=== PATIENT | male | born 1970 | race Two or more races ===

== ENCOUNTER 2020-05-08 08:43 | Emergency (ER) | payer OTHER, SELFPAY ==
[2020-05-08 08:54] VITALS: BP 129/78; PULSE 93; RESP 20; TEMP 38.3; O2SAT 91; BMI 23.6
[2020-05-08 08:58] VITALS: O2SAT 96
--- NOTE | 2020-05-08 09:32 | ED.GENADULT ---
HPI - General Adult General Chief complaint: General Medical Stated complaint: covid symptoms Time Seen by Provider: 05/08/20 09:32 History of Present Illness HPI narrative: patient complains of cough shortness of breath fever body aches fatigue for 3 days, he has a history of asthma, COPD and atelectasis and has had multiple admissions for prior pneumonia, he also complains of decreased sense of taste and no appetite for 2 days, symptoms are moderate Related Data Allergies Allergy/AdvReac Type Severity Reaction Status Date / Time clindamycin [Clindamycin] Allergy Severe SEVERE Verified 05/08/20 10:37 ITCHING Review of Systems Review of Systems: positive for cough shortness of breath fever body aches fatigue and loss of sense of taste Negatives are no headache no dizziness, no sore throat no nausea vomiting diarrhea no skin rash no calf pain or swelling, no leg swelling, no confusion, no urinary complaints no burning or frequency of urine PMFSH Past Medical History PMFSH Narrative: asthma/copd, multiple episode pneumonia in past, bronchiectasis, former smoker Medical History (Updated 05/08/20 @ 13:19 by DURGA Sanchez) Asthma Bronchiectasis Heartburn Social History Social History Smoked in Last 30 Days: No Use of substances other than those prescribed or required for medical reasons: No Advance Directives: No Advance Directives Information Provided: No Physical Exam Vital Signs: Vital Signs: Last Vital Signs Temp 99.5 F 05/08/20 11:25 Pulse 85 05/08/20 11:25 Resp 15 05/08/20 11:25 BP 110/65 05/08/20 11:25 Pulse Ox 97 05/08/20 11:25 Body Mass Index 23.6 patient with nasal cannula satting at 96% comfortable speaking full sentences no acute distress A&O x3 The eyes are clear not read no discharge The pharynx is clear with mucous membranes moist The neck is supple The chest is clear, no wheeze with full symmetric breath sounds Heart no murmur auscultated The abdomen is soft and nontender The extremities no edema, no calf swelling or tenderness Skin no rash Neuro no focal deficit Course Course Course Narrative: patient was positive for COVID With supplemental oxygen he is comfortable and O2 sats remain above 95% chest x-ray did not show any infiltrate or consolidation There was evidence of bronchiectasis, and stable calcifications in the right mid lung Labs came back initially with an elevated potassium of 5.7 which was repeated and 4.5 Case discussed with hospitalist and patient admitted for hypoxia and COVID Medical Decision Making Lab Data Lab results reviewed: Yes I reviewed the patient's lab results. Result diagrams: 05/08/20 09:26 05/08/20 11:29 Labs: Lab Results 05/08/20 05/08/20 05/08/20 Range/Units 09:26 09:26 09:26 WBC 8.0 (4.8-10.8) X10*3/uL RBC 5.00 (4.60-5.80) X10*6/uL Hgb 14.2 (14.0-18.0) g/dl Hct 42.2 (42-52) % MCV 84.4 (80-98) fL MCH 28.4 (27.0-33.0) pg MCHC 33.6 (31.0-36.0) g/dl RDW 12.9 (11.0-16.0) % Plt Count 276 (160-400) X10*3/uL MPV 9.4 (9.4-12.4) fL Immature Gran % (Auto) 0.1 (0.0-0.4) % Neut % (Auto) 62.9 (45-73) % Lymph % (Auto) 30.1 (20-40) % [place] % (Auto) 6.8 (2-11) % Eos % (Auto) 0.0 (0-4) % Baso % (Auto) 0.1 (0-2) % Lymph # (Auto) 2.4 (1.2-4.9) X10*3/uL [place] # (Auto) 0.6 (0.1-1.2) X10*3/uL Eos # (Auto) 0.0 (0.0-0.4) X10*3/uL Baso # (Auto) 0.0 (0.0-0.2) X10*3/uL Abs Immat Gran (auto) 0.01 (0.00-0.03) X10*3/uL Absolute Neuts (auto) 5.0 (2.0-8.3) X10*3/uL Absolute Nucleated RBC 0.000 (0.0-0.012) X10*3/uL Nucleated RBC % (auto) 0.0 (0.0-0.2) /100WBC PT 14.2 H (10.8-13.0) SEC INR 1.2 H (0.9-1.1) APTT 37.2 (24.1-38.0) SEC D-Dimer 255 NG/ML Sodium Cancelled Potassium Cancelled Chloride Cancelled Carbon Dioxide Cancelled Anion Gap Cancelled BUN Cancelled Creatinine Cancelled Estim Creat Clear Calc Cancelled Estimated GFR Cancelled Random Glucose Cancelled Lactic Acid (0.5-2.0) mmol/L Calcium Cancelled Phosphorus (2.7-4.5) mg/dL Ferritin (20-250) ng/mL Total Bilirubin Cancelled Direct Bilirubin Cancelled AST Cancelled ALT Cancelled Alkaline Phosphatase Cancelled Lactate Dehydrogenase (118-273) U/L Total Creatine Kinase (38-174) U/L C-Reactive Protein (< or = 0.50) mg/dL Total Protein Cancelled Albumin Cancelled Procalcitonin ng/mL Coronavirus (PCR) (Negative) Influenza Type A (PCR) (Negative) Influenza Type B (PCR) (Negative) RSV RNA Qual (PCR) (Negative) 05/08/20 05/08/20 05/08/20 Range/Units 09:26 10:17 10:17 WBC (4.8-10.8) X10*3/uL RBC (4.60-5.80) X10*6/uL Hgb (14.0-18.0) g/dl Hct (42-52) % MCV (80-98) fL MCH (27.0-33.0) pg MCHC (31.0-36.0) g/dl RDW (11.0-16.0) % Plt Count (160-400) X10*3/uL MPV (9.4-12.4) fL Immature Gran % (Auto) (0.0-0.4) % Neut % (Auto) (45-73) % Lymph % (Auto) (20-40) % [place] % (Auto) (2-11) % Eos % (Auto) (0-4) % Baso % (Auto) (0-2) % Lymph # (Auto) (1.2-4.9) X10*3/uL [place] # (Auto) (0.1-1.2) X10*3/uL Eos # (Auto) (0.0-0.4) X10*3/uL Baso # (Auto) (0.0-0.2) X10*3/uL Abs Immat Gran (auto) (0.00-0.03) X10*3/uL Absolute Neuts (auto) (2.0-8.3) X10*3/uL Absolute Nucleated RBC (0.0-0.012) X10*3/uL Nucleated RBC % (auto) (0.0-0.2) /100WBC PT (10.8-13.0) SEC INR (0.9-1.1) APTT (24.1-38.0) SEC D-Dimer NG/ML Sodium 130 L Potassium 5.7 H Chloride 96 Carbon Dioxide 23 Anion Gap 17 BUN 24 H Creatinine 1.52 H Estim Creat Clear Calc 57.4 Estimated GFR 49 Random Glucose 97 Lactic Acid 0.6 (0.5-2.0) mmol/L Calcium 8.8 Phosphorus 2.9 (2.7-4.5) mg/dL Ferritin 862 H (20-250) ng/mL Total Bilirubin 0.3 Direct Bilirubin < 0.2 AST 30 ALT 28 Alkaline Phosphatase 77 Lactate Dehydrogenase 149 (118-273) U/L Total Creatine Kinase 102 (38-174) U/L C-Reactive Protein 7.12 H (< or = 0.50) mg/dL Total Protein 7.7 Albumin 4.3 Procalcitonin 0.22 ng/mL Coronavirus (PCR) (Negative) Influenza Type A (PCR) (Negative) Influenza Type B (PCR) (Negative) RSV RNA Qual (PCR) (Negative) 05/08/20 05/08/20 Range/Units 11:18 11:29 WBC (4.8-10.8) X10*3/uL RBC (4.60-5.80) X10*6/uL Hgb (14.0-18.0) g/dl Hct (42-52) % MCV (80-98) fL MCH (27.0-33.0) pg MCHC (31.0-36.0) g/dl RDW (11.0-16.0) % Plt Count (160-400) X10*3/uL MPV (9.4-12.4) fL Immature Gran % (Auto) (0.0-0.4) % Neut % (Auto) (45-73) % Lymph % (Auto) (20-40) % [place] % (Auto) (2-11) % Eos % (Auto) (0-4) % Baso % (Auto) (0-2) % Lymph # (Auto) (1.2-4.9) X10*3/uL [place] # (Auto) (0.1-1.2) X10*3/uL Eos # (Auto) (0.0-0.4) X10*3/uL Baso # (Auto) (0.0-0.2) X10*3/uL Abs Immat Gran (auto) (0.00-0.03) X10*3/uL Absolute Neuts (auto) (2.0-8.3) X10*3/uL Absolute Nucleated RBC (0.0-0.012) X10*3/uL Nucleated RBC % (auto) (0.0-0.2) /100WBC PT (10.8-13.0) SEC INR (0.9-1.1) APTT (24.1-38.0) SEC D-Dimer NG/ML Sodium Potassium 4.5 D Chloride Carbon Dioxide Anion Gap BUN Creatinine Estim Creat Clear Calc Estimated GFR Random Glucose Lactic Acid (0.5-2.0) mmol/L Calcium Phosphorus (2.7-4.5) mg/dL Ferritin (20-250) ng/mL Total Bilirubin Direct Bilirubin AST ALT Alkaline Phosphatase Lactate Dehydrogenase (118-273) U/L Total Creatine Kinase (38-174) U/L C-Reactive Protein (< or = 0.50) mg/dL Total Protein Albumin Procalcitonin ng/mL Coronavirus (PCR) POSITIVE A (Negative) Influenza Type A (PCR) NEGATIVE (Negative) Influenza Type B (PCR) NEGATIVE (Negative) RSV RNA Qual (PCR) NEGATIVE (Negative) ECG Data Interpretation: EKG is normal sinus rhythm rate of 89 VT interval is normal QRS duration normal QTC normal, no acute ST changes Discharge Plan Discharge Clinical Impression: COVID-19, Hypoxia Patient Disposition: Admitted As Inpatient
[2020-05-08 09:35] LABS: Basophils Percent Auto 0.1 % (0-2); Hematocrit 42.2 % (42-52); Hemoglobin 14.2 g/dl (14.0-18.0); Imm Gran Abs Auto 0.01 X10*3/uL (0.00-0.03); Imm Gran Pct Auto 0.1 % (0.0-0.4); Lymphocytes Absolute Auto 2.4 X10*3/uL (1.2-4.9); Lymphocytes Percent Auto 30.1 % (20-40); Mean Corpuscular HGB Conc 33.6 g/dl (31.0-36.0); Mean Corpuscular Hemoglobin 28.4 pg (27.0-33.0); Mean Corpuscular Volume 84.4 fL (80-98); Mean Platelet Volume 9.4 fL (9.4-12.4); Monocytes Absolute Auto 0.6 X10*3/uL (0.1-1.2); Monocytes Percent Auto 6.8 % (2-11); Neutrophils Percent Auto 62.9 % (45-73); Platelet Count 276 X10*3/uL (160-400); Red Cell Distribution Width 12.9 % (11.0-16.0)
[2020-05-08 09:37] LABS: MANUAL DIFF FLAG NO
[2020-05-08 09:41] LABS: INTERNATIONAL NORM RATIO 1.2 (0.9-1.1); Prothrombin Time 14.2 SEC (10.8-13.0)
--- NOTE | 2020-05-08 09:41 | XR_ITS ---
EXAMINATION: XR CHEST CLINICAL INFORMATION: Cough. COMPARISON: Several priors. Most recent of 05/26/19. CT scan of 06/08/18. TECHNIQUE: Frontal view of the chest was obtained. FINDINGS: There is stable appearance of mild diffuse interstitial prominence. Prior CT scan showed bronchiectasis. Small calcifications in the right mid lung are consistent with calcified granulomas. No focal consolidation or other acute abnormality. The pleural spaces are clear. The heart and mediastinal structures are normal. Mild prominence of the right hilum is unchanged and likely vascular. XR/XR chest 1V IMPRESSION: Stable mild interstitial prominence consistent with bronchiectasis. Stable small calcifications right mid lung. No focal consolidation or other acute abnormality.
--- NOTE | 2020-05-08 09:42 | ECG_ITS ---
Test Reason : SOB Blood Pressure : / mmHG Vent. Rate : 089 BPM Atrial Rate : 089 BPM P-R Int : 176 ms QRS Dur : 094 ms QT Int : 350 ms P-R-T Axes : 053 025 043 degrees QTc Int : 425 ms Normal sinus rhythm Moderate voltage criteria for LVH, may be normal variant Borderline ECG When compared with ECG of 02-JUN-2018 21:42, No significant change was found Referred By: Isiah Cat Electronically Signed By:ELSA JONES MD
[2020-05-08 09:43] LABS: Partial Thromboplastin Time 37.2 SEC (24.1-38.0)
[2020-05-08 09:53] LABS: Lactic Acid 0.6 mmol/L (0.5-2.0)
[2020-05-08 10:17] LABS: D Dimer 255 NG/ML
[2020-05-08 10:31] VITALS: BP 120/74; PULSE 89; RESP 23; TEMP 38.1; O2SAT 95
[2020-05-08] MEDS: Acetaminophen 325 MG TABLET 650 MG PO (10:37)
[2020-05-08 10:58] LABS: Alanine Aminotransferase 28 U/L (0-40); Albumin Level 4.3 g/dL (3.5-5.0); Alkaline Phosphatase 77 U/L (39-117); Anion Gap 17 (12-20); Aspartate Amino Transferase 30 U/L (5-37); Bilirubin Direct < 0.2 mg/dL (0.0-0.5); Bilirubin Total 0.3 mg/dL (0.0-1.0); Blood Urea Nitrogen 24 mg/dL (9-16); C Reactive Protein 7.12 mg/dL (< or = 0.50); Calcium 8.8 mg/dL (8.4-10.2); Carbon Dioxide 23 mmol/L (22-29); Chloride 96 mmol/L (96-108); Creatinine Clr Calc Pharmacy 57.4; Estimated Glomerular Filt Rate 49; Glucose Random 97 mg/dL (60-115); Lactate Dehydrogenase 149 U/L (118-273); Phosphorus 2.9 mg/dL (2.7-4.5); Potassium 5.7 mmol/l (3.3-5.1); Sodium 130 mmol/L (135-145); Total Protein 7.7 g/dL (6.5-8.0)
[2020-05-08 11:14] LABS: Procalcitonin 0.22 ng/mL
[2020-05-08 11:19] LABS: Ferritin 862 ng/mL (20-250)
[2020-05-08 11:25] VITALS: BP 110/65; PULSE 85; RESP 15; TEMP 37.5; O2SAT 97
[2020-05-08 12:04] LABS: Potassium 4.5 mmol/l (3.3-5.1)
[2020-05-08 12:11] LABS: Influenza A PCR NEGATIVE (Negative); Influenza B PCR NEGATIVE (Negative); Resp Syncy Virus RNA Qual PCR NEGATIVE (Negative)
[2020-05-08 12:23] LABS: SARS COV2 PCR INHOUSE POSITIVE (Negative)
[2020-05-08] MEDS: dexAMETHasone sod phosphate 4 MG/ML VIAL 6 MG IV (13:41)
[2020-05-08 13:43] VITALS: BP 125/86; PULSE 87; RESP 18; TEMP 37.2; O2SAT 92
--- NOTE | 2020-05-08 13:54 | P.EN_ITS ---
Event Note Date of Service: 05/08/20 Event Note: Called by the ED to evaluate the patient for admission to [facility] for COVID 19. Patient seen and examined in the emergency room. Known to me personally from prior admission relating to his chronic lung disease. Patient reports fevers at home over the last several days. Reports no respiratory symptoms. No worsening of his chronic / intermittent cough. Reports no shortness of breath. Tells me because of his chronic lung disease and fevers he came here to make sure that he did not have pneumonia. He reports no known sick contacts, but does endorse that his brother goes in and out of the home and he is unsure what kind of precautions his brother takes. ED evaluation shows a CXR which is stable from his last admission. His COVID swab is positive and his inflammatory biomakers are elevated. On exam vitals - RR 16-18, saturation initially documented as 91 and started on O2 by NC. Oxygen discontinued while examining interviewing patient and remained from 92-95 on RA. Lungs are clear without any wheezing, no respiratory distress Discussed with the patient about hospital admission vs self-monitoring at home. Patient tells me that he has a pulse ox at home and will keep a close eye on his O2. Educated on watching his O2 and to return to the hospital if it drops and remains below 90 or also if he has worsening shortness of breath. He expresses understanding and elects to self monitor at home and return should he worsen. Above discussed with ED providers.
== END 2020-05-08 13:45 | disposition home or self-care (01) ==
PROVIDERS: Physician Assistant Medical; Emergency Provider Internal Medicine; PCP Family Medicine
DX: U07.1 COVID-19 (principal); R50.9 Fever, unspecified; R09.02 Hypoxemia; J44.9 Chronic obstructive pulmonary disease, unspecified; Z87.891 Personal history of nicotine dependence; Z79.899 Other long term (current) drug therapy
CPT/HCPCS: 0241U; 36415; 71045; 80048; 80076; 82550; 82728; 83605; 83615; 84100; 84132; 84145; 85025; 85379; 85610; 85730; 86140; 87040; 93005; 96374; 99284; J1100

== ENCOUNTER 2021-04-26 21:52 | Emergency (ER) | payer OTHER, SELFPAY ==
[2021-04-26 21:57] VITALS: BP 106/74; PULSE 116; RESP 18; TEMP 37.6; O2SAT 96; BMI 22.3
[2021-04-26 22:17] LABS: Strep A Nucleic Acid Negative (Negative)
[2021-04-26 22:46] LABS: Influenza A PCR NEGATIVE (Negative); Influenza B PCR NEGATIVE (Negative); Resp Syncy Virus RNA Qual PCR NEGATIVE (Negative); SARS COV2 PCR INHOUSE NEGATIVE (Negative)
== END 2021-04-26 22:47 | disposition left against medical advice (07) ==
PROVIDERS: Emergency Provider Emergency Medicine; PCP Family Medicine
DX: R05.9 Cough, unspecified (principal); J02.9 Acute pharyngitis, unspecified; Z20.822 Contact with and (suspected) exposure to COVID-19
CPT/HCPCS: 0241U; 36415; 87651; 99282; 99283

== ENCOUNTER 2021-05-04 16:51 | Emergency (ER) | payer OTHER, SELFPAY ==
--- NOTE | ~2021-05-04 | XR_ITS ---
EXAMINATION: XR CHEST CLINICAL INFORMATION: Cough COMPARISON: Chest x-ray on 05/08/2020 TECHNIQUE: Frontal view of the chest was obtained. FINDINGS: The cardiomediastinal silhouette is stable. There is increased hazy opacity in the right perihilar region. No additional areas consolidation. No pleural effusions. XR/XR chest 1V IMPRESSION: Increased hazy opacity in the right perihilar region may be infectious and/or inflammatory in etiology.
[2021-05-04 17:10] VITALS: BP 110/82; PULSE 100; RESP 18; TEMP 36.9; O2SAT 99; BMI 23.6
[2021-05-04 17:48] LABS: COVID-19 Test Negative (Negative)
--- NOTE | 2021-05-04 18:18 | ED_ITS ---
HPI - General Adult General Chief complaint: General Medical <DURGA Coon - Last Filed: 05/05/21 01:03> Stated complaint: back pain <DURGA Coon - Last Filed: 05/05/21 01:03> Time Seen by Provider: 05/04/21 17:20 <DURGA Coon - Last Filed: 05/05/21 01:03> Source: patient <DURGA Coon - Last Filed: 05/05/21 01:03> Mode of arrival: ambulatory <DURGA Coon - Last Filed: 05/05/21 01:03> History of Present Illness HPI narrative: 50-year-old male with a past medical history of asthma, bronchiectasis, GERD, presenting to the ED complaining of nonproductive cough and wheezing x1 week, now with bilateral low back pain x a couple days. Admits has been moving heavy furniture prior to back pain. Denies known injury/trauma or fall. Denies SOB, CP, fever/chills, numbness, tingling, weakness, radiation of pain, urinary incontinence/retention <DURGA Coon - Last Filed: 05/05/21 01:03> Onset (ago): week(s) <DURGA Coon - Last Filed: 05/05/21 01:03> Radiation: non-radiation <DURGA Coon - Last Filed: 05/05/21 01:03> Pain Consistency: constant <DURGA Coon - Last Filed: 05/05/21 01:03> Associated symptoms: denies other symptoms <DURGA Coon - Last Filed: 05/05/21 01:03> Related Data Home medications: Previous Rx's Medication Instructions Recorded albuterol sulfate 90 mcg/actuation 2 puff INHALATION Q4-6H PRN #8.5 g 05/08/20 aerosol inhaler dexamethasone 4 mg tablet 8 mg PO DAILY 9 Days #18 tab 05/08/20 (Decadron) doxycycline hyclate 100 mg capsule 100 mg PO BID 7 Days #14 cap 05/08/20 acetaminophen 500 mg tablet 500 mg PO Q6H PRN #20 tab 05/04/21 (Tylenol Extra Strength) amoxicillin 500 mg capsule 1,000 mg PO TID 7 Days #42 cap 05/04/21 azithromycin 250 mg tablet See Rx Instructions .ROUTE 05/04/21 .COMPLEX #6 tab cyclobenzaprine 5 mg tablet 5 mg PO Q8H PRN 5 Days #14 tab 05/04/21 fluticasone propionate 50 2 spray INTRANASAL DAILY #16 g 05/04/21 mcg/actuation nasal spray,suspension (Flonase Allergy Relief) lidocaine 5 % topical patch 1 patch TOPICAL DAILY PRN #30 ea 05/04/21 (Lidoderm) MDD remove after 12 hours naproxen 500 mg tablet 500 mg PO BID PRN 10 Days #20 tab 05/04/21 <DURGA Coon Last Filed: 05/05/21 01:03> Allergies/adverse reactions: Allergies Allergy/AdvReac Type Severity Reaction Status Date / Time clindamycin [Clindamycin] Allergy Severe SEVERE Verified 05/08/20 10:37 ITCHING <DURGA Coon Last Filed: 05/05/21 01:03> Review of Systems Review of Systems: Constitutional: No Fever, No Chills, No Fatigue, No Malaise ENT/Mouth: No Ear Pain, No Nasal Congestion, No sore throat, No Rhinorrhea, No Swallowing Difficulty Eyes: No Eye Pain, No Swelling, No Redness, No Discharge Cardiovascular: No Chest Pain, No SOB, No Edema, No Palpitations Respiratory: + Cough, No Sputum, + Wheezing, No Smoke Exposure, No Dyspnea Gastrointestinal: No Nausea, No Vomiting, No Diarrhea, No Constipation, No Abdominal pain Genitourinary: No Dysuria, No Urinary Frequency, No Hematuria, No urinary incontinence/retention Musculoskeletal: + joint pain, No Myalgias, No Joint Swelling Skin: No Skin Lesions, No rash Neuro: No Weakness, No Numbness, No Paresthesias, No Headache <DURGA Coon Last Filed: 05/05/21 01:03> Yes all other systems are reviewed and are negative <DURGA Coon Last Filed: 05/05/21 01:03> Neurologic: Denies Sensory deficit (Neuro) <DURGA Coon Last Filed: 05/05/21 01:03> [facility] Past Medical History Attestation statement: The following information was validated with the patient. <DURGA Coon Last Filed: 05/05/21 01:03> Medical History: Medical History Asthma Bronchiectasis Heartburn <DURGA Coon - Last Filed: 05/05/21 01:03> Social History Social History: Social History Patient Tobacco Use Status: Former Tobacco user Use of substances other than those prescribed or required for medical reasons: No Advance Directives: No Advance Directives Information Provided: Yes <DURGA Coon - Last Filed: 05/05/21 01:03> Physical Exam Vital Signs: Vital Signs: Last Vital Signs Temp 98.4 F 05/04/21 17:10 Pulse 99 05/04/21 20:49 Resp 18 05/04/21 20:26 BP 135/81 05/04/21 20:26 Pulse Ox 96 05/04/21 20:26 BMI result Body Mass Index 23.6 <DURGA Coon - Last Filed: 05/05/21 01:03> Vital Signs: Last Vital Signs Temp 98.4 F 05/04/21 17:10 Pulse 99 05/04/21 20:49 Resp 18 05/04/21 20:26 BP 135/81 05/04/21 20:26 Pulse Ox 96 05/04/21 20:26 BMI result Body Mass Index 23.6 <DURGA Sanchez - Last Filed: 05/20/21 14:16> Const: General: cooperative and healthy appearing <DURGA Coon - Last Filed: 05/05/21 01:03> Orientation/consciousness: patient oriented x3 <DURGA Coon - Last Filed: 05/05/21 01:03> Limitations: no limitations <DURGA Coon - Last Filed: 05/05/21 01:03> HENMT: Head: Yes normal to inspection and Yes atraumatic <DURGA Coon - Last Filed: 05/05/21 01:03> Ears: hearing grossly normal bilaterally <DURGA Coon - Last Filed: 05/05/21 01:03> General nose exam: Normal external nose present <DURGA Coon - Last Filed: 05/05/21 01:03> Face and sinus: Yes normal facial exam <Heidi Carpenter [place] - Last Filed: 05/05/21 01:03> Eyes: General: appearance normal, both eyes and all related structures <Heidi Carpenter [place] - Last Filed: 05/05/21 01:03> EOM: EOMs intact bilaterally <Heidineeta Carpenter [place] - Last Filed: 05/05/21 01:03> Neck: Neck: Yes normal visual inspection and Yes no meningeal signs <Heidi Carpenter MN - Last Filed: 05/05/21 01:03> Resp: Effort & Inspection: normal respiratory effort <Hedii Carpenter MN - Last Filed: 05/05/21 01:03> Auscultation: wheezes (Slight bibasilar end expiratory wheeze) <Heidi Carpenter MN - Last Filed: 05/05/21 01:03> Cardio: Rate: regular rate <Heidi Carpenter MN - Last Filed: 05/05/21 01:03> Heart sounds: S1 normal heart sound present and S2 normal heart sound present <Heidi Carpenter MN - Last Filed: 05/05/21 01:03> GI: Inspection: Yes normal to inspection <Heidi Carpenter [place] - Last Filed: 05/05/21 01:03> Palpation (GI): Soft to palpation, nontender, no guarding and not rigid <Heidi Carpenter MN - Last Filed: 05/05/21 01:03> : General: Yes no CVA tenderness <Heidi Carpenter [place] - Last Filed: 05/05/21 01:03> Back/Spine/Pelvis: Other: No midline thoracic/lumbar spinous tenderness/step- off or deformity. Bilateral lumbar MSK tenderness to palpation <Heidi Carpenter MN - Last Filed: 05/05/21 01:03> Back: no CVA tenderness <Heidi Carpenter PA - Last Filed: 05/05/21 01:03> Skin: Rashes: no rashes <Heidi Carpenter PA - Last Filed: 05/05/21 01:03> Wounds: no wounds <Heidi Carpenter MN - Last Filed: 05/05/21 01:03> Neuro: Other: No saddle anesthesia. Strength intact throughout. Ambulating with steady gait <DURGA Coon - Last Filed: 05/05/21 01:03> General: patient oriented x3, gait normal, tone normal, moves all extremities, no meningeal signs and no focal motor deficits <DURGA Coon - Last Filed: 05/05/21 01:03> Gait exam (Neuro): Normal gait present <DURGA Coon Last Filed: 05/05/21 01:03> Sensory Exam: No Sensory deficit (Neuro) <DURGA Coon - Last Filed: 05/05/21 01:03> Extrem: General: Yes normal to inspection <DURGA Coon - Last Filed: 05/05/21 01:03> Course Course Course Narrative: XR chest 1V IMPRESSION: Increased hazy opacity in the right perihilar region may be infectious and/or inflammatory in etiology. > labs added including lactic/blood cultures for low concern for severe sepsis at this time -2027--leukocytosis of 14.6. H&H around patient's baseline. Labs otherwise unremarkable. Lactic acid negative > patient does not meet severe sepsis criteria -COVID-19 negative > results discussed with patient including worrisome signs and symptoms and strict return precautions and need to follow-up with PCP. Given 1st dose of antibiotics in the ED <DURGA Coon Last Filed: 05/05/21 01:03> Medical Decision Making [facility] Narrative Medical decision making narrative: 50-year-old male with a past medical history of asthma, bronchiectasis, GERD, presenting to the ED complaining of nonproductive cough and wheezing x1 week, now with bilateral low back pain x a couple days. On exam vital signs stable, NAD/nontoxic, lungs with slight end expiratory bibasilar wheeze, MSK back pain elicited. No midline spinous tenderness or red flag symptoms. Concern for asthma exacerbation vs viral syndrome/COVID-19 vs pneumonia or bronchitis. Back pain likely musculoskeletal from moving furniture. Low concern for cauda equina, cord compression, or fracture Plan: CXR, COVID-19 testing <DURGA Coon Last Filed: 05/05/21 01:03> Medical Records Medical records reviewed: Yes I reviewed the patient's medical records. <DURGA Coon - Last Filed: 05/05/21 01:03> Lab Data Lab results reviewed: Yes I reviewed the patient's lab results. <DURGA Coon - Last Filed: 05/05/21 01:03> Result diagrams: : 05/04/21 19:42 05/04/21 19:42 <DURGA Coon - Last Filed: 05/05/21 01:03> Labs: Lab Results 05/04/21 05/04/21 05/04/21 Range/Units 17:14 19:41 19:42 WBC 14.6 H (4.8-10.8) X10*3/uL RBC 4.29 L (4.60-5.80) X10*6/uL Hgb 12.2 L (14.0-18.0) g/dl Hct 37.4 L (42.0-52.0) % MCV 87.2 (80.0-98.0) fL MCH 28.4 (27.0-33.0) pg MCHC 32.6 (31.0-36.0) g/dl RDW 14.6 (11.0-16.0) % Plt Count 405 H (160-400) X10*3/uL MPV 8.7 L (9.4-12.4) fL Immature Gran % (Auto) 0.5 H (0.0-0.4) % Neut % (Auto) 66.9 (45-73) % Lymph % (Auto) 24.9 (20-40) % [place] % (Auto) 5.8 (2-11) % Eos % (Auto) 1.5 (0-4) % Baso % (Auto) 0.4 (0-2) % Lymph # (Auto) 3.6 (1.2-4.9) X10*3/uL [place] # (Auto) 0.8 (0.1-1.2) X10*3/uL Eos # (Auto) 0.2 (0.0-0.4) X10*3/uL Baso # (Auto) 0.1 (0.0-0.2) X10*3/uL Abs Immat Gran (auto) 0.07 H (0.00-0.03) X10*3/uL Absolute Neuts (auto) 9.8 H (2.0-8.3) x10*3/uL Absolute Nucleated RBC 0.000 (0.0-0.012) X10*3/uL Nucleated RBC % (auto) 0.0 (0.0-0.2) /100WBC Sodium (135-145) mmol/L Potassium (3.3-5.1) mmol/L Chloride (96-108) mmol/L Carbon Dioxide (22-29) mmol/L Anion Gap (12-20) BUN (9-16) mg/dL Creatinine (0.5-1.4) mg/dL Estim Creat Clear Calc Estimated GFR Random Glucose (60-115) mg/dL Lactic Acid 0.8 (0.5-2.0) mmol/L Calcium (8.4-10.2) mg/dL Magnesium (1.6-2.6) mg/dL Total Bilirubin (0.0-1.0) mg/dL Direct Bilirubin (0.0-0.5) mg/dL AST (5-37) U/L ALT (0-40) U/L Alkaline Phosphatase (39-117) U/L Total Protein (6.5-8.0) g/dL Albumin (3.5-5.0) g/dL COVID-19 (STEPH) Negative (Negative) COVID-19 Clin Com See Note 05/04/21 Range/Units 19:42 WBC (4.8-10.8) X10*3/uL RBC (4.60-5.80) X10*6/uL Hgb (14.0-18.0) g/dl Hct (42.0-52.0) % MCV (80.0-98.0) fL MCH (27.0-33.0) pg MCHC (31.0-36.0) g/dl RDW (11.0-16.0) % Plt Count (160-400) X10*3/uL MPV (9.4-12.4) fL Immature Gran % (Auto) (0.0-0.4) % Neut % (Auto) (45-73) % Lymph % (Auto) (20-40) % [place] % (Auto) (2-11) % Eos % (Auto) (0-4) % Baso % (Auto) (0-2) % Lymph # (Auto) (1.2-4.9) X10*3/uL [place] # (Auto) (0.1-1.2) X10*3/uL Eos # (Auto) (0.0-0.4) X10*3/uL Baso # (Auto) (0.0-0.2) X10*3/uL Abs Immat Gran (auto) (0.00-0.03) X10*3/uL Absolute Neuts (auto) (2.0-8.3) x10*3/uL Absolute Nucleated RBC (0.0-0.012) X10*3/uL Nucleated RBC % (auto) (0.0-0.2) /100WBC Sodium 138 (135-145) mmol/L Potassium 4.3 (3.3-5.1) mmol/L Chloride 105 (96-108) mmol/L Carbon Dioxide 24 (22-29) mmol/L Anion Gap 13 (12-20) BUN 21 H (9-16) mg/dL Creatinine 1.12 (0.5-1.4) mg/dL Estim Creat Clear Calc 77.1 Estimated GFR > 60 Random Glucose 89 (60-115) mg/dL Lactic Acid (0.5-2.0) mmol/L Calcium 9.0 (8.4-10.2) mg/dL Magnesium 2.0 (1.6-2.6) mg/dL Total Bilirubin 0.3 (0.0-1.0) mg/dL Direct Bilirubin < 0.2 (0.0-0.5) mg/dL AST 17 D (5-37) U/L ALT 21 (0-40) U/L Alkaline Phosphatase 94 D (39-117) U/L Total Protein 7.5 (6.5-8.0) g/dL Albumin 4.1 (3.5-5.0) g/dL COVID-19 (STEPH) (Negative) COVID-19 Clin Com <DURGA Coon - Last Filed: 05/05/21 01:03> Lab Results 05/04/21 05/04/21 05/04/21 Range/Units 17:14 19:41 19:42 WBC 14.6 H (4.8-10.8) X10*3/uL RBC 4.29 L (4.60-5.80) X10*6/uL Hgb 12.2 L (14.0-18.0) g/dl Hct 37.4 L (42.0-52.0) % MCV 87.2 (80.0-98.0) fL MCH 28.4 (27.0-33.0) pg MCHC 32.6 (31.0-36.0) g/dl RDW 14.6 (11.0-16.0) % Plt Count 405 H (160-400) X10*3/uL MPV 8.7 L (9.4-12.4) fL Immature Gran % (Auto) 0.5 H (0.0-0.4) % Neut % (Auto) 66.9 (45-73) % Lymph % (Auto) 24.9 (20-40) % [place] % (Auto) 5.8 (2-11) % Eos % (Auto) 1.5 (0-4) % Baso % (Auto) 0.4 (0-2) % Lymph # (Auto) 3.6 (1.2-4.9) X10*3/uL [place] # (Auto) 0.8 (0.1-1.2) X10*3/uL Eos # (Auto) 0.2 (0.0-0.4) X10*3/uL Baso # (Auto) 0.1 (0.0-0.2) X10*3/uL Abs Immat Gran (auto) 0.07 H (0.00-0.03) X10*3/uL Absolute Neuts (auto) 9.8 H (2.0-8.3) x10*3/uL Absolute Nucleated RBC 0.000 (0.0-0.012) X10*3/uL Nucleated RBC % (auto) 0.0 (0.0-0.2) /100WBC Sodium (135-145) mmol/L Potassium (3.3-5.1) mmol/L Chloride (96-108) mmol/L Carbon Dioxide (22-29) mmol/L Anion Gap (12-20) BUN (9-16) mg/dL Creatinine (0.5-1.4) mg/dL Estim Creat Clear Calc Estimated GFR Random Glucose (60-115) mg/dL Lactic Acid 0.8 (0.5-2.0) mmol/L Calcium (8.4-10.2) mg/dL Magnesium (1.6-2.6) mg/dL Total Bilirubin (0.0-1.0) mg/dL Direct Bilirubin (0.0-0.5) mg/dL AST (5-37) U/L ALT (0-40) U/L Alkaline Phosphatase (39-117) U/L Total Protein (6.5-8.0) g/dL Albumin (3.5-5.0) g/dL COVID-19 (STEPH) Negative (Negative) COVID-19 Clin Com See Note 05/04/21 Range/Units 19:42 WBC (4.8-10.8) X10*3/uL RBC (4.60-5.80) X10*6/uL Hgb (14.0-18.0) g/dl Hct (42.0-52.0) % MCV (80.0-98.0) fL MCH (27.0-33.0) pg MCHC (31.0-36.0) g/dl RDW (11.0-16.0) % Plt Count (160-400) X10*3/uL MPV (9.4-12.4) fL Immature Gran % (Auto) (0.0-0.4) % Neut % (Auto) (45-73) % Lymph % (Auto) (20-40) % [place] % (Auto) (2-11) % Eos % (Auto) (0-4) % Baso % (Auto) (0-2) % Lymph # (Auto) (1.2-4.9) X10*3/uL [place] # (Auto) (0.1-1.2) X10*3/uL Eos # (Auto) (0.0-0.4) X10*3/uL Baso # (Auto) (0.0-0.2) X10*3/uL Abs Immat Gran (auto) (0.00-0.03) X10*3/uL Absolute Neuts (auto) (2.0-8.3) x10*3/uL Absolute Nucleated RBC (0.0-0.012) X10*3/uL Nucleated RBC % (auto) (0.0-0.2) /100WBC Sodium 138 (135-145) mmol/L Potassium 4.3 (3.3-5.1) mmol/L Chloride 105 (96-108) mmol/L Carbon Dioxide 24 (22-29) mmol/L Anion Gap 13 (12-20) BUN 21 H (9-16) mg/dL Creatinine 1.12 (0.5-1.4) mg/dL Estim Creat Clear Calc 77.1 Estimated GFR > 60 Random Glucose 89 (60-115) mg/dL Lactic Acid (0.5-2.0) mmol/L Calcium 9.0 (8.4-10.2) mg/dL Magnesium 2.0 (1.6-2.6) mg/dL Total Bilirubin 0.3 (0.0-1.0) mg/dL Direct Bilirubin < 0.2 (0.0-0.5) mg/dL AST 17 D (5-37) U/L ALT 21 (0-40) U/L Alkaline Phosphatase 94 D (39-117) U/L Total Protein 7.5 (6.5-8.0) g/dL Albumin 4.1 (3.5-5.0) g/dL COVID-19 (STEPH) (Negative) COVID-19 Clin Com <DURGA Sanchez - Last Filed: 05/20/21 14:16> Discharge Plan Discharge Clinical Impression: Pneumonia, Back pain <DURGA Coon - Last Filed: 05/05/21 01:03> Patient Disposition: Home, Self-Care <DURGA Coon - Last Filed: 05/05/21 01:03> Instructions: Acute Low Back Pain (ED), Pneumonia (ED) <DURGA Coon - Last Filed: 05/05/21 01:03> Additional Instructions: You have pneumonia. Amoxicillin and azithromycin are antibiotics please take as prescribed If you develop constant worsening shortness of breath, chest pain, fever unresolved with medications please return to the emergency department Your back pain is likely musculoskeletal Flexeril is a muscle relaxer, take at night as it makes you drowsy, do not drive, drink alcohol, or operate machinery while taking it Naproxen as an anti-inflammatory / pain medication, take with food Lidoderm patches are numbing patches, apply to painful area In addition take Tylenol at home If symptoms persist or worsen, pain becomes unbearable, you developed urinary retention or incontinence, or weakness return to the ED Please follow-up with your doctor <DURGA Coon - Last Filed: 05/05/21 01:03> Prescriptions: New amoxicillin 500 mg capsule 1,000 mg PO TID 7 Days Qty: 42 RF: 0 azithromycin 250 mg tablet See Rx Instructions .ROUTE .COMPLEX Qty: 6 RF: 0 acetaminophen [Tylenol Extra Strength] 500 mg tablet 500 mg PO Q6H PRN (Reason: pain or fever) Qty: 20 RF: 0 fluticasone propionate [Flonase Allergy Relief] 50 mcg/actuation spray,suspension 2 spray intranasal DAILY Qty: 16 RF: 0 naproxen 500 mg tablet 500 mg PO BID PRN (Reason: pain) 10 Days Qty: 20 RF: 0 cyclobenzaprine 5 mg tablet 5 mg PO Q8H PRN (Reason: pain (scale score 7-10)) 5 Days Qty: 14 RF: 0 lidocaine [Lidoderm] 5 % adhesive patch,medicated 1 patch topical DAILY MDD remove after 12 hours PRN (Reason: pain) Qty: 30 RF: 0 No Action dexamethasone [Decadron] 4 mg tablet 8 mg PO DAILY 9 Days Qty: 18 RF: 0 doxycycline hyclate 100 mg capsule 100 mg PO BID 7 Days Qty: 14 RF: 0 albuterol sulfate 90 mcg/actuation HFA aerosol inhaler 2 puff inhalation Q4-6H PRN (Reason: shortness of breath or wheezing) Qty: 8.5 RF: 0 <DURGA Coon - Last Filed: 05/05/21 01:03> Referrals: Physician,Unknown J [Primary Care Provider] - 2 days <DURGA Coon - Last Filed: 05/05/21 01:03> Stand Alone Forms: Work/School Release <DURGA Coon - Last Filed: 05/05/21 01:03> Interventions: ED Discharge Assessment Last Done: 05/04/21 21:06 <DURGA Coon - Last Filed: 05/05/21 01:03> Discharge Date/Time: 05/04/21 21:06 <DURGA Coon - Last Filed: 05/05/21 01:03>
[2021-05-04 18:46] VITALS: BP 130/78; PULSE 96; RESP 18; O2SAT 95
[2021-05-04 19:48] LABS: MANUAL DIFF FLAG NO
[2021-05-04 19:49] LABS: Basophils Absolute Auto 0.1 X10*3/uL (0.0-0.2); Basophils Percent Auto 0.4 % (0-2); Eosinophils Absolute Auto 0.2 X10*3/uL (0.0-0.4); Eosinophils Percent Auto 1.5 % (0-4); Hematocrit 37.4 % (42.0-52.0); Hemoglobin 12.2 g/dl (14.0-18.0); Imm Gran Abs Auto 0.07 X10*3/uL (0.00-0.03); Imm Gran Pct Auto 0.5 % (0.0-0.4); Lymphocytes Absolute Auto 3.6 X10*3/uL (1.2-4.9); Lymphocytes Percent Auto 24.9 % (20-40); Mean Corpuscular HGB Conc 32.6 g/dl (31.0-36.0); Mean Corpuscular Hemoglobin 28.4 pg (27.0-33.0); Mean Corpuscular Volume 87.2 fL (80.0-98.0); Mean Platelet Volume 8.7 fL (9.4-12.4); Monocytes Absolute Auto 0.8 X10*3/uL (0.1-1.2); Monocytes Percent Auto 5.8 % (2-11); Neutrophils Absolute Auto 9.8 x10*3/uL (2.0-8.3); Neutrophils Percent Auto 66.9 % (45-73); Platelet Count 405 X10*3/uL (160-400); Red Blood Count 4.29 X10*6/uL (4.60-5.80); Red Cell Distribution Width 14.6 % (11.0-16.0); White Blood Count 14.6 X10*3/uL (4.8-10.8)
[2021-05-04 19:57] LABS: Lactic Acid 0.8 mmol/L (0.5-2.0)
[2021-05-04 20:04] LABS: Alanine Aminotransferase 21 U/L (0-40); Albumin Level 4.1 g/dL (3.5-5.0); Alkaline Phosphatase 94 U/L (39-117); Anion Gap 13 (12-20); Aspartate Amino Transferase 17 U/L (5-37); Bilirubin Direct < 0.2 mg/dL (0.0-0.5); Bilirubin Total 0.3 mg/dL (0.0-1.0); Blood Urea Nitrogen 21 mg/dL (9-16); Carbon Dioxide 24 mmol/L (22-29); Chloride 105 mmol/L (96-108); Creatinine Clr Calc Pharmacy 77.1; Estimated Glomerular Filt Rate > 60; Glucose Random 89 mg/dL (60-115); Potassium 4.3 mmol/L (3.3-5.1); Sodium 138 mmol/L (135-145); Total Protein 7.5 g/dL (6.5-8.0)
[2021-05-04] MEDS: Benzonatate 100 MG CAPSULE 200 MG PO (20:23)
[2021-05-04] MEDS: Cyclobenzaprine HCl 5 MG TABLET PO (20:23)
[2021-05-04] MEDS: Lidocaine 4 % Patch ADH..PATCH 1 PATCH TRANSDERMA (20:24)
[2021-05-04 20:26] VITALS: BP 135/81; PULSE 97; RESP 18; O2SAT 96
[2021-05-04] MEDS: Albuterol/Iprat 2.5/0.5MG 3 ML AMPUL.NEB INHALE (20:46)
[2021-05-04 20:49] VITALS: PULSE 99; O2SAT 96
[2021-05-04] MEDS: Azithromycin 500 MG TABLET PO (21:03)
[2021-05-04] MEDS: Amoxicillin 500 MG CAPSULE 1000 MG PO (21:03)
== END 2021-05-04 21:06 | disposition home or self-care (01) ==
PROVIDERS: Physician Assistant; Emergency Provider Emergency Medicine
DX: J18.9 Pneumonia, unspecified organism (principal); M54.50 Low back pain, unspecified; Z20.822 Contact with and (suspected) exposure to COVID-19
CPT/HCPCS: 36415; 71045; 80048; 80076; 83605; 83735; 85025; 87040; 87635; 94640; 99284

== ENCOUNTER 2021-06-16 17:31 | Emergency (ER) | payer OTHER, SELFPAY ==
--- NOTE | ~2021-06-16 | XR_ITS ---
EXAMINATION: XR CHEST CLINICAL INFORMATION: Shortness of breath, chest tightness COMPARISON: Chest x-ray on 05/04/2021 TECHNIQUE: Frontal view of the chest was obtained. FINDINGS: The cardiomediastinal silhouette is stable. There is increased opacity at the right perihilar region with mild diffuse bronchial wall thickening. No pleural effusions or pneumothoraces. XR/XR chest 1V IMPRESSION: Right perihilar opacity and mild bronchial wall thickening may be infectious and/or inflammatory in etiology.
[2021-06-16 17:38] VITALS: BP 139/96; PULSE 105; RESP 18; TEMP 37.2; O2SAT 96; BMI 23.6
[2021-06-16 18:18] LABS: COVID-19 Test Negative (Negative); IDNOW Serial# 9DD0AD1C
[2021-06-16 18:33] VITALS: BP 138/80; PULSE 98; RESP 20; O2SAT 98
--- NOTE | 2021-06-16 18:54 | ED.ASTHMA ---
HPI - Asthma General Chief Complaint: Asthma Stated Complaint: body aches, chest wall pain Time Seen by Provider: 06/16/21 18:36 Source: patient Mode of arrival: ambulatory Limitations: no limitations History of Present Illness HPI Narrative: 50-year-old male with a history of asthma here with reports of chest tightness with cough for 1 week. Patient also having chills but denies any fever. Occasionally have so C8 wheezing but no shortness of breath. No leg swelling or pain. No recent travel or sick contact. Patient has received Moderna vaccine x2 and has previously had COVID-19 infection. Related Data Previous Rx's Medication Instructions Recorded albuterol sulfate 90 mcg/actuation 2 puff INHALATION Q4-6H PRN #8.5 g 05/08/20 aerosol inhaler dexamethasone 4 mg tablet 8 mg PO DAILY 9 Days #18 tab 05/08/20 (Decadron) doxycycline hyclate 100 mg capsule 100 mg PO BID 7 Days #14 cap 05/08/20 acetaminophen 500 mg tablet 500 mg PO Q6H PRN #20 tab 05/04/21 (Tylenol Extra Strength) amoxicillin 500 mg capsule 1,000 mg PO TID 7 Days #42 cap 05/04/21 azithromycin 250 mg tablet See Rx Instructions .ROUTE 05/04/21 .COMPLEX #6 tab cyclobenzaprine 5 mg tablet 5 mg PO Q8H PRN 5 Days #14 tab 05/04/21 fluticasone propionate 50 2 spray INTRANASAL DAILY #16 g 05/04/21 mcg/actuation nasal spray,suspension (Flonase Allergy Relief) lidocaine 5 % topical patch 1 patch TOPICAL DAILY PRN #30 ea 05/04/21 (Lidoderm) MDD remove after 12 hours naproxen 500 mg tablet 500 mg PO BID PRN 10 Days #20 tab 05/04/21 albuterol sulfate 90 mcg/actuation 2 puff INHALATION QID PRN #8.5 g 06/16/21 aerosol inhaler codeine 10 mg-guaifenesin 100 mg/5 5 ml PO Q6H PRN #60 ml 06/16/21 mL oral liquid doxycycline monohydrate 100 mg 100 mg PO BID #14 tab 06/16/21 tablet prednisone 20 mg tablet 40 mg PO DAILY #8 tab 06/16/21 Allergies Allergy/AdvReac Type Severity Reaction Status Date / Time clindamycin [Clindamycin] Allergy Severe SEVERE Verified 12/06/20 10:37 ITCHING Review of Systems Review of Systems: Yes all other systems are reviewed and are negative Constitutional: Constitutional: Reports no additional constitutional complaints, Denies body ache(s), Reports chills, Denies fever(s), Denies headache(s) and Denies weakness Eyes: Eyes: Reports no additional eye complaints and Denies change in vision ENT: Reports system reviewed and no additional complaints, except as documented, Denies dizziness, Denies headache(s), Denies nasal congestion, Denies nasal discharge and Denies neck pain Cardiovascular: Cardiovascular: Reports no additional cardiovascular complaints, Reports chest pain, Denies leg edema and Denies dyspnea Respiratory: Respiratory: Reports no additional respiratory complaints, Reports cough, Denies dyspnea and Reports wheezing Gastrointestinal: Gastrointestinal: Reports no additional gastrointestinal complaints, Denies abdominal pain, Denies diarrhea, Denies nausea and Denies vomiting Genitourinary: Genitourinary: Denies urinary incontinence Musculoskeletal: Musculoskeletal: Reports no additional musculoskeletal complaints, Denies back pain, Denies arthralgias, Denies joint swelling, Denies neck pain, Denies numbness and Denies tingling Integumentary/Breasts: Skin/Breast: Reports system reviewed and no additional complaints, except as docu and Denies rash Neurologic: Reports system reviewed and no additional complaints, except as documented, Denies Abnormal speech present, Denies dizziness, Denies headache(s), Denies numbness, Denies tingling and Denies weakness Allergic/Immunologic: Allergic/Immunologic: Reports wheezing PMFSH Past Medical History Attestation statement: The following information was validated with the patient. Source: old records reviewed and nursing notes reviewed Medical History Asthma Bronchiectasis Heartburn Social History Social History Patient Tobacco Use Status: Former Tobacco user Advance Directives: No Advance Directives Information Provided: No Physical Exam Vital Signs: Vital Signs: Last Vital Signs Temp 98.9 F 06/16/21 17:38 Pulse 98 06/16/21 18:33 Resp 20 06/16/21 18:33 BP 138/80 06/16/21 18:33 Pulse Ox 98 06/16/21 18:33 BMI result Body Mass Index 23.6 Const: General: cooperative, healthy appearing, comfortable and no acute distress Orientation/consciousness: patient oriented x3 Limitations: no limitations HENMT: Head: Yes normal to inspection Ears: hearing grossly normal bilaterally General nose exam: Normal external nose present Face and sinus: Yes normal facial exam Mouth: Normal oral and palatal mucosa present Throat: Yes posterior oropharynx normal Eyes: General: appearance normal, both eyes and all related structures Pupils: Equal, round and reactive pupils present Neck: Neck: Yes normal visual inspection Chest: Chest palpation & inspection: normal inspection of the chest Resp: Other: Diminished breath sounds throughout Effort & Inspection: normal respiratory effort Cardio: Rate: regular rate Rhythm: regular rhythm Peripheral pulses: Peripheral pulses 2+ throughout GI: Inspection: Yes normal to inspection Palpation (GI): Soft to palpation and nontender Auscultation: normal bowel sounds Back/Spine/Pelvis: Thoracic/Lumbar Spine: thoracic and lumbar spine normal to inspection Skin: General skin exam: no rashes or lesions noted Neuro: General: patient oriented x3, no focal motor deficits and normal sensation to monofilament Cranial nerves: Yes Equal, round and reactive pupils present Cognition (Neuro): normal cognition Speech: No Abnormal speech present Gait exam (Neuro): Normal gait present Motor exam (neuro): 5/5 motor strength present throughout Extrem: General: Yes normal to inspection, Yes no pedal edema and Yes no calf tenderness Course Course Course Narrative: 50-year-old male with a history of asthma here with reports of chest tightness with associated nonproductive cough and wheezing for 1 week. COVID screen is negative. Chest x-ray shows a right lobe pneumonia. The patient has no hypoxia or tachypnea. He has diminished breath sounds throughout. Will give DuoNeb. Will discharge patient home on prednisone course, antibiotic, albuterol inhaler and cough medication. Reviewed worrisome signs and symptoms of when to return to the emergency department. Comfortable discharge home. [facility] - Asthma Medical Records Attestation: I reviewed the patient's medical records. Lab Data Attestation: I reviewed the patient's lab results. Labs: Lab Results 06/16/21 Range/Units 17:43 COVID-19 (STEPH) Negative (Negative) COVID-19 Clin Com See Note Imaging Data Chest x-ray: Attestation: I personally reviewed and interpreted this imaging study as follows: Radiologist's impression: [id number] [place] [address] XRay Report Signed Patient: Feliciano David MR#: [id number] : 1970 Acct:[id number] Age/Sex: 50 / M ADM Date: 06/16/21 Loc: .ED Attending Dr: Ordering Physician: Generic ED Physician Date of Service: 06/16/21 Procedure(s): XR chest 1V Accession Number(s): [id number] cc: Generic ED Physician~ EXAMINATION: XR CHEST CLINICAL INFORMATION: Shortness of breath, chest tightness COMPARISON: Chest x-ray on 05/04/2021 TECHNIQUE: Frontal view of the chest was obtained. FINDINGS: The cardiomediastinal silhouette is stable. There is increased opacity at the right perihilar region with mild diffuse bronchial wall thickening. No pleural effusions or pneumothoraces. XR/XR chest 1V IMPRESSION: Right perihilar opacity and mild bronchial wall thickening may be infectious and/or inflammatory in etiology. ? Discharge Plan Discharge Clinical Impression: Asthma with acute exacerbation, Pneumonia Patient Disposition: Home, Self-Care Instructions: Asthma (ED), Pneumonia (ED) Additional Instructions: Start antibiotics/prednisone tomorrow Increase fluids, rest Prescriptions: New doxycycline monohydrate 100 mg tablet 100 mg PO BID Qty: 14 RF: 0 prednisone 20 mg tablet 40 mg PO DAILY Qty: 8 RF: 0 albuterol sulfate 90 mcg/actuation HFA aerosol inhaler 2 puff inhalation QID PRN (Reason: shortness of breath or wheezing) Qty: 8.5 RF: 0 codeine-guaifenesin 10-100 mg/5 mL liquid 5 ml PO Q6H PRN (Reason: cough) Qty: 60 RF: 0 No Action dexamethasone [Decadron] 4 mg tablet 8 mg PO DAILY 9 Days Qty: 18 RF: 0 doxycycline hyclate 100 mg capsule 100 mg PO BID 7 Days Qty: 14 RF: 0 albuterol sulfate 90 mcg/actuation HFA aerosol inhaler 2 puff inhalation Q4-6H PRN (Reason: shortness of breath or wheezing) Qty: 8.5 RF: 0 amoxicillin 500 mg capsule 1,000 mg PO TID 7 Days Qty: 42 RF: 0 azithromycin 250 mg tablet See Rx Instructions .ROUTE .COMPLEX Qty: 6 RF: 0 acetaminophen [Tylenol Extra Strength] 500 mg tablet 500 mg PO Q6H PRN (Reason: pain or fever) Qty: 20 RF: 0 fluticasone propionate [Flonase Allergy Relief] 50 mcg/actuation spray,suspension 2 spray intranasal DAILY Qty: 16 RF: 0 naproxen 500 mg tablet 500 mg PO BID PRN (Reason: pain) 10 Days Qty: 20 RF: 0 cyclobenzaprine 5 mg tablet 5 mg PO Q8H PRN (Reason: pain (scale score 7-10)) 5 Days Qty: 14 RF: 0 lidocaine [Lidoderm] 5 % adhesive patch,medicated 1 patch topical DAILY MDD remove after 12 hours PRN (Reason: pain) Qty: 30 RF: 0 Referrals: Genevieve Lama DO [Primary Care Provider] - 2 days Interventions: ED Discharge Assessment Last Done: 06/16/21 19:39 Discharge Date/Time: 06/16/21 19:41
[2021-06-16] MEDS: Albuterol/Iprat 2.5/0.5MG 3 ML AMPUL.NEB INHALE (18:55)
[2021-06-16] MEDS: predniSONE 20 MG TABLET 60 MG PO (19:05)
== END 2021-06-16 19:41 | disposition home or self-care (01) ==
PROVIDERS: Emergency Provider Internal Medicine; PCP Family Medicine
DX: J18.9 Pneumonia, unspecified organism (principal); J45.901 Unspecified asthma with (acute) exacerbation; M79.10 Myalgia, unspecified site; R07.89 Other chest pain; Z20.822 Contact with and (suspected) exposure to COVID-19; Z79.899 Other long term (current) drug therapy
CPT/HCPCS: 71045; 87635; 99283; 99284

== ENCOUNTER 2021-06-20 20:40 | Inpatient (IN) | payer OTHER, SELFPAY ==
--- NOTE | ~2021-06-20 | XR_ITS ---
EXAMINATION: XR CHEST CLINICAL INFORMATION: Cough and shortness of breath. COMPARISON: Chest x-ray 06/16/2021 TECHNIQUE: 2 views of the chest were obtained. FINDINGS: Cardiac silhouette is normal in size. Similar prominent right perihilar masslike opacity. The lungs are otherwise well aerated. No pleural effusion or pneumothorax. Degenerative changes of the spine. XR/XR chest 2V IMPRESSION: Persistent right perihilar masslike opacity. Chest CT is recommended for further characterization of this finding.
--- NOTE | ~2021-06-20 | CT_ITS ---
EXAMINATION: CT ANGIOGRAM OF THE CHEST WITH AND WITHOUT CONTRAST (CT PULMONARY ANGIOGRAM FOR PE) CLINICAL INFORMATION: Shortness of breath COMPARISON: Radiograph 06/20/2021. CT 06/08/2018 TECHNIQUE: Prior to contrast administration, noncontrast localization images were obtained. Subsequently, multidetector volumetric imaging was performed from the thoracic inlet to below the diaphragms following the administration of 65 mL Omnipaque 350 intravenous contrast. No contrast reaction reported Sagittal, coronal, and MIP oblique sagittal reformatted images were obtained on the CT workstation, uploaded to PACS, and reviewed. This CT examination was performed using dose optimization techniques as appropriate, variously including the following: *Automated exposure control *Adjustment of mA and/or kV according to patient size (this includes techniques or standardized protocols for targeted exams where dose is matched to indication/reason for exam; i.e. extremities or head) *Use of iterative reconstruction technique Total exam dose-length product 292 mGy-cm FINDINGS: QUALITY OF STUDY/CONTRAST BOLUS: Satisfactory. PULMONARY ARTERIES: No central or segmental pulmonary emboli. THORACIC AORTA: No aneurysm or dissection. LUNG: The central airways are patent. Bronchiectasis throughout the right lung, particularly in the upper lobe with bronchial wall thickening. There is a central right lower lobe consolidation abutting the mediastinal pleura. Soft tissue density extends to the hilar region, surrounding the bronchi. Patchy consolidative opacity seen posteriorly in the right lower lobe. Subtle groundglass opacity in the left lower lobe noted. No pneumothorax. No pleural effusion. MEDIASTINUM: Normal heart size. No pericardial effusion. Soft tissue density in the right hilar region. No separate mediastinal adenopathy. No evidence of septal bowing or right heart strain. CHEST WALL/AXILLA: No axillary or internal mammary lymphadenopathy. OSSEOUS STRUCTURES: No acute or suspicious osseous abnormality. Mild degenerative changes of the spine. UPPER ABDOMEN: Unremarkable. No reflux of contrast into the hepatic veins to suggest elevated right heart pressures. CT/CT angio chest PE protocol IMPRESSION: 1. No pulmonary embolism. 2. Chronic changes in the lungs with bronchiectasis and bronchial wall thickening. 3. Central right lower lobe masslike consolidation along the mediastinal pleural margin. While this could represent pneumonia, there appears to be soft tissue density surrounding the bronchi. This may be reactive lymphoid tissue, although neoplastic process is not excluded. 4. Additional groundglass left lower lobe opacities and subtle nodular opacities in the posterior right lower lobe are likely infectious in nature. VTE: negative
[2021-06-20 20:44] VITALS: BP 126/82; PULSE 112; RESP 22; TEMP 37.7; O2SAT 97; BMI 22.1
[2021-06-20 21:14] LABS: COVID-19 Test Negative (Negative); IDNOW Serial# 55D5AD1C
[2021-06-20 23:17] VITALS: PULSE 120; RESP 40; O2SAT 94
--- NOTE | 2021-06-20 23:18 | PC.NURSE ---
pt sat 94% with rr 40, chest is feeling tighter. charge made aware.
[2021-06-21] VITALS (9 sets, daily range): BP systolic 104–110; BP diastolic 65–74; PULSE 85–112; RESP 15–25; TEMP 36.6; O2SAT 94–99
--- NOTE | 2021-06-21 02:10 | ECG_ITS ---
Test Reason : SOB Blood Pressure : / mmHG Vent. Rate : 107 BPM Atrial Rate : 107 BPM P-R Int : 156 ms QRS Dur : 088 ms QT Int : 320 ms P-R-T Axes : 043 020 042 degrees QTc Int : 427 ms Sinus tachycardia Possible Left atrial enlargement Left ventricular hypertrophy ( Sokolow-Yanez , Romhilt-Grullon ) Abnormal ECG When compared with ECG of 08-MAY-2020 09:52, No significant change was found Referred By: Shanell Sherman Electronically Signed By:Dennys Kirkpatrick
--- NOTE | 2021-06-21 02:10 | ED.URI ---
HPI - URI/Sore Throat General Chief Complaint: Upper Respiratory Symptoms Stated Complaint: Pneumonia Time Seen by Provider: 06/20/21 21:31 History of Present Illness HPI Narrative: Patient is a 50-year-old male presented with coughing upper respiratory symptoms this been ongoing for weeks. Had his coronavirus vaccine x2 doses. No booster. Positive coughing positive shortness of breath. Positive generalized malaise. Cough nonproductive in nature. Related Data Previous Rx's Medication Instructions Recorded albuterol sulfate 90 mcg/actuation 2 puff INHALATION Q4-6H PRN #8.5 g 05/08/20 aerosol inhaler dexamethasone 4 mg tablet 8 mg PO DAILY 9 Days #18 tab 05/08/20 (Decadron) doxycycline hyclate 100 mg capsule 100 mg PO BID 7 Days #14 cap 05/08/20 acetaminophen 500 mg tablet 500 mg PO Q6H PRN #20 tab 05/04/21 (Tylenol Extra Strength) amoxicillin 500 mg capsule 1,000 mg PO TID 7 Days #42 cap 05/04/21 azithromycin 250 mg tablet See Rx Instructions .ROUTE 05/04/21 .COMPLEX #6 tab cyclobenzaprine 5 mg tablet 5 mg PO Q8H PRN 5 Days #14 tab 05/04/21 fluticasone propionate 50 2 spray INTRANASAL DAILY #16 g 05/04/21 mcg/actuation nasal spray,suspension (Flonase Allergy Relief) lidocaine 5 % topical patch 1 patch TOPICAL DAILY PRN #30 ea 05/04/21 (Lidoderm) MDD remove after 12 hours naproxen 500 mg tablet 500 mg PO BID PRN 10 Days #20 tab 05/04/21 albuterol sulfate 90 mcg/actuation 2 puff INHALATION QID PRN #8.5 g 06/16/21 aerosol inhaler codeine 10 mg-guaifenesin 100 mg/5 5 ml PO Q6H PRN #60 ml 06/16/21 mL oral liquid doxycycline monohydrate 100 mg 100 mg PO BID #14 tab 06/16/21 tablet prednisone 20 mg tablet 40 mg PO DAILY #8 tab 06/16/21 Allergies Allergy/AdvReac Type Severity Reaction Status Date / Time clindamycin [Clindamycin] Allergy Severe SEVERE Verified 05/08/20 10:37 ITCHING Review of Systems Review of Systems: No fever no chills positive coughing positive shortness of breath positive generalized malaise positive increased respiratory rate Yes all other systems are reviewed and are negative [facility] Past Medical History Attestation statement: The following information was validated with the patient. Medical History Asthma Bronchiectasis Heartburn Social History Social History Patient Tobacco Use Status: Former Tobacco user Advance Directives: No Physical Exam Vital Signs: Vital Signs: Last Vital Signs Temp 99.9 F 06/20/21 20:44 Pulse 106 H 06/21/21 02:32 Resp 16 06/21/21 02:32 BP 108/66 06/21/21 02:11 Pulse Ox 95 06/21/21 02:11 BMI result Body Mass Index 22.1 Appearance: Alert. Oriented X3. No acute distress. Eyes: Pupils equal, round and reactive to light. ENT: Pharynx normal. Neck: Normal inspection. Neck supple. No lymph nodes noted. No crepitus CVS: Normal heart rate and rhythm. Pulses normal. Normal S1 and S2 Respiratory: No respiratory distress. Positive expiratory wheezing noted. Positive increased respiratory rate Abdomen: Soft and nontender. No rigidity. No distention. good BS x4 Skin: Skin warm and dry. Normal skin color. Normal skin turgor. Extremities: No lower extremity edema. Neurovascular intact to all extremities. No Lacerations. No Rash Neuro: Oriented X 3. No motor deficit. No sensory deficit. Moving all extermities. No slurred speech MDM - URI/Sore Throat MDM Narrative Medical decision making narrative: Patient CT scan of the lungs were negative for any evidence of pulmonary emboli. There is chronic changes consistent with bronchiectasis. There is a right central right lower lobe mass consolidation question pneumonia. Patient has been on antibiotics. Continued to be coughing upper respiratory symptoms failed outpatient treatment. Will start patient on Rocephin azithromycin. Will admit patient for further evaluation. Patient's COVID test was negative. Currently in stable condition awaiting admissions. White count was elevated 23 Differential Diagnosis Differential diagnosis: Likely upper respiratory infection Medical Records Attestation: I reviewed the patient's medical records. Lab Data Attestation: I reviewed the patient's lab results. Result diagrams: 06/21/21 02:20 06/21/21 02:20 Labs: Lab Results 06/20/21 06/21/21 06/21/21 Range/Units 20:52 02:20 02:20 WBC 23.9 H (4.8-10.8) X10*3/uL RBC 4.19 L (4.60-5.80) X10*6/uL Hgb 12.1 L (14.0-18.0) g/dl Hct 36.2 L (42.0-52.0) % MCV 86.4 (80.0-98.0) fL MCH 28.9 (27.0-33.0) pg MCHC 33.4 (31.0-36.0) g/dl RDW 14.1 (11.0-16.0) % Plt Count 470 H (160-400) X10*3/uL MPV 8.9 L (9.4-12.4) fL Immature Gran % (Auto) 0.5 H (0.0-0.4) % Neut % (Auto) 78.3 H (45-73) % Lymph % (Auto) 13.7 L (20-40) % Bates % (Auto) 7.0 (2-11) % Eos % (Auto) 0.2 (0-4) % Baso % (Auto) 0.3 (0-2) % Lymph # (Auto) 3.3 (1.2-4.9) X10*3/uL Bates # (Auto) 1.7 H (0.1-1.2) X10*3/uL Eos # (Auto) 0.0 (0.0-0.4) X10*3/uL Baso # (Auto) 0.1 (0.0-0.2) X10*3/uL Abs Immat Gran (auto) 0.12 H (0.00-0.03) X10*3/uL Absolute Neuts (auto) 18.7 H (2.0-8.3) x10*3/uL Absolute Nucleated RBC 0.000 (0.0-0.012) X10*3/uL Nucleated RBC % (auto) 0.0 (0.0-0.2) /100WBC Smear Tech's Comments VERIFIED D-Dimer High Sensitivty NG/ML Sodium 138 (135-145) mmol/L Potassium 4.2 (3.3-5.1) mmol/L Chloride 103 (96-108) mmol/L Carbon Dioxide 24 (22-29) mmol/L Anion Gap 15 (12-20) BUN 22 H (9-16) mg/dL Creatinine 1.12 (0.5-1.4) mg/dL Estim Creat Clear Calc 74.2 Estimated GFR > 60 Random Glucose 119 H (60-115) mg/dL Calcium 9.2 (8.4-10.2) mg/dL Total Bilirubin 0.6 (0.0-1.0) mg/dL Direct Bilirubin 0.3 (0.0-0.5) mg/dL AST 33 D (5-37) U/L ALT 80 H (0-40) U/L Alkaline Phosphatase 104 (39-117) U/L Troponin I High Sens (<3.5-35.0) ng/L B-Natriuretic Peptide (<100) pg/mL Total Protein 7.4 (6.5-8.0) g/dL Albumin 3.8 (3.5-5.0) g/dL COVID-19 (STEPH) Negative (Negative) COVID-19 Clin Com See Note 06/21/21 06/21/21 Range/Units 02:20 03:19 WBC (4.8-10.8) X10*3/uL RBC (4.60-5.80) X10*6/uL Hgb (14.0-18.0) g/dl Hct (42.0-52.0) % MCV (80.0-98.0) fL MCH (27.0-33.0) pg MCHC (31.0-36.0) g/dl RDW (11.0-16.0) % Plt Count (160-400) X10*3/uL MPV (9.4-12.4) fL Immature Gran % (Auto) (0.0-0.4) % Neut % (Auto) (45-73) % Lymph % (Auto) (20-40) % Bates % (Auto) (2-11) % Eos % (Auto) (0-4) % Baso % (Auto) (0-2) % Lymph # (Auto) (1.2-4.9) X10*3/uL Bates # (Auto) (0.1-1.2) X10*3/uL Eos # (Auto) (0.0-0.4) X10*3/uL Baso # (Auto) (0.0-0.2) X10*3/uL Abs Immat Gran (auto) (0.00-0.03) X10*3/uL Absolute Neuts (auto) (2.0-8.3) x10*3/uL Absolute Nucleated RBC (0.0-0.012) X10*3/uL Nucleated RBC % (auto) (0.0-0.2) /100WBC Smear Tech's Comments D-Dimer High Sensitivty 325 NG/ML Sodium (135-145) mmol/L Potassium (3.3-5.1) mmol/L Chloride (96-108) mmol/L Carbon Dioxide (22-29) mmol/L Anion Gap (12-20) BUN (9-16) mg/dL Creatinine (0.5-1.4) mg/dL Estim Creat Clear Calc Estimated GFR Random Glucose (60-115) mg/dL Calcium (8.4-10.2) mg/dL Total Bilirubin (0.0-1.0) mg/dL Direct Bilirubin (0.0-0.5) mg/dL AST (5-37) U/L ALT (0-40) U/L Alkaline Phosphatase (39-117) U/L Troponin I High Sens < 3.5 (<3.5-35.0) ng/L B-Natriuretic Peptide < 10 (<100) pg/mL Total Protein (6.5-8.0) g/dL Albumin (3.5-5.0) g/dL COVID-19 (STEPH) (Negative) COVID-19 Clin Com Discharge Plan Discharge Clinical Impression: Upper respiratory infection, Pneumonia Patient Disposition: Admitted As Inpatient Prescriptions: No Action dexamethasone [Decadron] 4 mg tablet 8 mg PO DAILY 9 Days Qty: 18 RF: 0 doxycycline hyclate 100 mg capsule 100 mg PO BID 7 Days Qty: 14 RF: 0 albuterol sulfate 90 mcg/actuation HFA aerosol inhaler 2 puff inhalation Q4-6H PRN (Reason: shortness of breath or wheezing) Qty: 8.5 RF: 0 amoxicillin 500 mg capsule 1,000 mg PO TID 7 Days Qty: 42 RF: 0 azithromycin 250 mg tablet See Rx Instructions .ROUTE .COMPLEX Qty: 6 RF: 0 acetaminophen [Tylenol Extra Strength] 500 mg tablet 500 mg PO Q6H PRN (Reason: pain or fever) Qty: 20 RF: 0 fluticasone propionate [Flonase Allergy Relief] 50 mcg/actuation spray,suspension 2 spray intranasal DAILY Qty: 16 RF: 0 naproxen 500 mg tablet 500 mg PO BID PRN (Reason: pain) 10 Days Qty: 20 RF: 0 cyclobenzaprine 5 mg tablet 5 mg PO Q8H PRN (Reason: pain (scale score 7-10)) 5 Days Qty: 14 RF: 0 lidocaine [Lidoderm] 5 % adhesive patch,medicated 1 patch topical DAILY MDD remove after 12 hours PRN (Reason: pain) Qty: 30 RF: 0 doxycycline monohydrate 100 mg tablet 100 mg PO BID Qty: 14 RF: 0 prednisone 20 mg tablet 40 mg PO DAILY Qty: 8 RF: 0 albuterol sulfate 90 mcg/actuation HFA aerosol inhaler 2 puff inhalation QID PRN (Reason: shortness of breath or wheezing) Qty: 8.5 RF: 0 codeine-guaifenesin 10-100 mg/5 mL liquid 5 ml PO Q6H PRN (Reason: cough) Qty: 60 RF: 0
[2021-06-21 02:27] LABS: Basophils Absolute Auto 0.1 X10*3/uL (0.0-0.2); Basophils Percent Auto 0.3 % (0-2); Eosinophils Percent Auto 0.2 % (0-4); Hematocrit 36.2 % (42.0-52.0); Hemoglobin 12.1 g/dl (14.0-18.0); Imm Gran Abs Auto 0.12 X10*3/uL (0.00-0.03); Imm Gran Pct Auto 0.5 % (0.0-0.4); Lymphocytes Absolute Auto 3.3 X10*3/uL (1.2-4.9); Lymphocytes Percent Auto 13.7 % (20-40); MANUAL DIFF FLAG SCAN; Mean Corpuscular HGB Conc 33.4 g/dl (31.0-36.0); Mean Corpuscular Hemoglobin 28.9 pg (27.0-33.0); Mean Corpuscular Volume 86.4 fL (80.0-98.0); Mean Platelet Volume 8.9 fL (9.4-12.4); Monocytes Absolute Auto 1.7 X10*3/uL (0.1-1.2); Neutrophils Absolute Auto 18.7 x10*3/uL (2.0-8.3); Neutrophils Percent Auto 78.3 % (45-73); Platelet Count 470 X10*3/uL (160-400); Red Blood Count 4.19 X10*6/uL (4.60-5.80); Red Cell Distribution Width 14.1 % (11.0-16.0); SCAN SMEAR FLAG 1; White Blood Count 23.9 X10*3/uL (4.8-10.8)
[2021-06-21] MEDS: Albuterol/Iprat 2.5/0.5MG 3 ML AMPUL.NEB INHALE ×5 (02:31→19:58)
[2021-06-21 02:45] LABS: Alanine Aminotransferase 80 U/L (0-40); Albumin Level 3.8 g/dL (3.5-5.0); Alkaline Phosphatase 104 U/L (39-117); Anion Gap 15 (12-20); Aspartate Amino Transferase 33 U/L (5-37); Bilirubin Direct 0.3 mg/dL (0.0-0.5); Bilirubin Total 0.6 mg/dL (0.0-1.0); Blood Urea Nitrogen 22 mg/dL (9-16); Calcium 9.2 mg/dL (8.4-10.2); Carbon Dioxide 24 mmol/L (22-29); Chloride 103 mmol/L (96-108); Creatinine Clr Calc Pharmacy 74.2; Estimated Glomerular Filt Rate > 60; Glucose Random 119 mg/dL (60-115); Potassium 4.2 mmol/L (3.3-5.1); SLIDE REVIEW VERIFIED; Sodium 138 mmol/L (135-145); Total Protein 7.4 g/dL (6.5-8.0)
[2021-06-21 02:49] LABS: B Type Natriuretic Peptide < 10 pg/mL (<100); Troponin-I High Sensitivity < 3.5 ng/L (<3.5-35.0)
[2021-06-21] MEDS: methylPREDNISolone Sod Succ 125 MG/2 ML VIAL IVPUSH (03:06)
[2021-06-21] MEDS: 0.9 % Sodium Chloride 1,000 ML 999 ML IV ×2 (03:06→05:56)
--- NOTE | 2021-06-21 03:07 | PC.NURSE ---
PT returned from CT scan. Ambulated with steady gait to the bathroom.
[2021-06-21] MEDS: iohexoL 350 MG/ML 100 ML INFUS..BTL 65 ML IV (03:34)
[2021-06-21 03:44] LABS: D Dimer High Sensitivity 325 NG/ML
--- NOTE | 2021-06-21 04:35 | PC.NURSE ---
This RN attempted to complete med rec for PT. PT stated that he is only taking antibiotics and prednisone which he was prescribed after being discharged from this facility on Saturday. PT takes no other home meds.
--- NOTE | 2021-06-21 04:37 | PM.IMHP ---
History of Present Illness Date of Service: 06/21/21 Chief Complaint: shortness of breath 50-year-old male with a past medical history of asthma, bronchiectasis, GERD presented to the hospital today with a chief complaint of shortness of breath / cough. Patient reported that over the past couple weeks he has been having shortness of breath, cough. Which has been gradually worsening. Denies any sputum production. Denies any fevers. Reports he was positive for COVID in 2019; has been tested few times in this 2 weeks above the COVID which came back negative. Reports he has been COVID-19 vaccinated in the past. Denies any chest pain or palpitations. Patient mentions that he has outpatient antibiotics including doxycycline and steroids with no significant improvement in symptoms. Complains of generalized weakness. Denies any nausea vomiting or diarrhea. Denies any urinary symptoms. Review of all other systems is negative except mentioned above ER course: Per ER team patient on presentation noted to be in mild distress, tachypneic, tachycardic; COVID-19 negative; CT chest showed no evidence of pulmonary embolism but noted right lower lobe consolidation versus mass. Given antibiotics. Admitted to the hospital for further management. Patient was saturating 94% on room air. Placed on supplemental oxygen p.r.n.. [facility] Medical History Asthma Bronchiectasis Heartburn Pertinent family history: reviewed Social History Patient Tobacco Use Status: Former Tobacco user Advance Directives: No Meds Allergies Allergy/AdvReac Type Severity Reaction Status Date / Time clindamycin [Clindamycin] Allergy Severe SEVERE Verified 05/08/20 10:37 ITCHING Active Medications: Current Medications Ceftriaxone Sodium 1 gm/ (Sodium Chloride) 50 mls @ 100 mls/hr IV Q12H ARIELLE Sodium Chloride (Ns) 1,000 mls @ 999 mls/hr IV .Q1H1M ARIELLE Stop: 06/21/21 05:45 Physical Exam Vital Signs and Narrative: Vital Signs: Last Vital Signs Temp 99.9 F 06/20/21 20:44 Pulse 107 H 06/21/21 04:34 Resp 16 06/21/21 04:34 BP 104/65 06/21/21 04:34 Pulse Ox 95 06/21/21 04:34 BMI result Body Mass Index 22.1 Gen: Appears be in no acute distress HEENT: NCAT, Moist mucosa. Pulmonary: coarse breath sounds CVS: Normal S1-S2 Abdomen: BS+, Soft, Nontender Extremities: Warm well perfused Neuro: Alert and awake. Results Labs CBC and Chem 7: 06/21/21 02:20 06/21/21 02:20 Labs: Laboratory Results - last 24 hr 06/20/21 06/21/21 06/21/21 20:52 02:20 02:20 MCV 86.4 MCH 28.9 MCHC 33.4 RDW 14.1 Plt Count 470 H MPV 8.9 L Immature Gran % (Auto) 0.5 H Neut % (Auto) 78.3 H Lymph % (Auto) 13.7 L [place] % (Auto) 7.0 Eos % (Auto) 0.2 Baso % (Auto) 0.3 Lymph # (Auto) 3.3 [place] # (Auto) 1.7 H Eos # (Auto) 0.0 Baso # (Auto) 0.1 Abs Immat Gran (auto) 0.12 H Absolute Neuts (auto) 18.7 H Absolute Nucleated RBC 0.000 Nucleated RBC % (auto) 0.0 Smear Tech's Comments VERIFIED D-Dimer High Sensitivty Anion Gap 15 Estim Creat Clear Calc 74.2 Estimated GFR > 60 Random Glucose 119 H Calcium 9.2 Total Bilirubin 0.6 Direct Bilirubin 0.3 AST 33 D ALT 80 H Alkaline Phosphatase 104 Troponin I High Sens B-Natriuretic Peptide Total Protein 7.4 Albumin 3.8 COVID-19 (STEPH) Negative COVID-19 Clin Com See Note 06/21/21 06/21/21 02:20 03:19 MCV MCH MCHC RDW Plt Count MPV Immature Gran % (Auto) Neut % (Auto) Lymph % (Auto) [place] % (Auto) Eos % (Auto) Baso % (Auto) Lymph # (Auto) [place] # (Auto) Eos # (Auto) Baso # (Auto) Abs Immat Gran (auto) Absolute Neuts (auto) Absolute Nucleated RBC Nucleated RBC % (auto) Smear Tech's Comments D-Dimer High Sensitivty 325 Anion Gap Estim Creat Clear Calc Estimated GFR Random Glucose Calcium Total Bilirubin Direct Bilirubin AST ALT Alkaline Phosphatase Troponin I High Sens < 3.5 B-Natriuretic Peptide < 10 Total Protein Albumin COVID-19 (STEPH) COVID-19 Clin Com Imaging Radiologist's Impressions: Impressions Chest X-Ray 06/20/21 22:00 IMPRESSION: Persistent right perihilar masslike opacity. Chest CT is recommended for further characterization of this finding. Chest CTA 06/21/21 03:20 IMPRESSION: 1. No pulmonary embolism. 2. Chronic changes in the lungs with bronchiectasis and bronchial wall thickening. 3. Central right lower lobe masslike consolidation along the mediastinal pleural margin. While this could represent pneumonia, there appears to be soft tissue density surrounding the bronchi. This may be reactive lymphoid tissue, although neoplastic process is not excluded. 4. Additional groundglass left lower lobe opacities and subtle nodular opacities in the posterior right lower lobe are likely infectious in nature. VTE: negative Assessment and Plan (1) Pneumonia: Status: Acute 50-year-old male with a past medical history of asthma, bronchiectasis, GERD presented to the hospital today with a chief complaint of shortness of breath / cough. Patient reported that over the past couple weeks he has been having shortness of breath, cough . Noted to have pneumonia versus mass on the CT chest. Admitted to the hospital for further management. Shortness of breath: Patient was mildly tachycardic and tachypneic on presentation. Saturating 94%. Likely in the setting of asthma exacerbation versus pneumonia versus question mass As noted on the CT chest. No evidence of pulmonary embolism. Will give the patient on Solu-Medrol 40 t.i.d. Given patient failed outpatient antibiotics- will start the patient on broad-spectrum antibiotics vanc and Zosyn. Id consult for further recommendations. Patient tested negative for COVID-19. DuoNebs p.r.n. ?Lung mass on the CT chest. Will consult Oncology for further recommendations. DVT prophylaxis: Lovenox Code status: Full code Quality Stroke Does the patient have a stroke diagnosis?: No VTE Prior VTE?: No VTE Risk Level:: Medical - moderate - high VTE Device Contraindication: Treatment Not Indicated VTE Drug Contraindication: N/A - Med Ordered
[2021-06-21] MEDS: Azithromycin 500 MG TABLET PO (04:42)
[2021-06-21] MEDS: cefTRIAXone sodium 1 GM in 0.9 % Sodium Chloride 50 ML IV (04:44)
[2021-06-21 05:21] LABS: Lactic Acid 0.6 mmol/L (0.5-2.0)
[2021-06-21 05:27] LABS: Anion Gap 13 (12-20); Blood Urea Nitrogen 20 mg/dL (9-16); Calcium 8.5 mg/dL (8.4-10.2); Carbon Dioxide 23 mmol/L (22-29); Chloride 105 mmol/L (96-108); Creatinine Clr Calc Pharmacy 85.7; Estimated Glomerular Filt Rate > 60; Glucose Random 129 mg/dL (60-115); Potassium 3.9 mmol/L (3.3-5.1); Sodium 137 mmol/L (135-145)
[2021-06-21] MEDS: Piperacillin Sodium/Tazobactam 3.375 GM in 0.9 % Sodium Chloride 50 ML IV ×3 (05:54→18:37)
[2021-06-21] MEDS: Enoxaparin Sodium 40 MG/0.4 ML SYRINGE SUBCUT (05:55)
--- NOTE | 2021-06-21 06:50 | PC.NURSE ---
Vincent ([facility]) [phone]
--- NOTE | 2021-06-21 06:52 | PHA.PROG ---
Admission Date/Time: June 21, 2021 04:34 Indication: Pneumonia Weight in k.039 kg Adjusted body weight in K.6 kg [place] body weight in K.7 kg Obesity Dosing Indication % IBW: N/A Serum Creatinine - Last 168 Hours 06/21/21 06/21/21 02:20 04:52 Creatinine 1.12 0.97 Estimated CrCl and GFR - Last 168 Hours 06/21/21 06/21/21 02:20 04:52 Estim Creat Clear Calc 74.2 85.7 Estimated GFR > 60 > 60 Vancomycin Loading Dose: 1500 mg (22 mg/kg) Current Vancomycin Dosing Regimen: 750 mg Q12H Date and Time for next Vancomycin Level to be drawn: 06/21 @ 1700 Pharmacist Comments on Vancomycin Plan: Loading dose to be given 06/21 @ 0730. Start maintenance dose 750 mg Q12H 06/21 @ 1700. Expected AUC 433 with a trough of 13.7 Trough to be drawn prior to 4th dose Pharmacy will monitor renal function daily Jillian House PharmD Vancomycin dosing will take advantage of [employer] as a clinical decision support tool that uses Bayesian modeling to calculate individual patient's pharmacokinetic parameters and forecast the patient's drug concentration time course with the target goal AUC 24 range of 400 - 600 mg/L/hr.
[2021-06-21 07:05] LABS: Basophils Percent Auto 0.1 % (0-2); Hematocrit 32.6 % (42.0-52.0); Hemoglobin 10.5 g/dl (14.0-18.0); Imm Gran Abs Auto 0.14 X10*3/uL (0.00-0.03); Imm Gran Pct Auto 0.6 % (0.0-0.4); Lymphocytes Absolute Auto 1.4 X10*3/uL (1.2-4.9); Lymphocytes Percent Auto 6.1 % (20-40); MANUAL DIFF FLAG SCAN; Mean Corpuscular HGB Conc 32.2 g/dl (31.0-36.0); Mean Corpuscular Hemoglobin 28.3 pg (27.0-33.0); Mean Corpuscular Volume 87.9 fL (80.0-98.0); Monocytes Absolute Auto 0.4 X10*3/uL (0.1-1.2); Monocytes Percent Auto 1.9 % (2-11); Neutrophils Absolute Auto 20.8 x10*3/uL (2.0-8.3); Neutrophils Percent Auto 91.3 % (45-73); Platelet Count 423 X10*3/uL (160-400); Red Blood Count 3.71 X10*6/uL (4.60-5.80); Red Cell Distribution Width 14.2 % (11.0-16.0); SCAN SMEAR FLAG 1; White Blood Count 22.8 X10*3/uL (4.8-10.8)
[2021-06-21] MEDS: Acetaminophen 325 MG TABLET 650 MG PO (07:24)
[2021-06-21] MEDS: vancomycin HCL 1,500 MG in 0.9 % Sodium Chloride 500 ML 333.33 MG IV (07:24)
[2021-06-21] MEDS: Morphine Sulfate 2 MG/ML CARTRIDGE 1 MG IVPUSH ×2 (07:24→13:10)
[2021-06-21] MEDS: Benzonatate 100 MG CAPSULE PO (07:24)
[2021-06-21 07:40] LABS: Magnesium 1.5 mg/dL (1.6-2.6)
--- NOTE | 2021-06-21 08:09 | PHA.MEDREC ---
Pharmacy Consult ? Medication Reconciliation Pharmacy has completed the medication reconciliation. There are no remarkable issues for provider's attention. Jillian House, MeaghanD
--- NOTE | 2021-06-21 08:38 | MHC.CM.PN ---
PT REPORTS HE LIVES WITH FAMILY AND IS FULLY INDEPENDENT WITH CARE PT DENIES USING DME OR HOME/COMMUNITY SERVICES PT CONFIRMS HIS PCP IS PREM GARCIA AND HE HAS A HCP ON FILE. OF NOTE, PTS PRIMARY CONTACT AND HCP ARE ONE IN THE SAME, THE NAME IS JUST MISSPELLED IN THE SYSTEM. THE CORRECT NAME IS OLIVIER JOVEL ([phone]). TASK SENT TO [facility] [place] REG TO HAVE IT CORRECTED. CURRENT DC PLAN IS HOME WITH NO SERVICES PT WILL SELF ARRANGE TRANSPORTATION
[2021-06-21 09:17] LABS: Procalcitonin 0.29 ng/mL
[2021-06-21] MEDS: Omeprazole 20 MG CAPSULE.DR PO (10:12)
[2021-06-21] MEDS: Magnesium Sulfate/H2O 2 GM/50 ML PIGGYBACK IV (10:12)
[2021-06-21] MEDS: methylPREDNISolone Sod Succ 40 MG/ML VIAL IVPUSH ×2 (10:12→18:37)
--- NOTE | 2021-06-21 10:21 | PC.NURSE ---
pt reports feeling a bit better, continuing to require prn pain medication. pt work of breathing appears even/unlabored. continues to have some dry cough. not in any apparent distress. pain in control at this time.
[2021-06-21 12:57] LABS: MRSA Nasal PCR POSITIVE (Negative); SA Nasal PCR POSITIVE (Negative)
[2021-06-21 13:42] LABS: Adenovirus PCR Not Detected (Not Detect.); Bordetella parapertussis PCR Not Detected (Not Detect.); Bordetella pertussis PCR Not Detected (Not Detect.); Chlamydia pneumoniae PCR Not Detected (Not Detect.); Coronavirus 229E PCR Not Detected (Not Detect.); Coronavirus HKU1 PCR Not Detected (Not Detect.); Coronavirus NL63 PCR Not Detected (Not Detect.); Coronavirus OC43 PCR Not Detected (Not Detect.); Human metapneumovirus PCR Not Detected (Not Detect.); Influenza A PCR Not Detected (Not Detect.); Influenza B PCR Not Detected (Not Detect.); Mycoplasma pneumoniae PCR Not Detected (Not Detect.); Parainfluenza 1 PCR Not Detected (Not Detect.); Parainfluenza 2 PCR Not Detected (Not Detect.); Parainfluenza 3 PCR Not Detected (Not Detect.); Rhino/Enterovirus PCR Detected (Not Detect.); SARS-CoV-2 PCR Not Detected (Not Detect.)
[2021-06-21 13:43] LABS: Parainfluenza 4 PCR Not Detected (Not Detect.); RSV PCR Not Detected (Not Detect.)
--- NOTE | 2021-06-21 15:29 | HO.PM.IMPN ---
Subjective Subjective Date of Service: 06/21/21 Interval History: Coughing. No sputum production. No fever. Review of Systems Review of Systems: Yes all other systems are reviewed and are negative Physical Exam Vital Signs: Vital Signs: Last Vital Signs Temp 99.9 F 06/20/21 20:44 Pulse 85 06/21/21 11:07 Resp 15 06/21/21 11:07 BP 104/65 06/21/21 05:11 Pulse Ox 99 06/21/21 05:11 BMI result Body Mass Index 22.1 Gen: in no acute distress HEENT: sclera anicteric, moist mucus membranes Neck: supple Lungs: R-sided rhonchi Heart: regular rate and rhythm, no murmurs Abd: soft, non-tender, non-distended Ext: no edema Skin: warm/well-perfused Neuro: alert and oriented x3, no focal findings Psych: appropriate affect Objective Data Active Medications Acetaminophen (Acetaminophen 325 Mg Tablet) 650 mg PO Q6H PRN PRN Reason: Pain, Mild (Pain Scale 1-3) Last Admin: 06/21/21 07:24 Dose: 650 mg Documented by: CINDI Albuterol/Ipratropium (Albuterol/Iprat 2.5/0.5mg 3 Ml Ampul.Neb) 3 ml INHALE RQ4H PRN PRN Reason: Shortness of Breath/Wheezing Albuterol/Ipratropium (Albuterol/Iprat 2.5/0.5mg 3 Ml Ampul.Neb) 3 ml INHALE RQ4H WHILE AWAKE [facility] Last Admin: 06/21/21 15:26 Dose: 3 ml Documented by: BRESNE Benzonatate (Benzonatate 100 Mg Capsule) 100 mg PO TID PRN PRN Reason: Cough Last Admin: 06/21/21 07:24 Dose: 100 mg Documented by: CINDI Enoxaparin Sodium (Enoxaparin Sodium 40 Mg/0.4 Ml Syringe) 40 mg SUBCUT Q24H [facility] Last Admin: 06/21/21 05:55 Dose: 40 mg Documented by: CAROL Piperacillin Sod/Tazobactam (Sod 3.375 gm/ Sodium Chloride) 50 mls @ 100 mls/hr IV Q6H [facility] Last Infusion: 06/21/21 14:36 Dose: 0 mls/hr Documented by: CINDI Vancomycin HCl 750 mg/ Sodium (Chloride) 265 mls @ 265 mls/hr IV Q12H [facility] Melatonin (Melatonin 3 Mg Tablet) 6 mg PO BEDTIME PRN PRN Reason: Insomnia Methylprednisolone Sodium Succinate (Methylprednisolone Sod Succ 40 Mg/Ml Vial) 40 mg IVPUSH Q8H [facility] Last Admin: 06/21/21 10:12 Dose: 40 mg Documented by: CINDI Morphine Sulfate (Morphine Sulfate 2 Mg/Ml Cartridge) 1 mg IVPUSH Q4H PRN; Protocol PRN Reason: Pain, SOB Last Admin: 06/21/21 13:10 Dose: 1 mg Documented by: CINDI Omeprazole (Omeprazole 20 Mg Capsule.) 20 mg PO DAILY [facility] Last Admin: 06/21/21 10:12 Dose: 20 mg Documented by: CINDI Pharmacy Consult (Consult Rx Vancomycin Dosing) 1 each MISCELLANE DAILY PRN PRN Reason: Consult order Senna (Sennosides 8.6 Mg Tablet) 17.2 mg PO BEDTIME PRN PRN Reason: Constipation Sodium Chloride (0.9 % Sodium Chloride Flush 3 Ml Syringe) 3 ml IVFLUSH QSHIFT [facility] Last Admin: 06/21/21 10:46 Dose: Not Given Documented by: CINDI Non-Admin Reason: Med Not Available Labs CBC & Chem 7: 06/21/21 06:38 06/21/21 04:52 Labs: Laboratory Results - last 24 hr 06/20/21 06/21/21 06/21/21 20:52 02:20 02:20 MCV 86.4 MCH 28.9 MCHC 33.4 RDW 14.1 Plt Count 470 H MPV 8.9 L Immature Gran % (Auto) 0.5 H Neut % (Auto) 78.3 H Lymph % (Auto) 13.7 L [place] % (Auto) 7.0 Eos % (Auto) 0.2 Baso % (Auto) 0.3 Lymph # (Auto) 3.3 [place] # (Auto) 1.7 H Eos # (Auto) 0.0 Baso # (Auto) 0.1 Abs Immat Gran (auto) 0.12 H Absolute Neuts (auto) 18.7 H Absolute Nucleated RBC 0.000 Nucleated RBC % (auto) 0.0 Smear Tech's Comments VERIFIED D-Dimer High Sensitivty Anion Gap 15 Estim Creat Clear Calc 74.2 Estimated GFR > 60 Random Glucose 119 H Lactic Acid Calcium 9.2 Magnesium Total Bilirubin 0.6 Direct Bilirubin 0.3 AST 33 D ALT 80 H Alkaline Phosphatase 104 Troponin I High Sens B-Natriuretic Peptide Total Protein 7.4 Albumin 3.8 Procalcitonin Nasal Screen MRSA (PCR) Nasal S. aureus Screen Nasal MRSA/S.aureus Interp Respiratory Panel [place] Adenovirus (Rapid PCR) B.pert (TEM-PCR) B.parapertussis DNA PCR C. pneumoniae DNA (PCR) Coronavirus OC43 (PCR) Coronavirus HKU1 (PCR) Coronavirus 229E (PCR) COVID-19 (STEPH) Negative COVID-19 Clin Com See Note Coronavirus NL63 (PCR) Human Metapneumovir PCR Influenza A (RT-PCR) Influenza B (RT-PCR) M. pneumoniae (PCR) Parainfluenza 1 (PCR) Parainfluenza 2 (PCR) Parainfluenza 3 (PCR) Parainfluenza 4 (PCR) RSV (PCR) Entero/Rhino (PCR) SARS-CoV-2 RNA (RT-PCR) 06/21/21 06/21/21 06/21/21 02:20 03:19 04:52 MCV MCH MCHC RDW Plt Count MPV Immature Gran % (Auto) Neut % (Auto) Lymph % (Auto) [place] % (Auto) Eos % (Auto) Baso % (Auto) Lymph # (Auto) [place] # (Auto) Eos # (Auto) Baso # (Auto) Abs Immat Gran (auto) Absolute Neuts (auto) Absolute Nucleated RBC Nucleated RBC % (auto) Smear Tech's Comments D-Dimer High Sensitivty 325 Anion Gap Estim Creat Clear Calc Estimated GFR Random Glucose Lactic Acid 0.6 Calcium Magnesium Total Bilirubin Direct Bilirubin AST ALT Alkaline Phosphatase Troponin I High Sens < 3.5 B-Natriuretic Peptide < 10 Total Protein Albumin Procalcitonin Nasal Screen MRSA (PCR) Nasal S. aureus Screen Nasal MRSA/S.aureus Interp Respiratory Panel [place] Adenovirus (Rapid PCR) B.pert (TEM-PCR) B.parapertussis DNA PCR C. pneumoniae DNA (PCR) Coronavirus OC43 (PCR) Coronavirus HKU1 (PCR) Coronavirus 229E (PCR) COVID-19 (STEPH) COVID-19 Clin Com Coronavirus NL63 (PCR) Human Metapneumovir PCR Influenza A (RT-PCR) Influenza B (RT-PCR) M. pneumoniae (PCR) Parainfluenza 1 (PCR) Parainfluenza 2 (PCR) Parainfluenza 3 (PCR) Parainfluenza 4 (PCR) RSV (PCR) Entero/Rhino (PCR) SARS-CoV-2 RNA (RT-PCR) 06/21/21 06/21/21 06/21/21 04:52 04:52 06:38 MCV 87.9 MCH 28.3 MCHC 32.2 RDW 14.2 Plt Count 423 H MPV 9.0 L Immature Gran % (Auto) 0.6 H Neut % (Auto) 91.3 H Lymph % (Auto) 6.1 L [place] % (Auto) 1.9 L Eos % (Auto) 0.0 Baso % (Auto) 0.1 Lymph # (Auto) 1.4 [place] # (Auto) 0.4 Eos # (Auto) 0.0 Baso # (Auto) 0.0 Abs Immat Gran (auto) 0.14 H Absolute Neuts (auto) 20.8 H Absolute Nucleated RBC 0.000 Nucleated RBC % (auto) 0.0 Smear Tech's Comments D-Dimer High Sensitivty Anion Gap 13 Estim Creat Clear Calc 85.7 Estimated GFR > 60 Random Glucose 129 H Lactic Acid Calcium 8.5 D Magnesium Total Bilirubin Direct Bilirubin AST ALT Alkaline Phosphatase Troponin I High Sens B-Natriuretic Peptide Total Protein Albumin Procalcitonin 0.29 Nasal Screen MRSA (PCR) Nasal S. aureus Screen Nasal MRSA/S.aureus Interp Respiratory Panel [place] Adenovirus (Rapid PCR) B.pert (TEM-PCR) B.parapertussis DNA PCR C. pneumoniae DNA (PCR) Coronavirus OC43 (PCR) Coronavirus HKU1 (PCR) Coronavirus 229E (PCR) COVID-19 (STEPH) COVID-19 Clin Com Coronavirus NL63 (PCR) Human Metapneumovir PCR Influenza A (RT-PCR) Influenza B (RT-PCR) M. pneumoniae (PCR) Parainfluenza 1 (PCR) Parainfluenza 2 (PCR) Parainfluenza 3 (PCR) Parainfluenza 4 (PCR) RSV (PCR) Entero/Rhino (PCR) SARS-CoV-2 RNA (RT-PCR) 06/21/21 06/21/21 06/21/21 06:38 11:29 11:30 MCV MCH MCHC RDW Plt Count MPV Immature Gran % (Auto) Neut % (Auto) Lymph % (Auto) [place] % (Auto) Eos % (Auto) Baso % (Auto) Lymph # (Auto) [place] # (Auto) Eos # (Auto) Baso # (Auto) Abs Immat Gran (auto) Absolute Neuts (auto) Absolute Nucleated RBC Nucleated RBC % (auto) Smear Tech's Comments D-Dimer High Sensitivty Anion Gap Estim Creat Clear Calc Estimated GFR Random Glucose Lactic Acid Calcium Magnesium 1.5 L Total Bilirubin Direct Bilirubin AST ALT Alkaline Phosphatase Troponin I High Sens B-Natriuretic Peptide Total Protein Albumin Procalcitonin Nasal Screen MRSA (PCR) POSITIVE A Nasal S. aureus Screen POSITIVE A Nasal MRSA/S.aureus Interp SEE NOTE Respiratory Panel [place] See Note Adenovirus (Rapid PCR) Not Detected B.pert (TEM-PCR) Not Detected B.parapertussis DNA PCR Not Detected C. pneumoniae DNA (PCR) Not Detected Coronavirus OC43 (PCR) Not Detected Coronavirus HKU1 (PCR) Not Detected Coronavirus 229E (PCR) Not Detected COVID-19 (STEPH) COVID-19 Clin Com Coronavirus NL63 (PCR) Not Detected Human Metapneumovir PCR Not Detected Influenza A (RT-PCR) Not Detected Influenza B (RT-PCR) Not Detected M. pneumoniae (PCR) Not Detected Parainfluenza 1 (PCR) Not Detected Parainfluenza 2 (PCR) Not Detected Parainfluenza 3 (PCR) Not Detected Parainfluenza 4 (PCR) Not Detected RSV (PCR) Not Detected Entero/Rhino (PCR) Detected A SARS-CoV-2 RNA (RT-PCR) Not Detected Assessment and Plan (1) Pneumonia: Status: Acute Assessment and Plan: hospital d#1 50yo M with asthma + bronchiectasis presenting with worsening cough and dyspnea despite outpatient steroids and doxycycline admitted for pneumonia, RLL mass vs. consolida # asthma exacerbation - steroids, nebs # ground-glass PNA - enterovirus/rhinovirus positive, Covid-19 negative - started on vanc + pip/paco; ID consult pending; check HIV Ab/Ag # RLL lung mass vs consolidation - per Pulm, repeat CT chest in 8 wk and f/u in clinic # hypoMg - repleted; recheck level in am # GERD - PPI # VTE ppx - LMWH Quality Stroke Does the patient have a stroke diagnosis?: No VTE Prior VTE?: No VTE Risk Level:: Medical - moderate - high VTE Device Contraindication: Treatment Not Indicated VTE Drug Contraindication: N/A - Med Ordered
--- NOTE | 2021-06-21 16:20 | P.CONPL_ITS ---
History of Present Illness History of Present Illness Consult date: 06/21/21 Requesting physician: Kimberley Glasgow Chief complaint: PNA Narrative: 50-year-old gentleman, nonsmoker, with no history of inhalation industrial dusts or vapors, no prior history of lung concerns, with COVID-19 A back in 2019 now hospitalized on 06/21/2021 for dyspnea and cough. His CT kathryn ogram chest demonstrated no pulmonary emboli, but masslike consolidation at around the right mediastinal border. Patient denies any sputum production. He tested positive for enterovirus/rhinovirus. Patient denies family history of lung disease. Review of Systems Constitutional: Constitutional: Denies daytime sleepiness, Denies excessive sweating, Denies fatigue, Denies fever(s), Denies lethargy, Denies malaise, Denies night sweats, Denies snoring and Denies weight loss Eyes: Eyes: Denies blurry vision and Denies itchy eyes ENT: Denies nasal congestion, Denies post nasal drip, Denies sinus pain, Denies sinus pressure and Denies other ( Thrush) Cardiovascular: Cardiovascular: Denies chest pain, Denies pedal edema, Reports dyspnea, Denies orthopnea and Denies paroxysmal nocturnal dyspnea Respiratory: Respiratory: Reports cough, Denies hemoptysis, Denies excessive phlegm production, Reports dyspnea, Denies snoring and Denies wheezing Gastrointestinal: Gastrointestinal: Denies abdominal pain and Denies heartburn Musculoskeletal: Musculoskeletal: Denies myalgias, Denies arthralgias and Denies joint swelling Integumentary/Breasts: Skin/Breast: Denies rash Neurologic: Denies memory loss and Denies seizure-like activity Psychiatric: Psychiatric: Denies abnormal sleep pattern, Denies anxiety and Denies memory loss Endocrine: Endocrine: Denies excessive sweating, Denies fatigue and Denies heat intolerance Hematologic/Lymphatic: Hematologic/Lymphatic: Denies easy bruising Allergic/Immunologic: Allergic/Immunologic: Denies itchy eyes, Denies seasonal rhinorrhea and Denies wheezing PMFSH Past Medical History Medical History (Updated 06/21/21 @ 16:23 by Wellington Rutherford MD) Asthma Bronchiectasis Heartburn Social History Social History Alcohol intake: current Alcohol intake frequency: holidays/special occasions only Patient Tobacco Use Status: Former Tobacco user Use of substances other than those prescribed or required for medical reasons: No Advance Directives: Yes Advance Directives on File: Yes Advance Directives Date on File: 06/21/21 service: No Current occupational status: employed Meds Allergies Allergy/AdvReac Type Severity Reaction Status Date / Time clindamycin [Clindamycin] Allergy Severe SEVERE Verified 05/08/20 10:37 ITCHING Active Medications: Current Medications Acetaminophen (Acetaminophen 325 Mg Tablet) 650 mg PO Q6H PRN PRN Reason: Pain, Mild (Pain Scale 1-3) Last Admin: 06/21/21 07:24 Dose: 650 mg Documented by: Albuterol/Ipratropium (Albuterol/Iprat 2.5/0.5mg 3 Ml Ampul.Neb) 3 ml INHALE RQ4H PRN PRN Reason: Shortness of Breath/Wheezing Albuterol/Ipratropium (Albuterol/Iprat 2.5/0.5mg 3 Ml Ampul.Neb) 3 ml INHALE RQ4H WHILE AWAKE [facility] Last Admin: 06/21/21 15:26 Dose: 3 ml Documented by: Benzonatate (Benzonatate 100 Mg Capsule) 100 mg PO TID PRN PRN Reason: Cough Last Admin: 06/21/21 07:24 Dose: 100 mg Documented by: Enoxaparin Sodium (Enoxaparin Sodium 40 Mg/0.4 Ml Syringe) 40 mg SUBCUT Q24H [facility] Last Admin: 06/21/21 05:55 Dose: 40 mg Documented by: Piperacillin Sod/Tazobactam (Sod 3.375 gm/ Sodium Chloride) 50 mls @ 100 mls/hr IV Q6H [facility] Last Infusion: 06/21/21 14:36 Dose: Infused Documented by: Vancomycin HCl 750 mg/ Sodium (Chloride) 265 mls @ 265 mls/hr IV Q12H [facility] Melatonin (Melatonin 3 Mg Tablet) 6 mg PO BEDTIME PRN PRN Reason: Insomnia Methylprednisolone Sodium Succinate (Methylprednisolone Sod Succ 40 Mg/Ml Vial) 40 mg IVPUSH Q8H [facility] Last Admin: 06/21/21 10:12 Dose: 40 mg Documented by: Morphine Sulfate (Morphine Sulfate 2 Mg/Ml Cartridge) 1 mg IVPUSH Q4H PRN; Protocol PRN Reason: Pain, SOB Last Admin: 06/21/21 13:10 Dose: 1 mg Documented by: Omeprazole (Omeprazole 20 Mg Capsule.) 20 mg PO DAILY [facility] Last Admin: 06/21/21 10:12 Dose: 20 mg Documented by: Pharmacy Consult (Consult Rx Vancomycin Dosing) 1 each MISCELLANE DAILY PRN PRN Reason: Consult order Senna (Sennosides 8.6 Mg Tablet) 17.2 mg PO BEDTIME PRN PRN Reason: Constipation Sodium Chloride (0.9 % Sodium Chloride Flush 3 Ml Syringe) 3 ml IVFLUSH QSHIFT [facility] Last Admin: 06/21/21 10:46 Dose: Not Given Documented by: Home Medications Medication Instructions Recorded Confirmed Last Taken Type omeprazole 20 mg tablet,delayed 20 mg PO DAILY 06/21/21 06/21/21 06/20/21 History release Physical Exam Vital Signs: Vital Signs: Last Vital Signs Temp 97.8 F 06/21/21 16:18 Pulse 105 H 06/21/21 16:18 Resp 16 06/21/21 16:18 BP 110/74 06/21/21 16:18 Pulse Ox 94 06/21/21 16:18 BMI result Body Mass Index 22.1 Const: General: no acute distress, alert and awake Eyes: Sclerae: sclerae normal EOM: EOMs intact bilaterally Neck: Neck: Yes no lymphadenopathy, Yes trachea midline and Yes supple Resp: Effort & Inspection: normal respiratory effort and no respiratory distress Auscultation: clear to auscultation bilaterally Cardio: Rate: regular rate Rhythm: regular rhythm Heart sounds: no gallops, no murmurs and no rubs GI: Palpation (GI): Soft to palpation and Other GI palpation findings present ( Nontender) Auscultation: normal bowel sounds Extrem: General: Yes no pedal edema, No clubbing and No cyanosis Results Laboratory Findings CBC and BMP: 06/21/21 06:38 06/21/21 04:52 Abnormal lab findings: Abnormal Labs 06/21/21 06/21/21 06/21/21 02:20 02:20 04:52 WBC 23.9 H RBC 4.19 L Hgb 12.1 L Hct 36.2 L Plt Count 470 H MPV 8.9 L Immature Gran % (Auto) 0.5 H Neut % (Auto) 78.3 H Lymph % (Auto) 13.7 L [place] % (Auto) [place] # (Auto) 1.7 H Abs Immat Gran (auto) 0.12 H Absolute Neuts (auto) 18.7 H BUN 22 H 20 H Random Glucose 119 H 129 H Magnesium ALT 80 H Nasal Screen MRSA (PCR) Nasal S. aureus Screen Entero/Rhino (PCR) 06/21/21 06/21/21 06/21/21 06:38 06:38 11:29 WBC 22.8 H RBC 3.71 L Hgb 10.5 L Hct 32.6 L Plt Count 423 H MPV 9.0 L Immature Gran % (Auto) 0.6 H Neut % (Auto) 91.3 H Lymph % (Auto) 6.1 L [place] % (Auto) 1.9 L [place] # (Auto) Abs Immat Gran (auto) 0.14 H Absolute Neuts (auto) 20.8 H BUN Random Glucose Magnesium 1.5 L ALT Nasal Screen MRSA (PCR) Nasal S. aureus Screen Entero/Rhino (PCR) Detected A 06/21/21 11:30 WBC RBC Hgb Hct Plt Count MPV Immature Gran % (Auto) Neut % (Auto) Lymph % (Auto) [place] % (Auto) [place] # (Auto) Abs Immat Gran (auto) Absolute Neuts (auto) BUN Random Glucose Magnesium ALT Nasal Screen MRSA (PCR) POSITIVE A Nasal S. aureus Screen POSITIVE A Entero/Rhino (PCR) Assessment and Plan (1) Abnormal CT scan, chest: Status: Acute (2) Bronchiectasis: Status: Acute Impression: 50-year-old gentleman with underlying bronchiectasis hos pitalized with dyspnea positive for coronavirus with CT chest demonstrated masslike consolidation with air bronchograms along the right mediastinum. Likely related to underlying viral pneumonia was possible bacterial superinfection. Malignancy is unlikely. Recommendation: Agree with coverage for community-acquired pneumonia and brief course of systemic glucocorticoids. Would recommend outpatient follow-up CT chest in 8-12 weeks with outpatient pulmonary follow-up. Procedures Date of Service Date of Service: 06/21/21
[2021-06-21] MEDS: vancomycin HCL 750 MG in 0.9 % Sodium Chloride 250 ML 265 MG IV (19:50)
[2021-06-22] VITALS (10 sets, daily range): BP systolic 131–158; BP diastolic 69–101; PULSE 84–111; RESP 16–18; TEMP 36.5–36.9; O2SAT 94–98; BMI 26.6
[2021-06-22] MEDS: Piperacillin Sodium/Tazobactam 3.375 GM in 0.9 % Sodium Chloride 50 ML IV ×4 (00:44→18:20)
[2021-06-22] MEDS: 0.9 % Sodium Chloride Flush 3 ML SYRINGE IVFLUSH ×3 (00:44→15:28)
[2021-06-22] MEDS: methylPREDNISolone Sod Succ 40 MG/ML VIAL IVPUSH ×3 (03:39→18:59)
[2021-06-22 05:32] LABS: Hemoglobin 10.7 g/dl (14.0-18.0); Mean Corpuscular HGB Conc 32.4 g/dl (31.0-36.0); Mean Corpuscular Hemoglobin 27.9 pg (27.0-33.0); Mean Corpuscular Volume 86.2 fL (80.0-98.0); Mean Platelet Volume 9.1 fL (9.4-12.4); Platelet Count 453 X10*3/uL (160-400); Red Blood Count 3.83 X10*6/uL (4.60-5.80); Red Cell Distribution Width 14.1 % (11.0-16.0); White Blood Count 28.5 X10*3/uL (4.8-10.8)
[2021-06-22 06:11] LABS: Alanine Aminotransferase 58 U/L (0-40); Albumin Level 3.2 g/dL (3.5-5.0); Alkaline Phosphatase 92 U/L (39-117); Anion Gap 11 (12-20); Aspartate Amino Transferase 17 U/L (5-37); Bilirubin Total 0.3 mg/dL (0.0-1.0); Blood Urea Nitrogen 18 mg/dL (9-16); Calcium 8.9 mg/dL (8.4-10.2); Carbon Dioxide 23 mmol/L (22-29); Chloride 109 mmol/L (96-108); Creatinine Clr Calc Pharmacy 106.6; Estimated Glomerular Filt Rate > 60; Glucose Random 149 mg/dL (60-115); Magnesium 2.3 mg/dL (1.6-2.6); Potassium 4.6 mmol/L (3.3-5.1); Sodium 138 mmol/L (135-145); Total Protein 6.5 g/dL (6.5-8.0)
[2021-06-22] MEDS: Enoxaparin Sodium 40 MG/0.4 ML SYRINGE SUBCUT (06:17)
[2021-06-22 06:18] LABS: HIV AB/AG Nonreactive (Nonreactive); HIV Num 1 0.06 S/CO (0.00-0.99)
[2021-06-22] MEDS: vancomycin HCL 750 MG in 0.9 % Sodium Chloride 250 ML 265 MG IV (07:22)
[2021-06-22] MEDS: Albuterol/Iprat 2.5/0.5MG 3 ML AMPUL.NEB INHALE ×4 (07:39→20:55)
[2021-06-22] MEDS: Acetaminophen 325 MG TABLET 650 MG PO (08:26)
[2021-06-22] MEDS: Omeprazole 20 MG CAPSULE.DR PO (08:26)
[2021-06-22] MEDS: Benzonatate 100 MG CAPSULE PO (08:31)
--- NOTE | 2021-06-22 13:10 | HO.PM.IMPN ---
Subjective Subjective Date of Service: 06/22/21 Interval History: Complaining of cough mostly dry associated with sore throat chest congestion, denies fever chills no nausea no vomiting failed outpatient antibiotic treatment. Review of Systems Review of Systems: Yes all other systems are reviewed and are negative Physical Exam Vital Signs: Vital Signs: Last Vital Signs Temp 98.0 F 06/22/21 11:27 Pulse 106 H 06/22/21 11:27 Resp 17 06/22/21 11:27 BP 138/87 06/22/21 11:27 Pulse Ox 96 06/22/21 11:27 BMI result Body Mass Index 26.6 Gen: Awake alert, no acute distress HEENT: sclera anicteric, moist mucus membranes Neck: supple Lungs: Few scattered rhonchi, no respiratory distress, no crackles Heart: regular rate and rhythm, no murmurs Abd: soft, non-tender, non-distended Ext: no edema Skin: warm/well-perfused Neuro: alert and oriented x3, no focal findings Psych: appropriate affect ? Objective Data Active Medications Acetaminophen (Acetaminophen 325 Mg Tablet) 650 mg PO Q6H PRN PRN Reason: Pain, Mild (Pain Scale 1-3) Last Admin: 06/22/21 08:26 Dose: 650 mg Documented by: VANDANA Albuterol/Ipratropium (Albuterol/Iprat 2.5/0.5mg 3 Ml Ampul.Neb) 3 ml INHALE RQ4H PRN PRN Reason: Shortness of Breath/Wheezing Albuterol/Ipratropium (Albuterol/Iprat 2.5/0.5mg 3 Ml Ampul.Neb) 3 ml INHALE RQ4H WHILE AWAKE [facility] Last Admin: 06/22/21 11:07 Dose: 3 ml Documented by: TUTU Benzonatate (Benzonatate 100 Mg Capsule) 100 mg PO TID PRN PRN Reason: Cough Last Admin: 06/22/21 08:31 Dose: 100 mg Documented by: VANDANA Enoxaparin Sodium (Enoxaparin Sodium 40 Mg/0.4 Ml Syringe) 40 mg SUBCUT Q24H [facility] Last Admin: 06/22/21 06:17 Dose: 40 mg Documented by: ROSAURA Piperacillin Sod/Tazobactam (Sod 3.375 gm/ Sodium Chloride) 50 mls @ 100 mls/hr IV Q6H [facility] Last Infusion: 06/22/21 11:58 Dose: 0 mls/hr Documented by: VANDANA Vancomycin HCl 750 mg/ Sodium (Chloride) 265 mls @ 265 mls/hr IV Q12H [facility] Last Infusion: 06/22/21 08:25 Dose: 0 mls/hr Documented by: VANDANA Melatonin (Melatonin 3 Mg Tablet) 6 mg PO BEDTIME PRN PRN Reason: Insomnia Methylprednisolone Sodium Succinate (Methylprednisolone Sod Succ 40 Mg/Ml Vial) 40 mg IVPUSH Q8H [facility] Last Admin: 06/22/21 11:26 Dose: 40 mg Documented by: VANDANA Morphine Sulfate (Morphine Sulfate 2 Mg/Ml Cartridge) 1 mg IVPUSH Q4H PRN; Protocol PRN Reason: Pain, SOB Last Admin: 06/21/21 13:10 Dose: 1 mg Documented by: CINDI Omeprazole (Omeprazole 20 Mg Capsule.) 20 mg PO DAILY [facility] Last Admin: 06/22/21 08:26 Dose: 20 mg Documented by: VANDANA Pharmacy Consult (Consult Rx Vancomycin Dosing) 1 each MISCELLANE DAILY PRN PRN Reason: Consult order Senna (Sennosides 8.6 Mg Tablet) 17.2 mg PO BEDTIME PRN PRN Reason: Constipation Sodium Chloride (0.9 % Sodium Chloride Flush 3 Ml Syringe) 3 ml IVFLUSH QSHIFT [facility] Last Admin: 06/22/21 08:27 Dose: 3 ml Documented by: VANDANA Labs CBC & Chem 7: 06/22/21 05:20 06/22/21 05:20 Labs: Laboratory Results - last 24 hr 06/21/21 06/21/21 06/22/21 11:29 11:30 05:20 MCV MCH MCHC RDW Plt Count MPV Absolute Nucleated RBC Nucleated RBC % (auto) Anion Gap 11 L Estim Creat Clear Calc 106.6 Estimated GFR > 60 Random Glucose 149 H Calcium 8.9 Magnesium 2.3 Total Bilirubin 0.3 AST 17 D ALT 58 H Alkaline Phosphatase 92 Total Protein 6.5 Albumin 3.2 L Nasal Screen MRSA (PCR) POSITIVE A Nasal S. aureus Screen POSITIVE A Nasal MRSA/S.aureus Interp SEE NOTE Respiratory Panel [place] See Note Adenovirus (Rapid PCR) Not Detected B.pert (TEM-PCR) Not Detected B.parapertussis DNA PCR Not Detected C. pneumoniae DNA (PCR) Not Detected Coronavirus OC43 (PCR) Not Detected Coronavirus HKU1 (PCR) Not Detected Coronavirus 229E (PCR) Not Detected Coronavirus NL63 (PCR) Not Detected HIV 1&2 Ab/P24 Ag 4thGn Human Metapneumovir PCR Not Detected Influenza A (RT-PCR) Not Detected Influenza B (RT-PCR) Not Detected M. pneumoniae (PCR) Not Detected Parainfluenza 1 (PCR) Not Detected Parainfluenza 2 (PCR) Not Detected Parainfluenza 3 (PCR) Not Detected Parainfluenza 4 (PCR) Not Detected RSV (PCR) Not Detected Entero/Rhino (PCR) Detected A SARS-CoV-2 RNA (RT-PCR) Not Detected 06/22/21 06/22/21 05:20 05:20 MCV 86.2 MCH 27.9 MCHC 32.4 RDW 14.1 Plt Count 453 H MPV 9.1 L Absolute Nucleated RBC 0.000 Nucleated RBC % (auto) 0.0 Anion Gap Estim Creat Clear Calc Estimated GFR Random Glucose Calcium Magnesium Total Bilirubin AST ALT Alkaline Phosphatase Total Protein Albumin Nasal Screen MRSA (PCR) Nasal S. aureus Screen Nasal MRSA/S.aureus Interp Respiratory Panel [place] Adenovirus (Rapid PCR) B.pert (TEM-PCR) B.parapertussis DNA PCR C. pneumoniae DNA (PCR) Coronavirus OC43 (PCR) Coronavirus HKU1 (PCR) Coronavirus 229E (PCR) Coronavirus NL63 (PCR) HIV 1&2 Ab/P24 Ag 4thGn Nonreactive Human Metapneumovir PCR Influenza A (RT-PCR) Influenza B (RT-PCR) M. pneumoniae (PCR) Parainfluenza 1 (PCR) Parainfluenza 2 (PCR) Parainfluenza 3 (PCR) Parainfluenza 4 (PCR) RSV (PCR) Entero/Rhino (PCR) SARS-CoV-2 RNA (RT-PCR) Microbiology Microbiology Results: Microbiology 06/21/21 05:10 Blood Culture - Preliminary Blood - Venous No growth after 24 hours. 06/21/21 04:52 Blood Culture - Preliminary Blood - Venous No growth after 24 hours. Assessment and Plan (1) Bronchiectasis: Status: Acute Assessment and Plan: 50yo M with asthma + bronchiectasis presenting with worsening cough and dyspnea despite outpatient steroids and doxycycline admitted for pneumonia, RLL mass vs. consolidation # asthma exacerbation - Continue IV steroids, nebs scheduled and as needed Will add scheduled cough medication and continue as needed cough suppressant # ground-glass PNA - enterovirus/rhinovirus positive, Covid-19 negative - started on vanc + pip/paco;day 2 await ID input, HIV nonreactive # RLL lung mass vs consolidation - per Pulm, repeat CT chest in 8 wk and f/u in clinic # hypoMg - repleted; repeat level normalized # GERD - PPI # VTE ppx - LMWH Quality Stroke Does the patient have a stroke diagnosis?: No VTE Prior VTE?: No VTE Risk Level:: Medical - moderate - high VTE Device Contraindication: Treatment Not Indicated VTE Drug Contraindication: N/A - Med Ordered
[2021-06-22] MEDS: guaiFENesin DM 200/20/10 ML 10 ML SYRUP PO ×2 (14:42→18:49)
[2021-06-22 17:46] LABS: Vancomycin Trough 3.1 mcg/mL (10.0-20.0)
[2021-06-22] MEDS: vancomycin HCL 1,250 MG in 0.9 % Sodium Chloride 250 ML 166.67 MG IV (18:58)
[2021-06-23] VITALS: BP 121/74; PULSE 108; RESP 18; TEMP 36.6; O2SAT 96
[2021-06-23] MEDS: Piperacillin Sodium/Tazobactam 3.375 GM in 0.9 % Sodium Chloride 50 ML IV ×2 (00:53→06:00)
[2021-06-23] MEDS: 0.9 % Sodium Chloride Flush 3 ML SYRINGE IVFLUSH ×2 (00:54→08:43)
[2021-06-23] MEDS: guaiFENesin DM 200/20/10 ML 10 ML SYRUP PO ×3 (02:12→13:33)
[2021-06-23] MEDS: methylPREDNISolone Sod Succ 40 MG/ML VIAL IVPUSH (02:12)
[2021-06-23 03:25] VITALS: BP 156/88; PULSE 99; RESP 18; TEMP 36.6; O2SAT 94
[2021-06-23 05:54] LABS: Basophils Percent Auto 0.1 % (0-2); Hematocrit 33.7 % (42.0-52.0); Hemoglobin 11.2 g/dl (14.0-18.0); Imm Gran Pct Auto 1.2 % (0.0-0.4); Lymphocytes Absolute Auto 1.3 X10*3/uL (1.2-4.9); Lymphocytes Percent Auto 5.3 % (20-40); MANUAL DIFF FLAG SCAN; Mean Corpuscular HGB Conc 33.2 g/dl (31.0-36.0); Mean Corpuscular Hemoglobin 28.8 pg (27.0-33.0); Mean Corpuscular Volume 86.6 fL (80.0-98.0); Mean Platelet Volume 9.3 fL (9.4-12.4); Monocytes Absolute Auto 0.7 X10*3/uL (0.1-1.2); Monocytes Percent Auto 2.8 % (2-11); Neutrophils Absolute Auto 21.8 x10*3/uL (2.0-8.3); Neutrophils Percent Auto 90.6 % (45-73); Platelet Count 496 X10*3/uL (160-400); Red Blood Count 3.89 X10*6/uL (4.60-5.80); Red Cell Distribution Width 14.5 % (11.0-16.0); SCAN SMEAR FLAG 1; White Blood Count 24.1 X10*3/uL (4.8-10.8)
[2021-06-23] MEDS: Enoxaparin Sodium 40 MG/0.4 ML SYRINGE SUBCUT (06:00)
[2021-06-23 06:17] LABS: Anion Gap 11 (12-20); Blood Urea Nitrogen 18 mg/dL (9-16); Calcium 9.5 mg/dL (8.4-10.2); Carbon Dioxide 26 mmol/L (22-29); Chloride 108 mmol/L (96-108); Creatinine Clr Calc Pharmacy 93.9; Estimated Glomerular Filt Rate > 60; Glucose Random 196 mg/dL (60-115); Potassium 5.2 mmol/L (3.3-5.1); Sodium 140 mmol/L (135-145)
[2021-06-23] MEDS: vancomycin HCL 1,250 MG in 0.9 % Sodium Chloride 250 ML 166.67 MG IV (06:47)
[2021-06-23] MEDS: Albuterol/Iprat 2.5/0.5MG 3 ML AMPUL.NEB INHALE ×2 (07:48→11:49)
[2021-06-23 07:49] VITALS: PULSE 94; RESP 18; O2SAT 95
[2021-06-23 08:00] VITALS: BP 159/95; PULSE 94; RESP 18; TEMP 36.9; O2SAT 97
[2021-06-23 08:28] LABS: SLIDE REVIEW VERIFIED
[2021-06-23] MEDS: Omeprazole 20 MG CAPSULE.DR PO (08:43)
[2021-06-23 11:50] VITALS: PULSE 89; RESP 16; O2SAT 97
[2021-06-23 12:00] VITALS: BP 144/86; PULSE 107; RESP 18; TEMP 37.2; O2SAT 95
--- NOTE | 2021-06-23 12:03 | PM.DS ---
DS: Providers Provider Date of Service: 06/23/21 Date of admission: 06/21/21 04:34 Primary care physician: Genevieve Lama DO Consults: 06/21/21 04:34 Consult to Infectious Diseases Routine Consulting Provider: Jodie Reyes Reason for consultation: PNA 06/21/21 08:39 Consult to Pulmonology Routine Consulting Provider: [facility] Reason for consultation: lung mass vs consolidation DS: Diagnosis Discharge Diagnosis (1) Bronchiectasis: Status: Acute DS: Summary Hospital Course Hospital Course: Chief Complaint:? shortness of breath ?50-year-old male with a past medical history of asthma, bronchiectasis, GERD presented to the hospital today with a chief complaint of shortness of breath / cough.? Patient reported that over the past couple weeks he has been having shortness of breath, cough.? Which has been gradually worsening.? Denies any sputum production.? Denies any fevers.? Reports he was positive for COVID in 2019; has been tested few times in this 2 weeks above the COVID which came back negative.? Reports he has been COVID-19 vaccinated in the past.? Denies any chest pain or palpitations.? Patient mentions that he has outpatient antibiotics including doxycycline and steroids with no significant improvement in symptoms.? Complains of generalized weakness.? Denies any nausea vomiting or diarrhea.? Denies any urinary symptoms.? Review of all other systems is negative except mentioned above ER course: Per ER team patient on presentation noted to be in mild distress, tachypneic, tachycardic; COVID-19 negative; CT chest showed no evidence of pulmonary embolism but noted right lower lobe consolidation versus mass.? Given antibiotics.? Admitted to the hospital for further management.? Patient was saturating 94% on room air.? Placed on supplemental oxygen p.r.n.. Hospital course 50yo M with asthma + bronchiectasis presenting with worsening cough and dyspnea despite outpatient steroids and doxycycline, patient admitted to medical floor with a diagnosis of pneumonia right lower lobe mass versus consolidation, patient treated with broad-spectrum antibiotic IV Zosyn and vancomycin respiratory viral panel came back negative for COVID-19 and positive for entero and rhinovirus patient responded well to above treatment with less shortness of breath, continue to have dry cough with minimal exertion, noted to have normal oxygenation, due to abnormal CT chest patient evaluated by section crews activities clerk and they recommend repeat CT chest in 8-12 weeks and close outpatient follow-up with pulmonology and primary care , since patient is not hypoxic with no fevers and hemodynamically stable he is being discharged home on 5 more days of Levaquin and prednisone and recommended to rest drink plenty of fluids and take cough medications. asthma exacerbation resolved HIV nonreactive, low procalcitonin Hypomagnesemia repleted Time Spent with Patient Time attestation: Total time spent providing and/or coordinating discharge services: Discharge coordination time: Greater than 30 minutes Quality: Stroke Does the patient have a stroke diagnosis?: No Physical Exam Vital Signs: Vital Signs: Last Vital Signs Temp 98.4 F 06/23/21 08:00 Pulse 89 06/23/21 11:50 Resp 16 06/23/21 11:50 BP 159/95 H 06/23/21 08:00 Pulse Ox 97 06/23/21 08:00 BMI result Body Mass Index 26.6 Gen:? Awake alert, no acute distress HEENT: sclera anicteric, moist mucus membranes Neck: supple Lungs: Clear, diminished, respiratory distress, no wheeze, no crackles Heart: regular rate and rhythm, no murmurs Abd: soft, non-tender, non-distended Ext: no edema Skin: warm/well-perfused Neuro: alert and oriented x3, no focal findings Psych: appropriate affect DS: Data Data Completed and Pending Labs on day of discharge: Laboratory Results - last 24 hr 06/22/21 06/23/21 06/23/21 17:18 05:29 05:29 WBC 24.1 H RBC 3.89 L Hgb 11.2 L Hct 33.7 L MCV 86.6 MCH 28.8 MCHC 33.2 RDW 14.5 Plt Count 496 H MPV 9.3 L Immature Gran % (Auto) 1.2 H Neut % (Auto) 90.6 H Lymph % (Auto) 5.3 L [place] % (Auto) 2.8 Eos % (Auto) 0.0 Baso % (Auto) 0.1 Lymph # (Auto) 1.3 [place] # (Auto) 0.7 Eos # (Auto) 0.0 Baso # (Auto) 0.0 Abs Immat Gran (auto) 0.30 H Absolute Neuts (auto) 21.8 H Absolute Nucleated RBC 0.000 Nucleated RBC % (auto) 0.0 Smear Tech's Comments VERIFIED Sodium 140 Potassium 5.2 H Chloride 108 Carbon Dioxide 26 Anion Gap 11 L BUN 18 H Creatinine 0.92 Estim Creat Clear Calc 93.9 Estimated GFR > 60 Random Glucose 196 H Calcium 9.5 D Vancomycin Trough 3.1 L Preliminary micro results at discharge 06/21/21 05:10 Blood Culture - Preliminary Blood - Venous No growth after 48 hours. 06/21/21 04:52 Blood Culture - Preliminary Blood - Venous No growth after 48 hours. Discharge Plan Discharge Patient Disposition: Home, Self-Care Discharge Diagnosis: Acute asthma exacerbation/bronchiectasis Pneumonia Right lung mass Hypo magnesemia Referrals: Genevieve Lama DO [Primary Care Provider] - 1 Week Discharge Medications: New levofloxacin 750 mg tablet 750 mg PO DAILY 5 Days Qty: 5 RF: 0 benzonatate 100 mg capsule 100 mg PO TID Qty: 20 RF: 0 prednisone 20 mg tablet 20 mg PO DAILY Qty: 7 RF: 0 Continued albuterol sulfate 90 mcg/actuation HFA aerosol inhaler 2 puff inhalation Q4-6H PRN (Reason: shortness of breath or wheezing) Qty: 8.5 RF: 0 omeprazole 20 mg Tablet,Delayed Release (Dr/Ec) 20 mg PO DAILY RF: 0 codeine-guaifenesin 10-100 mg/5 mL liquid 5 ml PO Q6H PRN (Reason: cough) Qty: 60 RF: 0 Discontinued doxycycline monohydrate 100 mg tablet 100 mg PO BID Qty: 14 RF: 0 prednisone 20 mg tablet 40 mg PO DAILY Qty: 8 RF: 0 Discharge Orders: Discharge Order (Routine); Ordered 06/23/21 Ordered By: Jyothi Rodríguez Diet: advance to usual diet Activity on Discharge: As tolerated Stand Alone Forms: Patient Portal Discharge page Care Plan Goals: Diagnosed to have rhinovirus, pneumonia with underlying history of bronchiectasis, take antibiotic for 5 more days and prednisone, continue cough medication rest drink plenty of fluids and have close outpatient follow-up with primary care physician and pulmonology Health Concerns: Bronchiectasis/asthma/GERD take all home medications as before Plan of Treatment: Outpatient follow-up with primary care physician and [employer] activities clerk Dr. Rutherford in next 1-2 weeks, need repeat CT chest for follow-up on right lung mass in 8-12 weeks Assessment: Per discharge summary
--- NOTE | 2021-06-23 13:11 | P.CNID_ITS ---
History of Present Illness Data of Consult Service Date: 06/22/21 Requesting physician: Jyothi Rodríguez Primary Care Provider: DO TONIO Walker Reason for consult: shortness of breath He presents with cough and shortness of breath for two days He has positive enterovirus He has some yellow productive cough Review of Systems Verdana 4l Review of Systems: Yes all other systems are reviewed and Verdana 4d are negative PMFSH Past Medical History Medical History Asthma Bronchiectasis Heartburn Family History Family history: reviewed and not pertinent Social History Social History Household Members: Friend(s) Do you presently have visiting nurse or other home services: No Alcohol intake: current Alcohol intake frequency: holidays/special occasions only Patient Tobacco Use Status: Former Tobacco user e-Cigarette/Vaping Use: Never Used Second Hand Smoke Exposure: No Advance Directives Date on File: 06/21/21 service: No Current occupational status: employed Meds Allergies Allergy/AdvReac Type Severity Reaction Status Date / Time clindamycin [Clindamycin] Allergy Severe SEVERE Verified 05/08/20 10:37 ITCHING Active Medications: Current Medications Acetaminophen (Acetaminophen 325 Mg Tablet) 650 mg PO Q6H PRN PRN Reason: Pain, Mild (Pain Scale 1-3) Last Admin: 06/22/21 08:26 Dose: 650 mg Documented by: Albuterol/Ipratropium (Albuterol/Iprat 2.5/0.5mg 3 Ml Ampul.Neb) 3 ml INHALE RQ4H PRN PRN Reason: Shortness of Breath/Wheezing Albuterol/Ipratropium (Albuterol/Iprat 2.5/0.5mg 3 Ml Ampul.Neb) 3 ml INHALE RQ4H WHILE AWAKE [facility] Last Admin: 06/23/21 11:49 Dose: 3 ml Documented by: Benzonatate (Benzonatate 100 Mg Capsule) 100 mg PO TID PRN PRN Reason: Cough Last Admin: 06/22/21 08:31 Dose: 100 mg Documented by: Enoxaparin Sodium (Enoxaparin Sodium 40 Mg/0.4 Ml Syringe) 40 mg SUBCUT Q24H ARIELLE Last Admin: 06/23/21 06:00 Dose: 40 mg Documented by: Guaifenesin/Dextromethorphan (Guaifenesin Dm 200/20/10 Ml 10 Ml Syrup) 10 ml PO Q6H [facility] Last Admin: 06/23/21 08:43 Dose: 10 ml Documented by: Piperacillin Sod/Tazobactam (Sod 3.375 gm/ Sodium Chloride) 50 mls @ 100 mls/hr IV Q6H [facility] Last Admin: 06/23/21 12:38 Dose: Not Given Documented by: Vancomycin HCl 1,250 mg/ (Sodium Chloride) 250 mls @ 166.667 mls/hr IV Q12H [facility] Last Infusion: 06/23/21 08:20 Dose: Infused Documented by: Melatonin (Melatonin 3 Mg Tablet) 6 mg PO BEDTIME PRN PRN Reason: Insomnia Methylprednisolone Sodium Succinate (Methylprednisolone Sod Succ 40 Mg/Ml Vial) 40 mg IVPUSH Q8H [facility] Last Admin: 06/23/21 12:38 Dose: Not Given Documented by: Morphine Sulfate (Morphine Sulfate 2 Mg/Ml Cartridge) 1 mg IVPUSH Q4H PRN; Protocol PRN Reason: Pain, SOB Last Admin: 06/21/21 13:10 Dose: 1 mg Documented by: Omeprazole (Omeprazole 20 Mg Peg.) 20 mg PO DAILY [facility] Last Admin: 06/23/21 08:43 Dose: 20 mg Documented by: Pharmacy Consult (Consult Rx Vancomycin Dosing) 1 each MISCELLANE DAILY PRN PRN Reason: Consult order Senna (Sennosides 8.6 Mg Tablet) 17.2 mg PO BEDTIME PRN PRN Reason: Constipation Sodium Chloride (0.9 % Sodium Chloride Flush 3 Ml Syringe) 3 ml IVFLUSH QSHIFT [facility] Last Admin: 06/23/21 08:43 Dose: 3 ml Documented by: Home Medications Medication Instructions Recorded Confirmed Last Taken Type omeprazole 20 mg 20 mg PO DAILY 06/21/21 06/21/21 06/20/21 History tablet,delayed release Physical Exam Verdana 4l Vital Signs: Verdana 4d Verdana 4d Vital Signs: Verdana 4d Verdana 4Bd Last Vital Signs Verdana 4d Community Affairs Director New 4d Community Affairs Director New 4d Temp 99.0 F 06/23/21 12:00 Community Affairs Director New 4d Pulse 107 H 06/23/21 12:00 Community Affairs Director New 4d Resp 18 06/23/21 12:00 BP 144/86 H 06/23/21 12:00 Pulse Ox 95 06/23/21 12:00 BMI result Body Mass Index 26.6 Const: General: cooperative HENMT: Head: Yes normal to inspection Mouth: Normal oral and palatal mucosa present Eyes: General: appearance normal, both eyes and all related structures Pupils: Equal, round and reactive pupils present Resp: Effort & Inspection: normal respiratory effort Cardio: Rate: regular rate Rhythm: regular rhythm GI: Palpation (GI): Soft to palpation and nontender Skin: General skin exam: no rashes or lesions noted Neuro: Cranial nerves: Yes Equal, round and reactive pupils present Results Labs CBC & Chem 7: 06/23/21 05:29 06/23/21 05:29 Labs: Short CBC 06/23/21 Range/Units 05:29 WBC 24.1 H (4.8-10.8) X10*3/uL Hgb 11.2 L (14.0-18.0) g/dl Hct 33.7 L (42.0-52.0) % Plt Count 496 H (160-400) X10*3/uL BMP 06/23/21 05:29 Sodium 140 Potassium 5.2 H Chloride 108 Carbon Dioxide 26 BUN 18 H Creatinine 0.92 Calcium 9.5 D Microbiology Microbiology Results: Microbiology 06/21/21 05:10 Blood - Venous Blood Culture - Preliminary No growth after 48 hours. 06/21/21 04:52 Blood - Venous Blood Culture - Preliminary No growth after 48 hours. Assessment and Plan (1) Bronchiectasis: He has cough. He has probable viral syndrome,enterovirus He may have bacterial bronchitis/early bronchopneumonia Would agree with po Levaquin for 7 d (2) COVID-19: Status: Acute
--- NOTE | 2021-06-26 12:12 | MHC.CM.PN ---
POST DISCHARGE NOTE: CM RECEIVED MESSAGE FROM PT THAT HE IS IN NEED OF RETURN TO WORK LETTER, CM DISCUSSED W/HOSPITALIST AND PT AT [phone] AND LETTER GENERATED AND WILL BE LEFT AT HELP DESK IN [employer] FOR PT TO [employer]AMP[employer] ATTENDANT.
== END 2021-06-23 16:19 | disposition home or self-care (01) | DRG 190 ==
LOC: HO.ED 06-21 04:36 → HO.EDOVER 06-21 04:40 → HO.S3 06-21 19:26 → HO.EDOVER 06-21 19:45 → HO.S3 06-21 21:56
PROVIDERS: Family Medicine; Admitting Provider Hospitalist; Emergency Provider Emergency Medicine Emergency Medical Services; PCP Family Medicine; Visit Provider Hospitalist
DX: J47.0 Bronchiectasis with acute lower respiratory infection (principal); J12.89 Other viral pneumonia; J45.901 Unspecified asthma with (acute) exacerbation; K21.9 Gastro-esophageal reflux disease without esophagitis; B97.19 Other enterovirus as the cause of diseases classified elsewhere; E83.42 Hypomagnesemia; R91.8 Other nonspecific abnormal finding of lung field; Z20.822 Contact with and (suspected) exposure to COVID-19; Z87.891 Personal history of nicotine dependence; Z79.899 Other long term (current) drug therapy
CPT/HCPCS: 36415; 71046; 71275; 80048; 80053; 80076; 80202; 83605; 83735; 83880; 84145; 84484; 85025; 85027; 85379; 87040; 87389; 87633; 87635; 87640; 87641; 93005; 94640; 99218; 99285; J0696; J1650; J2270; J2543; J2920; J2930; J3370; J3475; Q9967

== ENCOUNTER 2021-08-08 14:48 | Outpatient (REF) | payer OTHER, SELFPAY ==
--- NOTE | ~2021-08-08 | XR_ITS ---
EXAMINATION: XR CHEST CLINICAL INFORMATION: COPD, masslike consolidation lower right perihilar region. COMPARISON: Chest radiographs 06/20/2021, 06/16/2021, 12/23/2018, CT chest 06/21/2021, 06/08/2018. TECHNIQUE: 2 views of the chest were obtained. FINDINGS: Convex opacity right lower perihilar region is similar to recent studies. There is bronchiectasis again seen, better appreciated on CT. Coarsening stromal markings right suprahilar and perihilar region are stable from recent exams. There is no interval volume loss or lobar segmental airspace consolidation or effusion. The costophrenic sulci are clear. The heart is normal in size. No acute bony abnormality. XR/XR chest 2V IMPRESSION: Convex opacity lower right perihilar region with bronchiectasis and coarsening stromal markings, similar to recent imaging. No interval lobar or segmental airspace consolidation, volume loss, or effusion.
== END 2021-08-08 14:49 | disposition home or self-care (01) ==
LOC: HO.XRAY 14:48
PROVIDERS: PCP Family Medicine; Visit Provider Family Medicine
DX: J44.9 Chronic obstructive pulmonary disease, unspecified (principal)
CPT/HCPCS: 71046

== ENCOUNTER 2021-09-07 15:29 | Outpatient (REF) | payer OTHER, SELFPAY ==
[2021-09-07 16:14] LABS: Blood Urea Nitrogen 15 mg/dL (9-16); Estimated Glomerular Filt Rate > 60
== END 2021-09-07 15:30 | disposition home or self-care (01) ==
LOC: HO.LAB 15:29
PROVIDERS: PCP Family Medicine; Visit Provider Family Medicine
DX: I10 Essential (primary) hypertension (principal)
CPT/HCPCS: 36415; 82565; 84520

== ENCOUNTER 2021-09-08 08:34 | Outpatient (REF) | payer OTHER, SELFPAY ==
--- NOTE | ~2021-09-08 | CT_ITS ---
EXAMINATION: CT CHEST WITH CONTRAST CLINICAL INFORMATION: Abnormal lung finding. COMPARISON: CT angiogram chest 06/21/2021. TECHNIQUE: Multidetector volumetric CT imaging of the chest was obtained after the administration of 50 mL of Omnipaque 350 intravenous contrast without immediate adverse reactions. Axial MIP volume rendering provided. Sagittal and coronal reformatted images were obtained. This CT examination was performed using dose optimization techniques as appropriate, variously including the following: *Automated exposure control *Adjustment of mA and/or kV according to patient size (this includes techniques or standardized protocols for targeted exams where dose is matched to indication/reason for exam; i.e. extremities or head) *Use of iterative reconstruction technique DLP: 143 mGy-cm FINDINGS: DIRECTOR OF SOFTWARE DEVELOPMENT: Well-inflated lungs with increased bilateral parahilar markings. LUNGS: There are emphysematous changes of both lungs with extensive right lung bronchiectasis with bronchial wall thickening and minimal debris within the dependent segments of the dilated bronchi in right lower lobe. There are small cystic changes also. There is persistent right upper lobe atelectasis. The right middle lobe thick consolidation or atelectasis has significant improved since previous study 06/21/2021. There are no pulmonary nodules or mass seen. There is dependent atelectasis right lung base. MEDIASTINUM: The thyroid lobes are symmetrical and normal. The central trachea and the bronchi are widely patent. There are small shotty lymph nodes in the right suprahilar region measuring 1.3 cm. Soft tissue density seen in the right hilar region has significantly improved but still persists. PLEURA: There is no pleural effusion. No pleural mass or thickening. AXILLA: No lymphadenopathy. UPPER ABDOMEN: Visualized liver, spleen and pancreas unremarkable. OSSEOUS STRUCTURES: No aggressive lytic or sclerotic process seen. CT/CT chest w con IMPRESSION: Chronic right lung bronchiectasis with bronchial wall thickening is stable. Right middle lobe consolidation is unchanged. There is right upper lobe mediastinal base atelectasis, similar to previous study. Minimal bilateral parenchymal atelectasis and/or focal bronchiectasis both lower lobes are stable. The right suprahilar lymph nodes appears improved. There is a right parahilar soft tissue density which appears improved. Fleischner guidelines were followed.
[2021-09-08] MEDS: iohexoL 350 MG/ML 100 ML INFUS..BTL 65 ML IV (09:14)
== END 2021-09-08 08:35 | disposition home or self-care (01) ==
LOC: HO.CT 08:34
PROVIDERS: PCP Family Medicine; Visit Provider Family Medicine
DX: R91.8 Other nonspecific abnormal finding of lung field (principal)
CPT/HCPCS: 71260; Q9967

== ENCOUNTER 2021-09-22 13:27 | Outpatient (REF) | payer OTHER, SELFPAY ==
[2021-09-22 14:33] LABS: MANUAL DIFF FLAG NO
[2021-09-22 14:57] LABS: Basophils Absolute Auto 0.1 X10*3/uL (0.0-0.2); Basophils Percent Auto 0.5 % (0-2); Eosinophils Absolute Auto 0.2 X10*3/uL (0.0-0.4); Eosinophils Percent Auto 1.6 % (0-4); Hematocrit 42.4 % (42.0-52.0); Hemoglobin 13.9 g/dl (14.0-18.0); Imm Gran Abs Auto 0.04 X10*3/uL (0.00-0.03); Imm Gran Pct Auto 0.4 % (0.0-0.4); Lymphocytes Percent Auto 27.3 % (20-40); Mean Corpuscular HGB Conc 32.8 g/dl (31.0-36.0); Mean Corpuscular Hemoglobin 27.6 pg (27.0-33.0); Mean Corpuscular Volume 84.1 fL (80.0-98.0); Mean Platelet Volume 9.4 fL (9.4-12.4); Monocytes Absolute Auto 0.6 X10*3/uL (0.1-1.2); Neutrophils Absolute Auto 7.3 x10*3/uL (2.0-8.3); Neutrophils Percent Auto 65.2 % (45-73); Platelet Count 359 X10*3/uL (160-400); Red Blood Count 5.04 X10*6/uL (4.60-5.80); Red Cell Distribution Width 13.8 % (11.0-16.0); White Blood Count 11.2 X10*3/uL (4.8-10.8)
[2021-09-23 14:42] LABS: Immunoglobulin A 348 mg/dL (47-310); Immunoglobulin M 43 mg/dL (50-300)
[2021-09-25 21:26] LABS: Immunoglobulin G Subclass 1 568 mg/dL (382-929); Immunoglobulin G Subclass 2 508 mg/dL (241-700); Immunoglobulin G Subclass 3 73 mg/dL (22-178); Immunoglobulin G Total 1220 mg/dL (600-1640)
[2021-09-26 06:42] LABS: Immunoglobulin E 57 kU/L (<OR=114)
== END 2021-09-22 13:28 | disposition home or self-care (01) ==
LOC: HO.LAB 13:27
PROVIDERS: PCP Family Medicine; Visit Provider Internal Medicine Pulmonary Disease
DX: Z91.09 Other allergy status, other than to drugs and biological substances (principal); J18.9 Pneumonia, unspecified organism; R93.89 Abnormal findings on diagnostic imaging of other specified body structures; J45.909 Unspecified asthma, uncomplicated
CPT/HCPCS: 36415; 82784; 82785; 85025; 86003

== ENCOUNTER 2021-10-06 14:15 | Outpatient (REF) | payer OTHER, SELFPAY ==
--- NOTE | ~2021-10-06 | CT_ITS ---
EXAMINATION: CT CHEST WITHOUT CONTRAST CLINICAL INFORMATION: Abnormal findings on diagnostic imaging. COMPARISON: CT chest 09/08/2021. TECHNIQUE: Multidetector volumetric CT imaging of the chest was done. Axial MIP volume rendering provided. Sagittal and coronal reformatted images were obtained. This CT examination was performed using dose optimization techniques as appropriate, variously including the following: *Automated exposure control *Adjustment of mA and/or kV according to patient size (this includes techniques or standardized protocols for targeted exams where dose is matched to indication/reason for exam; i.e. extremities or head) *Use of iterative reconstruction technique DLP: 60 mGy-cm. FINDINGS: GRAB HOOKER: Well-expanded lungs. LUNGS: The lungs are hyperinflated with right upper lobe, right middle lobe and right lower lobe bronchiectasis most prominent in the upper and middle lobes. There is mild bronchial wall thickening. There is associated parenchymal haziness in right upper and middle lobes. A 2 mm calcification is seen in the right upper lobe axial image 23/4. Ill-defined micronodular nodular opacities are seen throughout the right lower lobe. A 2 mm nodule right lower lobe axial image 44/4, a triangular nodule right lower lobe image 44/4 and several additional punctate nodules in the right lower lobe. Minimal debris seen in the dependent segment of the right lower lobe simulating as a pulmonary nodule, is again visualized measuring 6 mm on axial image 392/6. Mild bronchiectasis is seen in left lower lobe. There is mild atelectatic changes in the right lung base. No major change since last exam. MEDIASTINUM: The thyroid lobes are symmetrical and normal. Central trachea is widely patent. Heart size and the great vessels are normal caliber. No abnormal-sized mediastinal or hilar lymph nodes seen. There is no pericardial effusion. PLEURA: There is no pleural effusion. No pleural mass or thickening. AXILLA: No lymphadenopathy. UPPER ABDOMEN: Visualized liver, spleen, pancreas and bilateral adrenal glands unremarkable. OSSEOUS STRUCTURES: No lytic or sclerotic process seen. There is mild spondylosis dorsal spine. CT/CT chest wo con IMPRESSION: Extensive right lung bronchiectasis with mild bronchial wall thickening and parenchymal haziness in the right upper and middle lobes likely inflammatory change. There are mild atelectatic changes in the right lung base. There are small nodules as described above, likely debris within the smaller bronchioles. Mild early bronchiectasis left lung. Fleischner guidelines were followed.
== END 2021-10-06 14:16 | disposition home or self-care (01) ==
LOC: HO.CT 14:15
PROVIDERS: PCP Family Medicine; Visit Provider Internal Medicine Pulmonary Disease
DX: R93.89 Abnormal findings on diagnostic imaging of other specified body structures (principal)
CPT/HCPCS: 71250

== ENCOUNTER 2021-10-11 12:34 | Outpatient (REF) | payer OTHER, SELFPAY ==
--- NOTE | 2021-10-11 09:19 | PFT_ITS ---
Forced vital capacity 65%, FEV1 50%, FEV1/FVC ratio is 60. FEF 25-75 30%. MVV is 39%. Post-bronchodilator therapy, there is significant improvement in all parameters. Total lung capacity 88% and residual volume 114%. Diffusion capacity 86%. CONCLUSION: Severe obstructive airway disorder. Excellent response to bronchodilator therapy with almost complete reversal of the obstructive component. These findings are consistent with bronchial asthma/COPD overlap syndrome. Clinical correlation is recommended. Jennifer Huynh MD MSB/MODL / [phone]
== END 2021-10-11 12:35 | disposition home or self-care (01) ==
LOC: HO.RESP 12:34
PROVIDERS: PCP Family Medicine; Visit Provider Internal Medicine Pulmonary Disease
DX: R06.00 Dyspnea, unspecified (principal); R93.89 Abnormal findings on diagnostic imaging of other specified body structures
CPT/HCPCS: 94060; 94727; 94729

== ENCOUNTER → 2021-10-20 13:18 | Outpatient (BNVA) | payer OTHER, SELFPAY | PROVIDERS: PCP Family Medicine; Visit Provider Internal Medicine Pulmonary Disease | DX: J45.909 Unspecified asthma, uncomplicated (principal) ==

== ENCOUNTER 2021-11-24 17:29 | Emergency (ER) | payer OTHER, SELFPAY ==
--- NOTE | ~2021-11-24 | XR_ITS ---
EXAMINATION: XR HIP, RIGHT CLINICAL INFORMATION: Trauma COMPARISON: None TECHNIQUE: Two views of the right hip. Also single pelvic image FINDINGS: Single view of the pelvis does not demonstrate evidence for fracture. 2 detailed views of the right hip does not demonstrate fracture or dislocation. Femoral head contour is smooth. XR/XR hip RT min 2V IMPRESSION: No acute bony finding.
[2021-11-24 17:30] VITALS: BP 135/83; PULSE 98; RESP 18; TEMP 36.6; O2SAT 98; BMI 25.1
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
== END 2021-11-24 19:08 | disposition home or self-care (01) ==
PROVIDERS: Emergency Provider Emergency Medicine Emergency Medical Services
DX: M25.551 Pain in right hip (principal); Z87.891 Personal history of nicotine dependence; Z79.899 Other long term (current) drug therapy
CPT/HCPCS: 73502; 99282; 99283

== ENCOUNTER 2021-12-11 07:27 | Inpatient (IN) | payer OTHER, SELFPAY ==
[2021-12-11] VITALS (10 sets, daily range): BP systolic 97–143; BP diastolic 50–83; PULSE 92–115; RESP 16–22; TEMP 36.9–39.1; O2SAT 94–98; BMI 25.1
--- NOTE | ~2021-12-11 | XR_ITS ---
EXAMINATION: XR CHEST CLINICAL INFORMATION: Cough COMPARISON: Previous chest x-rays most recent August [address] most recent October 2021 TECHNIQUE: Frontal view of the chest was obtained. FINDINGS: The cardiac and mediastinal contours are stable. There are coarse lung markings probably related to bronchiectasis and bronchial wall thickening. This is similar to previous exams. There is new airspace disease in the right upper lobe probably representing pneumonia. There is no pleural effusion or pneumothorax. There are degenerative changes of the spine. XR/XR chest 1V IMPRESSION: Chronic changes of bronchiectasis and bronchial wall thickening. New airspace disease in the right upper lobe probably representing pneumonia.
--- NOTE | ~2021-12-11 | CT_ITS ---
EXAMINATION: CT CHEST WITHOUT CONTRAST CLINICAL INFORMATION: Cough and chest pain COMPARISON: Previous chest x-ray from earlier the same day and chest CT October 2021 TECHNIQUE: Multidetector volumetric CT imaging of the chest was done. Axial MIP volume rendering provided. Sagittal and coronal reformatted images were obtained. This CT examination was performed using dose optimization techniques as appropriate, variously including the following: *Automated exposure control *Adjustment of mA and/or kV according to patient size (this includes techniques or standardized protocols for targeted exams where dose is matched to indication/reason for exam; i.e. extremities or head) *Use of iterative reconstruction technique DLP: 323 mGy-cm FINDINGS: LUNGS: There is severe bronchiectasis, bronchial wall thickening and areas of mucus plugging seen in the right lung. There is new right upper lobe airspace disease with air bronchograms suggestive of pneumonia. There is increasing right middle lobe atelectasis/consolidation. There are new right lower lobe nodules and mucus plugging. There are multiple small calcified right lung nodules versus calcified broncholiths that are stable. There is evidence of mild airways disease with areas of bronchial wall thickening seen in the left lung. MEDIASTINUM: The heart size is normal. There is no pericardial effusion. There is no coronary artery calcification. The thoracic aorta is normal in caliber. There is mediastinal lymphadenopathy. Largest lymph node is a subcarinal lymph node that is slightly enlarged measuring 1.9 cm in short axis. There are small calcified right hilar lymph nodes. PLEURA: There is no pleural effusion. No pleural mass or thickening. AXILLA: No lymphadenopathy. UPPER ABDOMEN: There is a low-attenuation right adrenal nodule that is stable. There is a small right renal stone. There may be diverticulosis of the colon. OSSEOUS STRUCTURES: There are degenerative changes of the spine. CT/CT chest wo con IMPRESSION: Extensive right bronchiectasis, bronchial wall thickening and areas of mucus plugging. New right upper lobe pneumonia. Increasing atelectasis/pneumonia in the right middle lobe. Mild airways disease in the left lung. Fleischner guidelines were followed.
--- NOTE | 2021-12-11 07:33 | ECG_ITS ---
Test Reason : sepsis alert Blood Pressure : / mmHG Vent. Rate : 114 BPM Atrial Rate : 114 BPM P-R Int : 166 ms QRS Dur : 096 ms QT Int : 310 ms P-R-T Axes : 044 022 044 degrees QTc Int : 427 ms Sinus tachycardia Possible Left atrial enlargement Minimal voltage criteria for LVH, may be normal variant ( Sokolow-Yanez ) Borderline ECG When compared with ECG of 21-JUN-2021 02:24, No significant change was found Referred By: Zaira Armstrong Electronically Signed By:ELSA JONES MD
--- NOTE | 2021-12-11 07:38 | ED.SOB ---
HPI - SOB/Dyspnea General Chief Complaint: Fever Stated Complaint: BODYACHES,SOB,104 TEMPORAL PER EMS Time Seen by Provider: 12/11/21 07:30 Source: patient Mode of arrival: EMS History of Present Illness HPI Narrative: 51-year-old male with significant pulmonary condition to include asthma presents with onset of symptoms on Saturday/ of body aches, multiple episodes of diarrhea which has persisted, 6-7 episodes a day without blood, some mild nausea and vomiting, positive use of antibiotics within the past 3 months, patient then states he began experiencing chills, cough that is productive of sputum. Otherwise, he denies chest pain/palpitations. Related Data Home Medications Medication Instructions Recorded Confirmed omeprazole 20 mg tablet,delayed 20 mg PO DAILY 06/21/21 06/21/21 release atorvastatin 20 mg tablet 20 mg PO DAILY 09/22/21 fluticasone propionate 50 2 spray intranasal DAILY 09/22/21 mcg/actuation nasal spray,suspension hydrochlorothiazide 25 mg tablet 25 mg PO DAILY 09/22/21 ipratropium 0.5 mg-albuterol 3 mg ml inhalation 09/22/21 (2.5 mg base)/3 mL nebulization soln loratadine 10 mg tablet 10 mg PO DAILY 09/22/21 multivitamin (Daily Multi-Vitamin) 1 tab PO DAILY 09/22/21 Previous Rx's Medication Instructions Recorded albuterol sulfate 90 mcg/actuation 2 puff inhalation Q4-6H PRN 05/08/20 aerosol inhaler shortness of breath or wheezing #8.5 grams fluticasone fur. 200 mcg-umeclid 1 inh inhalation DAILY 30 days #1 09/22/21 62.5 mcg-vilant 25 mcg ea inhalat.powder (Trelegy Ellipta) Allergies Allergy/AdvReac Type Severity Reaction Status Date / Time clindamycin [Clindamycin] Allergy Severe SEVERE Verified 10/20/21 13:23 ITCHING Review of Systems Review of Systems: Pertinent positives and negatives as stated in HPI 10 point review of systems is otherwise negative. PMFSH Past Medical History Source: nursing notes reviewed Medical History Asthma Bronchiectasis Heartburn Social History Social History Household Members: Friend(s) Do you presently have visiting nurse or other home services: No Alcohol intake: current Alcohol intake frequency: holidays/special occasions only Patient Tobacco Use Status: Former Tobacco user e-Cigarette/Vaping Use: Never Used Second Hand Smoke Exposure: No Advance Directives: Yes Advance Directives on File: Yes Advance Directives Date on File: 06/21/21 service: No Current occupational status: employed Physical Exam Vital Signs: Vital Signs: Last Vital Signs Temp 100.2 F 12/11/21 09:07 Pulse 114 H 12/11/21 09:07 Resp 22 H 12/11/21 09:07 BP 117/72 12/11/21 10:09 Pulse Ox 94 12/11/21 09:07 O2 Del Method 12/11/21 09:07 Oxygen Flow Rate 2 12/11/21 07:32 BMI result Body Mass Index 25.1 VITAL SIGNS: Reviewed. GENERAL: Well developed, well nourished, in no acute distress. HEAD: Normocephalic/atraumatic EYES: PERRLA, EOMI EARS: Ext canals without abnormality OROPHARYNX: no oral lesions noted, posterior pharynx clear LUNGS: Good inspiratory effort with crackles right base, positive tachypnea, no wheeze/rales noted. SpO2<96> on 2 L of nasal cannula. CARDIOVASCULAR: Regular rate and rhythm without noted murmurs ABDOMEN: Soft, mild pain on palpation,, non-distended with bowel sounds. MUSCULOSKELETAL: No tenderness, deformities, or effusions noted on gross inspection. EXTREMITIES: No cyanosis, clubbing or edema. SKIN: Inspection of the skin reveals no rashes NEUROLOGIC: Alert and oriented x 4. Strength and sensation to light touch were grossly intact x 4. Course Course Course Narrative: 51-year-old male with history and clinical presentation consistent with SIRS, sepsis alert called. Review of all investigations so significant leukocytosis with elevated CRP and chest x-ray findings of pneumonia. Patient is 94%, temperature has improved and he is received all antibiotics, fluids, lactic acid, as well as blood cultures. I discussed this case with inpatient hospitalist who accepts admission. Patient is COVID negative. MDM - SOB/Dyspnea Lab Data Result diagrams: 12/11/21 07:44 12/11/21 07:44 Labs: Lab Results 12/11/21 12/11/21 12/11/21 Range/Units 07:44 07:44 07:44 WBC 20.6 H (4.8-10.8) X10*3/uL RBC 4.50 L (4.60-5.80) X10*6/uL Hgb 12.7 L (14.0-18.0) g/dl Hct 38.6 L (42.0-52.0) % MCV 85.8 (80.0-98.0) fL MCH 28.2 (27.0-33.0) pg MCHC 32.9 (31.0-36.0) g/dl RDW 13.9 (11.0-16.0) % Plt Count 319 (160-400) X10*3/uL MPV 8.9 L (9.4-12.4) fL Immature Gran % (Auto) 0.5 H (0.0-0.4) % Neut % (Auto) 84.9 H (45-73) % Lymph % (Auto) 9.3 L (20-40) % [place] % (Auto) 4.7 (2-11) % Eos % (Auto) 0.4 (0-4) % Baso % (Auto) 0.2 (0-2) % Lymph # (Auto) 1.9 (1.2-4.9) X10*3/uL [place] # (Auto) 1.0 (0.1-1.2) X10*3/uL Eos # (Auto) 0.1 (0.0-0.4) X10*3/uL Baso # (Auto) 0.1 (0.0-0.2) X10*3/uL Abs Immat Gran (auto) 0.11 H (0.00-0.03) X10*3/uL Absolute Neuts (auto) 17.5 H (2.0-8.3) x10*3/uL Absolute Nucleated RBC 0.000 (0.0-0.012) X10*3/uL Nucleated RBC % (auto) 0.0 (0.0-0.2) /100WBC PT (10.0-13.1) SEC INR (0.9-1.1) Sodium 134 L (135-145) mmol/L Potassium 4.6 (3.3-5.1) mmol/L Chloride 102 (96-108) mmol/L Carbon Dioxide 24 (22-29) mmol/L Anion Gap 13 (12-20) BUN 15 (9-16) mg/dL Creatinine 1.15 (0.5-1.4) mg/dL Estim Creat Clear Calc 74.2 Estimated GFR > 60 Random Glucose 122 H D (60-115) mg/dL Lactic Acid 1.1 (0.5-2.0) mmol/L Calcium 9.0 (8.4-10.2) mg/dL Total Bilirubin 0.6 (0.0-1.0) mg/dL AST 27 D (5-37) U/L ALT 31 (0-40) U/L Alkaline Phosphatase 103 (39-117) U/L C-Reactive Protein 5.21 H (< or = 0.50) mg/dL Total Protein 7.7 (6.5-8.0) g/dL Albumin 4.3 D (3.5-5.0) g/dL Procalcitonin ng/mL Urine Color Urine Appearance Urine pH (5.0-8.0) Ur Specific [place] (1.005-1.025) Urine Protein (NEG-TRACE) MG/DL Urine Glucose (UA) (NEG) MG/DL Urine Ketones (NEG) MG/DL Urine Blood (NEG) Urine Nitrite (NEG) Ur Leukocyte Esterase (NEG) COVID-19 (STEPH) (Negative) COVID-19 Clin Com 12/11/21 12/11/21 12/11/21 Range/Units 07:44 07:57 08:36 WBC (4.8-10.8) X10*3/uL RBC (4.60-5.80) X10*6/uL Hgb (14.0-18.0) g/dl Hct (42.0-52.0) % MCV (80.0-98.0) fL MCH (27.0-33.0) pg MCHC (31.0-36.0) g/dl RDW (11.0-16.0) % Plt Count (160-400) X10*3/uL MPV (9.4-12.4) fL Immature Gran % (Auto) (0.0-0.4) % Neut % (Auto) (45-73) % Lymph % (Auto) (20-40) % [place] % (Auto) (2-11) % Eos % (Auto) (0-4) % Baso % (Auto) (0-2) % Lymph # (Auto) (1.2-4.9) X10*3/uL [place] # (Auto) (0.1-1.2) X10*3/uL Eos # (Auto) (0.0-0.4) X10*3/uL Baso # (Auto) (0.0-0.2) X10*3/uL Abs Immat Gran (auto) (0.00-0.03) X10*3/uL Absolute Neuts (auto) (2.0-8.3) x10*3/uL Absolute Nucleated RBC (0.0-0.012) X10*3/uL Nucleated RBC % (auto) (0.0-0.2) /100WBC PT 13.3 H (10.0-13.1) SEC INR 1.2 H (0.9-1.1) Sodium (135-145) mmol/L Potassium (3.3-5.1) mmol/L Chloride (96-108) mmol/L Carbon Dioxide (22-29) mmol/L Anion Gap (12-20) BUN (9-16) mg/dL Creatinine (0.5-1.4) mg/dL Estim Creat Clear Calc Estimated GFR Random Glucose (60-115) mg/dL Lactic Acid (0.5-2.0) mmol/L Calcium (8.4-10.2) mg/dL Total Bilirubin (0.0-1.0) mg/dL AST (5-37) U/L ALT (0-40) U/L Alkaline Phosphatase (39-117) U/L C-Reactive Protein (< or = 0.50) mg/dL Total Protein (6.5-8.0) g/dL Albumin (3.5-5.0) g/dL Procalcitonin 0.12 ng/mL Urine Color YELLOW Urine Appearance CLEAR Urine pH 7.0 (5.0-8.0) Ur Specific [place] 1.010 (1.005-1.025) Urine Protein NEG (NEG-TRACE) MG/DL Urine Glucose (UA) NEG (NEG) MG/DL Urine Ketones NEG (NEG) MG/DL Urine Blood NEG (NEG) Urine Nitrite NEG (NEG) Ur Leukocyte Esterase NEG (NEG) COVID-19 (STEPH) (Negative) COVID-19 Clin Com 12/11/21 Range/Units 09:25 WBC (4.8-10.8) X10*3/uL RBC (4.60-5.80) X10*6/uL Hgb (14.0-18.0) g/dl Hct (42.0-52.0) % MCV (80.0-98.0) fL MCH (27.0-33.0) pg MCHC (31.0-36.0) g/dl RDW (11.0-16.0) % Plt Count (160-400) X10*3/uL MPV (9.4-12.4) fL Immature Gran % (Auto) (0.0-0.4) % Neut % (Auto) (45-73) % Lymph % (Auto) (20-40) % [place] % (Auto) (2-11) % Eos % (Auto) (0-4) % Baso % (Auto) (0-2) % Lymph # (Auto) (1.2-4.9) X10*3/uL [place] # (Auto) (0.1-1.2) X10*3/uL Eos # (Auto) (0.0-0.4) X10*3/uL Baso # (Auto) (0.0-0.2) X10*3/uL Abs Immat Gran (auto) (0.00-0.03) X10*3/uL Absolute Neuts (auto) (2.0-8.3) x10*3/uL Absolute Nucleated RBC (0.0-0.012) X10*3/uL Nucleated RBC % (auto) (0.0-0.2) /100WBC PT (10.0-13.1) SEC INR (0.9-1.1) Sodium (135-145) mmol/L Potassium (3.3-5.1) mmol/L Chloride (96-108) mmol/L Carbon Dioxide (22-29) mmol/L Anion Gap (12-20) BUN (9-16) mg/dL Creatinine (0.5-1.4) mg/dL Estim Creat Clear Calc Estimated GFR Random Glucose (60-115) mg/dL Lactic Acid (0.5-2.0) mmol/L Calcium (8.4-10.2) mg/dL Total Bilirubin (0.0-1.0) mg/dL AST (5-37) U/L ALT (0-40) U/L Alkaline Phosphatase (39-117) U/L C-Reactive Protein (< or = 0.50) mg/dL Total Protein (6.5-8.0) g/dL Albumin (3.5-5.0) g/dL Procalcitonin ng/mL Urine Color Urine Appearance Urine pH (5.0-8.0) Ur Specific [place] (1.005-1.025) Urine Protein (NEG-TRACE) MG/DL Urine Glucose (UA) (NEG) MG/DL Urine Ketones (NEG) MG/DL Urine Blood (NEG) Urine Nitrite (NEG) Ur Leukocyte Esterase (NEG) COVID-19 (STEPH) Negative (Negative) COVID-19 Clin Com See Note ECG Data Attestation: I personally reviewed and interpreted this ECG as follows: Prior ECG tracings: available for review Interpretation: Sinus tachycardia, HR-114, no STEMI, MI/QRS/QTC is within normal limits. Critical Care Time Critical Care Time Critical Care Time: Yes Total Critical Care Time: 30 Attestation: I personally attest to this time spent taking care of the patient. Discharge Plan Discharge Clinical Impression: Pneumonia, Sepsis, Hypoxia Patient Disposition: Admitted As Inpatient Prescriptions: No Action albuterol sulfate 90 mcg/actuation HFA aerosol inhaler 2 puff inhalation Q4-6H PRN (Reason: shortness of breath or wheezing) Qty: 8.5 0RF omeprazole 20 mg Tablet,Delayed Release (Dr/Ec) 20 mg PO DAILY loratadine 10 mg tablet 10 mg PO DAILY fluticasone propionate 50 mcg/actuation spray,suspension 2 spray intranasal DAILY hydrochlorothiazide 25 mg tablet 25 mg PO DAILY atorvastatin 20 mg tablet 20 mg PO DAILY ipratropium-albuterol 0.5 mg-3 mg(2.5 mg base)/3 mL solution for nebulization inhalation multivitamin [Daily Multi-Vitamin] Tablet 1 tab PO DAILY Trelegy Ellipta 200-62.5-25 mcg blister with device 1 inh inhalation DAILY 30 Days Qty: 1 6RF
[2021-12-11 07:51] LABS: MANUAL DIFF FLAG NO
[2021-12-11 07:52] LABS: Basophils Absolute Auto 0.1 X10*3/uL (0.0-0.2); Basophils Percent Auto 0.2 % (0-2); Eosinophils Absolute Auto 0.1 X10*3/uL (0.0-0.4); Eosinophils Percent Auto 0.4 % (0-4); Hematocrit 38.6 % (42.0-52.0); Hemoglobin 12.7 g/dl (14.0-18.0); Imm Gran Abs Auto 0.11 X10*3/uL (0.00-0.03); Imm Gran Pct Auto 0.5 % (0.0-0.4); Lymphocytes Absolute Auto 1.9 X10*3/uL (1.2-4.9); Lymphocytes Percent Auto 9.3 % (20-40); Mean Corpuscular HGB Conc 32.9 g/dl (31.0-36.0); Mean Corpuscular Hemoglobin 28.2 pg (27.0-33.0); Mean Corpuscular Volume 85.8 fL (80.0-98.0); Mean Platelet Volume 8.9 fL (9.4-12.4); Monocytes Percent Auto 4.7 % (2-11); Neutrophils Absolute Auto 17.5 x10*3/uL (2.0-8.3); Neutrophils Percent Auto 84.9 % (45-73); Platelet Count 319 X10*3/uL (160-400); Red Cell Distribution Width 13.9 % (11.0-16.0); White Blood Count 20.6 X10*3/uL (4.8-10.8)
[2021-12-11] MEDS: 0.9 % Sodium Chloride 2,313.33 ML 2313.33 ML IV (07:53)
[2021-12-11 08:01] LABS: Lactic Acid 1.1 mmol/L (0.5-2.0)
[2021-12-11] MEDS: Acetaminophen 325 MG TABLET 975 MG PO (08:01)
[2021-12-11 08:13] LABS: Alanine Aminotransferase 31 U/L (0-40); Albumin Level 4.3 g/dL (3.5-5.0); Alkaline Phosphatase 103 U/L (39-117); Anion Gap 13 (12-20); Aspartate Amino Transferase 27 U/L (5-37); Bilirubin Total 0.6 mg/dL (0.0-1.0); Blood Urea Nitrogen 15 mg/dL (9-16); Carbon Dioxide 24 mmol/L (22-29); Chloride 102 mmol/L (96-108); Creatinine Clr Calc Pharmacy 74.2; Estimated Glomerular Filt Rate > 60; Glucose Random 122 mg/dL (60-115); Potassium 4.6 mmol/L (3.3-5.1); Sodium 134 mmol/L (135-145); Total Protein 7.7 g/dL (6.5-8.0)
[2021-12-11 08:17] LABS: INTERNATIONAL NORM RATIO 1.2 (0.9-1.1); Prothrombin Time 13.3 SEC (10.0-13.1)
[2021-12-11] MEDS: Piperacillin Sodium/Tazobactam 3.375 GM in 0.9 % Sodium Chloride 50 ML IV (08:18)
[2021-12-11 08:43] LABS: Appearance Urine CLEAR; Color Urine YELLOW; Glucose Urine UA NEG (NEG); Leukocyte Esterase Urine NEG (NEG); Nitrite Urine NEG (NEG); Urine Blood NEG (NEG); Urine Ketones NEG (NEG); Urine Protein NEG (NEG-TRACE)
[2021-12-11 08:55] LABS: C Reactive Protein 5.21 mg/dL (< or = 0.50)
[2021-12-11 09:21] LABS: Procalcitonin 0.12 ng/mL
[2021-12-11 09:59] LABS: COVID-19 Test Negative (Negative)
[2021-12-11 10:24] LABS: CDiff Gene PCR NEGATIVE (Negative)
--- NOTE | 2021-12-11 10:35 | P.HPHOSP_ITS ---
History of Present Illness Date of Service: 12/11/21 <Joceline Ponce NP - Last Filed: 12/11/21 15:30> Attending physician on admission: Quan Cruz <Joceline Ponce NP - Last Filed: 12/11/21 15:30> Chief Complaint: chest pain <Joceline Ponce NP - Last Filed: 12/11/21 15:30> 51 year old man presenting with chest pain. He reports that he has been having right sided chest pain without radiation, pain with palpation. He denied nausea, vomiting, diarrhea, fever, chills. He has had a cough with a history of bronchiectasis and frequent bouts of pneumonia. Chest x-ray showing chronic changes of bronchiectases with possible new airspace disease in the right upper lobe representing likely pneumonia. Patient was noted to have fever of 102.4, tachycardia and tachypnea past elevated white blood cell count of 20.6. EKG showing sinus tachycardia without any ischemic changes. In the ER he was given Zosyn, IV fluids, Tylenol and Toradol. He will be admitted for further management and treatment of acute community-acquired pneumonia and musculoskeletal chest pain. <Joceline Ponce NP - Last Filed: 12/11/21 15:30> 51 year old man presenting with chest pain. He reports that he has been having right sided chest pain without radiation, pain with palpation. He denied nausea, vomiting, diarrhea, fever, chills. He has had a cough with a history of bronchiectasis and frequent bouts of pneumonia. Chest x-ray showing chronic changes of bronchiectases with possible new airspace disease in the right upper lobe representing likely pneumonia. Patient was noted to have fever of 102.4, tachycardia and tachypnea past elevated white blood cell count of 20.6. EKG showing sinus tachycardia without any ischemic changes. In the ER he was given Zosyn, IV fluids, Tylenol and Toradol. He will be admitted for further management and treatment of acute community-acquired pneumonia and musculoskeletal chest pain. <Quan Cruz MD - Last Filed: 12/11/21 16:48> Review of Systems Review of Systems: Denies any recent fever chills or decrease in appetite respiratory denies any shortness of breath coverage production cardiovascular See HPI gastrointestinal denies any dysphagia abdominal pain nausea vomiting or diarrhea genitourinary denies any dysuria frequency or hematuria musculoskeletal denies any joint pain or swelling neuropsych denies any weakness or seizures all other systems reviewed are negative <Joceline Ponce NP - Last Filed: 12/11/21 15:30> [facility] Medical History: Medical History Asthma Bronchiectasis Heartburn <Joceline Ponce NP - Last Filed: 12/11/21 15:30> Family History: Family History (Updated 12/11/21 @ 13:04 by Joceline Ponce NP) Sister Breast CA <Joceline Ponce NP - Last Filed: 12/11/21 15:30> Social History: Social History Household Members: Friend(s) Do you presently have visiting nurse or other home services: No Alcohol intake: current Alcohol intake frequency: holidays/special occasions only Patient Tobacco Use Status: Former Tobacco user e-Cigarette/Vaping Use: Never Used Second Hand Smoke Exposure: No Use of substances other than those prescribed or required for medical reasons: No Advance Directives: Yes Advance Directives on File: Yes Advance Directives Date on File: 06/21/21 service: No Current occupational status: employed <Joceline Ponce NP - Last Filed: 12/11/21 15:30> Meds Allergies/Adverse reactions: Allergies Allergy/AdvReac Type Severity Reaction Status Date / Time clindamycin [Clindamycin] Allergy Severe SEVERE Verified 10/20/21 13:23 ITCHING <Joceline Ponce NP - Last Filed: 12/11/21 15:30> Home medications: Home Medications Medication Instructions Recorded Confirmed Last Taken Type omeprazole 20 mg tablet,delayed 20 mg PO DAILY 06/21/21 12/11/21 06/20/21 History release atorvastatin 20 mg tablet 20 mg PO DAILY 09/22/21 12/11/21 Unknown History fluticasone propionate 50 2 spray intranasal DAILY 09/22/21 12/11/21 Unknown History mcg/actuation nasal spray,suspension hydrochlorothiazide 25 mg tablet 25 mg PO DAILY 09/22/21 12/11/21 Unknown History ipratropium 0.5 mg-albuterol 3 mg 3 ml inhalation QID PRN Shortness 09/22/21 12/11/21 Unknown History (2.5 mg base)/3 mL nebulization Of Breath soln loratadine 10 mg tablet 10 mg PO DAILY 09/22/21 12/11/21 Unknown History multivitamin (Daily Multi-Vitamin) 1 tab PO DAILY 09/22/21 12/11/21 Unknown History <Joceline Ponce NP - Last Filed: 12/11/21 15:30> Physical Exam Vital Signs and Narrative: Vital Signs: Last Vital Signs Temp 100.2 F 12/11/21 09:07 Pulse 114 H 12/11/21 09:07 Resp 22 H 12/11/21 09:07 BP 117/72 12/11/21 10:09 Pulse Ox 94 12/11/21 09:07 O2 Del Method 12/11/21 09:07 Oxygen Flow Rate 2 12/11/21 07:32 BMI result Body Mass Index 25.1 <Joceline Ponce NP - Last Filed: 12/11/21 15:30> Appearing in no acute distress head is normocephalic atraumatic eyes pupils are PERRLA sclera is anicteric mouth throat mucous membranes are intact and moist neck is supple no lymphadenopathy, no JVD noted lung sounds are clear to auscultation heart regular rate rhythm, clear S1, S2 positive bowel sounds, abdomen is soft, nontender neuro patient is alert x3, no focal deficits Musculoskeletal pain on palpation to right chest <Joceline Ponce NP - Last Filed: 12/11/21 15:30> Results Labs CBC and Chem 7: : 12/11/21 07:44 12/11/21 07:44 <Joceline Ponce NP - Last Filed: 12/11/21 15:30> Labs: Laboratory Results - last 24 hr 12/11/21 12/11/21 12/11/21 07:44 07:44 07:44 MCV 85.8 MCH 28.2 MCHC 32.9 RDW 13.9 Plt Count 319 MPV 8.9 L Immature Gran % (Auto) 0.5 H Neut % (Auto) 84.9 H Lymph % (Auto) 9.3 L [place] % (Auto) 4.7 Eos % (Auto) 0.4 Baso % (Auto) 0.2 Lymph # (Auto) 1.9 [place] # (Auto) 1.0 Eos # (Auto) 0.1 Baso # (Auto) 0.1 Abs Immat Gran (auto) 0.11 H Absolute Neuts (auto) 17.5 H Absolute Nucleated RBC 0.000 Nucleated RBC % (auto) 0.0 PT INR Anion Gap 13 Estim Creat Clear Calc 74.2 Estimated GFR > 60 Random Glucose 122 H D Lactic Acid 1.1 Calcium 9.0 Total Bilirubin 0.6 AST 27 D ALT 31 Alkaline Phosphatase 103 C-Reactive Protein 5.21 H Total Protein 7.7 Albumin 4.3 D Procalcitonin Urine Color Urine Appearance Urine pH Ur Specific [place] Urine Protein Urine Glucose (UA) Urine Ketones Urine Blood Urine Nitrite Ur Leukocyte Esterase C. difficile Tox B Gene COVID-19 (STEPH) [employer] Com 12/11/21 12/11/21 12/11/21 07:44 07:57 08:36 MCV MCH MCHC RDW Plt Count MPV Immature Gran % (Auto) Neut % (Auto) Lymph % (Auto) [place] % (Auto) Eos % (Auto) Baso % (Auto) Lymph # (Auto) [place] # (Auto) Eos # (Auto) Baso # (Auto) Abs Immat Gran (auto) Absolute Neuts (auto) Absolute Nucleated RBC Nucleated RBC % (auto) PT 13.3 H INR 1.2 H Anion Gap Estim Creat Clear Calc Estimated GFR Random Glucose Lactic Acid Calcium Total Bilirubin AST ALT Alkaline Phosphatase C-Reactive Protein Total Protein Albumin Procalcitonin 0.12 Urine Color YELLOW Urine Appearance CLEAR Urine pH 7.0 Ur Specific [place] 1.010 Urine Protein NEG Urine Glucose (UA) NEG Urine Ketones NEG Urine Blood NEG Urine Nitrite NEG Ur Leukocyte Esterase NEG C. difficile Tox B Gene COVID-19 (STEPH) COVID-BDA 12/11/21 12/11/21 08:36 09:25 MCV MCH MCHC RDW Plt Count MPV Immature Gran % (Auto) Neut % (Auto) Lymph % (Auto) [place] % (Auto) Eos % (Auto) Baso % (Auto) Lymph # (Auto) [place] # (Auto) Eos # (Auto) Baso # (Auto) Abs Immat Gran (auto) Absolute Neuts (auto) Absolute Nucleated RBC Nucleated RBC % (auto) PT INR Anion Gap Estim Creat Clear Calc Estimated GFR Random Glucose Lactic Acid Calcium Total Bilirubin AST ALT Alkaline Phosphatase C-Reactive Protein Total Protein Albumin Procalcitonin Urine Color Urine Appearance Urine pH Ur Specific [place] Urine Protein Urine Glucose (UA) Urine Ketones Urine Blood Urine Nitrite Ur Leukocyte Esterase C. difficile Tox B Gene NEGATIVE COVID-19 (STEPH) Negative COVID-19 Clin Com See Note <Joceline Ponce NP - Last Filed: 12/11/21 15:30> Imaging Radiologist's Impressions: Impressions Chest X-Ray 12/11/21 08:17 IMPRESSION: Chronic changes of bronchiectasis and bronchial wall thickening. New airspace disease in the right upper lobe probably representing pneumonia. <Joceline Ponce NP - Last Filed: 12/11/21 15:30> Assessment and Plan (1) Sepsis: Status: Acute <Joceline Ponce NP - Last Filed: 12/11/21 15:30> 51 year old man admitted with sepsis secondary to PNA Sepsis secondary to CAP Fever, tachycardia, tachypnea, normal lactic acid History of bronchiectasis and frequent episodes of pneumonia Rocephin and azithromycin Obtain chest CT to better visualize lung anguiano Pulmonary consultation Hypertension Stable blood pressure Continue hydrochlorothiazide GERD Ppi DVT prophylaxis with Lovenox Attending Dr. Cruz Full code Patient likely requires 2 midnights in the hospital for treatment of sepsis secondary to pneumonia requiring IV antibiotics and further consultation from egg breaking machine operator <Joceline Ponce NP - Last Filed: 12/11/21 15:30> Quality Stroke Does the patient have a stroke diagnosis?: No <Joceline Ponce NP - Last Filed: 12/11/21 15:30> VTE Prior VTE?: No <Joceline Ponce NP - Last Filed: 12/11/21 15:30> VTE Risk Level:: Medical - moderate - high <Joceline Ponce NP - Last Filed: 12/11/21 15:30> VTE Device Contraindication: N/A - Device Ordered <Joceline Ponce NP - Last Filed: 12/11/21 15:30> VTE Drug Contraindication: Treatment Not Indicated <Joceline Ponce NP - Last Filed: 12/11/21 15:30>
--- NOTE | 2021-12-11 11:13 | PC.NURSE ---
pt brought in via ambulance called in as sepsis alert. sepsis protocol initiated immediately. all parts of sepsis protocol completed within allotted time as documented.
[2021-12-11] MEDS: Ketorolac Tromethamine 30 MG/ML VIAL 15 MG IVPUSH (12:11)
--- NOTE | 2021-12-11 12:29 | PHA.MEDREC ---
Pharmacy Consult ? Medication Reconciliation Pharmacy has completed the medication reconciliation.
[2021-12-11 13:17] LABS: Troponin-I High Sensitivity < 3.5 ng/L (<3.5-35.0)
[2021-12-11] MEDS: Ketorolac Tromethamine 15 MG/ML VIAL IVPUSH ×2 (13:18→19:51)
[2021-12-11] MEDS: 0.9 % Sodium Chloride Flush 3 ML SYRINGE IVFLUSH (13:20)
[2021-12-12] VITALS (12 sets, daily range): BP systolic 99–135; BP diastolic 58–84; PULSE 68–97; RESP 14–18; TEMP 36.3–37.2; O2SAT 94–98; BMI 27.3
[2021-12-12] MEDS: Ketorolac Tromethamine 15 MG/ML VIAL IVPUSH ×2 (00:46→06:41)
[2021-12-12] MEDS: 0.9 % Sodium Chloride Flush 3 ML SYRINGE IVFLUSH ×4 (00:46→19:47)
[2021-12-12] MEDS: ondansetron HCL 4 MG/2 ML VIAL IVPUSH (01:20)
[2021-12-12] MEDS: Acetaminophen 325 MG TABLET 650 MG PO ×3 (01:20→19:45)
[2021-12-12 04:39] LABS: Basophils Absolute Auto 0.1 X10*3/uL (0.0-0.2); Basophils Percent Auto 0.3 % (0-2); Eosinophils Absolute Auto 0.1 X10*3/uL (0.0-0.4); Eosinophils Percent Auto 0.6 % (0-4); Hematocrit 34.7 % (42.0-52.0); Hemoglobin 11.4 g/dl (14.0-18.0); Imm Gran Abs Auto 0.08 X10*3/uL (0.00-0.03); Imm Gran Pct Auto 0.4 % (0.0-0.4); Lymphocytes Absolute Auto 2.7 X10*3/uL (1.2-4.9); Lymphocytes Percent Auto 13.4 % (20-40); MANUAL DIFF FLAG NO; Mean Corpuscular HGB Conc 32.9 g/dl (31.0-36.0); Mean Corpuscular Hemoglobin 28.3 pg (27.0-33.0); Mean Corpuscular Volume 86.1 fL (80.0-98.0); Monocytes Absolute Auto 0.9 X10*3/uL (0.1-1.2); Monocytes Percent Auto 4.5 % (2-11); Neutrophils Absolute Auto 16.5 x10*3/uL (2.0-8.3); Neutrophils Percent Auto 80.8 % (45-73); Platelet Count 259 X10*3/uL (160-400); Red Blood Count 4.03 X10*6/uL (4.60-5.80); Red Cell Distribution Width 13.9 % (11.0-16.0); White Blood Count 20.4 X10*3/uL (4.8-10.8)
[2021-12-12 04:59] LABS: Anion Gap 11 (12-20); Blood Urea Nitrogen 14 mg/dL (9-16); Calcium 8.3 mg/dL (8.4-10.2); Carbon Dioxide 24 mmol/L (22-29); Chloride 106 mmol/L (96-108); Creatinine Clr Calc Pharmacy 89.9; Estimated Glomerular Filt Rate > 60; Glucose Random 109 mg/dL (60-115); Sodium 136 mmol/L (135-145)
--- NOTE | 2021-12-12 06:07 | PC.NURSE ---
Report given to RN upstairs.
[2021-12-12] MEDS: Piperacillin Sodium/Tazobactam 4.5 GM in 0.9 % Sodium Chloride 100 ML IV ×3 (08:28→19:37)
[2021-12-12] MEDS: Omeprazole 20 MG CAPSULE.DR PO (08:29)
[2021-12-12] MEDS: Doxycycline Hyclate 100 MG in 0.9 % Sodium Chloride 250 ML 166.67 MG IV ×2 (09:10→20:50)
--- NOTE | 2021-12-12 09:13 | P.PNIM_ITS ---
Subjective Subjective Date of Service: 12/12/21 Interval History: seen and examined still with cough and pleurtic chest pain reports symptoms onset about 3-4 days prior to admission reports high fevers at home Review of Systems negative except HPI Physical Exam Vital Signs: Vital Signs: Last Vital Signs Temp 97.4 F 12/12/21 08:00 Pulse 90 12/12/21 08:00 Resp 15 12/12/21 08:00 BP 135/84 12/12/21 08:00 Pulse Ox 96 12/12/21 08:00 O2 Del Method 12/12/21 08:00 Oxygen Flow Rate 2 12/11/21 07:32 BMI result Body Mass Index 27.3 Const: Other: General - severe coughing spells Cardiovascular - regular rate and rhythm, S1-S2 Lungs - rales on the RU lobe, scattered rhonchi Abdomen - soft, nontender, no rebound or guarding Extremities - no edema bilaterally Neuro - awake and alert, no focal deficits Objective Data Active Medications Acetaminophen (Acetaminophen 325 Mg Tablet) 650 mg PO Q6H PRN PRN Reason: Pain, Mild (Pain Scale 1-3) Last Admin: 12/12/21 08:36 Dose: 650 mg Documented By: DANIELLE Acetylcysteine (Acetylcysteine 10 % 400 Mg/4 Ml Vial) 400 mg INHALE RQ4H WHILE AWAKE [facility] Albuterol/Ipratropium (Albuterol/Iprat 2.5/0.5mg 3 Ml Ampul.Neb) 3 ml INHALE QID PRN PRN Reason: Shortness Of Breath Atorvastatin Calcium (Atorvastatin Calcium 20 Mg Tablet) 20 mg PO BEDTIME [facility] Piperacillin Sod/Tazobactam (Sod 4.5 gm/ Sodium Chloride) 100 mls @ 200 mls/hr IV Q6H [facility] Last Admin: 12/12/21 08:28 Dose: 200 mls/hr Documented By: DANIELLE Doxycycline Hyclate 100 mg/ (Sodium Chloride) 250 mls @ 166.67 mls/hr IV Q12H [facility] Last Admin: 12/12/21 09:10 Dose: 166.67 mls/hr Documented By: DANIELLE Omeprazole (Omeprazole 20 Mg Capsule.) 20 mg PO DAILY@0630 [facility] Last Admin: 12/12/21 08:29 Dose: 20 mg Documented By: DANIELLE Ondansetron HCl (Ondansetron Hcl 4 Mg/2 Ml Vial) 4 mg IVPUSH Q8H PRN PRN Reason: Nausea and Vomiting Last Admin: 12/12/21 01:20 Dose: 4 mg Documented By: MISSY Pharmacy Consult (Consult Rx Perform Med Rec) 1 each MISCELLANE ONCE PRN PRN Reason: Consult order Sodium Chloride (0.9 % Sodium Chloride Flush 3 Ml Syringe) 3 ml IVFLUSH QSHIFT [facility] Last Admin: 12/12/21 08:37 Dose: 3 ml Documented By: DANIELLE Labs CBC & Chem 7: 12/12/21 04:33 12/12/21 04:33 Labs: Laboratory Results - last 24 hr 12/11/21 12/11/21 12/11/21 07:44 07:44 08:36 MCV MCH MCHC RDW Plt Count MPV Immature Gran % (Auto) Neut % (Auto) Lymph % (Auto) [place] % (Auto) Eos % (Auto) Baso % (Auto) Lymph # (Auto) [place] # (Auto) Eos # (Auto) Baso # (Auto) Abs Immat Gran (auto) Absolute Neuts (auto) Absolute Nucleated RBC Nucleated RBC % (auto) Anion Gap Estim Creat Clear Calc Estimated GFR Random Glucose Calcium Troponin I High Sens < 3.5 Procalcitonin 0.12 C. difficile Tox B Gene NEGATIVE COVID-19 ([facility]) COVID-19 Clin Com 12/11/21 12/12/21 12/12/21 09:25 04:33 04:33 MCV 86.1 MCH 28.3 MCHC 32.9 RDW 13.9 Plt Count 259 MPV 9.0 L Immature Gran % (Auto) 0.4 Neut % (Auto) 80.8 H Lymph % (Auto) 13.4 L [place] % (Auto) 4.5 Eos % (Auto) 0.6 Baso % (Auto) 0.3 Lymph # (Auto) 2.7 [place] # (Auto) 0.9 Eos # (Auto) 0.1 Baso # (Auto) 0.1 Abs Immat Gran (auto) 0.08 H Absolute Neuts (auto) 16.5 H Absolute Nucleated RBC 0.000 Nucleated RBC % (auto) 0.0 Anion Gap 11 L Estim Creat Clear Calc 89.9 Estimated GFR > 60 Random Glucose 109 Calcium 8.3 L D Troponin I High Sens Procalcitonin C. difficile Tox B Gene COVID-19 ([facility]) Negative COVID-19 Clin Com See Note Assessment and Plan (1) Sepsis: Status: Acute Plan This is a 51 yo M with a PMH of Bronchectasis with prior pseudomonal pneumonia who is admitted for sepsis secondary to pneumonia. 1. Multifocal pneumonia 1a. Bronchiactasis, mucous plugging suspected pseudomonal --has prior cultures from bronch in the past showing this high dose zosyn + empiric doxy obtain sputum mucomyst updrafts if not improve, may need to consider bronch 2. Pleuritic chest pain due to above IV toradol has given minimal relief; will add IV + PO narcotics for a short duration 3. HTN hold meds today and re-eval daily Full Code DVT pptx, Lovenox [ Patient requires continued hospitalization due to a history of resistant organisms (pseudomonas) requiring IV zosyn for treatment.Further more, the patient has not been afebrile for more than 24 hours. Quality Stroke Does the patient have a stroke diagnosis?: No VTE Prior VTE?: No VTE Risk Level:: Medical - moderate - high VTE Device Contraindication: N/A - Device Ordered VTE Drug Contraindication: Treatment Not Indicated
[2021-12-12] MEDS: Acetylcysteine 10 % 400 MG/4 ML VIAL INHALE ×3 (09:39→18:04)
--- NOTE | 2021-12-12 09:39 | P.CONPL_ITS ---
History of Present Illness History of Present Illness Consult date: 12/12/21 Requesting physician: Yaw Cardenas Reason for consult: cough, chest pain, pneumonia and other (bronchiectasis) Chief complaint: CAP Narrative: 51 years old gentleman is a well known case of chronic Bronchiectasis/ COPD, who has been admitted several times before, Is admitted once again with about 1 weeks history of nonspecific chest discomfort in the right upper lobe area, increased cough with expectoration. Low-grade fever up to 102 degrees F and increased shortness of breath. In the ER , the CT scan of the chest indicates that on top of his chronic bronchiectasis, he has a consolidation in the right upper lobe representing pneumonia. Past medical history of this gentleman is well documented in previous medical records, and basically he has extensive chronic bronchiectasis . He is nonsmoker, and also denies using any electronic cigarettes. Since last night the he is somewhat improved, but still has very frequent ongoing cough, I think the cough is main reason for his discomfort in the right chest. Review of Systems Review of Systems: Yes all other systems are reviewed and are negative Eyes: Eyes: Reports no additional eye complaints ENT: Reports system reviewed and no additional complaints, except as documented Cardiovascular: Cardiovascular: Reports no additional cardiovascular complaints Respiratory: Respiratory: Reports as per HPI Gastrointestinal: Gastrointestinal: Reports no additional gastrointestinal complaints Genitourinary: Genitourinary: Reports no additional male genitourinary complaints Musculoskeletal: Musculoskeletal: Reports back pain and Reports myalgias Integumentary/Breasts: Skin/Breast: Reports system reviewed and no additional complaints, except as docu Neurologic: Reports system reviewed and no additional complaints, except as documented Psychiatric: Psychiatric: Reports no additional psychiatric complaints [facility] Past Medical History Medical History Asthma Bronchiectasis Heartburn Family History Family History (Updated 12/11/21 @ 13:04 by Joceline Ponce NP) Sister Breast CA Social History Social History Household Members: None Housing: Apartment Do you presently have visiting nurse or other home services: No Alcohol intake: current Alcohol intake frequency: holidays/special occasions only Patient Tobacco Use Status: Former Tobacco user e-Cigarette/Vaping Use: Never Used Second Hand Smoke Exposure: No Use of substances other than those prescribed or required for medical reasons: No Have you been hit, kicked, punched, or otherwise hurt by someone within the past year? If so, by whom?: No Do you feel safe in your current relationship?: No Is there a partner from a previous relationship who is making you feel unsafe now?: No Are you made to feel afraid or neglected: No Advance Directives: Yes Advance Directives on File: Yes Advance Directives Date on File: 06/21/21 Do you have thoughts of harming others: None Do you have a plan to hurt others: No Plan Recently lost weight without trying: No How much weight loss: Not applicable Eating poorly because of decreased appetite: No Nutrition screen score: 0 Nutrition Risks: No Nutritional Risk service: No Current occupational status: employed Meds Allergies Allergy/AdvReac Type Severity Reaction Status Date / Time clindamycin [Clindamycin] Allergy Severe SEVERE Verified 10/20/21 13:23 ITCHING Active Medications: Current Medications Acetaminophen (Acetaminophen 325 Mg Tablet) 650 mg PO Q6H PRN PRN Reason: Pain, Mild (Pain Scale 1-3) Last Admin: 12/12/21 08:36 Dose: 650 mg Acetylcysteine (Acetylcysteine 10 % 400 Mg/4 Ml Vial) 400 mg INHALE Q6H ARIELLE Stop: 12/13/21 03:31 Albuterol Sulfate (Albuterol Sulfate (0.083%) 2.5 Mg/3 Ml Vial.Neb) 2.5 mg INHALE Q6H PRN PRN Reason: Wheezing Albuterol/Ipratropium (Albuterol/Iprat 2.5/0.5mg 3 Ml Ampul.Neb) 3 ml INHALE QID PRN PRN Reason: Shortness Of Breath Atorvastatin Calcium (Atorvastatin Calcium 20 Mg Tablet) 20 mg PO BEDTIME ARIELLE Enoxaparin Sodium (Enoxaparin Sodium 40 Mg/0.4 Ml Syringe) 40 mg SUBCUT Q24H ARIELLE Piperacillin Sod/Tazobactam (Sod 4.5 gm/ Sodium Chloride) 100 mls @ 200 mls/hr IV Q6H [facility] Last Infusion: 12/12/21 09:13 Dose: Infused Doxycycline Hyclate 100 mg/ (Sodium Chloride) 250 mls @ 166.67 mls/hr IV Q12H [facility] Last Admin: 12/12/21 09:10 Dose: 166.67 mls/hr Omeprazole (Omeprazole 20 Mg Capsule.) 20 mg PO DAILY@0630 [facility] Last Admin: 12/12/21 08:29 Dose: 20 mg Ondansetron HCl (Ondansetron Hcl 4 Mg/2 Ml Vial) 4 mg IVPUSH Q8H PRN PRN Reason: Nausea and Vomiting Last Admin: 12/12/21 01:20 Dose: 4 mg Pharmacy Consult (Consult Rx Perform Med Rec) 1 each MISCELLANE ONCE PRN PRN Reason: Consult order Sodium Chloride (0.9 % Sodium Chloride Flush 3 Ml Syringe) 3 ml IVFLUSH QSHIFT [facility] Last Admin: 12/12/21 08:37 Dose: 3 ml Home Medications Medication Instructions Recorded Confirmed Last Taken Type omeprazole 20 mg tablet,delayed 20 mg PO DAILY 06/21/21 12/11/21 06/20/21 History release atorvastatin 20 mg tablet 20 mg PO DAILY 09/22/21 12/11/21 Unknown History fluticasone propionate 50 2 spray intranasal DAILY 09/22/21 12/11/21 Unknown History mcg/actuation nasal spray,suspension hydrochlorothiazide 25 mg tablet 25 mg PO DAILY 09/22/21 12/11/21 Unknown History ipratropium 0.5 mg-albuterol 3 mg 3 ml inhalation QID PRN Shortness 09/22/21 12/11/21 Unknown History (2.5 mg base)/3 mL nebulization Of Breath soln loratadine 10 mg tablet 10 mg PO DAILY 09/22/21 12/11/21 Unknown History multivitamin (Daily Multi-Vitamin) 1 tab PO DAILY 09/22/21 12/11/21 Unknown History Physical Exam Vital Signs: Vital Signs: Last Vital Signs Temp 97.4 F 12/12/21 08:00 Pulse 90 12/12/21 08:00 Resp 15 12/12/21 08:00 BP 135/84 12/12/21 08:00 Pulse Ox 96 12/12/21 08:00 O2 Del Method 12/12/21 08:00 Oxygen Flow Rate 2 12/11/21 07:32 BMI result Body Mass Index 27.3 Const: Other: Chronically sick looking of a thin build, General: no acute distress, alert and awake Orientation/consciousness: patient oriented x3 HEENT: Head: Yes normal to inspection General nose exam: No nasal polyps present and No nasal discharge present Face and sinus: Yes sinuses nontender Mouth: oropharynx normal Throat: Yes posterior oropharynx normal Eyes: General: appearance normal, both eyes and all related structures Neck: Neck: Yes normal visual inspection, Yes no lymphadenopathy, Yes trachea midline and Yes no JVD Thyroid: Thyroid normal Chest: Chest palpation & inspection: normal inspection of the chest, normal palpation of entire chest wall and no tenderness Resp: Other: Percussion note resonant, breath sounds are distant on both sides with prolonged expiratory phase. He has inspiratory crackles over both basilar areas and also over the back of right upper lobe. No wheezes are heard. Cardio: Palpation: normal PMI Rate: regular rate Rhythm: regular rhythm Heart sounds: no gallops and no murmurs Peripheral pulses: Peripheral pulses 2+ throughout GI: Palpation (GI): Soft to palpation, nontender, No hepatosplenomegaly present and no masses Auscultation: normal bowel sounds Back/Spine/Pelvis: Thoracic/Lumbar Spine: thoracic and lumbar spine normal to inspection Skin: General skin exam: no rashes or lesions noted Neuro: General: patient oriented x3 and no focal motor deficits Cranial nerves: Yes CN's II-XII intact bilaterally Extrem: General: Yes normal to inspection, Yes no clubbing, cyanosis or edema and Yes no calf tenderness Psych: Appearance: grossly normal and well kempt Speech and movement: Normal speech and movement present Results Laboratory Findings CBC and BMP: 12/12/21 04:33 12/12/21 04:33 ABG, PT/INR, D-dimer: PT/INR, D-dimer PT 13.3 SEC (10.0-13.1) H 12/11/21 07:57 INR 1.2 (0.9-1.1) H 12/11/21 07:57 Abnormal lab findings: Abnormal Labs 12/11/21 12/11/21 12/11/21 07:44 07:44 07:57 WBC 20.6 H RBC 4.50 L Hgb 12.7 L Hct 38.6 L MPV 8.9 L Immature Gran % (Auto) 0.5 H Neut % (Auto) 84.9 H Lymph % (Auto) 9.3 L Abs Immat Gran (auto) 0.11 H Absolute Neuts (auto) 17.5 H PT 13.3 H INR 1.2 H Sodium 134 L Anion Gap Random Glucose 122 H D Calcium C-Reactive Protein 5.21 H 12/12/21 12/12/21 04:33 04:33 WBC 20.4 H RBC 4.03 L Hgb 11.4 L Hct 34.7 L MPV 9.0 L Immature Gran % (Auto) Neut % (Auto) 80.8 H Lymph % (Auto) 13.4 L Abs Immat Gran (auto) 0.08 H Absolute Neuts (auto) 16.5 H PT INR Sodium Anion Gap 11 L Random Glucose Calcium 8.3 L D C-Reactive Protein Diagnostic Findings Chest x-ray: report reviewed and image reviewed CT scan - chest: report reviewed and image reviewed Assessment and Plan (1) Bronchiectasis: Status: Acute (2) Recurrent pneumonia: Status: Acute (3) Hypoxia: Status: Acute Plan This 51 years old gentleman is a well known case of severe chronic bronchiectasis with thickening of the bronchial hernandez, and associated chronic obstructive pulmonary disease. He is prone to have recurrent respiratory infections. At present he seems to have pneumonia right upper lobe( CAP ) in addition to chronic lung changes. Recc. Agree with the current treatment. Once the he is clinically improved and stable the antibiotics can be changed to oral route. Mucomyst by nebulizer q.i.d. for 2 days then b.i.d. for 2 days and then stop. Continue DuoNeb updrafts q.i.d.. Pain control as needed. O2 supplementation to keep O2 sat above 90%. Thank you very much for asthma to see this gentleman. Procedures Date of Service Date of Service: 12/12/21
[2021-12-12] MEDS: Enoxaparin Sodium 40 MG/0.4 ML SYRINGE SUBCUT (10:44)
[2021-12-12] MEDS: oxyCODONE HCl Immed Release 5 MG TABLET PO ×2 (12:13→19:45)
[2021-12-12] MEDS: Albuterol Sulfate (0.083%) 2.5 MG/3 ML VIAL.NEB INHALE (18:04)
[2021-12-12] MEDS: Atorvastatin Calcium 20 MG TABLET PO (19:33)
[2021-12-13] VITALS (8 sets, daily range): BP systolic 96–140; BP diastolic 68–87; PULSE 72–95; RESP 18; TEMP 36.8–37.2; O2SAT 94–96
[2021-12-13] MEDS: Piperacillin Sodium/Tazobactam 4.5 GM in 0.9 % Sodium Chloride 100 ML IV ×4 (03:37→20:10)
[2021-12-13] MEDS: Acetylcysteine 10 % 400 MG/4 ML VIAL INHALE (03:48)
[2021-12-13] MEDS: Omeprazole 20 MG CAPSULE.DR PO (05:59)
[2021-12-13] MEDS: 0.9 % Sodium Chloride Flush 3 ML SYRINGE IVFLUSH ×3 (07:20→20:11)
[2021-12-13] MEDS: Enoxaparin Sodium 40 MG/0.4 ML SYRINGE SUBCUT (08:32)
[2021-12-13] MEDS: Doxycycline Hyclate 100 MG in 0.9 % Sodium Chloride 250 ML 166.67 MG IV ×2 (08:33→20:40)
--- NOTE | 2021-12-13 09:01 | PM.PNPUL ---
Subjective Subjective Date of Service: 12/13/21 Principal diagnosis: Bronchiectasis/ pneumonia right upper lobe Interval history: This 51 years old gentleman with advanced chronic bronchiectasis, and history of recurrent respiratory infections, Is being treated for pneumonia right upper lobe, most likely community acquired, He is the on doxycycline and also Zosyn, He is afebrile, does not require oxygen at this time. Main symptom is cough, it comes in bouts, becomes quite uncomfortable, mostly dry. Objective Data Labs CBC & Chem 7: 12/12/21 04:33 12/12/21 04:33 Microbiology Microbiology Results: Microbiology 12/11/21 07:57 Blood - Venous Blood Culture - Preliminary No growth after 24 hours. 12/11/21 07:46 Blood - Venous Blood Culture - Preliminary No growth after 24 hours. Physical Exam Vital Signs: Vital Signs: Last Vital Signs Temp 98.9 F 12/13/21 07:48 Pulse 93 12/13/21 07:48 Resp 18 12/13/21 07:48 BP 140/87 H 12/13/21 07:48 Pulse Ox 95 12/13/21 07:48 O2 Del Method 12/13/21 07:48 Oxygen Flow Rate 2 12/11/21 07:32 BMI result Body Mass Index 27.3 Const: Other: Chronically sick looking of a thin build, General: no acute distress, alert and awake Orientation/consciousness: patient oriented x3 HEENT: Head: Yes normal to inspection General nose exam: No nasal polyps present and No nasal discharge present Face and sinus: Yes sinuses nontender Mouth: oropharynx normal Throat: Yes posterior oropharynx normal Eyes: General: appearance normal, both eyes and all related structures Neck: Neck: Yes normal visual inspection, Yes no lymphadenopathy, Yes trachea midline and Yes no JVD Thyroid: Thyroid normal Chest: Chest palpation & inspection: normal inspection of the chest, normal palpation of entire chest wall and no tenderness Resp: Other: Percussion note resonant, breath sounds are distant on both sides with prolonged expiratory phase. He has inspiratory crackles over both basilar areas and also over the back of right upper lobe. No wheezes are heard. Cardio: Palpation: normal PMI Rate: regular rate Rhythm: regular rhythm Heart sounds: no gallops and no murmurs Peripheral pulses: Peripheral pulses 2+ throughout GI: Palpation (GI): Soft to palpation, nontender, No hepatosplenomegaly present and no masses Auscultation: normal bowel sounds Back/Spine/Pelvis: Thoracic/Lumbar Spine: thoracic and lumbar spine normal to inspection Skin: General skin exam: no rashes or lesions noted Neuro: General: patient oriented x3 and no focal motor deficits Cranial nerves: Yes CN's II-XII intact bilaterally Extrem: General: Yes normal to inspection, Yes no clubbing, cyanosis or edema and Yes no calf tenderness Psych: Appearance: grossly normal and well kempt Speech and movement: Normal speech and movement present Procedures Date of Service Date of Service: 12/13/21 Assessment and Plan Assessment and plan (1) Bronchiectasis: Status: Acute (2) COPD (chronic obstructive pulmonary disease): Status: Acute (3) Recurrent pneumonia: Status: Acute Assessment and Plan: Generally he is responding well to the current treatment. Main complaint is severe cough, which is nonproductive at this time, PLAN: Continue present treatment. I have added Mucinex 1200 mg b.i.d.. Time Spent With Patient Time: Total time spent is greater than 50% in coordination of care (as documented) at patient's floor/unit and/or counseling patient: Progress Note: Quality Stroke Does the patient have a stroke diagnosis?: No
--- NOTE | 2021-12-13 09:54 | P.PNIM_ITS ---
Subjective Subjective Date of Service: 12/13/21 Interval History: seen and examined no significant improvement last 24 hours still with severe cough and R upper chest pleuritic pain for which analgesics have helped Review of Systems negative except HPI Physical Exam Vital Signs: Vital Signs: Last Vital Signs Temp 98.9 F 12/13/21 07:48 Pulse 93 12/13/21 07:48 Resp 18 12/13/21 07:48 BP 140/87 H 12/13/21 07:48 Pulse Ox 95 12/13/21 07:48 O2 Del Method 12/13/21 07:48 Oxygen Flow Rate 2 12/11/21 07:32 BMI result Body Mass Index 27.3 Const: Other: General - severe coughing spells Cardiovascular - regular rate and rhythm, S1-S2 Lungs - rales on the RU lobe, scattered rhonchi Abdomen - soft, nontender, no rebound or guarding Extremities - no edema bilaterally Neuro - awake and alert, no focal deficits Objective Data Active Medications Acetaminophen (Acetaminophen 325 Mg Tablet) 650 mg PO Q6H PRN PRN Reason: Pain, Mild (Pain Scale 1-3) Last Admin: 12/12/21 19:45 Dose: 650 mg Documented By: DAYTON Albuterol Sulfate (Albuterol Sulfate (0.083%) 2.5 Mg/3 Ml Vial.Neb) 2.5 mg INHALE Q6H PRN PRN Reason: Wheezing Last Admin: 12/12/21 18:04 Dose: 2.5 mg Documented By: MAGNUS Albuterol/Ipratropium (Albuterol/Iprat 2.5/0.5mg 3 Ml Ampul.Neb) 3 ml INHALE QID PRN PRN Reason: Shortness Of Breath Atorvastatin Calcium (Atorvastatin Calcium 20 Mg Tablet) 20 mg PO BEDTIME [facility] Last Admin: 12/12/21 19:33 Dose: 20 mg Documented By: DAYTON Enoxaparin Sodium (Enoxaparin Sodium 40 Mg/0.4 Ml Syringe) 40 mg SUBCUT Q24H [facility] Last Admin: 12/13/21 08:32 Dose: 40 mg Documented By: DABVictor Manuel Guaifenesin (Guaifenesin [place] 600 Mg Tab.Er.12h) 1,200 mg PO BID [facility] Piperacillin Sod/Tazobactam (Sod 4.5 gm/ Sodium Chloride) 100 mls @ 200 mls/hr IV Q6H [facility] Last Infusion: 12/13/21 08:03 Dose: 0 mls/hr Documented By: NAIF Doxycycline Hyclate 100 mg/ (Sodium Chloride) 250 mls @ 166.67 mls/hr IV Q12H [facility] Last Admin: 12/13/21 08:33 Dose: 166.67 mls/hr Documented By: NAIF Morphine Sulfate (Morphine Sulfate 4 Mg/Ml Cartridge) 4 mg IVPUSH Q4H PRN; Protocol PRN Reason: Pain, Severe (Pain Scale 7-10) Omeprazole (Omeprazole 20 Mg Capsule.Dr) 20 mg PO DAILY@0630 [facility] Last Admin: 12/13/21 05:59 Dose: 20 mg Documented By: DAYTON Ondansetron HCl (Ondansetron Hcl 4 Mg/2 Ml Vial) 4 mg IVPUSH Q8H PRN PRN Reason: Nausea and Vomiting Last Admin: 12/12/21 01:20 Dose: 4 mg Documented By: MISSY Oxycodone HCl (Oxycodone Hcl Immed Release 5 Mg Tablet) 5 mg PO Q4H PRN PRN Reason: Pain, Moderate (Pain Scale 4-6 Last Admin: 12/12/21 19:45 Dose: 5 mg Documented By: DAYTON Pharmacy Consult (Consult Rx Perform Med Rec) 1 each MISCELLANE ONCE PRN PRN Reason: Consult order Sodium Chloride (0.9 % Sodium Chloride Flush 3 Ml Syringe) 3 ml IVFLUSH QSHIFT [facility] Last Admin: 12/13/21 07:20 Dose: 3 ml Documented By: NAIF Labs CBC & Chem 7: 12/12/21 04:33 12/12/21 04:33 Microbiology Microbiology Results: Microbiology 12/11/21 07:46 Blood Culture - Preliminary Blood - Venous No growth after 48 hours. 12/11/21 07:57 Blood Culture - Preliminary Blood - Venous No growth after 24 hours. Assessment and Plan (1) Sepsis: Status: Acute Plan This is a 51 yo M with a PMH of Bronchectasis with prior pseudomonal pneumonia who is admitted for sepsis secondary to pneumonia. 1. Multifocal pneumonia 1a. Bronchiactasis, mucous plugging 1b. Sepsis present on admission suspected pseudomonal --has prior cultures from bronch in the past showing this high dose zosyn + empiric doxy - dya #2 obtain sputum if able -- currently his cough is dry Mucienex Pulm input appreciated 2. Pleuritic chest pain due to above IV toradol has given minimal relief; will add IV + PO narcotics for a short duration 3. HTN bp soft over night, continue hold anithypertensives Full Code DVT pptx, Lovenox Patient requires continued hospitalization due to a history of resistant organisms (pseudomonas) requiring IV zosyn for treatment. If not improved, he may require bronch. Quality Stroke Does the patient have a stroke diagnosis?: No VTE Prior VTE?: No VTE Risk Level:: Medical - moderate - high VTE Device Contraindication: N/A - Device Ordered VTE Drug Contraindication: Treatment Not Indicated
[2021-12-13] MEDS: guaiFENesin LA 600 MG TAB.ER.12H 1200 MG PO ×2 (10:34→20:14)
[2021-12-13] MEDS: oxyCODONE HCl Immed Release 5 MG TABLET PO ×2 (14:04→20:14)
[2021-12-13] MEDS: Atorvastatin Calcium 20 MG TABLET PO (20:11)
[2021-12-14] MEDS: Piperacillin Sodium/Tazobactam 4.5 GM in 0.9 % Sodium Chloride 100 ML IV ×4 (02:21→20:32)
[2021-12-14 03:55] VITALS: BP 129/64; PULSE 65; RESP 17; TEMP 36.3; O2SAT 97
[2021-12-14] MEDS: Omeprazole 20 MG CAPSULE.DR PO (05:45)
[2021-12-14] MEDS: guaiFENesin LA 600 MG TAB.ER.12H 1200 MG PO ×2 (07:05→20:35)
[2021-12-14] MEDS: 0.9 % Sodium Chloride Flush 3 ML SYRINGE IVFLUSH ×2 (07:07→14:35)
[2021-12-14 07:37] VITALS: BP 133/98; PULSE 85; RESP 18; TEMP 36.5; O2SAT 95
[2021-12-14] MEDS: Enoxaparin Sodium 40 MG/0.4 ML SYRINGE SUBCUT (08:30)
[2021-12-14] MEDS: Doxycycline Hyclate 100 MG in 0.9 % Sodium Chloride 250 ML 166.67 MG IV ×2 (08:30→21:15)
--- NOTE | 2021-12-14 09:26 | P.PNIM_ITS ---
Subjective Subjective Date of Service: 12/14/21 Interval History: seen and examined feels better today, but still coughing and short of breath on exertion denies fevers or chills Review of Systems negative except HPI Physical Exam Vital Signs: Vital Signs: Last Vital Signs Temp 97.7 F 12/14/21 07:37 Pulse 85 12/14/21 07:37 Resp 18 12/14/21 07:37 BP 133/98 H 12/14/21 07:37 Pulse Ox 95 12/14/21 07:37 O2 Del Method 12/14/21 07:37 Oxygen Flow Rate 2 12/11/21 07:32 BMI result Body Mass Index 27.3 Const: Other: General - severe coughing spells Cardiovascular - regular rate and rhythm, S1-S2 Lungs - rales on the RU lobe, scattered rhonchi Abdomen - soft, nontender, no rebound or guarding Extremities - no edema bilaterally Neuro - awake and alert, no focal deficits Objective Data Active Medications Acetaminophen (Acetaminophen 325 Mg Tablet) 650 mg PO Q6H PRN PRN Reason: Pain, Mild (Pain Scale 1-3) Last Admin: 12/12/21 19:45 Dose: 650 mg Documented By: DAYTON Albuterol Sulfate (Albuterol Sulfate (0.083%) 2.5 Mg/3 Ml Vial.Neb) 2.5 mg INHALE Q6H PRN PRN Reason: Wheezing Last Admin: 12/12/21 18:04 Dose: 2.5 mg Documented By: MAGNUS Albuterol/Ipratropium (Albuterol/Iprat 2.5/0.5mg 3 Ml Ampul.Neb) 3 ml INHALE QID PRN PRN Reason: Shortness Of Breath Atorvastatin Calcium (Atorvastatin Calcium 20 Mg Tablet) 20 mg PO BEDTIME [facility] Last Admin: 12/13/21 20:11 Dose: 20 mg Documented By: KARINE Enoxaparin Sodium (Enoxaparin Sodium 40 Mg/0.4 Ml Syringe) 40 mg SUBCUT Q24H [facility] Last Admin: 12/14/21 08:30 Dose: 40 mg Documented By: DABVictor Manuel Guaifenesin (Guaifenesin La 600 Mg Tab.Er.12h) 1,200 mg PO BID [facility] Last Admin: 12/14/21 07:05 Dose: 1,200 mg Documented By: NAIF Piperacillin Sod/Tazobactam (Sod 4.5 gm/ Sodium Chloride) 100 mls @ 200 mls/hr IV Q6H [facility] Last Infusion: 12/14/21 08:42 Dose: 0 mls/hr Documented By: NAIF Doxycycline Hyclate 100 mg/ (Sodium Chloride) 250 mls @ 166.67 mls/hr IV Q12H [facility] Last Admin: 12/14/21 08:30 Dose: 166.67 mls/hr Documented By: NAIF Morphine Sulfate (Morphine Sulfate 4 Mg/Ml Cartridge) 4 mg IVPUSH Q4H PRN; Protocol PRN Reason: Pain, Severe (Pain Scale 7-10) Omeprazole (Omeprazole 20 Mg Capsule.Dr) 20 mg PO DAILY@0630 [facility] Last Admin: 12/14/21 05:45 Dose: 20 mg Documented By: KARINE Ondansetron HCl (Ondansetron Hcl 4 Mg/2 Ml Vial) 4 mg IVPUSH Q8H PRN PRN Reason: Nausea and Vomiting Last Admin: 12/12/21 01:20 Dose: 4 mg Documented By: MISSY Oxycodone HCl (Oxycodone Hcl Immed Release 5 Mg Tablet) 5 mg PO Q4H PRN PRN Reason: Pain, Moderate (Pain Scale 4-6 Last Admin: 12/13/21 20:14 Dose: 5 mg Documented By: KARINE Pharmacy Consult (Consult Rx Perform Med Rec) 1 each MISCELLANE ONCE PRN PRN Reason: Consult order Sodium Chloride (0.9 % Sodium Chloride Flush 3 Ml Syringe) 3 ml IVFLUSH QSHIFT [facility] Last Admin: 12/14/21 07:07 Dose: 3 ml Documented By: NAIF Labs CBC & Chem 7: 12/12/21 04:33 12/12/21 04:33 Microbiology Microbiology Results: Microbiology 12/11/21 07:57 Blood Culture - Preliminary Blood - Venous No growth after 48 hours. 12/11/21 07:46 Blood Culture - Preliminary Blood - Venous No growth after 48 hours. Assessment and Plan (1) Sepsis: Status: Acute Plan This is a 51 yo M with a PMH of Bronchectasis with prior pseudomonal pneumonia who is admitted for sepsis secondary to pneumonia. 1. Multifocal pneumonia 1a. Bronchiactasis, mucous plugging 1b. Sepsis present on admission suspected pseudomonal --has prior cultures from bronch in the past showing this high dose zosyn + empiric doxy - day #3 obtain sputum if able -- currently his cough is dry Mucienex Pulm input appreciated 2. Pleuritic chest pain due to above taper IV analgesics 3. HTN slowly improving, hold antihypertensives 1 more day and re-eval Full Code DVT pptx, Lovenox Patient requires continued hospitalization due to a history of resistant or ganisms (pseudomonas) requiring IV zosyn for treatment. Quality Stroke Does the patient have a stroke diagnosis?: No VTE Prior VTE?: No VTE Risk Level:: Medical - moderate - high VTE Device Contraindication: N/A - Device Ordered VTE Drug Contraindication: Treatment Not Indicated
[2021-12-14 10:17] LABS: MANUAL DIFF FLAG NO
[2021-12-14 10:26] LABS: Basophils Absolute Auto 0.1 X10*3/uL (0.0-0.2); Basophils Percent Auto 0.6 % (0-2); Eosinophils Absolute Auto 0.4 X10*3/uL (0.0-0.4); Eosinophils Percent Auto 4.3 % (0-4); Hematocrit 38.5 % (42.0-52.0); Hemoglobin 12.8 g/dl (14.0-18.0); Imm Gran Abs Auto 0.04 X10*3/uL (0.00-0.03); Imm Gran Pct Auto 0.4 % (0.0-0.4); Lymphocytes Absolute Auto 2.3 X10*3/uL (1.2-4.9); Lymphocytes Percent Auto 24.7 % (20-40); Mean Corpuscular HGB Conc 33.2 g/dl (31.0-36.0); Mean Corpuscular Hemoglobin 28.7 pg (27.0-33.0); Mean Corpuscular Volume 86.3 fL (80.0-98.0); Mean Platelet Volume 9.2 fL (9.4-12.4); Monocytes Absolute Auto 0.5 X10*3/uL (0.1-1.2); Monocytes Percent Auto 5.6 % (2-11); Neutrophils Absolute Auto 6.1 x10*3/uL (2.0-8.3); Neutrophils Percent Auto 64.4 % (45-73); Platelet Count 391 X10*3/uL (160-400); Red Blood Count 4.46 X10*6/uL (4.60-5.80); Red Cell Distribution Width 13.9 % (11.0-16.0); White Blood Count 9.5 X10*3/uL (4.8-10.8)
[2021-12-14 11:30] VITALS: BP 139/93; PULSE 83; RESP 18; TEMP 36.2; O2SAT 97
[2021-12-14 15:18] VITALS: BP 120/87; PULSE 81; RESP 18; TEMP 36.9; O2SAT 96
[2021-12-14 19:33] VITALS: BP 132/84; PULSE 81; RESP 18; TEMP 36.8; O2SAT 98
[2021-12-14] MEDS: Acetaminophen 325 MG TABLET 650 MG PO (20:34)
[2021-12-14] MEDS: Atorvastatin Calcium 20 MG TABLET PO (20:35)
[2021-12-14 23:51] VITALS: BP 148/90; PULSE 80; RESP 18; TEMP 37; O2SAT 97
[2021-12-15] MEDS: 0.9 % Sodium Chloride Flush 3 ML SYRINGE IVFLUSH ×2 (00:43→10:17)
[2021-12-15] MEDS: Piperacillin Sodium/Tazobactam 4.5 GM in 0.9 % Sodium Chloride 100 ML IV ×2 (02:34→09:40)
[2021-12-15 03:30] VITALS: BP 148/87; PULSE 80; RESP 18; TEMP 36.6; O2SAT 96
[2021-12-15 04:00] VITALS: RESP 18
[2021-12-15] MEDS: Omeprazole 20 MG CAPSULE.DR PO (05:57)
[2021-12-15 07:31] VITALS: BP 149/90; PULSE 79; RESP 20; TEMP 36.9; O2SAT 96
--- NOTE | 2021-12-15 09:15 | PM.EVENT ---
Event Note Date of Service: 12/15/21 Event Note: seen this AM feeling better from lung perspective having some nause this AM.denies diarrhea, but moved bowels x 3 this AM plan for discharge home today if his Gi symptoms do no preclude him from taking PO medications at home. Otherwise, may need an additional 24 hours in the hospital.
[2021-12-15] MEDS: guaiFENesin LA 600 MG TAB.ER.12H 1200 MG PO (09:44)
[2021-12-15] MEDS: Enoxaparin Sodium 40 MG/0.4 ML SYRINGE SUBCUT (09:45)
[2021-12-15] MEDS: Doxycycline Hyclate 100 MG in 0.9 % Sodium Chloride 250 ML 166.67 MG IV (10:17)
[2021-12-15 11:19] VITALS: BP 152/95; PULSE 90; RESP 18; TEMP 36.3; O2SAT 97
--- NOTE | 2021-12-15 13:01 | P.DS_ITS ---
DS: Providers Provider Date of Service: 12/15/21 Date of admission: 12/12/21 01:33 Primary care physician: Genevieve Lama DO Consults: 12/11/21 12:15 Consult to Pulmonology Routine Consulting Provider: Jennifer Huynh Reason for consultation: pNA, bronchiectases Has provider been notified: No DS: Diagnosis Discharge Diagnosis (1) Sepsis: Status: Acute (2) Recurrent pneumonia: Status: Acute DS: Summary Hospital Course Hospital Course: From the admission H&P: '51 year old man presenting with chest pain. He reports that he has been having right sided chest pain without radiation, pain with palpation. He denied nausea, vomiting, diarrhea, fever, chills. He has had a cough with a history of bronchiectasis and frequent bouts of pneumonia. Chest x-ray showing chronic changes of bronchiectases with possible new airspace disease in the right upper lobe representing likely pneumonia.? Patient was noted to have fever of 102.4, tachycardia and tachypnea past elevated white blood cell count of 20.6.? EKG showing sinus tachycardia without any ischemic changes.? In the ER he was given Zosyn, IV fluids, Tylenol and Toradol.? He will be admitted for further management and treatment of acute community-acquired pneumonia and musculoskeletal chest pain Hospital Course: Patient was started on IV Zosyn and doxycycline as he has a history of pseud omonal pneumonia in the past. Given his history of bronchiectasis, pulmonary was consulted who was in agreement with the treatment. Patient received the previously mentioned therapies for 3 days in hospital. His leukocytosis has resolved. Afebrile and tolerating room air. He will be discharged home on 10 more days of p.o. Levaquin as his prior Pseudomonas was sensitive to this. He is to follow up with the pulmonary clinic as he normally does. Time Spent with Patient Time attestation: Total time spent providing and/or coordinating discharge services: Discharge coordination time: Greater than 30 minutes Quality: Safe Use of Opioids Does Pt have an Active Cancer Diagnosis on the Problem List?: No Quality: Stroke Does the patient have a stroke diagnosis?: No Physical Exam Vital Signs: Vital Signs: Last Vital Signs Temp 97.3 F 12/15/21 11:19 Pulse 90 12/15/21 11:19 Resp 18 07/15/22 11:19 BP 152/95 H 07/15/22 11:19 Pulse Ox 97 12/15/21 11:19 O2 Del Method 12/15/21 11:19 Oxygen Flow Rate 2 12/11/21 07:32 BMI result Body Mass Index 27.3 Const: Other: General - no acute distress, appears comfortable Cardiovascular - regular rate and rhythm, S1-S2 Lungs - normal respiratory effort, clear to auscultation bilaterally, no wheezing Abdomen - soft, nontender, no rebound or guarding Extremities - no edema bilaterally Neuro - awake and alert, no focal deficits DS: Data Data Completed and Pending Labs on day of discharge: Preliminary micro results at discharge 12/11/21 07:57 Blood Culture - Preliminary Blood - Venous No growth after 48 hours. 12/11/21 07:46 Blood Culture - Preliminary Blood - Venous No growth after 48 hours. Discharge Plan Discharge Patient Disposition: Home, Self-Care Discharge Diagnosis: Pneumonia Referrals: Genevieve Lama DO [Primary Care Provider] - 1 Week Discharge Medications: New guaifenesin [Mucinex] 600 mg Tablet Extended Release 12hr 1,200 mg PO BID Qty: 20 0RF levofloxacin 500 mg tablet 500 mg PO DAILY Qty: 10 0RF Continued albuterol sulfate 90 mcg/actuation HFA aerosol inhaler 2 puff inhalation Q4-6H PRN (Reason: shortness of breath or wheezing) Qty: 8.5 0RF omeprazole 20 mg Tablet,Delayed Release (Dr/Ec) 20 mg PO DAILY loratadine 10 mg tablet 10 mg PO DAILY fluticasone propionate 50 mcg/actuation spray,suspension 2 spray intranasal DAILY hydrochlorothiazide 25 mg tablet 25 mg PO DAILY atorvastatin 20 mg tablet 20 mg PO DAILY ipratropium-albuterol 0.5 mg-3 mg(2.5 mg base)/3 mL solution for nebulization 3 ml inhalation QID PRN (Reason: Shortness Of Breath) multivitamin [Daily Multi-Vitamin] Tablet 1 tab PO DAILY Trelegy Ellipta 200-62.5-25 mcg blister with device 1 inh inhalation DAILY 30 Days Qty: 1 6RF Discharge Orders: Discharge Order (Routine); Ordered 12/15/21 Ordered By: Yaw Cardenas Diet: Advance to usual diet Activity on Discharge: As tolerated Stand Alone Forms: Patient Portal Discharge page, Work/School Release Care Plan Goals: To stay healthy and out of the hospital. Health Concerns: Pneumonia Plan of Treatment: Take 10 more days of Levaquin Follow up with pulmonary clinic Assessment: see d/c summary
--- NOTE | 2021-12-15 13:03 | MHC.CM.PN ---
PATIENT WAS SEEN BY PREVIOUS CASE MANAGEMENT TEAM PER REVIEW OF NOTES LEFT FOR THIS HITCHER, PATIENT IS INDEPENDENT WITH ADLS NO DME OR VNA SERVICES IN THE HOME. HE IS COVID VACCINATED X 2. PLAN IS HOME -SELF CARE TODAY RN AWARE OF PLAN
--- NOTE | 2021-12-15 14:26 | MHC.CM.PN ---
HOME - SELF CARE RN AWARE
== END 2021-12-15 14:42 | disposition home or self-care (01) | DRG 178 ==
LOC: HO.ED 10:25 → HO.EDOVER 12-12 01:49 → HO.S3 12-12 05:17
PROVIDERS: Nurse Practitioner Acute Care; Admitting Provider Internal Medicine; Emergency Provider Student in an Organized Health Care Education/Training Program; PCP Family Medicine; Visit Provider Family Medicine
DX: J15.1 Pneumonia due to Pseudomonas (principal); J47.0 Bronchiectasis with acute lower respiratory infection; I10 Essential (primary) hypertension; Z20.822 Contact with and (suspected) exposure to COVID-19; T17.990A Other foreign object in respiratory tract, part unspecified in causing asphyxiation, initial encounter; X58.XXXA Exposure to other specified factors, initial encounter; Z87.01 Personal history of pneumonia (recurrent); Z87.891 Personal history of nicotine dependence; Z88.1 Allergy status to other antibiotic agents; Z79.51 Long term (current) use of inhaled steroids; Z79.899 Other long term (current) drug therapy
CPT/HCPCS: 36415; 71045; 71250; 80048; 80053; 81003; 83605; 84145; 84484; 85025; 85610; 86140; 87040; 87493; 87635; 93005; 94640; 96361; 96374; 96375; 99285; J1650; J1885; J2405; J2543

== ENCOUNTER 2022-03-05 11:30 | Emergency (ER) | payer OTHER, SELFPAY ==
--- NOTE | ~2022-03-05 | XR_ITS ---
EXAMINATION: XR ELBOW, RIGHT CLINICAL INFORMATION: Right elbow pain, rule out fracture. COMPARISON: None TECHNIQUE: AP, lateral, and oblique views of the right elbow. FINDINGS: Mild soft tissue swelling is seen posteriorly. No fracture or dislocation is seen. The joint spaces are unremarkable. No significant joint effusion. XR/XR elbow RT 2V IMPRESSION: Mild soft tissue swelling posteriorly without acute underlying osseous abnormality.
[2022-03-05 11:32] VITALS: BP 146/95; PULSE 98; RESP 18; TEMP 36.6; O2SAT 98; BMI 25.1
--- NOTE | 2022-03-05 12:19 | ED_ITS ---
HPI - Extremity Problem General Chief complaint: Extremity Problem Stated complaint: R swollen elbow Time Seen by Provider: 03/05/22 12:14 Source: patient Mode of arrival: ambulatory Limitations: no limitations History of Present Illness HPI Narrative: Patient comes to the emergency room complaining of right elbow pain. Patient states that the pain started 1 month ago when he hit his elbow against a wall. Patient states that initially his elbow was swollen. Then the swelling went down and he was able to flex and extend the elbow. Today, patient complaining of localized the elbow without swelling. Patient denies fever chills Related Data Home Medications Medication Instructions Recorded Confirmed omeprazole 20 mg tablet,delayed 20 mg PO DAILY 06/21/21 12/11/21 release atorvastatin 20 mg tablet 20 mg PO DAILY 09/22/21 12/11/21 fluticasone propionate 50 2 spray intranasal DAILY 09/22/21 12/11/21 mcg/actuation nasal spray,suspension hydrochlorothiazide 25 mg tablet 25 mg PO DAILY 09/22/21 12/11/21 ipratropium 0.5 mg-albuterol 3 mg 3 ml inhalation QID PRN Shortness 09/22/21 12/11/21 (2.5 mg base)/3 mL nebulization Of Breath soln loratadine 10 mg tablet 10 mg PO DAILY 09/22/21 12/11/21 multivitamin (Daily Multi-Vitamin 1 tab PO DAILY 09/22/21 12/11/21 tablet) Previous Rx's Medication Instructions Recorded albuterol sulfate 90 mcg/actuation 2 puff inhalation Q4-6H PRN 05/08/20 aerosol inhaler shortness of breath or wheezing #8.5 grams guaifenesin 600 mg tablet, 1,200 mg PO BID #20 tabs 12/15/21 extended release 12 hr (Mucinex) levofloxacin 500 mg tablet 500 mg PO DAILY #10 tabs 12/15/21 fluticasone fur. 200 mcg-umeclid 1 inh inhalation DAILY 30 days #1 01/23/22 62.5 mcg-vilant 25 mcg ea inhalat.powder (Trelegy Ellipta) ibuprofen 600 mg tablet 600 mg PO Q6H PRN fever or pain 03/05/22 #20 tabs Allergies Allergy/AdvReac Type Severity Reaction Status Date / Time clindamycin [Clindamycin] Allergy Severe SEVERE Verified 02/16/22 13:00 ITCHING Review of Systems Review of Systems: Constitutional : No Weight loss, No Fever, No Chills, No Night Sweats, No Fatigue, No Malaise ENT/Mouth : No Hearing loss, No Ear Pain, No Nasal Congestion, No Sinus Pain, No Hoarseness, No sore throat, No Rhinorrhea, No Swallowing Difficulty Eyes: No Eye Pain, No Swelling, No Redness, No Foreign Body, No Discharge, No Vision Changes Cardiovascular : No Chest Pain, No SOB, No Dyspnea on Exertion, No Orthopnea, No Edema, No Palpitations Respiratory : No Cough, No Sputum, No Wheezing, No Smoke Exposure, No Dyspnea Gastrointestinal : No Nausea, No Vomiting, No Diarrhea, No Constipation, No abdominal Pain, No Hematochezia, No Melena Genitourinary : no irregular bleeding, No Dysuria, No Urinary Frequency, No Hematuria, No Urinary Incontinence, No Urgency, No Flank Pain, No Urinary Flow Changes, No Hesitancy Musculoskeletal : Complaining of right elbow pain, No Myalgias, No Joint Swelling Skin : No Skin Lesions, No rash Neuro : No Weakness, No Numbness, No Paresthesias, No Loss of Consciousness, No Dizziness, No Headache Psych : No Anxiety/Panic, No Depression, No SI/HI/AH/VH, No Social Issues, Heme/Lymph: No Bruising, No Bleeding,No Lymphadenopathy Endocrine : No Polyuria, No Polydipsia, No Temperature Intolerance [facility] Past Medical History Medical History Asthma Bronchiectasis COPD (chronic obstructive pulmonary disease) Heartburn Hypoxia Pneumonia Recurrent pneumonia Sepsis Family History Family History (Updated 12/11/21 @ 13:04 by Joceline Ponce NP) Sister Breast CA Social History Social History Household Members: None Housing: Apartment Do you presently have visiting nurse or other home services: No Alcohol intake: current Alcohol intake frequency: holidays/special occasions only Patient Tobacco Use Status: Former Tobacco user e-Cigarette/Vaping Use: Never Used Second Hand Smoke Exposure: No Advance Directives: Yes Advance Directives on File: Yes Advance Directives Date on File: 06/21/21 service: No Current occupational status: employed Physical Exam Vital Signs: Vital Signs: Last Vital Signs Temp 97.8 F 03/05/22 11:32 Pulse 98 03/05/22 11:32 Resp 18 03/05/22 11:32 BP 146/95 H 03/05/22 11:32 Pulse Ox 98 03/05/22 11:32 O2 Del Method 03/05/22 11:32 BMI result Body Mass Index 25.1 Const: Other: Appearance: Alert. Oriented X3. No acute distress. Eyes: Pupils equal, round and reactive to light. ENT: Pharynx normal. Neck: Normal inspection. Neck supple. No lymph nodes noted. No crepitus CVS: Normal heart rate and rhythm. Pulses normal. Normal S1 and S2 Respiratory: No respiratory distress. Breath sounds normal. No Wheezing. No rales Abdomen: Soft and nontender. No rigidity. No distention. Skin: Skin warm and dry. Normal skin color. Normal skin turgor. Extremities: No lower extremity edema. There is no swelling or effusions around the right elbow. Patient has pain to palpation over the olecranon, unwilling to try to flex his elbow due to pain. Neuro: Oriented X 3. No motor deficit. No sensory deficit. Moving all extremities. No slurred speech. CN 2 through 12 grossly intact Psych: calm, cooperative, normal affect Course Course Course Narrative: Patient has had pain for a month. x-rays are pending. X-rays are negative for any fracture. There is mild swelling. Patient may benefit from joint injections. Patient given the phone number of Orthopedics to schedule an appointment. MDM - Extremity (Nontraumatic) Imaging Data Elbow x-ray: Radiologist's impression: FINDINGS: Mild soft tissue swelling is seen posteriorly. No fracture or dislocation is seen. The joint spaces are unremarkable. No significant joint effusion.? XR/XR elbow RT 2V IMPRESSION: Mild soft tissue swelling posteriorly without acute underlying osseous abnormality. Discharge Plan Discharge Clinical Impression: Chronic elbow pain Patient Disposition: Home, Self-Care Instructions: Arthralgia (ED) Additional Instructions: Please follow-up with your primary care physician tomorrow. If you have any worsening or new symptoms, please return to the emergency room or call 911 Prescriptions: New ibuprofen 600 mg tablet 600 mg PO Q6H PRN (Reason: fever or pain) Qty: 20 0RF No Action Trelegy Ellipta 200-62.5-25 mcg blister with device 1 inh inhalation DAILY 30 Days Qty: 1 6RF albuterol sulfate 90 mcg/actuation HFA aerosol inhaler 2 puff inhalation Q4-6H PRN (Reason: shortness of breath or wheezing) Qty: 8.5 0RF omeprazole 20 mg Tablet,Delayed Release (Dr/Ec) 20 mg PO DAILY guaifenesin [Mucinex] 600 mg Tablet Extended Release 12hr 1,200 mg PO BID Qty: 20 0RF levofloxacin 500 mg tablet 500 mg PO DAILY Qty: 10 0RF loratadine 10 mg tablet 10 mg PO DAILY fluticasone propionate 50 mcg/actuation spray,suspension 2 spray intranasal DAILY hydrochlorothiazide 25 mg tablet 25 mg PO DAILY atorvastatin 20 mg tablet 20 mg PO DAILY ipratropium-albuterol 0.5 mg-3 mg(2.5 mg base)/3 mL solution for nebulization 3 ml inhalation QID PRN (Reason: Shortness Of Breath) multivitamin [Daily Multi-Vitamin] Tablet 1 tab PO DAILY Referrals: Rosaura Owens PA-C [Physician [employer]] - 2 days
== END 2022-03-05 20:02 | disposition home or self-care (01) ==
PROVIDERS: Emergency Provider Emergency Medicine; PCP Family Medicine
DX: G89.29 Other chronic pain (principal); M25.521 Pain in right elbow
CPT/HCPCS: 73070; 99282; 99283

== ENCOUNTER 2022-03-07 19:01 | Inpatient (IN) | payer OTHER, SELFPAY ==
--- NOTE | ~2022-03-07 | XR_ITS ---
EXAMINATION: XR CHEST CLINICAL INFORMATION: Covid positive. Chest tightness. COMPARISON: CT chest 12/11/2021. Chest x-ray 12/11/2021 TECHNIQUE: Frontal view of the chest was obtained. 8:59 PM FINDINGS: Patchy and partially consolidated perihilar airspace opacity in the right lung. This consistent with pneumonia. Left lung normally aerated. No pleural effusion. Multilevel degenerative spondylosis spine. XR/XR chest 1V IMPRESSION: There is a perihilar airspace opacity in the right lung consistent with pneumonia.
[2022-03-07 20:02] VITALS: BP 137/89; PULSE 103; RESP 20; TEMP 37.6; O2SAT 95; BMI 25.1
[2022-03-07 20:26] LABS: MANUAL DIFF FLAG NO
[2022-03-07 20:27] LABS: Basophils Absolute Auto 0.1 X10*3/uL (0.0-0.2); Basophils Percent Auto 0.5 % (0-2); Eosinophils Absolute Auto 0.2 X10*3/uL (0.0-0.4); Eosinophils Percent Auto 1.8 % (0-4); Hematocrit 38.3 % (42.0-52.0); Hemoglobin 13.2 g/dl (14.0-18.0); Imm Gran Abs Auto 0.04 X10*3/uL (0.00-0.03); Imm Gran Pct Auto 0.3 % (0.0-0.4); Lymphocytes Absolute Auto 2.6 X10*3/uL (1.2-4.9); Mean Corpuscular HGB Conc 34.5 g/dl (31.0-36.0); Mean Corpuscular Hemoglobin 28.8 pg (27.0-33.0); Mean Corpuscular Volume 83.4 fL (80.0-98.0); Mean Platelet Volume 8.9 fL (9.4-12.4); Monocytes Absolute Auto 0.8 X10*3/uL (0.1-1.2); Monocytes Percent Auto 6.3 % (2-11); Neutrophils Absolute Auto 9.3 x10*3/uL (2.0-8.3); Neutrophils Percent Auto 71.1 % (45-73); Platelet Count 349 X10*3/uL (160-400); Red Blood Count 4.59 X10*6/uL (4.60-5.80); Red Cell Distribution Width 14.1 % (11.0-16.0); White Blood Count 13.1 X10*3/uL (4.8-10.8)
[2022-03-07 20:33] LABS: COVID-19 Test Positive (Negative)
[2022-03-07 20:47] LABS: Alanine Aminotransferase 18 U/L (0-40); Albumin Level 4.3 g/dL (3.5-5.0); Alkaline Phosphatase 88 U/L (39-117); Anion Gap 15 (12-20); Aspartate Amino Transferase 16 U/L (5-37); Bilirubin Total 0.4 mg/dL (0.0-1.0); Blood Urea Nitrogen 17 mg/dL (9-16); Calcium 9.3 mg/dL (8.4-10.2); Carbon Dioxide 25 mmol/L (22-29); Chloride 104 mmol/L (96-108); Creatinine Clr Calc Pharmacy 80.5; Estimated Glomerular Filt Rate > 60; Glucose Random 104 mg/dL (60-115); Potassium 4.1 mmol/L (3.3-5.1); Sodium 140 mmol/L (135-145); Total Protein 7.9 g/dL (6.5-8.0)
[2022-03-08] VITALS (8 sets, daily range): BP systolic 115–166; BP diastolic 79–104; PULSE 88–115; RESP 17–20; TEMP 36.7–37; O2SAT 93–100
[2022-03-08] MEDS: predniSONE 20 MG TABLET 60 MG PO (00:16)
[2022-03-08] MEDS: Albuterol/Iprat 2.5/0.5MG 3 ML AMPUL.NEB INHALE (00:36)
[2022-03-08] MEDS: Albuterol Sulfate 5 MG, Albuterol Sulfate (0.083%) 2.5 MG 7.5 MG INHALE (00:36)
--- NOTE | 2022-03-08 00:45 | ED_ITS ---
HPI - URI/Sore Throat General Chief Complaint: Upper Respiratory Symptoms Stated Complaint: COVID + Time Seen by Provider: 03/07/22 23:13 Source: patient Mode of arrival: ambulatory Limitations: no limitations History of Present Illness HPI Narrative: Patient presents emergency department for evaluation of a dry nonproductive cough and chest tightness for 2 days. He states that he took at home COVID test today which was positive. Reports a history of bronchiectasis, has no uteri all inhaler, albuterol nebulizers and Trelegy inhaler at home. Has not had significant improvement with these medications. Denies fevers, chills, headache, dizziness, lightheadedness, SS nausea, vomiting, abdominal pain numbness or tingling of the extremities, weakness. Related Data Home Medications Medication Instructions Recorded Confirmed omeprazole 20 mg tablet,delayed 20 mg PO DAILY 06/21/21 12/11/21 release atorvastatin 20 mg tablet 20 mg PO DAILY 09/22/21 12/11/21 fluticasone propionate 50 2 spray intranasal DAILY 09/22/21 12/11/21 mcg/actuation nasal spray,suspension hydrochlorothiazide 25 mg tablet 25 mg PO DAILY 09/22/21 12/11/21 ipratropium 0.5 mg-albuterol 3 mg 3 ml inhalation QID PRN Shortness 09/22/21 12/11/21 (2.5 mg base)/3 mL nebulization Of Breath soln loratadine 10 mg tablet 10 mg PO DAILY 09/22/21 12/11/21 multivitamin (Daily Multi-Vitamin 1 tab PO DAILY 09/22/21 12/11/21 tablet) Previous Rx's Medication Instructions Recorded albuterol sulfate 90 mcg/actuation 2 puff inhalation Q4-6H PRN 05/08/20 aerosol inhaler shortness of breath or wheezing #8.5 grams guaifenesin 600 mg tablet, 1,200 mg PO BID #20 tabs 12/15/21 extended release 12 hr (Mucinex) levofloxacin 500 mg tablet 500 mg PO DAILY #10 tabs 12/15/21 fluticasone fur. 200 mcg-umeclid 1 inh inhalation DAILY 30 days #1 01/23/22 62.5 mcg-vilant 25 mcg ea inhalat.powder (Trelegy Ellipta) ibuprofen 600 mg tablet 600 mg PO Q6H PRN fever or pain 10/03/22 #20 tabs Allergies Allergy/AdvReac Type Severity Reaction Status Date / Time clindamycin [Clindamycin] Allergy Severe SEVERE Verified 02/16/22 13:00 ITCHING Review of Systems Review of Systems: Constitutional: No fever. No chills. No weakness. Positive fatigue. ENT/ Mouth: No Ear Pain, no Nasal Congestion, no sore throat, No Rhinorrhea, No Swallowing Difficulty Skin: No rash or itching. Cardiovascular: Positive chest pain. No palpitations. Respiratory: Positive shortness of breath. Positive cough. No sputum production. Gastrointestinal: No nausea. No vomiting. No diarrhea. No abdominal pain. Genitourinary: No burning micturition. No urinary frequency. Neurologic: No headache. No dizziness. No syncope. No numbness or tingling in the extremities. Musculoskeletal: No muscle pain. No back pain. No joint pain or stiffness. Yes all other systems are reviewed and are negative PMFSH Past Medical History Attestation statement: The following information was validated with the patient. Source: old records reviewed Medical History Asthma Bronchiectasis COPD (chronic obstructive pulmonary disease) Heartburn Hypoxia Pneumonia Recurrent pneumonia Sepsis Family History Family History Sister Breast CA Social History Social History Household Members: None Housing: Apartment Do you presently have visiting nurse or other home services: No Alcohol intake: current Alcohol intake frequency: holidays/special occasions only Patient Tobacco Use Status: Former Tobacco user e-Cigarette/Vaping Use: Never Used Second Hand Smoke Exposure: No Advance Directives: Yes Advance Directives on File: Yes Advance Directives Date on File: 06/21/21 service: No Current occupational status: employed Physical Exam Vital Signs: Vital Signs: Last Vital Signs Temp 98.5 F 03/08/22 00:07 Pulse 115 H 03/08/22 01:35 Resp 18 03/08/22 01:35 BP 139/83 03/08/22 00:07 Pulse Ox 100 03/08/22 01:35 O2 Del Method 10/06/22 01:35 BMI result Body Mass Index 25.1 Vital signs have been reviewed as normal and appeared to be correct. Blood pressure normal.? Heart rate normal.? Respiration rate normal. Temperature normal.? Oxygen saturation normal. Appearance: Alert.?Oriented to person, place and time. No acute distress.?Normal affect. Eyes: Pupils equal, round and reactive to light.? ENT: TM normal bilaterally. Pharynx normal.?? Neck: Normal inspection.? Neck supple.??No cervical adenopathy CVS: Heart sounds normal. Normal heart rate and rhythm.? Pulses normal.?? Respiratory: No respiratory distress.? Lung sounds significantly diminished bilaterally? Abdomen: Soft and non-tender. Normoactive bowel sounds. Skin: Skin warm and dry.? Normal skin color.? ? Extremities: No lower extremity edema.? Neuro: Moves all extremities spontaneously. Sensation intact bilaterally. No motor deficits. Ambulates with normal steady gait. Course Course Course Narrative: Patient is a 51-year-old male with a past medical history of asthma, bronchiectasis, COPD presenting for evaluation of upper respiratory symptoms with positive COVID-19 testing. Has received 2 Moderna vaccinations. First contact with patient at 00:00. CBC reveals mild leukocytosis at 13.1 and a normocytic anemia. CMP overall unremarkable. Initially was mildly tachycardic at 103 upon arrival to the emergency department, at time of evamination was 88. Chest x-ray reveals perihilar airspace opacity in the right lung consistent with pneumonia. He appears fatigued however is able to speaking clear full se ntences. Afebrile, no tachypnea or hypoxia. Will trial DuoNeb in total of 10 mg albuterol via nebulizer and prednisone for patient's symptoms. Concern for sepsis, Patient with a history of recurrent pneumonia however, May be superimposed bacterial pneumonia in setting of viral illness, and given comorbidity chronic lung disease discussed these findings with patient, advised blood cultures and lactic acid as well as IV antibiotics however patient would like to trial breathing treatment steroids at this time. Would like to be discharged home if possible. Disposition pending results. Reevaluation(s) Reevaluation #1: Patient completed breathing treatment. Reports at rest he is feeling still short of breath, with mild improvement overall. Slight increase in air movement on the left side, remains significantly diminished on the right. Room air saturation at rest ranging from 92-100%, states his baseline is typically 97%. He is tachycardic again, although this is after receiving albuterol, heart rate 115. Ambulation O2 trial with sats dropping to 90% on room air with tachycardia to the 130s, and persistent coughing. Advised at this time the patient consider hospital admission, and he is agreeable. Again discussed obtaining blood cultures, lactic acid, and covering with IV antibiotics for pneumonia and patient is agreeable at this time. Spoke with hospitalist, Dr. Allen, who accepts patient for admission to medicine service Time: 01:58 MDM - URI/Sore Throat Medical Records Attestation: I reviewed the patient's medical records. Lab Data Attestation: I reviewed the patient's lab results. Result diagrams: 03/07/22 20:03/07/22: Labs: Lab Results 03/07/22 03/07/22 03/07/22 Range/Units 20:10 20: 20:22 WBC 13.1 H (4.8-10.8) X10*3/uL RBC 4.59 L (4.60-5.80) X10*6/uL Hgb 13.2 L (14.0-18.0) g/dl Hct 38.3 L (42.0-52.0) % MCV 83.4 (80.0-98.0) fL MCH 28.8 (27.0-33.0) pg MCHC 34.5 (31.0-36.0) g/dl RDW 14.1 (11.0-16.0) % Plt Count 349 (160-400) X10*3/uL MPV 8.9 L (9.4-12.4) fL Immature Gran % (Auto) 0.3 (0.0-0.4) % Neut % (Auto) 71.1 (45-73) % Lymph % (Auto) 20.0 (20-40) % [place] % (Auto) 6.3 (2-11) % Eos % (Auto) 1.8 (0-4) % Baso % (Auto) 0.5 (0-2) % Lymph # (Auto) 2.6 (1.2-4.9) X10*3/uL [place] # (Auto) 0.8 (0.1-1.2) X10*3/uL Eos # (Auto) 0.2 (0.0-0.4) X10*3/uL Baso # (Auto) 0.1 (0.0-0.2) X10*3/uL Abs Immat Gran (auto) 0.04 H (0.00-0.03) X10*3/uL Absolute Neuts (auto) 9.3 H (2.0-8.3) x10*3/uL Absolute Nucleated RBC 0.000 (0.0-0.012) X10*3/uL Nucleated RBC % (auto) 0.0 (0.0-0.2) /100WBC Sodium 140 (135-145) mmol/L Potassium 4.1 (3.3-5.1) mmol/L Chloride 104 (96-108) mmol/L Carbon Dioxide 25 (22-29) mmol/L Anion Gap 15 (12-20) BUN 17 H (9-16) mg/dL Creatinine 1.06 (0.5-1.4) mg/dL Estim Creat Clear Calc 80.5 Estimated GFR > 60 Random Glucose 104 (60-115) mg/dL Calcium 9.3 D (8.4-10.2) mg/dL Total Bilirubin 0.4 (0.0-1.0) mg/dL AST 16 D (5-37) U/L ALT 18 (0-40) U/L Alkaline Phosphatase 88 (39-117) U/L Total Protein 7.9 (6.5-8.0) g/dL Albumin 4.3 (3.5-5.0) g/dL COVID-19 (STEPH) Positive A (Negative) COVID-19 Clin Com See Note Imaging Data Chest x-ray: Radiologist's impression: XR/XR chest 1V IMPRESSION: There is a perihilar airspace opacity in the right lung consistent with pneumonia. Discharge Plan Discharge Clinical Impression: COVID-19, Community acquired pneumonia Patient Disposition: Admitted As Inpatient
[2022-03-08] MEDS: cefTRIAXone sodium 1 GM in 0.9 % Sodium Chloride 50 ML IV ×2 (02:35→21:33)
[2022-03-08] MEDS: 0.9 % Sodium Chloride 1,000 ML 999 ML IV (02:47)
[2022-03-08 03:56] LABS: Lactic Acid 1.3 mmol/L (0.5-2.0)
[2022-03-08] MEDS: methylPREDNISolone Sod Succ 40 MG/ML VIAL IVPUSH ×2 (04:08→16:11)
[2022-03-08] MEDS: Enoxaparin Sodium 40 MG/0.4 ML SYRINGE SUBCUT (04:08)
[2022-03-08] MEDS: Doxycycline Hyclate 100 MG in 0.9 % Sodium Chloride 250 ML 166.67 MG IV (04:09)
--- NOTE | 2022-03-08 06:41 | P.HPHOSP_ITS ---
History of Present Illness Date of Service: 03/08/22 Chief Complaint: SOB 51-year-old male with past medical history of asthma, bronchiectasis, COPD, GERD, history of pneumonia, presents the hospital with complaints of sinus of breath, cough, positive COVID test. Patient reports that his symptoms been going on for the past 3 days. He has significant cough, has chest pain when his coughing or walking around. The chest pain is midsternal, nonradiating, worse with coughing, and relieved when he is not coughing and or not moving around. Reports that he tried using his inhalers at home with no improvement. Patient feels chills with no fever. He denies any headache or change in vision, no abdominal pain nausea or vomiting, had self stool but not diarrhea, denies any constipation, no urinary symptoms and no lower extremity edema. On arrival to the ED patient found to be hemodynamically stable. Heart rate of 103, Patient noted to drop to 90% on ambulation with tachycardia in the 130s. Chest x-ray shows airspace opacity in the right lung consistent with pneumonia Labs are significant for WBC count of 13, hemoglobin of 13.2, hematocrit 38.3, COVID-19 positive Patient's around IV antibiotics and will be admitted for further management Review of Systems Review of Systems: Yes all other systems are reviewed and are negative [facility] Medical History (Updated 03/08/22 @ 06:47 by Austin Allen MD) Asthma Bronchiectasis COPD (chronic obstructive pulmonary disease) Heartburn Hypoxia Pneumonia Recurrent pneumonia Sepsis Family History Sister Breast CA Surgical History (Updated 03/08/22 @ 06:45 by Austin Allen MD) No pertinent past surgical history Social History Household Members: None Housing: Apartment Do you presently have visiting nurse or other home services: No Alcohol intake: current Alcohol intake frequency: holidays/special occasions only Patient Tobacco Use Status: Former Tobacco user e-Cigarette/Vaping Use: Never Used Second Hand Smoke Exposure: No Advance Directives: Yes Advance Directives on File: Yes Advance Directives Date on File: 06/21/21 service: No Current occupational status: employed Meds Allergies Allergy/AdvReac Type Severity Reaction Status Date / Time clindamycin [Clindamycin] Allergy Severe SEVERE Verified 02/16/22 13:00 ITCHING Active Medications: Current Medications Acetaminophen (Acetaminophen 325 Mg Tablet) 650 mg PO Q6H PRN PRN Reason: Pain, Mild (Pain Scale 1-3) Albuterol/Ipratropium (Albuterol/Iprat 2.5/0.5mg 3 Ml Ampul.Neb) 3 ml INHALE RQ4H PRN PRN Reason: Shortness of Breath/Wheezing Albuterol/Ipratropium (Albuterol/Iprat 2.5/0.5mg 3 Ml Ampul.Neb) 3 ml INHALE RQ4H WHILE AWAKE [facility], 1928[facility]1983 Azithromycin (Azithromycin 500 Mg Tablet) 500 mg PO Q24H [facility], [facility]1983 Docusate Sodium (Docusate Sodium 100 Mg Capsule) 100 mg PO DAILY PRN PRN Reason: Constipation Enoxaparin Sodium (Enoxaparin Sodium 40 Mg/0.4 Ml Syringe) 40 mg SUBCUT Q24H [facility], [facility]–1983 Last Admin: 03/08/22 04:08 Dose: 40 mg Ceftriaxone Sodium 1 gm/ (Sodium Chloride) 50 mls @ 100 mls/hr IV Q24H [facility], [facility]–1983 Methylprednisolone Sodium Succinate (Methylprednisolone Sod Succ 40 Mg/Ml Vial) 40 mg IVPUSH Q12H [facility], [facility]1983 Last Admin: 03/08/22 04:08 Dose: 40 mg Ondansetron HCl (Ondansetron Hcl 4 Mg/2 Ml Vial) 4 mg IVPUSH Q8H PRN PRN Reason: Nausea and Vomiting Pharmacy Consult (Consult Rx Perform Med Rec) 1 each MISCELLANE ONCE PRN PRN Reason: Consult order Sodium Chloride (0.9 % Sodium Chloride Flush 3 Ml Syringe) 3 ml IVFLUSH QSHIFT [facility] Home Medications Medication Instructions Recorded Confirmed Last Taken Type omeprazole 20 mg tablet,delayed 20 mg PO DAILY 06/21/21 12/11/21 06/20/21 History release atorvastatin 20 mg tablet 20 mg PO DAILY 09/22/21 12/11/21 Unknown History fluticasone propionate 50 2 spray intranasal DAILY 09/22/21 12/11/21 Unknown History mcg/actuation nasal spray,suspension hydrochlorothiazide 25 mg tablet 25 mg PO DAILY 09/22/21 12/11/21 Unknown History ipratropium 0.5 mg-albuterol 3 mg 3 ml inhalation QID PRN Shortness 09/22/21 12/11/21 Unknown History (2.5 mg base)/3 mL nebulization Of Breath soln loratadine 10 mg tablet 10 mg PO DAILY 09/22/21 12/11/21 Unknown History multivitamin (Daily Multi-Vitamin 1 tab PO DAILY 09/22/21 12/11/21 Unknown History tablet) Physical Exam Vital Signs and Narrative: Vital Signs: Last Vital Signs Temp 98.6 F 03/08/22 03:53 Pulse 104 H 03/08/22 03:53 Resp 20 03/08/22 03:53 BP 115/79 03/08/22 03:53 Pulse Ox 98 03/08/22 03:53 O2 Del Method 03/08/22 03:53 BMI result Body Mass Index 25.1 Const: General: cooperative and no acute distress Orientation/consciousness: patient oriented x3 Eyes: General: appearance normal, both eyes and all related structures Pupils: Equal, round and reactive pupils present Resp: Other: Crackles on the right side Effort & Inspection: normal respiratory effort and abnormal respiratory pattern Cardio: Rate: regular rate Rhythm: regular rhythm GI: Palpation (GI): Soft to palpation Auscultation: normal bowel sounds Skin: General skin exam: no rashes or lesions noted Neuro: General: patient oriented x3 Cranial nerves: Yes Equal, round and reactive pupils present Cognition (Neuro): normal cognition Extrem: General: Yes normal to inspection and Yes no pedal edema Results Labs CBC and Chem 7: 03/07/22 20:22 03/07/22 20:22 Labs: Laboratory Results - last 24 hr 03/07/22 03/07/22 03/07/22 20:10 20:22 20:22 MCV 83.4 MCH 28.8 MCHC 34.5 RDW 14.1 Plt Count 349 MPV 8.9 L Immature Gran % (Auto) 0.3 Neut % (Auto) 71.1 Lymph % (Auto) 20.0 [place] % (Auto) 6.3 Eos % (Auto) 1.8 Baso % (Auto) 0.5 Lymph # (Auto) 2.6 [place] # (Auto) 0.8 Eos # (Auto) 0.2 Baso # (Auto) 0.1 Abs Immat Gran (auto) 0.04 H Absolute Neuts (auto) 9.3 H Absolute Nucleated RBC 0.000 Nucleated RBC % (auto) 0.0 Anion Gap 15 Estim Creat Clear Calc 80.5 Estimated GFR > 60 Random Glucose 104 Lactic Acid Calcium 9.3 D Total Bilirubin 0.4 AST 16 D ALT 18 Alkaline Phosphatase 88 Total Protein 7.9 Albumin 4.3 COVID-19 (STEPH) Positive A COVID-19 Clin Com See Note 03/08/22 02:23 MCV MCH MCHC RDW Plt Count MPV Immature Gran % (Auto) Neut % (Auto) Lymph % (Auto) [place] % (Auto) Eos % (Auto) Baso % (Auto) Lymph # (Auto) [place] # (Auto) Eos # (Auto) Baso # (Auto) Abs Immat Gran (auto) Absolute Neuts (auto) Absolute Nucleated RBC Nucleated RBC % (auto) Anion Gap Estim Creat Clear Calc Estimated GFR Random Glucose Lactic Acid 1.3 Calcium Total Bilirubin AST ALT Alkaline Phosphatase Total Protein Albumin COVID-19 (STEPH) COVID-19 Clin Com Imaging Radiologist's Impressions: Impressions Chest X-Ray 03/07/22 20:55 IMPRESSION: There is a perihilar airspace opacity in the right lung consistent with pneumonia. Assessment and Plan (1) Sepsis: Status: Acute (2) Community acquired pneumonia: Status: Acute (3) COVID-19: Status: Acute (4) Pleuritic chest pain: Status: Acute Plan This is a 51-year-old male with past medical history of asthma, presents to the hospital with complaints shortness of breath, cough, and positive status of COVID at home # sepsis - tachycardia, leukocytosis - source pneumonia - will treat with IV antibiotics, follow cultures # community-acquired pneumonia - likely viral in the setting of COVID - given the imaging indicative more of an bacterial infection will treat with IV antibiotics - follow cultures # COVID-19 infection - not sure of his vaccination status - hemodynamically stable, no hypoxia recorded - will consult Infectious Disease for any further recommendation and treatment\ DVT prophylaxis: Lovenox Pt will require a minimum 2 night hospital stay for IV antibiotics in the setting of sepsis Quality Stroke Does the patient have a stroke diagnosis?: No VTE Prior VTE?: No VTE Risk Level:: Medical - moderate - high VTE Device Contraindication: Treatment Not Indicated VTE Drug Contraindication: N/A - Med Ordered
[2022-03-08 08:55] LABS: Basophils Percent Auto 0.2 % (0-2); Hemoglobin 12.1 g/dl (14.0-18.0); Imm Gran Abs Auto 0.03 X10*3/uL (0.00-0.03); Imm Gran Pct Auto 0.3 % (0.0-0.4); Lymphocytes Absolute Auto 0.8 X10*3/uL (1.2-4.9); Lymphocytes Percent Auto 7.8 % (20-40); MANUAL DIFF FLAG SCAN; Mean Corpuscular HGB Conc 32.7 g/dl (31.0-36.0); Mean Corpuscular Hemoglobin 27.8 pg (27.0-33.0); Mean Corpuscular Volume 85.1 fL (80.0-98.0); Mean Platelet Volume 9.8 fL (9.4-12.4); Monocytes Percent Auto 0.4 % (2-11); Neutrophils Absolute Auto 9.7 x10*3/uL (2.0-8.3); Neutrophils Percent Auto 91.3 % (45-73); Platelet Count 342 X10*3/uL (160-400); Red Blood Count 4.35 X10*6/uL (4.60-5.80); Red Cell Distribution Width 14.1 % (11.0-16.0); SCAN SMEAR FLAG 1; White Blood Count 10.6 X10*3/uL (4.8-10.8)
--- NOTE | 2022-03-08 09:04 | PHA.MEDREC ---
Pharmacy Consult ? Medication Reconciliation Pharmacy has completed the medication reconciliation.
[2022-03-08 09:14] LABS: SLIDE REVIEW VERIFIED
[2022-03-08 09:21] LABS: Troponin-I High Sensitivity < 3.5 ng/L (<3.5-35.0)
[2022-03-08 09:28] LABS: Anion Gap 16 (12-20); Blood Urea Nitrogen 14 mg/dL (9-16); Calcium 9.1 mg/dL (8.4-10.2); Carbon Dioxide 23 mmol/L (22-29); Chloride 104 mmol/L (96-108); Creatinine Clr Calc Pharmacy 82.1; Estimated Glomerular Filt Rate > 60; Glucose Random 217 mg/dL (60-115); Potassium 4.4 mmol/L (3.3-5.1); Sodium 139 mmol/L (135-145)
[2022-03-08] MEDS: Azithromycin 500 MG TABLET PO (10:18)
[2022-03-08] MEDS: 0.9 % Sodium Chloride Flush 3 ML SYRINGE IVFLUSH ×2 (10:18→16:11)
--- NOTE | 2022-03-08 10:20 | PC.NURSE ---
PT SEEN BY VANNESA RECIO (LIZZIE) PT AWARE OF PLAN OF CARE.
--- NOTE | 2022-03-08 11:04 | PC.NURSE ---
Pt is O/A X 4. Respiration even and non-labored, speaks in full sentence. Pupils are PERRLA. Lung sounds are clear, heart rate regular at a rate of 106 on the monitor. Skin is pink, warm and dry, moves all extremities, no edema noted. Abdomen is soft and non-tender, bs present in all 4 quads. Pt aware of plan of care.
[2022-03-08 11:05] LABS: Procalcitonin 0.07 ng/mL
[2022-03-08 12:37] LABS: Lactate Dehydrogenase 136 U/L (118-273)
[2022-03-08 12:59] LABS: Ferritin 91 ng/mL (20-250)
--- NOTE | 2022-03-08 15:59 | MHC.CM.PN ---
CM SPOKE WITH PATIENT ON PHONE. LIVES ALONE IN AN APARTMENT. HAS A NEBULIZER THROUGH [facility]. +HCP, COVID VAX X [address] WITH MARIO. PCP IS [address]. GARCIA AT [facility]. FRIEND WILL TRANSPORT HOME AT DISCHARGE
--- NOTE | 2022-03-08 17:21 | P.PNIM_ITS ---
Subjective Subjective Date of Service: 03/08/22 Interval History: seen and examined this morning follow up for covid feeling short of breath with ambulation having dry cough, muscle aches no chest pain or palpitations Review of Systems Review of Systems: Yes all other systems are reviewed and are negative Constitutional Constitutional: Denies chills and Denies fever(s) ENT Ears, Nose, Mouth, and Throat: Denies dizziness Cardiovascular Cardiovascular: Denies chest pain, Denies palpitations and Reports dyspnea on exertion Respiratory Respiratory: Reports cough and Reports dyspnea on exertion Gastrointestinal Gastrointestinal: Denies abdominal pain Neurologic Neurologic: Denies dizziness Endocrine Endocrine: Denies palpitations Physical Exam Vital Signs: Vital Signs: Last Vital Signs Temp 98.3 F 03/08/22 16:08 Pulse 115 H 03/08/22 16:08 Resp 19 03/08/22 16:08 BP 137/104 H 03/08/22 16:08 Pulse Ox 95 03/08/22 16:08 O2 Del Method 03/08/22 16:08 BMI result Body Mass Index 25.1 Const: General: cooperative, comfortable, alert and awake Nutritional Appearance: average body habitus Orientation/consciousness: patient oriented x3 Resp: Effort & Inspection: normal respiratory effort and able to speak in complete sentences Auscultation: diminished lung sounds Cardio: Rate: tachycardic Heart sounds: S1 normal heart sound present and S2 normal heart sound present GI: Inspection: No distended Palpation (GI): Soft to palpation Neuro: General: patient oriented x3 and CN's II-XI intact bilaterally Extrem: Other: Able to move all 4 extremities spontaneously General: Yes no pedal edema Objective Data Active Medications Acetaminophen (Acetaminophen 325 Mg Tablet) 650 mg PO Q6H PRN PRN Reason: Pain, Mild (Pain Scale 1-3) Albuterol/Ipratropium (Albuterol/Iprat 2.5/0.5mg 3 Ml Ampul.Neb) 3 ml INHALE RQ4H PRN PRN Reason: Shortness of Breath/Wheezing Albuterol/Ipratropium (Albuterol/Iprat 2.5/0.5mg 3 Ml Ampul.Neb) 3 ml INHALE RQ4H WHILE AWAKE ARIELLE Last Admin: 03/08/22 16:36 Dose: Not Given Documented By: ASIM Non-Admin Reason: See Note Azithromycin (Azithromycin 500 Mg Tablet) 500 mg PO Q24H [facility] Last Admin: 03/08/22 10:18 Dose: 500 mg Documented By: MILANA Docusate Sodium (Docusate Sodium 100 Mg Capsule) 100 mg PO DAILY PRN PRN Reason: Constipation Enoxaparin Sodium (Enoxaparin Sodium 40 Mg/0.4 Ml Syringe) 40 mg SUBCUT Q24H [facility] Last Admin: 03/08/22 04:08 Dose: 40 mg Documented By: IZABEL Ceftriaxone Sodium 1 gm/ (Sodium Chloride) 50 mls @ 100 mls/hr IV Q24H [facility] Methylprednisolone Sodium Succinate (Methylprednisolone Sod Succ 40 Mg/Ml Vial) 40 mg IVPUSH Q12H [facility] Last Admin: 03/08/22 16:11 Dose: 40 mg Documented By: MILANA Ondansetron HCl (Ondansetron Hcl 4 Mg/2 Ml Vial) 4 mg IVPUSH Q8H PRN PRN Reason: Nausea and Vomiting Pharmacy Consult (Consult Rx Perform Med Rec) 1 each MISCELLANE ONCE PRN PRN Reason: Consult order Sodium Chloride (0.9 % Sodium Chloride Flush 3 Ml Syringe) 3 ml IVFLUSH QSHIFT [facility] Last Admin: 03/08/22 16:11 Dose: 3 ml Documented By: MILANA Labs CBC & Chem 7: 03/08/22 08:26 03/08/22 08:26 Labs: Laboratory Results - last 24 hr 03/07/22 03/07/22 03/07/22 20:10 20:22 20:22 MCV 83.4 MCH 28.8 MCHC 34.5 RDW 14.1 Plt Count 349 MPV 8.9 L Immature Gran % (Auto) 0.3 Neut % (Auto) 71.1 Lymph % (Auto) 20.0 [place] % (Auto) 6.3 Eos % (Auto) 1.8 Baso % (Auto) 0.5 Lymph # (Auto) 2.6 [place] # (Auto) 0.8 Eos # (Auto) 0.2 Baso # (Auto) 0.1 Abs Immat Gran (auto) 0.04 H Absolute Neuts (auto) 9.3 H Absolute Nucleated RBC 0.000 Nucleated RBC % (auto) 0.0 Smear Tech's Comments Anion Gap 15 Estim Creat Clear Calc 80.5 Estimated GFR > 60 Random Glucose 104 Lactic Acid Calcium 9.3 D Ferritin Total Bilirubin 0.4 AST 16 D ALT 18 Alkaline Phosphatase 88 Lactate Dehydrogenase Troponin I High Sens C-Reactive Protein Total Protein 7.9 Albumin 4.3 Procalcitonin COVID-19 ([facility]) Positive A COVID-19 Clin Com See Note 03/08/22 03/08/22 03/08/22 02:23 08:26 08:26 MCV 85.1 MCH 27.8 MCHC 32.7 RDW 14.1 Plt Count 342 MPV 9.8 Immature Gran % (Auto) 0.3 Neut % (Auto) 91.3 H Lymph % (Auto) 7.8 L [place] % (Auto) 0.4 L Eos % (Auto) 0.0 Baso % (Auto) 0.2 Lymph # (Auto) 0.8 L [place] # (Auto) 0.0 L Eos # (Auto) 0.0 Baso # (Auto) 0.0 Abs Immat Gran (auto) 0.03 Absolute Neuts (auto) 9.7 H Absolute Nucleated RBC 0.000 Nucleated RBC % (auto) 0.0 Smear Tech's Comments VERIFIED Anion Gap 16 Estim Creat Clear Calc 82.1 Estimated GFR > 60 Random Glucose 217 H D Lactic Acid 1.3 Calcium 9.1 Ferritin 91 Total Bilirubin AST ALT Alkaline Phosphatase Lactate Dehydrogenase 136 Troponin I High Sens C-Reactive Protein 6.30 H Total Protein Albumin Procalcitonin COVID-19 ([facility]) COVID-19 Clin Com 03/08/22 03/08/22 08:26 08:26 MCV MCH MCHC RDW Plt Count MPV Immature Gran % (Auto) Neut % (Auto) Lymph % (Auto) [place] % (Auto) Eos % (Auto) Baso % (Auto) Lymph # (Auto) [place] # (Auto) Eos # (Auto) Baso # (Auto) Abs Immat Gran (auto) Absolute Neuts (auto) Absolute Nucleated RBC Nucleated RBC % (auto) Smear Tech's Comments Anion Gap Estim Creat Clear Calc Estimated GFR Random Glucose Lactic Acid Calcium Ferritin Total Bilirubin AST ALT Alkaline Phosphatase Lactate Dehydrogenase Troponin I High Sens < 3.5 C-Reactive Protein Total Protein Albumin Procalcitonin 0.07 COVID-19 ([facility]) COVID-19 Clin Com Assessment and Plan (1) Community acquired pneumonia: Status: Acute (2) COVID-19: Status: Acute Plan This is a 51-year-old male with past medical history of asthma, presents to the hospital with complaints shortness of breath, cough, and positive status of COVID at home sepsis secondary to pneumonia meets criteria with tachycardia, leukocytosis h/o underlying bronchiectasis COVID + - procalcitonin low, likely viral - continue antibiotics for now until ID eval COVID-19 infection no hypoxia at this time - no steroids high risk due to bronchiectasis - will consult Infectious Disease for any further recommendation and treatment -check inflammatory markers DVT prophylaxis: Lovenox attending - dr. tang Patient requires ongoing inpatient hospitalization for IV antibiotics in the setting of sepsis/management of covid 19 Quality Stroke Does the patient have a stroke diagnosis?: No VTE Prior VTE?: No VTE Risk Level:: Medical - moderate - high VTE Device Contraindication: Treatment Not Indicated VTE Drug Contraindication: N/A - Med Ordered
[2022-03-09 00:43] VITALS: BP 158/84; PULSE 93; RESP 15; TEMP 37.1; O2SAT 94
[2022-03-09 03:44] VITALS: BP 145/84; PULSE 89; RESP 14; TEMP 36.5; O2SAT 95
[2022-03-09] MEDS: methylPREDNISolone Sod Succ 40 MG/ML VIAL IVPUSH (03:56)
[2022-03-09] MEDS: Enoxaparin Sodium 40 MG/0.4 ML SYRINGE SUBCUT (03:56)
[2022-03-09] MEDS: 0.9 % Sodium Chloride Flush 3 ML SYRINGE IVFLUSH ×2 (04:00→10:02)
[2022-03-09] MEDS: Omeprazole 20 MG CAPSULE.DR PO (06:29)
[2022-03-09 07:40] VITALS: BP 166/93; PULSE 88; RESP 16; TEMP 36.7; O2SAT 95
[2022-03-09 09:38] LABS: Lactate Dehydrogenase 174 U/L (118-273)
[2022-03-09 09:49] LABS: Anion Gap 17 (12-20); Blood Urea Nitrogen 19 mg/dL (9-16); Calcium 9.6 mg/dL (8.4-10.2); Carbon Dioxide 22 mmol/L (22-29); Chloride 106 mmol/L (96-108); Creatinine Clr Calc Pharmacy 91.8; Estimated Glomerular Filt Rate > 60; Glucose Random 130 mg/dL (60-115); Potassium 4.8 mmol/L (3.3-5.1); Sodium 140 mmol/L (135-145)
[2022-03-09] MEDS: Azithromycin 500 MG TABLET PO (10:02)
[2022-03-09] MEDS: Loratadine 10 MG TABLET PO (10:02)
[2022-03-09] MEDS: Acetaminophen 325 MG TABLET 650 MG PO (10:05)
--- NOTE | 2022-03-09 11:42 | P.CDIC_ITS ---
CDI Concurrent Query Documentation Clarification: PHYSICIAN'S DOCUMENTATION REQUEST Date of Query: 03/09/22 1143 Patient Name: Feliciano David Admit Date: 03/08/22 Dear Doctor, Please review the following and provide your response in the progress notes. Clinical Indicators: The diagnosis of asthma was documented in the record on [enter date]. Additional clinical indicators from the record include: Risk Factors/Clinical Indicators/Treatments PMH: Asthma Home medication - Albuterol prn Based on the above, please clarify in the Progress Notes further specificity regarding the type and acuity of the asthma: Type: * Mild intermittent - less than 2x/week * Mild persistent - more than 2x/week but not daily * Moderate persistent - daily and may restrict physical activity * Severe persistent - throughout the day with frequent attacks, limiting activities * Exercise induced * Chronic obstructive asthma and indicate if with acute lower respiratory infection * Asthma with underlying COPD and indicate if with acute lower respiratory infection * Other ? please specify * Unable to determine Acuity: * With acute exacerbation * With status asthmaticus * Uncomplicated * Unable to determine Use of terms such as suspected, likely, concern for, or probable (associated with a specific diagnosis that is being evaluated, monitored, or treated as if it exists) are acceptable and can be coded in the inpatient setting, when documented at the time of discharge. Thank you, Magda Durham [facility], CDIS Extension: [phone] Please use your independent medical judgment in providing your response. THIS QUERY IS PART OF THE PERMANENT MEDICAL RECORD Provider Response: Other Other Diagnosis: unable to determine, he has bronchiectasis as well
--- NOTE | 2022-03-09 11:42 | MHC.CDI.CONC ---
CDI Concurrent Query Documentation Clarification: PHYSICIAN'S DOCUMENTATION REQUEST Date of Query: 03/09/22 1143 Patient Name: Feliciano David Admit Date: 03/08/22 Dear Doctor, Please review the following and provide your response in the progress notes. Clinical Indicators: The diagnosis of asthma was documented in the record on [enter date]. Additional clinical indicators from the record include: Risk Factors/Clinical Indicators/Treatments PMH: Asthma Home medication - Albuterol prn Based on the above, please clarify in the Progress Notes further specificity regarding the type and acuity of the asthma: Type: Mild intermittent - less than 2x/week Mild persistent - more than 2x/week but not daily Moderate persistent - daily and may restrict physical activity Severe persistent - throughout the day with frequent attacks, limiting activities Exercise induced Chronic obstructive asthma and indicate if with acute lower respiratory infection Asthma with underlying COPD and indicate if with acute lower respiratory infection Other ? please specify Unable to determine Acuity: With acute exacerbation With status asthmaticus Uncomplicated Unable to determine Use of terms such as suspected, likely, concern for, or probable (associated with a specific diagnosis that is being evaluated, monitored, or treated as if it exists) are acceptable and can be coded in the inpatient setting, when documented at the time of discharge. Thank you, Magda Durham [facility], CDIS Extension: [phone] Please use your independent medical judgment in providing your response. THIS QUERY IS PART OF THE PERMANENT MEDICAL RECORD Provider Response: Other Other Diagnosis: unable to determine, he has bronchiectasis as well
[2022-03-09 12:00] VITALS: BP 159/95; PULSE 82; RESP 20; TEMP 36.7; O2SAT 96
--- NOTE | 2022-03-09 14:00 | PM.DS ---
DS: Providers Provider Date of Service: 03/09/22 Date of admission: 03/08/22 03:09 Date of discharge: 03/09/22 Primary care physician: Genevieve Lama DO Consults: 03/08/22 06:47 Consult to Infectious Diseases Routine Consulting Provider: Jodie Reyes Reason for consultation: covid x3 days Has provider been notified: No Attending physician on discharge: Yaw Cardenas Discharging clinician: Corrie De Oliveira DS: Diagnosis Discharge Diagnosis (1) Community acquired pneumonia: Status: Acute (2) COVID-19: Status: Acute DS: Summary Hospital Course Hospital Course: From H&P on day of admission 51-year-old male with past medical history of asthma, bronchiectasis, COPD, GERD, history of pneumonia, presents the hospital with complaints of sinus of breath, cough, positive COVID test.? Patient reports that his symptoms been going on for the past 3 days.? He has significant cough, has chest pain when his coughing or walking around.? The chest pain is midsternal, nonradiating, worse with coughing, and relieved when he is not coughing and or not moving around.? Reports that he tried using his inhalers at home with no improvement. Patient feels chills with no fever.? He denies any headache or change in vision, no abdominal pain nausea or vomiting, had self stool but not diarrhea, denies any constipation, no urinary symptoms and no lower extremity edema. On arrival to the ED patient found to be hemodynamically stable.? Heart rate of 103, Patient noted to drop to 90% on ambulation with tachycardia in the 130s. Chest x-ray shows airspace opacity in the right lung consistent with pneumonia Labs are significant for WBC count of 13, hemoglobin of 13.2, hematocrit 38.3, COVID-19 positive Patient's around IV antibiotics and will be admitted for further management Patient was admitted to the hospital for COVID-19 and pneumonia. As patient had lobe are noted he was started on IV antibiotics. He had no evidence of hypoxia therefore steroids were not indicated. ID did not recommend any further treatment for COVID-19. He will be discharged home to complete a course of antibiotics. Leukocytosis present on admission has resolved, he has remained afebrile and vital signs have remained stable. Blood cultures are negative today. He should isolate per CDC recommendations. Time Spent with Patient Time attestation: Total time spent providing and/or coordinating discharge services: Discharge coordination time: Greater than 30 minutes Quality: Safe Use of Opioids Does Pt have an Active Cancer Diagnosis on the Problem List?: No Quality: Stroke Does the patient have a stroke diagnosis?: No Physical Exam Vital Signs: Vital Signs: Last Vital Signs Temp 98.0 F 03/09/22 12:00 Pulse 82 03/09/22 12:00 Resp 20 03/09/22 12:00 BP 159/95 H 03/09/22 12:00 Pulse Ox 96 03/09/22 12:00 O2 Del Method 03/09/22 12:00 BMI result Body Mass Index 25.1 Const: General: cooperative, comfortable, alert and awake Nutritional Appearance: average body habitus Orientation/consciousness: patient oriented x3 Resp: Effort & Inspection: normal respiratory effort and able to speak in complete sentences Auscultation: diminished lung sounds Cardio: Rate: tachycardic Heart sounds: S1 normal heart sound present and S2 normal heart sound present GI: Inspection: No distended Palpation (GI): Soft to palpation Neuro: General: patient oriented x3 and CN's II-XI intact bilaterally Extrem: Other: Able to move all 4 extremities spontaneously General: Yes no pedal edema DS: Data Data Completed and Pending Labs on day of discharge: Laboratory Results - last 24 hr 03/09/22 03/09/22 08:42 08:42 Sodium 140 Potassium 4.8 Chloride 106 Carbon Dioxide 22 Anion Gap 17 BUN 19 H Creatinine 0.93 Estim Creat Clear Calc 91.8 Estimated GFR > 60 Random Glucose 130 H D Calcium 9.6 Lactate Dehydrogenase 174 Preliminary micro results at discharge 03/08/22 02:23 Blood Culture - Preliminary Blood - Venous No growth after 24 hours. 03/08/22 02:35 Blood Culture - Preliminary Blood - Venous No growth after 24 hours. Discharge Plan Discharge Anticipated Discharge Date/Time: 03/09/22 13:52 Patient Disposition: Home, Self-Care Discharge Diagnosis: covid 19 pneumonia viral sepsis Referrals: Genevieve Lama DO [Primary Care Provider] - 1 Week Discharge Medications: New cefuroxime axetil 250 mg tablet 250 mg PO BID 5 Days Qty: 10 0RF azithromycin 250 mg tablet 250 mg PO DAILY 5 Days Qty: 5 0RF benzonatate 100 mg capsule 100 mg PO TID PRN (Reason: cough) Qty: 15 0RF Continued Trelegy Ellipta 200-62.5-25 mcg blister with device 1 inh inhalation DAILY 30 Days Qty: 1 6RF albuterol sulfate 90 mcg/actuation HFA aerosol inhaler 2 puff inhalation Q4-6H PRN (Reason: shortness of breath or wheezing) Qty: 8.5 0RF omeprazole 20 mg Tablet,Delayed Release (Dr/Ec) 20 mg PO DAILY loratadine 10 mg tablet 10 mg PO DAILY fluticasone propionate 50 mcg/actuation spray,suspension 2 spray intranasal DAILY atorvastatin 20 mg tablet 20 mg PO DAILY ipratropium-albuterol 0.5 mg-3 mg(2.5 mg base)/3 mL solution for nebulization 3 ml inhalation QID PRN (Reason: Shortness Of Breath) multivitamin [Daily Multi-Vitamin] Tablet 1 tab PO DAILY Discharge Orders: Discharge Order (Routine); Ordered 03/09/22 Ordered By: Corrie De Oliveira Activity on Discharge: As tolerated Stand Alone Forms: Patient Portal Discharge page, Work/School Release Care Plan Goals: See below Health Concerns: Sepsis from Pneumonia, covid 19 Plan of Treatment: Complete course of antibiotics Isolate per CDC recommendations Call to schedule follow-up appointment with PCP to ensure resolution of infection Assessment: See discharge summary
--- NOTE | 2022-03-09 14:23 | MHC.CM.PN ---
pt dcd home no skilled servceis ordered by
[2022-03-09 15:53] VITALS: BP 134/90; PULSE 87; RESP 18; TEMP 37.1; O2SAT 94
== END 2022-03-09 17:26 | disposition home or self-care (01) | DRG 871 ==
LOC: HO.ED 03-08 02:10 → HO.EDOVER 03-08 03:19 → HO.IMC 03-08 19:32
PROVIDERS: Nurse Practitioner Family; Admitting Provider Internal Medicine; Emergency Provider Emergency Medicine; PCP Family Medicine; Visit Provider Physician Assistant Medical
DX: A41.89 Other specified sepsis (principal); J12.9 Viral pneumonia, unspecified; U07.1 COVID-19; J47.0 Bronchiectasis with acute lower respiratory infection; J45.909 Unspecified asthma, uncomplicated; K21.9 Gastro-esophageal reflux disease without esophagitis; Z87.01 Personal history of pneumonia (recurrent); Z87.891 Personal history of nicotine dependence; Z88.1 Allergy status to other antibiotic agents; Z79.51 Long term (current) use of inhaled steroids; Z79.899 Other long term (current) drug therapy
CPT/HCPCS: 36415; 71045; 80048; 80053; 82728; 83605; 83615; 84145; 84484; 85025; 86140; 87040; 87635; 99219; 99285; J0696; J1650; J2920

== ENCOUNTER 2022-04-19 19:19 | Emergency (ER) | payer OTHER, SELFPAY ==
--- NOTE | ~2022-04-19 | CT_ITS ---
EXAMINATION: CT HEAD WITHOUT CONTRAST CLINICAL INFORMATION: Headache, hypertension. COMPARISON: MR brain 10/26/2008. TECHNIQUE: Contiguous axial imaging was performed from the skull base to vertex without intravenous administration of contrast. This CT examination was performed using dose optimization techniques as appropriate, variously including the following: *Automated exposure control *Adjustment of mA and/or kV according to patient size (this includes techniques or standardized protocols for targeted exams where dose is matched to indication/reason for exam; i.e. extremities or head) *Use of iterative reconstruction technique DLP: 706 mGy-cm FINDINGS: Metallic bodies are visualized overlying the inferior left frontal scalp/lateral preorbital region generating streak artifacts that partially limit the evaluation. There is no evidence of acute intracranial hemorrhage or edematous territorial infarction. There is no abnormal attenuation within the brain parenchyma. Wolf-white matter differentiation is preserved. The ventricles are normal in size and configuration. No evidence for obstructive hydrocephalus. No abnormal mass effect or midline shift. No extra-axial fluid collections. No acute soft tissue or osseous abnormalities. The mastoid air cells and paranasal sinuses are clear. CT/CT head/brain wo IV con IMPRESSION: 1. No evidence of acute intracranial hemorrhage or edematous territorial infarction. 2. Nonspecific metallic bodies in the inferior left frontal scalp/lateral preorbital region, correlate with physical examination.
--- NOTE | 2022-04-19 19:22 | ED_ITS ---
HPI - Dental/Oral General Chief complaint: General Medical <DURGA Burrows - Last Filed: 04/19/22 19:28> Stated complaint: elevated bp,tooth ache <DURGA Burrows - Last Filed: 04/19/22 19:28> Time Seen by Provider: 04/19/22 23:36 <DURGA Burrows - Last Filed: 04/19/22 19:28> Source: patient <Kota Oleary MD - Last Filed: 04/20/22 01:55> Mode of arrival: ambulatory <Kota Oleary MD - Last Filed: 04/20/22 01:55> Limitations: no limitations <Kota Oleary MD - Last Filed: 04/20/22 01:55> History of Present Illness HPI Narrative: Patient with chronic dental caries been congested lately with cough for last 1 week and the pain also for long time getting worse lately no fever or chills checked his blood pressure at home was 158/108 patient had been having high blood pressure for last 1 year but has not taken any medication family history of hypertension in parents. <Kota Oleary MD - Last Filed: 04/20/22 01:55> Related Data Home medications: Home Medications Medication Instructions Recorded Confirmed omeprazole 20 mg tablet,delayed 20 mg PO DAILY 06/21/21 03/08/22 release atorvastatin 20 mg tablet 20 mg PO DAILY 09/22/21 03/08/22 fluticasone propionate 50 2 spray intranasal DAILY 09/22/21 12/11/21 mcg/actuation nasal spray,suspension ipratropium 0.5 mg-albuterol 3 mg 3 ml inhalation QID PRN Shortness 09/22/21 03/08/22 (2.5 mg base)/3 mL nebulization Of Breath soln loratadine 10 mg tablet 10 mg PO DAILY 09/22/21 03/08/22 multivitamin (Daily Multi-Vitamin 1 tab PO DAILY 09/22/21 03/08/22 tablet) Previous Rx's Medication Instructions Recorded albuterol sulfate 90 mcg/actuation 2 puff inhalation Q4-6H PRN 05/08/20 aerosol inhaler shortness of breath or wheezing #8.5 grams fluticasone fur. 200 mcg-umeclid 1 inh inhalation DAILY 30 days #1 01/23/22 62.5 mcg-vilant 25 mcg ea inhalat.powder (Trelegy Ellipta) azithromycin 250 mg tablet 250 mg PO DAILY 5 days #5 tabs 03/09/22 benzonatate 100 mg capsule 100 mg PO TID PRN cough #15 caps 03/09/22 cefuroxime axetil 250 mg tablet 250 mg PO BID 5 days #10 tabs 03/09/22 amlodipine 5 mg tablet (Norvasc) 5 mg PO DAILY #30 tabs 04/20/22 amoxicillin 875 mg-potassium 1 tab PO BID #20 tabs 04/20/22 clavulanate 125 mg tablet oxycodone 5 mg tablet 5 mg PO Q6H PRN pain #20 tabs 04/20/22 prednisone 20 mg tablet 40 mg PO DAILY #10 tabs 04/20/22 <DURGA Burrows - Last Filed: 04/19/22 19:28> Allergies/adverse reactions: Allergies Allergy/AdvReac Type Severity Reaction Status Date / Time clindamycin [Clindamycin] Allergy Severe SEVERE Verified 02/16/22 13:00 ITCHING <DURGA Burrows - Last Filed: 04/19/22 19:28> Review of Systems Review of Systems: Yes all other systems are reviewed and are negative <Poncho Oleary MD - Last Filed: 04/20/22 01:55> [facility] Past Medical History Medical History: Medical History Asthma Bronchiectasis COPD (chronic obstructive pulmonary disease) Heartburn Hypoxia Pneumonia Recurrent pneumonia Sepsis <DURGA Burrows - Last Filed: 04/19/22 19:28> Surgical History: Surgical History No pertinent past surgical history <DURGA Burrows - Last Filed: 04/19/22 19:28> Family History Family History: Family History Sister Breast CA <DURGA Burrows - Last Filed: 04/19/22 19:28> Social History Social History: Social History Household Members: None Housing: House Do you presently have visiting nurse or other home services: No Alcohol intake: current Alcohol intake frequency: does not drink Patient Tobacco Use Status: Former Tobacco user Tobacco use type: Cigarette Smoked in Last 30 Days: No e-Cigarette/Vaping Use: Never Used Second Hand Smoke Exposure: No Use of substances other than those prescribed or required for medical reasons: No Substance Use Type: Unknown Advance Directives: Yes Advance Directives on File: Yes Advance Directives Date on File: 06/21/21 service: No Current occupational status: employed <DURGA Burrows - Last Filed: 04/19/22 19:28> Physical Exam Vital Signs: Vital Signs: Last Vital Signs Temp 97.6 F 04/19/22 22:53 Pulse 83 04/20/22 00:00 Resp 14 04/20/22 00:00 BP 161/97 H 04/20/22 00:00 Pulse Ox 97 04/19/22 22:53 O2 Del Method 04/19/22 22:53 BMI result Body Mass Index 26.4 <DURGA Burrows - Last Filed: 04/19/22 19:28> Vital Signs: Last Vital Signs Temp 97.6 F 04/19/22 22:53 Pulse 83 04/20/22 00:00 Resp 14 04/20/22 00:00 BP 161/97 H 04/20/22 00:00 Pulse Ox 97 04/19/22 22:53 O2 Del Method 04/19/22 22:53 BMI result Body Mass Index 26.4 <Kota Oleary MD - Last Filed: 04/20/22 01:55> Appearance: Alert. Oriented X3. No acute distress. Eyes: No pallor icterus ENT: Pharynx normal. Oral Mucosa moist dental caries left 1st lower molar slight gum swelling no abscess Neck: Normal inspection. Neck supple. CVS: Normal heart rate and rhythm. Pulses normal. Respiratory: No respiratory distress. Equal air entry bilateral, prolonged expiration Abdomen: Soft and nontender. Bowel sounds are present, Skin: Skin warm and dry. Normal skin color. Normal skin turgor. Extremities: No lower extremity edema. No calf tenderness Neuro: Oriented X 3. <Kota Oleary MD - Last Filed: 04/20/22 01:55> Course Course Course Narrative: RME--51yo M w/PMHx asthma, COPD, c/o elevated BP at home with [place] and feeling woods. Also reports broken painful tooth for awhile. Denied CP/SOB, abd pain, N/V +HTNsive in triage , +L back lower molar broken with mild ttp, no erythema fluctuance or induration Labs, Head CT ordered to r/o HTNsive urgency/emergency <DURGA Burrows - Last Filed: 04/19/22 19:28> Medications Administered Discontinued Medications Generic Name Dose Route Start Last Admin Trade Name Freq PRN Reason Stop Dose Admin Amlodipine Besylate 5 mg 04/20/22 00:39 04/20/22 00:51 Amlodipine Besylate 5 Mg Tablet PO 04/20/22 00:40 5 mg ONCE ONE Administration Protocol Amoxicillin/Clavulanate Potassium 875 mg 04/19/22 23:49 04/20/22 00:24 Amoxicillin/Potassium Clav 875 Mg Tablet PO 04/19/22 23:50 875 mg ONCE ONE Administration Sodium Chloride 1,000 mls @ 999 mls/hr 04/19/22 20:15 04/20/22 00:23 Ns IV 04/19/22 21:15 Not Given .Q1H1M ARIELLE Prednisone 40 mg 04/19/22 23:49 04/20/22 00:24 Prednisone 20 Mg Tablet PO 04/19/22 23:50 40 mg ONCE ONE Administration <DURGA Burrows - Last Filed: 04/19/22 19:28> Medications Administered Discontinued Medications Generic Name Dose Route Start Last Admin Trade Name Freq PRN Reason Stop Dose Admin Amlodipine Besylate 5 mg 04/20/22 00:39 04/20/22 00:51 Amlodipine Besylate 5 Mg Tablet PO 04/20/22 00:40 5 mg ONCE ONE Administration Protocol Amoxicillin/Clavulanate Potassium 875 mg 04/19/22 23:49 04/20/22 00:24 Amoxicillin/Potassium Clav 875 Mg Tablet PO 04/19/22 23:50 875 mg ONCE ONE Administration Sodium Chloride 1,000 mls @ 999 mls/hr 04/19/22 20:15 04/20/22 00:23 Ns IV 04/19/22 21:15 Not Given .Q1H1M ARIELLE Prednisone 40 mg 04/19/22 23:49 04/20/22 00:24 Prednisone 20 Mg Tablet PO 04/19/22 23:50 40 mg ONCE ONE Administration <Kota Oleary MD - Last Filed: 04/20/22 01:55> MDM - Dental/Oral MDM Narrative Medical decision making narrative: Patient with hypertension repeated blood pressure reading was high in the past also any admitted his blood pressure was high but not been on medication creatinine elevated to 1.46 with history of same in the past patient not drinking enough fluids refused to get IV fluids in the ER was given p.o. fluids advised to follow with PCP to recheck BUN/creatinine in 1 week meanwhile will start patient on Norvasc as patient has high risk because of family is of hypertension. <Kota Oleary MD - Last Filed: 04/20/22 01:55> Lab Data Attestation: I reviewed the patient's lab results. <Kota Oelary MD - Last Filed: 04/20/22 01:55> Result diagrams: : 04/19/22 19:34 04/19/22 19:34 <DURGA Burrows - Last Filed: 04/19/22 19:28> Labs: Lab Results 04/19/22 04/19/22 04/19/22 Range/Units 19:34 19:34 19:34 WBC 10.5 (4.8-10.8) X10*3/uL RBC 4.66 (4.60-5.80) X10*6/uL Hgb 13.2 L (14.0-18.0) g/dl Hct 39.8 L (42.0-52.0) % MCV 85.4 (80.0-98.0) fL MCH 28.3 (27.0-33.0) pg MCHC 33.2 (31.0-36.0) g/dl RDW 13.8 (11.0-16.0) % Plt Count 377 (160-400) X10*3/uL MPV 8.9 L (9.4-12.4) fL Immature Gran % (Auto) 0.2 (0.0-0.4) % Neut % (Auto) 58.3 (45-73) % Lymph % (Auto) 31.3 (20-40) % Stafford % (Auto) 6.0 (2-11) % Eos % (Auto) 3.3 (0-4) % Baso % (Auto) 0.9 (0-2) % Lymph # (Auto) 3.3 (1.2-4.9) X10*3/uL Stafford # (Auto) 0.6 (0.1-1.2) X10*3/uL Eos # (Auto) 0.4 (0.0-0.4) X10*3/uL Baso # (Auto) 0.1 (0.0-0.2) X10*3/uL Abs Immat Gran (auto) 0.02 (0.00-0.03) X10*3/uL Absolute Neuts (auto) 6.1 (2.0-8.3) x10*3/uL Absolute Nucleated RBC 0.000 (0.0-0.012) X10*3/uL Nucleated RBC % (auto) 0.0 (0.0-0.2) /100WBC Sodium 141 (135-145) mmol/L Potassium 4.4 (3.3-5.1) mmol/L Chloride 106 (96-108) mmol/L Carbon Dioxide 25 (22-29) mmol/L Anion Gap 14 (12-20) BUN 25 H (9-16) mg/dL Creatinine 1.46 H (0.5-1.4) mg/dL Estim Creat Clear Calc 58.5 Estimated GFR 51 Random Glucose 102 (60-115) mg/dL Calcium 9.6 (8.4-10.2) mg/dL Magnesium 1.8 (1.6-2.6) mg/dL Total Bilirubin 0.2 (0.0-1.0) mg/dL Direct Bilirubin < 0.2 (0.0-0.5) mg/dL AST 19 (5-37) U/L ALT 27 (0-40) U/L Alkaline Phosphatase 89 (39-117) U/L Troponin I High Sens < 3.5 (<3.5-35.0) ng/L Total Protein 7.9 (6.5-8.0) g/dL Albumin 4.4 (3.5-5.0) g/dL COVID-19 (STEPH) (Negative) COVID-19 Clin Com 04/20/22 Range/Units 00:46 WBC (4.8-10.8) X10*3/uL RBC (4.60-5.80) X10*6/uL Hgb (14.0-18.0) g/dl Hct (42.0-52.0) % MCV (80.0-98.0) fL MCH (27.0-33.0) pg MCHC (31.0-36.0) g/dl RDW (11.0-16.0) % Plt Count (160-400) X10*3/uL MPV (9.4-12.4) fL Immature Gran % (Auto) (0.0-0.4) % Neut % (Auto) (45-73) % Lymph % (Auto) (20-40) % Stafford % (Auto) (2-11) % Eos % (Auto) (0-4) % Baso % (Auto) (0-2) % Lymph # (Auto) (1.2-4.9) X10*3/uL Stafford # (Auto) (0.1-1.2) X10*3/uL Eos # (Auto) (0.0-0.4) X10*3/uL Baso # (Auto) (0.0-0.2) X10*3/uL Abs Immat Gran (auto) (0.00-0.03) X10*3/uL Absolute Neuts (auto) (2.0-8.3) x10*3/uL Absolute Nucleated RBC (0.0-0.012) X10*3/uL Nucleated RBC % (auto) (0.0-0.2) /100WBC Sodium (135-145) mmol/L Potassium (3.3-5.1) mmol/L Chloride (96-108) mmol/L Carbon Dioxide (22-29) mmol/L Anion Gap (12-20) BUN (9-16) mg/dL Creatinine (0.5-1.4) mg/dL Estim Creat Clear Calc Estimated GFR Random Glucose (60-115) mg/dL Calcium (8.4-10.2) mg/dL Magnesium (1.6-2.6) mg/dL Total Bilirubin (0.0-1.0) mg/dL Direct Bilirubin (0.0-0.5) mg/dL AST (5-37) U/L ALT (0-40) U/L Alkaline Phosphatase (39-117) U/L Troponin I High Sens (<3.5-35.0) ng/L Total Protein (6.5-8.0) g/dL Albumin (3.5-5.0) g/dL COVID-19 (STEPH) Negative (Negative) COVID-19 Clin Com See Note <DURGA Burrows - Last Filed: 04/19/22 19:28> Lab Results 04/19/22 04/19/22 04/19/22 Range/Units 19:34 19:34 19:34 WBC 10.5 (4.8-10.8) X10*3/uL RBC 4.66 (4.60-5.80) X10*6/uL Hgb 13.2 L (14.0-18.0) g/dl Hct 39.8 L (42.0-52.0) % MCV 85.4 (80.0-98.0) fL MCH 28.3 (27.0-33.0) pg MCHC 33.2 (31.0-36.0) g/dl RDW 13.8 (11.0-16.0) % Plt Count 377 (160-400) X10*3/uL MPV 8.9 L (9.4-12.4) fL Immature Gran % (Auto) 0.2 (0.0-0.4) % Neut % (Auto) 58.3 (45-73) % Lymph % (Auto) 31.3 (20-40) % Stafford % (Auto) 6.0 (2-11) % Eos % (Auto) 3.3 (0-4) % Baso % (Auto) 0.9 (0-2) % Lymph # (Auto) 3.3 (1.2-4.9) X10*3/uL Stafford # (Auto) 0.6 (0.1-1.2) X10*3/uL Eos # (Auto) 0.4 (0.0-0.4) X10*3/uL Baso # (Auto) 0.1 (0.0-0.2) X10*3/uL Abs Immat Gran (auto) 0.02 (0.00-0.03) X10*3/uL Absolute Neuts (auto) 6.1 (2.0-8.3) x10*3/uL Absolute Nucleated RBC 0.000 (0.0-0.012) X10*3/uL Nucleated RBC % (auto) 0.0 (0.0-0.2) /100WBC Sodium 141 (135-145) mmol/L Potassium 4.4 (3.3-5.1) mmol/L Chloride 106 (96-108) mmol/L Carbon Dioxide 25 (22-29) mmol/L Anion Gap 14 (12-20) BUN 25 H (9-16) mg/dL Creatinine 1.46 H (0.5-1.4) mg/dL Estim Creat Clear Calc 58.5 Estimated GFR 51 Random Glucose 102 (60-115) mg/dL Calcium 9.6 (8.4-10.2) mg/dL Magnesium 1.8 (1.6-2.6) mg/dL Total Bilirubin 0.2 (0.0-1.0) mg/dL Direct Bilirubin < 0.2 (0.0-0.5) mg/dL AST 19 (5-37) U/L ALT 27 (0-40) U/L Alkaline Phosphatase 89 (39-117) U/L Troponin I High Sens < 3.5 (<3.5-35.0) ng/L Total Protein 7.9 (6.5-8.0) g/dL Albumin 4.4 (3.5-5.0) g/dL COVID-19 (STEPH) (Negative) COVID-19 Clin Com 04/20/22 Range/Units 00:46 WBC (4.8-10.8) X10*3/uL RBC (4.60-5.80) X10*6/uL Hgb (14.0-18.0) g/dl Hct (42.0-52.0) % MCV (80.0-98.0) fL MCH (27.0-33.0) pg MCHC (31.0-36.0) g/dl RDW (11.0-16.0) % Plt Count (160-400) X10*3/uL MPV (9.4-12.4) fL Immature Gran % (Auto) (0.0-0.4) % Neut % (Auto) (45-73) % Lymph % (Auto) (20-40) % Stafford % (Auto) (2-11) % Eos % (Auto) (0-4) % Baso % (Auto) (0-2) % Lymph # (Auto) (1.2-4.9) X10*3/uL Stafford # (Auto) (0.1-1.2) X10*3/uL Eos # (Auto) (0.0-0.4) X10*3/uL Baso # (Auto) (0.0-0.2) X10*3/uL Abs Immat Gran (auto) (0.00-0.03) X10*3/uL Absolute Neuts (auto) (2.0-8.3) x10*3/uL Absolute Nucleated RBC (0.0-0.012) X10*3/uL Nucleated RBC % (auto) (0.0-0.2) /100WBC Sodium (135-145) mmol/L Potassium (3.3-5.1) mmol/L Chloride (96-108) mmol/L Carbon Dioxide (22-29) mmol/L Anion Gap (12-20) BUN (9-16) mg/dL Creatinine (0.5-1.4) mg/dL Estim Creat Clear Calc Estimated GFR Random Glucose (60-115) mg/dL Calcium (8.4-10.2) mg/dL Magnesium (1.6-2.6) mg/dL Total Bilirubin (0.0-1.0) mg/dL Direct Bilirubin (0.0-0.5) mg/dL AST (5-37) U/L ALT (0-40) U/L Alkaline Phosphatase (39-117) U/L Troponin I High Sens (<3.5-35.0) ng/L Total Protein (6.5-8.0) g/dL Albumin (3.5-5.0) g/dL COVID-19 (STEPH) Negative (Negative) COVID-19 Clin Com See Note <Kota Oleary MD - Last Filed: 04/20/22 01:55> Discharge Plan Discharge Clinical Impression: Hypertension, Toothache <DURGA Burrows - Last Filed: 04/19/22 19:28> Patient Disposition: Home, Self-Care <DURGA Burrows - Last Filed: 04/19/22 19:28> Instructions: Hypertension (ED), Toothache (ED) <DURGA Burrows - Last Filed: 04/19/22 19:28> Additional Instructions: Likely have high blood pressure start taking Norvasc 5 mg daily Normal blood pressure should be less than 135/85 Drink plenty of fluids your kidneys are weak and need to be recheck in 1 week Take medication for dental caries and follow with dentist Use inhaler/nebulizing treatment for wheezing and cough <DURGA Burrows - Last Filed: 04/19/22 19:28> Prescriptions: New amoxicillin-pot clavulanate 875-125 mg tablet 1 tab PO BID Qty: 20 0RF amlodipine [Norvasc] 5 mg tablet 5 mg PO DAILY Qty: 30 0RF prednisone 20 mg tablet 40 mg PO DAILY Qty: 10 0RF oxycodone 5 mg tablet 5 mg PO Q6H PRN (Reason: pain) Qty: 20 0RF Rx Instructions: Partial Fill upon patient request. No Action Trelegy Ellipta 200-62.5-25 mcg blister with device 1 inh inhalation DAILY 30 Days Qty: 1 6RF albuterol sulfate 90 mcg/actuation HFA aerosol inhaler 2 puff inhalation Q4-6H PRN (Reason: shortness of breath or wheezing) Qty: 8.5 0RF omeprazole 20 mg Tablet,Delayed Release (Dr/Ec) 20 mg PO DAILY cefuroxime axetil 250 mg tablet 250 mg PO BID 5 Days Qty: 10 0RF azithromycin 250 mg tablet 250 mg PO DAILY 5 Days Qty: 5 0RF benzonatate 100 mg capsule 100 mg PO TID PRN (Reason: cough) Qty: 15 0RF loratadine 10 mg tablet 10 mg PO DAILY fluticasone propionate 50 mcg/actuation spray,suspension 2 spray intranasal DAILY atorvastatin 20 mg tablet 20 mg PO DAILY ipratropium-albuterol 0.5 mg-3 mg(2.5 mg base)/3 mL solution for nebulization 3 ml inhalation QID PRN (Reason: Shortness Of Breath) multivitamin [Daily Multi-Vitamin] Tablet 1 tab PO DAILY <DURGA Burrows - Last Filed: 04/19/22 19:28>
[2022-04-19 19:23] VITALS: BP 148/102; PULSE 96; RESP 18; TEMP 36.1; O2SAT 97; BMI 26.4
[2022-04-19 19:38] LABS: MANUAL DIFF FLAG NO
[2022-04-19 19:41] LABS: Basophils Absolute Auto 0.1 X10*3/uL (0.0-0.2); Basophils Percent Auto 0.9 % (0-2); Eosinophils Absolute Auto 0.4 X10*3/uL (0.0-0.4); Eosinophils Percent Auto 3.3 % (0-4); Hematocrit 39.8 % (42.0-52.0); Hemoglobin 13.2 g/dl (14.0-18.0); Imm Gran Abs Auto 0.02 X10*3/uL (0.00-0.03); Imm Gran Pct Auto 0.2 % (0.0-0.4); Lymphocytes Absolute Auto 3.3 X10*3/uL (1.2-4.9); Lymphocytes Percent Auto 31.3 % (20-40); Mean Corpuscular HGB Conc 33.2 g/dl (31.0-36.0); Mean Corpuscular Hemoglobin 28.3 pg (27.0-33.0); Mean Corpuscular Volume 85.4 fL (80.0-98.0); Mean Platelet Volume 8.9 fL (9.4-12.4); Monocytes Absolute Auto 0.6 X10*3/uL (0.1-1.2); Neutrophils Absolute Auto 6.1 x10*3/uL (2.0-8.3); Neutrophils Percent Auto 58.3 % (45-73); Platelet Count 377 X10*3/uL (160-400); Red Blood Count 4.66 X10*6/uL (4.60-5.80); Red Cell Distribution Width 13.8 % (11.0-16.0); White Blood Count 10.5 X10*3/uL (4.8-10.8)
[2022-04-19 20:00] LABS: Anion Gap 14 (12-20); Blood Urea Nitrogen 25 mg/dL (9-16); Calcium 9.6 mg/dL (8.4-10.2); Carbon Dioxide 25 mmol/L (22-29); Chloride 106 mmol/L (96-108); Creatinine Clr Calc Pharmacy 58.5; Estimated Glomerular Filt Rate 51; Glucose Random 102 mg/dL (60-115); Potassium 4.4 mmol/L (3.3-5.1); Sodium 141 mmol/L (135-145)
[2022-04-19 20:27] LABS: Alanine Aminotransferase 27 U/L (0-40); Albumin Level 4.4 g/dL (3.5-5.0); Alkaline Phosphatase 89 U/L (39-117); Aspartate Amino Transferase 19 U/L (5-37); Bilirubin Direct < 0.2 mg/dL (0.0-0.5); Bilirubin Total 0.2 mg/dL (0.0-1.0); Magnesium 1.8 mg/dL (1.6-2.6); Total Protein 7.9 g/dL (6.5-8.0)
[2022-04-19 20:42] LABS: Troponin-I High Sensitivity < 3.5 ng/L (<3.5-35.0)
[2022-04-19 22:34] VITALS: BP 140/98; PULSE 90; RESP 18; O2SAT 95
[2022-04-19 22:53] VITALS: BP 143/98; PULSE 89; TEMP 36.4; O2SAT 97
[2022-04-20] VITALS: BP 161/97; PULSE 83; RESP 14
[2022-04-20] MEDS: predniSONE 20 MG TABLET 40 MG PO (00:24)
[2022-04-20] MEDS: Amoxicillin/Potassium Clav 875 MG TABLET PO (00:24)
[2022-04-20] MEDS: amLODIPine Besylate 5 MG TABLET PO (00:51)
[2022-04-20 01:10] LABS: COVID-19 Test Negative (Negative); IDNOW Serial# BCCEAD1C
== END 2022-04-20 02:03 | disposition home or self-care (01) ==
PROVIDERS: Physician Assistant; Emergency Provider Internal Medicine; PCP Family Medicine
DX: K08.89 Other specified disorders of teeth and supporting structures (principal); R51.9 Headache, unspecified; I10 Essential (primary) hypertension; Z20.822 Contact with and (suspected) exposure to COVID-19; Z79.899 Other long term (current) drug therapy; Z87.891 Personal history of nicotine dependence
CPT/HCPCS: 36415; 70450; 80048; 80076; 83735; 84484; 85025; 87635; 99284

== ENCOUNTER 2022-08-24 22:03 | Emergency (ER) | payer OTHER, SELFPAY ==
--- NOTE | ~2022-08-24 | XR_ITS ---
EXAMINATION: XR CHEST CLINICAL INFORMATION: Chest tightness. COMPARISON: Chest radiograph dated 04/07/[address] scan dated 12/11/2021. TECHNIQUE: Frontal view of the chest was obtained. FINDINGS: Increased opacification in the right perihilar region in the right middle lobe is again seen with similar appearance. Chronic interstitial changes and bronchiectasis are again seen without change as well. The heart and mediastinal structures are unremarkable. XR/XR chest 1V IMPRESSION: Right perihilar and right middle lobe opacities appears similar if not minimally improved compared to the 03/07/2022 radiographic study. These findings correlate with scarring/atelectasis with bronchiectasis seen on the previous CT scan. If symptoms persist or worsen, short-term PA and lateral views of the chest recommended to assess for more short-term change.
[2022-08-24 22:09] VITALS: BP 114/69; PULSE 107; RESP 20; O2SAT 95; BMI 22.8
--- NOTE | 2022-08-24 22:39 | MHC.EDTECH ---
PT BLOOD DRAWN AND SENT TO LAB .
[2022-08-24 22:43] LABS: MANUAL DIFF FLAG NO
[2022-08-24 22:44] LABS: Basophils Absolute Auto 0.1 X10*3/uL (0.0-0.2); Basophils Percent Auto 0.4 % (0-2); Eosinophils Absolute Auto 0.3 X10*3/uL (0.0-0.4); Eosinophils Percent Auto 2.3 % (0-4); Hematocrit 38.5 % (42.0-52.0); Hemoglobin 12.7 g/dl (14.0-18.0); Imm Gran Abs Auto 0.04 X10*3/uL (0.00-0.03); Imm Gran Pct Auto 0.3 % (0.0-0.4); Lymphocytes Absolute Auto 3.2 X10*3/uL (1.2-4.9); Lymphocytes Percent Auto 21.7 % (20-40); Mean Corpuscular Hemoglobin 28.1 pg (27.0-33.0); Mean Corpuscular Volume 85.2 fL (80.0-98.0); Mean Platelet Volume 8.9 fL (9.4-12.4); Monocytes Absolute Auto 0.7 X10*3/uL (0.1-1.2); Monocytes Percent Auto 4.7 % (2-11); Neutrophils Absolute Auto 10.3 x10*3/uL (2.0-8.3); Neutrophils Percent Auto 70.6 % (45-73); Platelet Count 386 X10*3/uL (160-400); Red Blood Count 4.52 X10*6/uL (4.60-5.80); Red Cell Distribution Width 14.3 % (11.0-16.0); White Blood Count 14.6 X10*3/uL (4.8-10.8)
--- NOTE | 2022-08-24 23:00 | MHC.EDTECH ---
PT URINE SAMPLE COLLECTED AND SENT TO LAB .
[2022-08-24 23:05] LABS: Alanine Aminotransferase 24 U/L (0-40); Albumin Level 4.2 g/dL (3.5-5.0); Alkaline Phosphatase 108 U/L (39-117); Anion Gap 13 (12-20); Aspartate Amino Transferase 19 U/L (5-37); Bilirubin Direct < 0.2 mg/dL (0.0-0.5); Bilirubin Total 0.2 mg/dL (0.0-1.0); Blood Urea Nitrogen 17 mg/dL (9-16); Carbon Dioxide 26 mmol/L (22-29); Chloride 105 mmol/L (96-108); Creatinine Clr Calc Pharmacy 69.6; Estimated Glomerular Filt Rate > 60; Glucose Random 112 mg/dL (60-115); Lipase 40 U/L (8-78); Potassium 4.2 mmol/L (3.3-5.1); Sodium 140 mmol/L (135-145); Total Protein 7.6 g/dL (6.5-8.0)
[2022-08-24 23:14] LABS: Appearance Urine Clear; Color Urine Yellow; Glucose Urine UA Negative (Negative); Leukocyte Esterase Urine Negative (Negative); Nitrite Urine Negative (Negative); Specific Gravity - Urine 1.025 (1.005-1.025); Urine Blood Negative (Negative); Urine Ketones Negative (Negative); Urine Protein Negative (Neg-Trace)
[2022-08-25 01:14] VITALS: BP 131/84; PULSE 100; RESP 28; TEMP 37.2; O2SAT 95
--- NOTE | 2022-08-25 03:54 | ED_ITS ---
HPI - General Adult General Chief complaint: General Medical Stated complaint: asthma coughing Time Seen by Provider: 08/25/22 03:43 Source: patient Mode of arrival: ambulatory Limitations: no limitations History of Present Illness HPI narrative: 51-year-old male with history of bronchiectasis presents with cough, shortness of breath going on 10 days. He has had no fevers or chills. Cough has been nonproductive. Symptoms are worse with exertion. He denies any orthopnea, PND, lower extremity edema. He denies any immobilization, recent travel or surgeries. Patient has used albuterol nebulizer he ran out of his inhaler. Does help somewhat but not significantly so. He is currently not on any steroids. Patient describes his symptoms as 100/10 in severity. Patient tests his cell for COVID every week. His tests have been negative Related Data Home Medications Medication Instructions Recorded Confirmed omeprazole 20 mg tablet,delayed 20 mg PO DAILY 06/21/21 03/08/22 release atorvastatin 20 mg tablet 20 mg PO DAILY 09/22/21 03/08/22 fluticasone propionate 50 2 spray intranasal DAILY 09/22/21 12/11/21 mcg/actuation nasal spray,suspension ipratropium 0.5 mg-albuterol 3 mg 3 ml inhalation QID PRN Shortness 09/22/21 03/08/22 (2.5 mg base)/3 mL nebulization Of Breath soln loratadine 10 mg tablet 10 mg PO DAILY 09/22/21 03/08/22 multivitamin (Daily Multi-Vitamin 1 tab PO DAILY 09/22/21 03/08/22 tablet) Previous Rx's Medication Instructions Recorded albuterol sulfate 90 mcg/actuation 2 puff inhalation Q4-6H PRN 05/08/20 aerosol inhaler shortness of breath or wheezing #8.5 grams fluticasone fur. 200 mcg-umeclid 1 inh inhalation DAILY 30 days #1 01/23/22 62.5 mcg-vilant 25 mcg ea inhalat.powder (Trelegy Ellipta) azithromycin 250 mg tablet 250 mg PO DAILY 5 days #5 tabs 03/09/22 benzonatate 100 mg capsule 100 mg PO TID PRN cough #15 caps 03/09/22 cefuroxime axetil 250 mg tablet 250 mg PO BID 5 days #10 tabs 03/09/22 amlodipine 5 mg tablet (Norvasc) 5 mg PO DAILY #30 tabs 04/20/22 amoxicillin 875 mg-potassium 1 tab PO BID #20 tabs 04/20/22 clavulanate 125 mg tablet oxycodone 5 mg tablet 5 mg PO Q6H PRN pain #20 tabs 04/20/22 prednisone 20 mg tablet 40 mg PO DAILY #10 tabs 04/20/22 albuterol sulfate 90 mcg/actuation 2 puff inhalation Q6H PRN 08/25/22 aerosol inhaler shortness of breath or wheezing #8.5 grams azithromycin 250 mg tablet 250 mg PO DAILY 4 days #4 tabs 08/25/22 benzonatate 200 mg capsule 200 mg PO TID PRN cough #14 caps 08/25/22 dextromethorphan-guaifenesin 10 10 ml PO Q4-6H PRN cough #236 mL 08/25/22 mg-100 mg/5 mL oral liquid Allergies Allergy/AdvReac Type Severity Reaction Status Date / Time clindamycin [Clindamycin] Allergy Severe SEVERE Verified 08/24/22 22:11 ITCHING PMFSH Past Medical History Medical History Asthma Bronchiectasis COPD (chronic obstructive pulmonary disease) Heartburn Hypoxia Pneumonia Recurrent pneumonia Sepsis Surgical History No pertinent past surgical history Family History Family History Sister Breast CA Social History Social History Household Members: None Housing: House Do you presently have visiting nurse or other home services: No Alcohol intake: current Alcohol intake frequency: holidays/special occasions only Patient Tobacco Use Status: Former Tobacco user Tobacco use type: Cigarette Smoked in Last 30 Days: No e-Cigarette/Vaping Use: Never Used Second Hand Smoke Exposure: No Use of substances other than those prescribed or required for medical reasons: No Substance Use Type: Unknown Advance Directives: Yes Advance Directives on File: Yes Advance Directives Date on File: 06/21/21 service: No Current occupational status: employed Physical Exam ED Vital Signs: Vital Signs - 24 hr 08/24/22 22:09 08/25/22 01:14 Temperature 99 F Pulse Rate 107 H 100 Respiratory Rate 20 28 H Blood Pressure 114/69 131/84 Pulse Oximetry 95 95 Oxygen Delivery Method Room Air Room Air BMI result Body Mass Index 22.8 GEN: Well developed, no acute distress, alert, oriented HEENT: Normocephalic, atraumatic, normal external ears, nose appears normal, no oropharyngeal edema or exudates Eyes: Normal to appearance Neck: Supple, no lymphadenopathy Respiratory: Talks in complete sentences, no respiratory distress, clear to auscultation bilaterally Cardiovascular: Regular rate and rhythm, no murmurs rubs or gallops Abdomen: Soft, nontender, nondistended, no guarding, no rebound Back: No CVA tenderness Extremities: No clubbing cyanosis or edema Neurologic: No focal neurologic deficits, cranial nerves 2-12 intact, strength is 5/5 bilaterally, gait normal Skin: No rash Course Course Course Narrative: 51-year-old male with history of asthma, bronchiectasis presents with cough and shortness of breath. Examination was unremarkable with the exception of them appearing generally unwell with a very significant dry cough. He is not hypoxic. He is hemodynamically stable. Laboratory analysis reveals a significant leukocytosis which is typical for him. He is currently not on any steroids. Chest x-ray was unchanged from previous. There was a opacification on the right heart border which was present before. His x-ray was otherwise consistent with bronchiectasis without any acute infiltrates or pleural effusions. Doubt CHF, acute coronary syndrome. I will treat the patient for an exacerbation of his bronchiectasis with steroids, antibiotics and cough suppressant medications. Medical Decision Making Medical Decision Making MDM Narrative: 51-year-old male with history of asthma, bronchiectasis presents with cough and shortness of breath. Examination was unremarkable with the exception of them appearing generally unwell with a very significant dry cough. He is not hypoxic. He is hemodynamically stable. Laboratory analysis reveals a significant leukocytosis which is typical for him. He is currently not on any steroids. Chest x-ray was unchanged from previous. There was a opacification on the right heart border which was present before. His x-ray was otherwise consistent with bronchiectasis without any acute infiltrates or pleural effusions. Doubt CHF, acute coronary syndrome. I will treat the patient for an exacerbation of his bronchiectasis with steroids, antibiotics and cough suppressant medications. Differential Diagnosis Differential Diagnoses: The differential diagnosis associated with the presentation includes (Bronchitis, pneumonia, upper respiratory infection, bronchiectasis, asthma exacerbation) Admission/Observation Consideration of admission/observation: Escalation of care including ad mission/observation considered Lab Data MDM Lab Attestation statement: I reviewed the patient's lab results. 08/24/22 22:37 08/24/22 22:37 Labs: Lab Results 08/24/22 08/24/22 08/24/22 Range/Units 22:37 22:37 23:00 WBC 14.6 H (4.8-10.8) X10*3/uL RBC 4.52 L (4.60-5.80) X10*6/uL Hgb 12.7 L (14.0-18.0) g/dl Hct 38.5 L (42.0-52.0) % MCV 85.2 (80.0-98.0) fL MCH 28.1 (27.0-33.0) pg MCHC 33.0 (31.0-36.0) g/dl RDW 14.3 (11.0-16.0) % Plt Count 386 (160-400) X10*3/uL MPV 8.9 L (9.4-12.4) fL Immature Gran % (Auto) 0.3 (0.0-0.4) % Neut % (Auto) 70.6 (45-73) % Lymph % (Auto) 21.7 (20-40) % [place] % (Auto) 4.7 (2-11) % Eos % (Auto) 2.3 (0-4) % Baso % (Auto) 0.4 (0-2) % Lymph # (Auto) 3.2 (1.2-4.9) X10*3/uL [place] # (Auto) 0.7 (0.1-1.2) X10*3/uL Eos # (Auto) 0.3 (0.0-0.4) X10*3/uL Baso # (Auto) 0.1 (0.0-0.2) X10*3/uL Abs Immat Gran (auto) 0.04 H (0.00-0.03) X10*3/uL Absolute Neuts (auto) 10.3 H (2.0-8.3) x10*3/uL Absolute Nucleated RBC 0.000 (0.0-0.012) X10*3/uL Nucleated RBC % (auto) 0.0 (0.0-0.2) /100WBC Sodium 140 (135-145) mmol/L Potassium 4.2 (3.3-5.1) mmol/L Chloride 105 (96-108) mmol/L Carbon Dioxide 26 (22-29) mmol/L Anion Gap 13 (12-20) BUN 17 H (9-16) mg/dL Creatinine 1.22 (0.5-1.4) mg/dL Estim Creat Clear Calc 69.6 Estimated GFR > 60 Random Glucose 112 (60-115) mg/dL Calcium 9.0 D (8.4-10.2) mg/dL Total Bilirubin 0.2 (0.0-1.0) mg/dL Direct Bilirubin < 0.2 (0.0-0.5) mg/dL AST 19 (5-37) U/L ALT 24 (0-40) U/L Alkaline Phosphatase 108 (39-117) U/L Total Protein 7.6 (6.5-8.0) g/dL Albumin 4.2 (3.5-5.0) g/dL Lipase 40 (8-78) U/L Urine Color Yellow Urine Appearance Clear Urine pH 6.0 (5.0-9.0) Ur Specific [place] 1.025 (1.005-1.025) Urine Protein Negative (Neg-Trace) mg/dL Urine Glucose (UA) Negative (Negative) mg/dL Urine Ketones Negative (Negative) mg/dL Urine Blood Negative (Negative) Urine Nitrite Negative (Negative) Ur Leukocyte Esterase Negative (Negative) Independent Interpretation I performed an independent interpretation of an: Plain X-Ray (Chest x-ray no acute cardiopulmonary disease) External Record Review External record reviewed: Office record (Pulmonary Medicine, Dr. Rutherford) Tests considered The following testing was considered but not selected: With CT chest Prescription Management I considered prescription management with: Antibiotic Chronic Conditions Patient?s care impacted by: Other (Bronchiectasis) Discharge Plan Discharge Clinical Impression: Bronchiectasis, Upper respiratory infection Patient Disposition: Home, Self-Care Instructions: Upper Respiratory Infection (ED), Acute Bronchitis (ED), Bronchiectasis (ED) Prescriptions: New azithromycin 250 mg tablet 250 mg PO DAILY 4 Days Qty: 4 0RF Rx Instructions: start on day 2 of therapy albuterol sulfate 90 mcg/actuation HFA aerosol inhaler 2 puff inhalation Q6H PRN (Reason: shortness of breath or wheezing) Qty: 8.5 0RF benzonatate 200 mg capsule 200 mg PO TID PRN (Reason: cough) Qty: 14 0RF dextromethorphan-guaifenesin 10-100 mg/5 mL liquid 10 ml PO Q4-6H PRN (Reason: cough) Qty: 236 0RF No Action Trelegy Ellipta 200-62.5-25 mcg blister with device 1 inh inhalation DAILY 30 Days Qty: 1 6RF albuterol sulfate 90 mcg/actuation HFA aerosol inhaler 2 puff inhalation Q4-6H PRN (Reason: shortness of breath or wheezing) Qty: 8.5 0RF omeprazole 20 mg Tablet,Delayed Release (Dr/Ec) 20 mg PO DAILY cefuroxime axetil 250 mg tablet 250 mg PO BID 5 Days Qty: 10 0RF azithromycin 250 mg tablet 250 mg PO DAILY 5 Days Qty: 5 0RF benzonatate 100 mg capsule 100 mg PO TID PRN (Reason: cough) Qty: 15 0RF amoxicillin-pot clavulanate 875-125 mg tablet 1 tab PO BID Qty: 20 0RF amlodipine [Norvasc] 5 mg tablet 5 mg PO DAILY Qty: 30 0RF prednisone 20 mg tablet 40 mg PO DAILY Qty: 10 0RF oxycodone 5 mg tablet 5 mg PO Q6H PRN (Reason: pain) Qty: 20 0RF Rx Instructions: Partial Fill upon patient request. loratadine 10 mg tablet 10 mg PO DAILY fluticasone propionate 50 mcg/actuation spray,suspension 2 spray intranasal DAILY atorvastatin 20 mg tablet 20 mg PO DAILY ipratropium-albuterol 0.5 mg-3 mg(2.5 mg base)/3 mL solution for nebulization 3 ml inhalation QID PRN (Reason: Shortness Of Breath) multivitamin [Daily Multi-Vitamin] Tablet 1 tab PO DAILY Referrals: Wellington Rutherford MD [Physician] - 3 days
[2022-08-25] MEDS: Azithromycin 500 MG TABLET PO (04:01)
[2022-08-25] MEDS: guaiFENesin DM 100/10/5 ML 5 ML SYRUP PO (04:01)
[2022-08-25] MEDS: predniSONE 20 MG TABLET 60 MG PO (04:01)
== END 2022-08-25 06:43 | disposition home or self-care (01) ==
PROVIDERS: Emergency Provider Emergency Medicine; PCP Family Medicine
DX: J45.909 Unspecified asthma, uncomplicated (principal); J06.9 Acute upper respiratory infection, unspecified; R05.9 Cough, unspecified; R06.02 Shortness of breath; Z79.899 Other long term (current) drug therapy; Z87.891 Personal history of nicotine dependence
CPT/HCPCS: 36415; 71045; 80048; 80076; 81003; 83690; 85025; 99283; 99284

== ENCOUNTER 2022-08-27 10:44 | Emergency (ER) | payer OTHER, SELFPAY ==
--- NOTE | ~2022-08-27 | CT_ITS ---
EXAMINATION: CT CHEST WITHOUT CONTRAST CLINICAL INFORMATION: Cough and shortness of breath COMPARISON: Chest x-ray 08/24/[address] 12/11/2021 TECHNIQUE: Multidetector volumetric CT imaging of the chest was done. Axial MIP volume rendering provided. Sagittal and coronal reformatted images were obtained. This CT examination was performed using dose optimization techniques as appropriate, variously including the following: *Automated exposure control *Adjustment of mA and/or kV according to patient size (this includes techniques or standardized protocols for targeted exams where dose is matched to indication/reason for exam; i.e. extremities or head) *Use of iterative reconstruction technique DLP: 279 mGy-cm FINDINGS: Central airways are patent. Severe bronchiectasis is again noted throughout the right lung with associated bronchial wall thickening and scattered mucus plugging. Less pronounced bronchiectasis within the left hemithorax appears similar. There has been complete interval resolution of previously present right upper lobe infiltrate. Scattered tree-in-bud opacities are again noted throughout both lungs, however, lung aeration overall appears slightly improved compared with CT imaging from December 2021. There is no pleural effusion present. There is no pneumothorax. Evaluation for pulmonary nodules is suboptimal given background of diffuse disease, bronchiectasis and mucous plugging in addition to scattered tree-in-bud opacities. No large pulmonary mass is identified. The heart is normal in size. There is no pericardial effusion. No appreciable coronary artery calcium. Normal caliber thoracic aorta. Similar mildly enlarged subcarinal lymph node. Some suspected calcified right hilar lymph nodes are again noted. No pathologically enlarged axillary lymph nodes bilaterally. Visualized portion of the upper abdomen again demonstrate a stable right adrenal adenoma. Small bilateral renal calculi are again noted. Mild diffuse degenerative changes of the spine. CT/CT chest wo IV con IMPRESSION: Severe bronchiectasis is again noted throughout the right lung with associated bronchial wall thickening and scattered mucus plugging. Less pronounced bronchiectasis within the left hemithorax appears similar. There has been complete interval resolution of previously present right upper lobe infiltrate. Scattered tree-in-bud opacities are again noted throughout both lungs, however, lung aeration overall appears slightly improved compared with CT imaging from December 2021. Fleischner guidelines were followed.
[2022-08-27 10:48] VITALS: BP 144/97; BP 148/95; PULSE 103; PULSE 105; RESP 18; TEMP 37.2; O2SAT 95; BMI 25.6
--- NOTE | 2022-08-27 10:54 | ED.SOB ---
HPI - SOB/Dyspnea General Chief Complaint: Upper Respiratory Symptoms Stated Complaint: SOB,NON PROD COUGH PER EMS Source: patient, EMS and old records reviewed Mode of arrival: EMS Limitations: no limitations History of Present Illness HPI Narrative: Patient is a 51yo male with PMH of asthma, COPD, bronchiectasis, and MRSA presenting with a nonproductive cough and SOB that began 08/11/22. Patient was seen in the ED 08/25/22 and sent home with azithromycin, albuterol, benzonatate, and dextromethorphan-guaifenesin. Patient arrived by EMS stating he has had no improvement of symptoms. Patient endorses chest pressure, SOB, and diarrhea but denies dizziness, nausea, or vomiting. He stated the symptoms are worse with exertion. 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 MD elicited complaint: shortness of breath and cough Pertinent past history: COPD, asthma and other (bronchiectasis) Onset (ago): week(s) (2) Context: recent illness Timing: constant Severity: severe Exacerbating factors: exertion and deep breaths Relieving factors: nothing Known history of: COPD, asthma and other (bronchiectasis, MRSA ) Associated symptoms: cough and other (chest pressure, diarrhea) Treatment prior to arrival: none Related Data Home oxygen amount: none Home Medications Medication Instructions Recorded Confirmed omeprazole 20 mg tablet,delayed 20 mg PO DAILY 06/21/21 03/08/22 release atorvastatin 20 mg tablet 20 mg PO DAILY 09/22/21 03/08/22 fluticasone propionate 50 2 spray intranasal DAILY 09/22/21 12/11/21 mcg/actuation nasal spray,suspension ipratropium 0.5 mg-albuterol 3 mg 3 ml inhalation QID PRN Shortness 09/22/21 03/08/22 (2.5 mg base)/3 mL nebulization Of Breath soln loratadine 10 mg tablet 10 mg PO DAILY 09/22/21 03/08/22 multivitamin (Daily Multi-Vitamin 1 tab PO DAILY 09/22/21 03/08/22 tablet) Previous Rx's Medication Instructions Recorded albuterol sulfate 90 mcg/actuation 2 puff inhalation Q4-6H PRN 05/08/20 aerosol inhaler shortness of breath or wheezing #8.5 grams fluticasone fur. 200 mcg-umeclid 1 inh inhalation DAILY 30 days #1 01/23/22 62.5 mcg-vilant 25 mcg ea inhalat.powder (Trelegy Ellipta) azithromycin 250 mg tablet 250 mg PO DAILY 5 days #5 tabs 03/09/22 benzonatate 100 mg capsule 100 mg PO TID PRN cough #15 caps 03/09/22 cefuroxime axetil 250 mg tablet 250 mg PO BID 5 days #10 tabs 03/09/22 amlodipine 5 mg tablet (Norvasc) 5 mg PO DAILY #30 tabs 04/20/22 amoxicillin 875 mg-potassium 1 tab PO BID #20 tabs 04/20/22 clavulanate 125 mg tablet oxycodone 5 mg tablet 5 mg PO Q6H PRN pain #20 tabs 04/20/22 prednisone 20 mg tablet 40 mg PO DAILY #10 tabs 04/20/22 albuterol sulfate 90 mcg/actuation 2 puff inhalation Q6H PRN 08/25/22 aerosol inhaler shortness of breath or wheezing #8.5 grams azithromycin 250 mg tablet 250 mg PO DAILY 4 days #4 tabs 08/25/22 benzonatate 200 mg capsule 200 mg PO TID PRN cough #14 caps 08/25/22 dextromethorphan-guaifenesin 10 10 ml PO Q4-6H PRN cough #236 mL 08/25/22 mg-100 mg/5 mL oral liquid doxycycline hyclate 100 mg tablet 100 mg PO BID #14 tabs 08/27/22 guaifenesin 1,200 mg tablet, 1,200 mg PO BID #14 tabs 08/27/22 extended release 12 hr (Mucinex) hydrocodone-homatropine 5 mg-1.5 5 ml PO Q4-6H PRN cough #60 mL 08/27/22 mg/5 mL oral syrup (Hycodan (with homatropine)) prednisone 20 mg tablet 40 mg PO DAILY #10 tabs 08/27/22 Allergies Allergy/AdvReac Type Severity Reaction Status Date / Time clindamycin [Clindamycin] Allergy Severe SEVERE Verified 08/24/22 22:11 ITCHING Review of Systems Review of Systems: Yes all other systems are reviewed and are negative Cardiovascular: Cardiovascular: Reports dyspnea Respiratory: Respiratory: Reports cough and Reports dyspnea Gastrointestinal: Gastrointestinal: Reports diarrhea PMFSH Past Medical History Medical History Asthma Bronchiectasis COPD (chronic obstructive pulmonary disease) Heartburn Hypoxia Pneumonia Recurrent pneumonia Sepsis Surgical History No pertinent past surgical history Family History Family History Sister Breast CA Social History Social History Household Members: None Housing: House Do you presently have visiting nurse or other home services: No Alcohol intake: current Alcohol intake frequency: a few times a month Patient Tobacco Use Status: Former Tobacco user Tobacco use type: Cigarette Smoked in Last 30 Days: No e-Cigarette/Vaping Use: Never Used Second Hand Smoke Exposure: No Use of substances other than those prescribed or required for medical reasons: No Substance Use Type: Unknown Advance Directives: Yes Advance Directives on File: Yes Advance Directives Date on File: 06/21/21 service: No Current occupational status: employed Physical Exam Vital Signs: Vital Signs: Last Vital Signs Temp 98.7 F 08/27/22 14:13 Pulse 102 H 08/27/22 14:13 Resp 20 08/27/22 14:13 BP 127/90 H 08/27/22 14:13 Pulse Ox 95 08/27/22 14:13 O2 Del Method Room Air 08/27/22 14:13 BMI result Body Mass Index 25.6 Appearance: Alert. Oriented X3. Appears generally unwell, coughing HEENT: normal external inspection CVS: Normal heart rate and rhythm. Pulses normal. Respiratory: diffuse crackles throughout right lung anguiano with mild wheezing on expiration in left upper lobe Abdomen: Soft and nontender. Skin: Skin warm and dry. Normal skin color. Normal skin turgor. No rashes. Extremities: No lower extremity edema. Neuro: Oriented X 3. Course Reevaluation(s) Reevaluation #1: Improved after breathing treatment and antitussive agent. CT scan with resolution of prior right lobe pneumonia, bronchiectasis and tree-in-bud opacities persist. He has history of MRSA PCR being positive. Will cover with doxycycline. Will add Hycodan, prednisone and he has an appoint pivot maker in a few days. Stable for discharge home. He remains with stable SpO2, speaking complete sentences. All questions were answered and patient agrees with plan. Time: 14:27 Medications Administered Discontinued Medications Generic Name Dose Route Start Last Admin Trade Name Dolly PRN Reason Stop Dose Admin Albuterol Sulfate 5 mg/ 0 mg 08/27/22 11:05 08/27/22 11:25 Ipratropium Estelline 0.5 mg INHALE 08/27/22 11:06 7.5 each ONCE ONE Administration Doxycycline Monohydrate 100 mg 08/27/22 11:05 08/27/22 11:20 Doxycycline Monohydrate 100 Mg Capsule PO 08/27/22 11:06 100 mg ONCE ONE Administration Guaifenesin/Codeine Phosphate 10 ml 08/27/22 11:05 08/27/22 11:20 Guaifen/Codeine Sf 200/20/10ml 10 Ml Liquid PO 08/27/22 11:06 10 ml ONCE ONE Administration Prednisone 50 mg 08/27/22 11:05 08/27/22 11:20 Prednisone 10 Mg Tablet PO 08/27/22 11:06 50 mg ONCE ONE Administration Medical Decision Making Medical Decision Making [facility] Narrative: Patient is a 51yo male with PMH of asthma, COPD, bronchiectasis, and MRSA presenting with a cough and SOB that began 08/11/22. He was seen in the ED 08/25/22 and sent home with azithromycin, albuterol, benzonatate, and dextromethorphan-guaifenesin but arrived by EMS today stating he has had no improvement of symptoms. Here to the ER in no respiratory distress although he does have coughing fits and bronchospasm. He is not hypoxic. He has faint expiratory wheeze in the left middle lung & crackles in the right. CT scan repeated today and showed resolution of RUL opacity - ongoing R>L bronchiectasis, tree-in-bid opacities. He responded well antitussive and steroids. She has improvement in his cough. He is saturating well, able to speak in complete sentences. At this point he is comfortable and stable for discharge home with doxycycline, prednisone, antitussives. He has follow-up appointment with his pivot maker in 3 days. Stable for DC. Differential Diagnosis Differential Diagnoses: The differential diagnosis associated with the presentation includes Pneumonia, COPD exacerbation, Asthma exacerbation, bronchitis, pneumonitis, ILD Lab Data [facility] Lab Attestation statement: I reviewed the patient's lab results. Improved leukocytosis from 3 days ago. Troponin is less than 3.5 08/27/22 11:14 08/27/22 11:14 Labs: Lab Results 08/27/22 08/27/22 08/27/22 Range/Units 11:14 11:14 11:14 WBC 12.3 H (4.8-10.8) X10*3/uL RBC 4.51 L (4.60-5.80) X10*6/uL Hgb 12.6 L (14.0-18.0) g/dl Hct 38.3 L (42.0-52.0) % MCV 84.9 (80.0-98.0) fL MCH 27.9 (27.0-33.0) pg MCHC 32.9 (31.0-36.0) g/dl RDW 14.2 (11.0-16.0) % Plt Count 401 H (160-400) X10*3/uL MPV 8.7 L (9.4-12.4) fL Immature Gran % (Auto) 0.4 (0.0-0.4) % Neut % (Auto) 66.6 (45-73) % Lymph % (Auto) 22.9 (20-40) % [place] % (Auto) 5.9 (2-11) % Eos % (Auto) 3.6 (0-4) % Baso % (Auto) 0.6 (0-2) % Lymph # (Auto) 2.8 (1.2-4.9) X10*3/uL [place] # (Auto) 0.7 (0.1-1.2) X10*3/uL Eos # (Auto) 0.4 (0.0-0.4) X10*3/uL Baso # (Auto) 0.1 (0.0-0.2) X10*3/uL Abs Immat Gran (auto) 0.05 H (0.00-0.03) X10*3/uL Absolute Neuts (auto) 8.2 (2.0-8.3) x10*3/uL Absolute Nucleated RBC 0.000 (0.0-0.012) X10*3/uL Nucleated RBC % (auto) 0.0 (0.0-0.2) /100WBC Sodium 139 (135-145) mmol/L Potassium 4.3 (3.3-5.1) mmol/L Chloride 108 (96-108) mmol/L Carbon Dioxide 23 (22-29) mmol/L Anion Gap 12 (12-20) BUN 13 (9-16) mg/dL Creatinine 0.85 (0.5-1.4) mg/dL Estim Creat Clear Calc 107.0 Estimated GFR > 60 Random Glucose 103 (60-115) mg/dL Calcium 8.9 (8.4-10.2) mg/dL Magnesium 1.8 (1.6-2.6) mg/dL Total Bilirubin 0.4 (0.0-1.0) mg/dL Direct Bilirubin < 0.2 (0.0-0.5) mg/dL AST 18 (5-37) U/L ALT 30 (0-40) U/L Alkaline Phosphatase 107 (39-117) U/L Troponin I High Sens < 3.5 (<3.5-35.0) ng/L Total Protein 7.2 (6.5-8.0) g/dL Albumin 3.9 (3.5-5.0) g/dL Independent Interpretation I performed an independent interpretation of an: EKG and CT Scan Interpretation: EKG with normal sinus rhythm, ventricular rate 94 beats per minute, normal [place] interval, peaked T-waves in V3 through V5, evidence of LVH with early repolarization. CT scan reviewed, significant bronchiectasis throughout the right lung, dense opacity in the right upper lobe is improved. He has some scattered ground-glass opacities throughout bilateral lungs, overall improved from prior CT scan. Radiology Impression Discussion of test interpretation with radiology: I have reviewed the radiologist's reading. Radiologist Impression: CT/CT chest wo IV con IMPRESSION: Severe bronchiectasis is again noted throughout the right lung with associated bronchial wall thickening and scattered mucus plugging. Less pronounced bronchiectasis within the left hemithorax appears similar. There has been complete interval resolution of previously present right upper lobe infiltrate. Scattered tree-in-bud opacities are again noted throughout both lungs, however, lung aeration overall appears slightly improved compared with CT imaging from December 2021. External Record Review External record reviewed: Outpatient record, Prior outpatient labs and Prior outpatient radiology Prescription Management I considered prescription management with: Antibiotic and Other (Prednisone and antitussive) Chronic Conditions Patient?s care impacted by: Other (COPD, Asthma, Bronchiectasis) Critical Care Time Critical Care Time Critical Care Time: No Discharge Plan Discharge Clinical Impression: Bronchiectasis, Bronchitis Patient Disposition: Home, Self-Care Instructions: Acute Bronchitis (ED), Bronchiectasis (ED) Additional Instructions: Take the newly prescribed antibiotic as directed. Your next dose is due this evening. Your given 1st dose today in the ER. Take the prescribed prednisone, start this in the morning. Your given 1st dose today in the ER. Take the prescribed cough medication at nighttime, do not drive after taking this medication. Follow-up with your pivot maker as scheduled. If you develop new or worsening symptoms call 911 or come back to the ER for further evaluation. CT scan:CT/CT chest wo IV con IMPRESSION: Severe bronchiectasis is again noted throughout the right lung with associated bronchial wall thickening and scattered mucus plugging. Less pronounced bronchiectasis within the left hemithorax appears similar. There has been complete interval resolution of previously present right upper lobe infiltrate. Scattered tree-in-bud opacities are again noted throughout both lungs, however, lung aeration overall appears slightly improved compared with CT imaging from December 2021. Prescriptions: New doxycycline hyclate 100 mg tablet 100 mg PO BID Qty: 14 0RF prednisone 20 mg tablet 40 mg PO DAILY Qty: 10 0RF Mucinex 1,200 mg tablet extended release 12hr 1,200 mg PO BID Qty: 14 0RF hydrocodone-homatropine [Hycodan (with homatropine)] 5-1.5 mg/5 mL syrup 5 ml PO Q4-6H PRN (Reason: cough) Qty: 60 0RF Rx Instructions: Partial Fill upon patient request. No Action Trelegy Ellipta 200-62.5-25 mcg blister with device 1 inh inhalation DAILY 30 Days Qty: 1 6RF albuterol sulfate 90 mcg/actuation HFA aerosol inhaler 2 puff inhalation Q4-6H PRN (Reason: shortness of breath or wheezing) Qty: 8.5 0RF omeprazole 20 mg Tablet,Delayed Release (Dr/Ec) 20 mg PO DAILY cefuroxime axetil 250 mg tablet 250 mg PO BID 5 Days Qty: 10 0RF azithromycin 250 mg tablet 250 mg PO DAILY 5 Days Qty: 5 0RF benzonatate 100 mg capsule 100 mg PO TID PRN (Reason: cough) Qty: 15 0RF amoxicillin-pot clavulanate 875-125 mg tablet 1 tab PO BID Qty: 20 0RF amlodipine [Norvasc] 5 mg tablet 5 mg PO DAILY Qty: 30 0RF prednisone 20 mg tablet 40 mg PO DAILY Qty: 10 0RF oxycodone 5 mg tablet 5 mg PO Q6H PRN (Reason: pain) Qty: 20 0RF Rx Instructions: Partial Fill upon patient request. azithromycin 250 mg tablet 250 mg PO DAILY 4 Days Qty: 4 0RF Rx Instructions: start on day 2 of therapy albuterol sulfate 90 mcg/actuation HFA aerosol inhaler 2 puff inhalation Q6H PRN (Reason: shortness of breath or wheezing) Qty: 8.5 0RF benzonatate 200 mg capsule 200 mg PO TID PRN (Reason: cough) Qty: 14 0RF dextromethorphan-guaifenesin 10-100 mg/5 mL liquid 10 ml PO Q4-6H PRN (Reason: cough) Qty: 236 0RF loratadine 10 mg tablet 10 mg PO DAILY fluticasone propionate 50 mcg/actuation spray,suspension 2 spray intranasal DAILY atorvastatin 20 mg tablet 20 mg PO DAILY ipratropium-albuterol 0.5 mg-3 mg(2.5 mg base)/3 mL solution for nebulization 3 ml inhalation QID PRN (Reason: Shortness Of Breath) multivitamin [Daily Multi-Vitamin] Tablet 1 tab PO DAILY Referrals: [facility] [place]Provider Group] (Bronchiectasis, tree-in-bud opacities, acute on chronic cough) Stand Alone Forms: Work/School Release Interventions: ED Discharge Assessment Last Done: 08/27/22 14:45 Discharge Date/Time: 08/27/22 14:46
--- NOTE | 2022-08-27 10:57 | ECG_ITS ---
Test Reason : CHEST PRESSURE Blood Pressure : / mmHG Vent. Rate : 094 BPM Atrial Rate : 094 BPM P-R Int : 172 ms QRS Dur : 094 ms QT Int : 348 ms P-R-T Axes : 043 019 039 degrees QTc Int : 435 ms Normal sinus rhythm Possible Left atrial enlargement Left ventricular hypertrophy ( Sokolow-Yanez , Romhilt-Grullon ) Early repolarization Abnormal ECG When compared with ECG of 11-DEC-2021 07:54, No significant change was found Referred By: Stephanie Garcia Electronically Signed By:LACY ROY
[2022-08-27 11:19] LABS: MANUAL DIFF FLAG NO
[2022-08-27 11:20] LABS: Basophils Absolute Auto 0.1 X10*3/uL (0.0-0.2); Basophils Percent Auto 0.6 % (0-2); Eosinophils Absolute Auto 0.4 X10*3/uL (0.0-0.4); Eosinophils Percent Auto 3.6 % (0-4); Hematocrit 38.3 % (42.0-52.0); Hemoglobin 12.6 g/dl (14.0-18.0); Imm Gran Abs Auto 0.05 X10*3/uL (0.00-0.03); Imm Gran Pct Auto 0.4 % (0.0-0.4); Lymphocytes Absolute Auto 2.8 X10*3/uL (1.2-4.9); Lymphocytes Percent Auto 22.9 % (20-40); Mean Corpuscular HGB Conc 32.9 g/dl (31.0-36.0); Mean Corpuscular Hemoglobin 27.9 pg (27.0-33.0); Mean Corpuscular Volume 84.9 fL (80.0-98.0); Mean Platelet Volume 8.7 fL (9.4-12.4); Monocytes Absolute Auto 0.7 X10*3/uL (0.1-1.2); Monocytes Percent Auto 5.9 % (2-11); Neutrophils Absolute Auto 8.2 x10*3/uL (2.0-8.3); Neutrophils Percent Auto 66.6 % (45-73); Platelet Count 401 X10*3/uL (160-400); Red Blood Count 4.51 X10*6/uL (4.60-5.80); Red Cell Distribution Width 14.2 % (11.0-16.0); White Blood Count 12.3 X10*3/uL (4.8-10.8)
[2022-08-27] MEDS: guaiFEN/Codeine SF 200/20/10ML 10 ML LIQUID PO (11:20)
[2022-08-27] MEDS: Doxycycline Monohydrate 100 MG CAPSULE PO (11:20)
[2022-08-27] MEDS: predniSONE 10 MG TABLET 50 MG PO (11:20)
[2022-08-27 11:25] VITALS: PULSE 94; RESP 17; O2SAT 95
[2022-08-27 11:43] LABS: Alanine Aminotransferase 30 U/L (0-40); Albumin Level 3.9 g/dL (3.5-5.0); Alkaline Phosphatase 107 U/L (39-117); Anion Gap 12 (12-20); Aspartate Amino Transferase 18 U/L (5-37); Bilirubin Direct < 0.2 mg/dL (0.0-0.5); Bilirubin Total 0.4 mg/dL (0.0-1.0); Blood Urea Nitrogen 13 mg/dL (9-16); Calcium 8.9 mg/dL (8.4-10.2); Carbon Dioxide 23 mmol/L (22-29); Chloride 108 mmol/L (96-108); Estimated Glomerular Filt Rate > 60; Glucose Random 103 mg/dL (60-115); Magnesium 1.8 mg/dL (1.6-2.6); Potassium 4.3 mmol/L (3.3-5.1); Sodium 139 mmol/L (135-145); Total Protein 7.2 g/dL (6.5-8.0)
[2022-08-27 11:48] LABS: Troponin-I High Sensitivity < 3.5 ng/L (<3.5-35.0)
--- NOTE | 2022-08-27 12:22 | PC.NURSE ---
patient reports improvement in cough post cough syrup. pending CT scan results. call root within reach
--- NOTE | 2022-08-27 12:41 | PC.NURSE ---
patient changed into hospital attire. security at the bedside
[2022-08-27 14:13] VITALS: BP 127/90; PULSE 102; RESP 20; TEMP 37.1; O2SAT 95
== END 2022-08-27 14:46 | disposition home or self-care (01) ==
PROVIDERS: Physician Assistant; Emergency Provider Student in an Organized Health Care Education/Training Program; PCP Family Medicine
DX: J44.9 Chronic obstructive pulmonary disease, unspecified (principal); R05.9 Cough, unspecified; R06.02 Shortness of breath; M54.6 Pain in thoracic spine; Z87.891 Personal history of nicotine dependence; Z79.899 Other long term (current) drug therapy
CPT/HCPCS: 36415; 71250; 80048; 80076; 83735; 84484; 85025; 93005; 94640; 99284; 99285

== ENCOUNTER 2022-09-10 12:42 | Inpatient (IN) | payer OTHER, SELFPAY ==
[2022-09-10] VITALS (8 sets, daily range): BP systolic 114–129; BP diastolic 66–80; PULSE 97–115; RESP 13–21; TEMP 36.8–38.6; O2SAT 95–98; BMI 24.3
--- NOTE | ~2022-09-10 | CT_ITS ---
EXAMINATION: CT ANGIOGRAM OF THE CHEST WITH AND WITHOUT CONTRAST (CT PULMONARY ANGIOGRAM FOR PE) CLINICAL INFORMATION: Reason for Exam pain, shortness of breath COMPARISON: Previous chest CT 08/27/2022 and chest CTA June 2021 TECHNIQUE: Prior to contrast administration, noncontrast localization images were obtained. Subsequently, multidetector volumetric imaging was performed from the thoracic inlet to below the diaphragms following the administration of 65 mL Omnipaque 350 intravenous contrast. No contrast reaction reported Sagittal, coronal, and MIP oblique sagittal reformatted images were obtained on the CT workstation, uploaded to PACS, and reviewed. This CT examination was performed using dose optimization techniques as appropriate, variously including the following: *Automated exposure control *Adjustment of mA and/or kV according to patient size (this includes techniques or standardized protocols for targeted exams where dose is matched to indication/reason for exam; i.e. extremities or head) *Use of iterative reconstruction technique Total exam dose-length product 290 mGy-cm FINDINGS: QUALITY OF STUDY/CONTRAST BOLUS: Limited due to late timing of IV contrast administration. PULMONARY ARTERIES: No definite pulmonary embolism is seen. There is decreased opacification of right middle lobe pulmonary arteries similar to previous chest CTA probably due to mass effect from enlarged right hilar lymph nodes. There is also decreased opacification or mass effect in the superior right superior pulmonary vein. This is similar to June 2021 chest CTA as well. THORACIC AORTA: No aneurysm. LUNG: There are scattered areas of a right-sided bronchiectasis and bronchial wall thickening. This appears similar to previous exams. There is dense atelectasis and consolidation seen in the right middle lobe. This appears decreased from prior chest CTA from 2021. This is similar to most recent chest CT August 2022. There are small scattered peribronchial nodules seen in the right lower lobe that are stable, largest measuring 5 mm. There is mild bronchial wall thickening, mild bronchiectasis in the several small nodules in the left lower lobe that are stable. There are scattered calcified pulmonary nodules probably representing calcified granulomas that are stable. PLEURA: No pleural effusion or pneumothorax. MEDIASTINUM: Normal heart size. No pericardial effusion. There are enlarged partially calcified mediastinal and bilateral hilar lymph nodes. Largest lymph nodes are right hilar lymph node measuring 2.1 x 3.3 cm. This does not appear appreciably changed from previous exams. Largest subcarinal lymph node measures 2.3 cm in AP dimension. No evidence of septal bowing or right heart strain. CORONARY ARTERY CALCIFICATION: None visualized on this study. CHEST WALL/AXILLA: No axillary or internal mammary lymphadenopathy. OSSEOUS STRUCTURES: No acute or suspicious osseous abnormality. Degenerative changes of the spine. 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 No reflux of contrast into the hepatic veins to suggest elevated right heart pressures. CT/CT angio chest PE protocol IMPRESSION: Limited exam due to late timing of IV contrast. No definite pulmonary embolism seen. Decreased contrast opacification of the right middle lobe pulmonary artery and right superior pulmonary vein. This is similar to previous chest CTA from June 2021 and may be related to mass effect from enlarged right hilar lymph nodes and chronic atelectasis/consolidation in the right middle lobe. Extensive bronchiectasis and airways disease in the right lung similar to previous exams. Enlarged partially calcified hilar and mediastinal lymph nodes similar to previous exams. VTE: negative
--- NOTE | ~2022-09-10 | XR_ITS ---
EXAMINATION: XR CHEST CLINICAL INFORMATION: Pneumonia. COMPARISON: Chest x-ray 08/24/2022. CT chest 08/27/2022 TECHNIQUE: Frontal view of the chest was obtained. FINDINGS: The lungs are expanded with right lower lobe parahilar patchy opacity in bilateral lower lobe bronchiectasis is stable to previous CT chest 08/27/2022. Rest of lungs are clear. Heart size and pulmonary vascularity is normal. No gross bony abnormality seen. XR/XR chest 1V IMPRESSION: Right parahilar and infrahilar infiltrate with bilateral bronchiectasis similar to CT chest 08/27/2022.
--- NOTE | 2022-09-10 13:21 | ECG_ITS ---
Test Reason : chest tightness Blood Pressure : / mmHG Vent. Rate : 100 BPM Atrial Rate : 100 BPM P-R Int : 170 ms QRS Dur : 088 ms QT Int : 338 ms P-R-T Axes : 043 012 038 degrees QTc Int : 436 ms Normal sinus rhythm Minimal voltage criteria for LVH, may be normal variant ( Sokolow-Yanez ) Borderline ECG When compared with ECG of 27-AUG-2022 11:16, Serial comparison not possible Referred By: Kenyon Marte Electronically Signed By:ELSA JONES MD
--- NOTE | 2022-09-10 13:22 | ED_ITS ---
HPI - General Adult General Chief complaint: Dyspnea <DURGA Ames - Last Filed: 09/17/22 09:25> Stated complaint: tightness of chest R side <DURGA Ames - Last Filed: 09/17/22 09:25> Time Seen by Provider: 09/10/22 16:06 <DURGA Ames - Last Filed: 09/17/22 09:25> Source: patient, RN notes reviewed and old records reviewed <Viet Saenz - Last Filed: 09/10/22 21:53> Mode of arrival: ambulatory <Viet Saenz - Last Filed: 09/10/22 21:53> Limitations: no limitations <Viet Saenz - Last Filed: 09/10/22 21:53> History of Present Illness HPI narrative: 51-year-old male with past medical history significant for bronchiectasis, asthma presents for evaluation of right-sided chest pain, cough, fevers Patient has been diagnosed with pneumonia and treated twice in the last month. He was most recently on 08/27/2021. He has completed a course of azithromycin, doxycycline and prednisone. He continues to have right-sided chest pain with a dry cough, subjective fevers and pain with deep breathing He has seen Dr. Rutherford for pulmonology in the past The patient has had a persistent right perihilar infiltrate. He has had negative HIV testing in September 2021. He also reports previous negative TB testing, bronchoscopy with biopsies negat charline for malignancy <Viet Saenz - Last Filed: 09/10/22 21:53> Related Data Home medications: Home Medications Medication Instructions Recorded Confirmed omeprazole 20 mg tablet,delayed 20 mg PO DAILY@0630 06/21/21 09/10/22 release atorvastatin 20 mg tablet 20 mg PO DAILY 09/22/21 09/10/22 fluticasone propionate 50 2 spray intranasal DAILY 09/22/21 09/10/22 mcg/actuation nasal spray,suspension benzonatate 100 mg capsule 100 mg PO TID PRN Cough 09/10/22 09/10/22 hydrochlorothiazide 25 mg tablet 25 mg PO DAILY 09/10/22 09/10/22 multivitamin 1 tab PO DAILY 09/10/22 09/10/22 Previous Rx's Medication Instructions Recorded albuterol sulfate 90 mcg/actuation 2 puff inhalation Q6H PRN 08/25/22 aerosol inhaler shortness of breath or wheezing #8.5 grams doxycycline hyclate 100 mg capsule 100 mg PO BID #14 caps 09/13/22 levofloxacin 500 mg tablet 500 mg PO DAILY #7 tabs 09/13/22 <DURGA Ames - Last Filed: 09/17/22 09:25> Allergies/adverse reactions: Allergies Allergy/AdvReac Type Severity Reaction Status Date / Time clindamycin [Clindamycin] Allergy Severe SEVERE Verified 08/24/22 22:11 ITCHING <DURGA Ames - Last Filed: 09/17/22 09:25> Review of Systems Constitutional: Constitutional: Reports as per HPI, Denies fever(s) and Denies headache(s) <Viet Saenz - Last Filed: 09/10/22 21:53> ENT: Denies headache(s) <Viet Saenz - Last Filed: 09/10/22 21:53> Gastrointestinal: Gastrointestinal: Denies abdominal pain, Denies constipation and Denies vomiting <Viet Saenz - Last Filed: 09/10/22 21:53> Genitourinary: Genitourinary: Denies difficulty urinating and Denies dysuria <Viet Saenz - Last Filed: 09/10/22 21:53> Neurologic: Denies headache(s) and Denies focal weakness <Viet Saenz - Last Filed: 09/10/22 21:53> [facility] Past Medical History Medical History: Medical History Asthma Bronchiectasis COPD (chronic obstructive pulmonary disease) Heartburn Hypoxia Pneumonia Recurrent pneumonia Sepsis <DURGA Ames - Last Filed: 09/17/22 09:25> Surgical History: Surgical History No pertinent past surgical history <DURGA Ames - Last Filed: 09/17/22 09:25> Family History Family History: Family History Sister Breast CA <DURGA Ames - Last Filed: 09/17/22 09:25> Social History Social History: Social History Household Members: None Housing: Apartment Do you presently have visiting nurse or other home services: No Alcohol intake: unknown Patient Tobacco Use Status: Former Tobacco user Tobacco use type: Cigarette e-Cigarette/Vaping Use: Never Used Second Hand Smoke Exposure: No Substance Use Type: Unknown Advance Directives Date on File: 06/21/21 service: No Current occupational status: employed <DURGA Ames - Last Filed: 09/17/22 09:25> Physical Exam ED Vital Signs: Vital Signs - 24 hr 09/10/22 13:18 09/10/22 16:35 09/10/22 16:44 Temperature 100 F 99.1 F Pulse Rate 107 H 111 H 111 H Respiratory Rate 18 16 21 H Blood Pressure 123/71 129/75 Pulse Oximetry 97 95 Oxygen Delivery Method Room Air Room Air 09/10/22 17:34 09/10/22 19:08 09/10/22 19:40 Temperature 101.4 F H 98.5 F 98.4 F Pulse Rate 115 H 97 99 Respiratory Rate 18 13 20 Blood Pressure 120/80 115/73 118/72 Pulse Oximetry 96 95 97 Oxygen Delivery Method Room Air Room Air Room Air 09/10/22 21:21 Temperature Pulse Rate 99 Respiratory Rate 20 Blood Pressure Pulse Oximetry Oxygen Delivery Method BMI result Body Mass Index 24.3 <DURGA Ames - Last Filed: 09/17/22 09:25> Vital Signs - 24 hr 09/10/22 13:18 09/10/22 16:35 09/10/22 16:44 Temperature 100 F 99.1 F Pulse Rate 107 H 111 H 111 H Respiratory Rate 18 16 21 H Blood Pressure 123/71 129/75 Pulse Oximetry 97 95 Oxygen Delivery Method Room Air Room Air 09/10/22 17:34 09/10/22 19:08 09/10/22 19:40 Temperature 101.4 F H 98.5 F 98.4 F Pulse Rate 115 H 97 99 Respiratory Rate 18 13 20 Blood Pressure 120/80 115/73 118/72 Pulse Oximetry 96 95 97 Oxygen Delivery Method Room Air Room Air Room Air 09/10/22 21:21 Temperature Pulse Rate 99 Respiratory Rate 20 Blood Pressure Pulse Oximetry Oxygen Delivery Method BMI result Body Mass Index 24.3 < Filed: 09/10/22 21:53> Const General: healthy appearing, comfortable, no acute distress, alert and awake < Last Filed: 09/10/22 21:53> Nutritional Appearance: well nourished < Last Filed: 09/10/22 21:53> Orientation/consciousness: patient oriented x3 < Last Filed: 09/10/22 21:53> HENMT Head: Yes normocephalic and Yes atraumatic < Last Filed: 21:53> Throat: Yes posterior oropharynx normal < Filed: 09/10/22 21:53> Eyes Eyelids: Yes eyelids normal < Filed: 09/10/22 21:53> Conjunctivae: conjunctivae normal < Last Filed: 09/10/22 21:53> Sclerae: sclerae normal < Filed: 09/10/22 21:53> Corneas: corneas normal < Filed: 09/10/22 21:53> Pupils: Equal, round and reactive pupils present < Filed: 09/10/22 21:53> EOM: EOMs intact bilaterally < Filed: 09/10/22 21:53> Neck Neck: Yes full ROM < Last Filed: 09/10/22 21:53> Resp Effort & Inspection: normal respiratory effort, able to speak in complete sentences, no audible wheezes and not labored < Filed: 09/10/22 21:53> Auscultation: clear to auscultation bilaterally < Filed: 09/10/22 21:53> Cardio Rate: regular rate < Last Filed: 09/10/22 21:53> Rhythm: regular rhythm < Last Filed: 09/10/22 21:53> GI Inspection: No distended <Viet O Last Filed: 09/10/22 21:53> Palpation (GI): Soft to palpation, not firm, nontender, no guarding and not rigid <Viet O - Last Filed: 09/10/22 21:53> Auscultation: normoactive bowel sounds <Viet [place] - Last Filed: 09/10/22 21:53> Skin General skin exam: no rashes or lesions noted and elasticity normal <Viet - Last Filed: 09/10/22 21:53> Neuro General: patient oriented x3 <Viet Last Filed: 09/10/22 21:53> Cranial nerves: Yes CN's II-XII intact bilaterally, Yes Equal, round and reactive pupils present and Yes Bilaterally intact EOM present <Viet O Last Filed: 03/25 21:53> Cognition (Neuro): normal cognition <Viet O Last Filed: 09/10/22 21:53> Extrem Other: Moving all extremities well without any obvious deformities <Viet Last Filed: 09/10/22 21:53> Course Course Course Narrative: RME: 51 yold malel presents to the ED for cough for 2 months, and chest tightness. Labs/EKG/chest xray. patient had 2 episodes of pneumonia. <DURGA Ames - Last Filed: 09/17/22 09:25> Reevaluation(s) Reevaluation #1: Appreciate CT scan results showing consistent right perihilar infiltrate, no evidence of PE. Given the patient's temperature increased to 101.4, his white count is 18.5 1000. I did discuss with the hospitalist, Dr. Sifuentes who will admit the patient. He recommended given the patient vancomycin and Zosyn which I did. <Viet ValenteGerald - Last Filed: 09/10/22 21:53> Time: 21:50 <Veit O Last Filed: 09/10/22 21:53> Medications Administered Discontinued Medications Generic Name Dose Route Start Last Admin Trade Name Freq PRN Reason Stop Dose Admin Acetaminophen 975 mg 09/10/22 17:36 09/10/22 17:53 Acetaminophen 325 Mg Tablet PO 09/10/22 17:37 975 mg ONCE ONE Administration Acetaminophen 650 mg 09/10/22 21:41 09/13/22 19:44 Acetaminophen 325 Mg Tablet PO 650 mg Q6H PRN Administration Pain, Mild (Pain Scale 1-3) Albuterol Sulfate 5 mg 09/10/22 21:11 09/10/22 21:21 Albuterol Sulfate (0.083%) 2.5 Mg/3 Ml Vial.Neb INHALE 09/10/22 21:12 5 mg ONCE ONE Administration Albuterol/Ipratropium 3 ml 09/10/22 21:49 09/11/22 20:12 Albuterol/Iprat 2.5/0.5mg 3 Ml Ampul.Neb INHALE 3 ml Q4H PRN Administration Wheezing Atorvastatin Calcium 20 mg 09/11/22 09:00 09/14/22 08:25 Atorvastatin Calcium 20 Mg Tablet PO 20 mg DAILY [facility] Administration Benzonatate 100 mg 09/10/22 21:41 09/11/22 08:24 Benzonatate 100 Mg Capsule PO 100 mg TID PRN Administration Cough Benzonatate 200 mg 09/11/22 09:45 09/14/22 08:25 Benzonatate 100 Mg Capsule PO 200 mg TID ARIELLE Administration Albuterol Sulfate 2.5 mg/ 0 mg 09/10/22 16:22 09/10/22 16:47 Albuterol/Ipratropium 3 ml INHALE 09/10/22 16:23 2.5 each ONCE ONE Administration Enoxaparin Sodium 40 mg 09/10/22 21:45 09/13/22 19:44 Enoxaparin Sodium 40 Mg/0.4 Ml Syringe SUBCUT 40 mg Q24H [facility] Administration Fluticasone Propionate 2 spray 09/11/22 09:00 09/14/22 08:33 Fluticasone Propionate Nasal 16 Gm [place] NOSTRIL-B Not Given DAILY [facility] Guaifenesin 600 mg 09/11/22 09:45 09/14/22 08:25 Guaifenesin [place] 600 Mg Tab.Er.12h PO 600 mg BID ARIELLE Administration Hydrochlorothiazide 25 mg 09/13/22 09:00 09/14/22 08:25 Hydrochlorothiazide 25 Mg Tablet PO 25 mg DAILY ARIELLE Administration Protocol Sodium Chloride 1,000 mls @ 999 mls/hr 09/10/22 16:30 09/10/22 19:05 Ns IV 09/10/22 17:30 Infused .Q1H1M ARIELLE Infusion Vancomycin HCl 1,500 mg/ 500 mls @ 333.333 mls/hr 09/10/22 21:42 09/11/22 00:41 Sodium Chloride IV 09/10/22 23:11 Infused ONCE ONE Infusion Cefepime HCl 2 gm/ Sodium 50 mls @ 100 mls/hr 09/10/22 22:00 09/14/22 06:03 Chloride IV Infused Q8H ARIELLE Infusion Sodium Chloride 1,000 mls @ 999 mls/hr 09/10/22 22:00 09/10/22 23:07 Ns IV 09/10/22 23:00 Infused .Q1H1M ARIELLE Infusion Vancomycin HCl 1,000 mg/ 270 mls @ 270 mls/hr 09/11/22 11:00 09/12/22 01:41 Sodium Chloride IV Infused Q12H ARIELLE Infusion Vancomycin HCl 1,000 mg/ 270 mls @ 270 mls/hr 09/12/22 11:00 09/14/22 05:21 Sodium Chloride IV Infused Q8H ARIELLE Infusion Lactated Ringer's 1,000 mls @ 50 mls/hr 09/13/22 08:30 09/13/22 11:14 Lr IVCONT Infused .Q20H ARIELLE Infusion Iohexol 100 ml 09/10/22 19:33 09/10/22 19:34 Iohexol 350 Mg/Ml 100 Ml Infus..Btl IV 09/10/22 19:34 65 ml ONCE ONE Administration Ketorolac Tromethamine 30 mg 09/10/22 17:36 09/10/22 17:54 Ketorolac Tromethamine 30 Mg/Ml Vial IVPUSH 09/10/22 17:37 30 mg ONCE ONE Administration Ketorolac Tromethamine 30 mg 09/11/22 13:44 09/11/22 14:01 Ketorolac Tromethamine 30 Mg/Ml Vial IVPUSH 09/11/22 13:45 30 mg ONCE ONE Administration Ketorolac Tromethamine 15 mg 09/11/22 16:30 09/12/22 11:14 Ketorolac Tromethamine 15 Mg/Ml Vial IVPUSH 09/12/22 10:31 15 mg Q6H ARIELLE Administration Morphine Sulfate 2 mg 09/11/22 02:17 09/13/22 04:06 Morphine Sulfate 2 Mg/Ml Cartridge IVPUSH 2 mg Q4H PRN Administration Pain, Severe (Pain Scale 7-10) Protocol Multivitamins/Vitamin C 1 tab 09/11/22 09:00 09/14/22 08:25 Multivitamin Tablet PO 1 tab DAILY ARIELLE Administration Omeprazole 20 mg 09/11/22 06:30 09/14/22 05:21 Omeprazole 20 Mg Capsule. PO 20 mg DAILY@0630 ARIELLE Administration Sodium Chloride 3 ml 09/11/22 00:00 09/14/22 08:25 0.9 % Sodium Chloride Flush 3 Ml Syringe IVFLUSH 3 ml QSHIFT ARIELLE Administration <DURGA Ames - Last Filed: 09/17/22 09:25> Medications Administered Discontinued Medications Generic Name Dose Route Start Last Admin Trade Name Freq PRN Reason Stop Dose Admin Acetaminophen 975 mg 09/10/22 17:36 09/10/22 17:53 Acetaminophen 325 Mg Tablet PO 09/10/22 17:37 975 mg ONCE ONE Administration Acetaminophen 650 mg 09/10/22 21:41 09/13/22 19:44 Acetaminophen 325 Mg Tablet PO 650 mg Q6H PRN Administration Pain, Mild (Pain Scale 1-3) Albuterol Sulfate 5 mg 09/10/22 21:11 09/10/22 21:21 Albuterol Sulfate (0.083%) 2.5 Mg/3 Ml Vial.Neb INHALE 09/10/22 21:12 5 mg ONCE ONE Administration Albuterol/Ipratropium 3 ml 09/10/22 21:49 09/11/22 20:12 Albuterol/Iprat 2.5/0.5mg 3 Ml Ampul.Neb INHALE 3 ml Q4H PRN Administration Wheezing Atorvastatin Calcium 20 mg 09/11/22 09:00 09/14/22 08:25 Atorvastatin Calcium 20 Mg Tablet PO 20 mg DAILY ARIELLE Administration Benzonatate 100 mg 09/10/22 21:41 09/11/22 08:24 Benzonatate 100 Mg Capsule PO 100 mg TID PRN Administration Cough Benzonatate 200 mg 09/11/22 09:45 09/14/22 08:25 Benzonatate 100 Mg Capsule PO 200 mg TID ARIELLE Administration Albuterol Sulfate 2.5 mg/ 0 mg 09/10/22 16:22 09/10/22 16:47 Albuterol/Ipratropium 3 ml INHALE 09/10/22 16:23 2.5 each ONCE ONE Administration Enoxaparin Sodium 40 mg 09/10/22 21:45 09/13/22 19:44 Enoxaparin Sodium 40 Mg/0.4 Ml Syringe SUBCUT 40 mg Q24H ARIELLE Administration Fluticasone Propionate 2 spray 09/11/22 09:00 09/14/22 08:33 Fluticasone Propionate Nasal 16 Gm [place] NOSTRIL-B Not Given DAILY ARIELLE Guaifenesin 600 mg 09/11/22 09:45 09/14/22 08:25 Guaifenesin [place] 600 Mg Tab.Er.12h PO 600 mg BID ARIELLE Administration Hydrochlorothiazide 25 mg 09/13/22 09:00 09/14/22 08:25 Hydrochlorothiazide 25 Mg Tablet PO 25 mg DAILY ARIELLE Administration Protocol Sodium Chloride 1,000 mls @ 999 mls/hr 09/10/22 16:30 09/10/22 19:05 Ns IV 09/10/22 17:30 Infused .Q1H1M ARIELLE Infusion Vancomycin HCl 1,500 mg/ 500 mls @ 333.333 mls/hr 09/10/22 21:42 09/11/22 00:41 Sodium Chloride IV 09/10/22 23:11 Infused ONCE ONE Infusion Cefepime HCl 2 gm/ Sodium 50 mls @ 100 mls/hr 09/10/22 22:00 09/14/22 06:03 Chloride IV Infused Q8H ARIELLE Infusion Sodium Chloride 1,000 mls @ 999 mls/hr 09/10/22 22:00 09/10/22 23:07 Ns IV 09/10/22 23:00 Infused .Q1H1M ARIELLE Infusion Vancomycin HCl 1,000 mg/ 270 mls @ 270 mls/hr 09/11/22 11:00 09/12/22 01:41 Sodium Chloride IV Infused Q12H ARIELLE Infusion Vancomycin HCl 1,000 mg/ 270 mls @ 270 mls/hr 09/12/22 11:00 09/14/22 05:21 Sodium Chloride IV Infused Q8H ARIELLE Infusion Lactated Ringer's 1,000 mls @ 50 mls/hr 09/13/22 08:30 09/13/22 11:14 Lr IVCONT Infused .Q20H ARIELLE Infusion Iohexol 100 ml 09/10/22 19:33 09/10/22 19:34 Iohexol 350 Mg/Ml 100 Ml Infus..Btl IV 09/10/22 19:34 65 ml ONCE ONE Administration Ketorolac Tromethamine 30 mg 09/10/22 17:36 09/10/22 17:54 Ketorolac Tromethamine 30 Mg/Ml Vial IVPUSH 09/10/22 17:37 30 mg ONCE ONE Administration Ketorolac Tromethamine 30 mg 09/11/22 13:44 09/11/22 14:01 Ketorolac Tromethamine 30 Mg/Ml Vial IVPUSH 09/11/22 13:45 30 mg ONCE ONE Administration Ketorolac Tromethamine 15 mg 09/11/22 16:30 09/12/22 11:14 Ketorolac Tromethamine 15 Mg/Ml Vial IVPUSH 09/12/22 10:31 15 mg Q6H ARIELLE Administration Morphine Sulfate 2 mg 09/11/22 02:17 09/13/22 04:06 Morphine Sulfate 2 Mg/Ml Cartridge IVPUSH 2 mg Q4H PRN Administration Pain, Severe (Pain Scale 7-10) Protocol Multivitamins/Vitamin C 1 tab 09/11/22 09:00 09/14/22 08:25 Multivitamin Tablet PO 1 tab DAILY ARIELLE Administration Omeprazole 20 mg 09/11/22 06:30 09/14/22 05:21 Omeprazole 20 Mg Capsule. PO 20 mg DAILY@0630 ARIELLE Administration Sodium Chloride 3 ml 09/11/22 00:00 09/14/22 08:25 0.9 % Sodium Chloride Flush 3 Ml Syringe IVFLUSH 3 ml QSHIFT ARIELLE Administration <Viet Saenz - Last Filed: 09/10/22 21:53> Medical Decision Making Medical Decision Making MDM Narrative: The patient continues to have a dense right perihilar infiltrate, he is febrile with a white count of 18.5 K. he has a dry cough and chest pain with coughing. Given that he has had 2 recent course of antibiotics, I reached out to Dr. Krish, but unfortunately he is on vacation. I did discuss with Dr. Reyes, infectious Disease who recommends holding any further antibiotics at this time. She recommends obtaining CT angiography to rule out PE and adding on serum cryptococcal antigen. These were ordered. The patient's fever was treated with acetaminophen and use given Toradol for his pain. <Viet Whitneyy - Last Filed: 09/10/22 21:53> Differential Diagnosis Pneumonia Chronic mucus plugging PE Viral syndrome <Viet ValentePeggyy - Last Filed: 09/10/22 21:53> Lab Data MDM Lab Attestation statement: I reviewed the patient's lab results. <Viet Letty - Last Filed: 09/10/22 21:53> Result Diagrams: 09/10/22 15:33 09/10/22 15:33 <DURGA Ames - Last Filed: 09/17/22 09:25> Labs: Lab Results 09/10/22 09/10/22 09/10/22 Range/Units 13:46 15:33 15:33 WBC 18.5 H (4.8-10.8) X10*3/uL RBC 4.51 L (4.60-5.80) X10*6/uL Hgb 12.7 L (14.0-18.0) g/dl Hct 38.4 L (42.0-52.0) % MCV 85.1 (80.0-98.0) fL MCH 28.2 (27.0-33.0) pg MCHC 33.1 (31.0-36.0) g/dl RDW 14.8 (11.0-16.0) % Plt Count 384 (160-400) X10*3/uL MPV 9.0 L (9.4-12.4) fL Immature Gran % (Auto) 0.4 (0.0-0.4) % Neut % (Auto) 81.3 H (45-73) % Lymph % (Auto) 12.4 L (20-40) % [place] % (Auto) 5.4 (2-11) % Eos % (Auto) 0.3 (0-4) % Baso % (Auto) 0.2 (0-2) % Lymph # (Auto) 2.3 (1.2-4.9) X10*3/uL [place] # (Auto) 1.0 (0.1-1.2) X10*3/uL Eos # (Auto) 0.1 (0.0-0.4) X10*3/uL Baso # (Auto) 0.0 (0.0-0.2) X10*3/uL Abs Immat Gran (auto) 0.07 H (0.00-0.03) X10*3/uL Absolute Neuts (auto) 15.1 H (2.0-8.3) x10*3/uL Absolute Nucleated RBC 0.000 (0.0-0.012) X10*3/uL Nucleated RBC % (auto) 0.0 (0.0-0.2) /100WBC PT 12.2 (10.0-13.1) SEC INR 1.1 (0.9-1.1) APTT 34.6 (26.0-36.4) SEC Sodium (135-145) mmol/L Potassium (3.3-5.1) mmol/L Chloride (96-108) mmol/L Carbon Dioxide (22-29) mmol/L Anion Gap (12-20) BUN (9-16) mg/dL Creatinine (0.5-1.4) mg/dL Estim Creat Clear Calc Estimated GFR Random Glucose (60-115) mg/dL Lactic Acid (0.5-2.0) mmol/L Calcium (8.4-10.2) mg/dL Total Bilirubin (0.0-1.0) mg/dL AST (5-37) U/L ALT (0-40) U/L Alkaline Phosphatase (39-117) U/L Troponin I High Sens (<3.5-35.0) ng/L B-Natriuretic Peptide (<100) pg/mL Total Protein (6.5-8.0) g/dL Albumin (3.5-5.0) g/dL Influenza Type A (PCR) NEGATIVE (Negative) Influenza Type B (PCR) NEGATIVE (Negative) RSV RNA Qual (PCR) NEGATIVE (Negative) SARS-CoV-2 RNA (RT-PCR) NEGATIVE (Negative) Cryptococcal Ag 09/10/22 09/10/22 09/10/22 Range/Units 15:33 15:33 15:33 WBC (4.8-10.8) X10*3/uL RBC (4.60-5.80) X10*6/uL Hgb (14.0-18.0) g/dl Hct (42.0-52.0) % MCV (80.0-98.0) fL MCH (27.0-33.0) pg MCHC (31.0-36.0) g/dl RDW (11.0-16.0) % Plt Count (160-400) X10*3/uL MPV (9.4-12.4) fL Immature Gran % (Auto) (0.0-0.4) % Neut % (Auto) (45-73) % Lymph % (Auto) (20-40) % [place] % (Auto) (2-11) % Eos % (Auto) (0-4) % Baso % (Auto) (0-2) % Lymph # (Auto) (1.2-4.9) X10*3/uL [place] # (Auto) (0.1-1.2) X10*3/uL Eos # (Auto) (0.0-0.4) X10*3/uL Baso # (Auto) (0.0-0.2) X10*3/uL Abs Immat Gran (auto) (0.00-0.03) X10*3/uL Absolute Neuts (auto) (2.0-8.3) x10*3/uL Absolute Nucleated RBC (0.0-0.012) X10*3/uL Nucleated RBC % (auto) (0.0-0.2) /100WBC PT (10.0-13.1) SEC INR (0.9-1.1) APTT (26.0-36.4) SEC Sodium 139 (135-145) mmol/L Potassium 4.4 (3.3-5.1) mmol/L Chloride 104 (96-108) mmol/L Carbon Dioxide 27 (22-29) mmol/L Anion Gap 12 (12-20) BUN 14 (9-16) mg/dL Creatinine 1.07 (0.5-1.4) mg/dL Estim Creat Clear Calc 79.8 Estimated GFR > 60 Random Glucose 128 H (60-115) mg/dL Lactic Acid (0.5-2.0) mmol/L Calcium 9.0 (8.4-10.2) mg/dL Total Bilirubin 0.9 (0.0-1.0) mg/dL AST 15 (5-37) U/L ALT 33 (0-40) U/L Alkaline Phosphatase 114 (39-117) U/L Troponin I High Sens < 2.7 (<3.5-35.0) ng/L B-Natriuretic Peptide < 10 (<100) pg/mL Total Protein 7.2 (6.5-8.0) g/dL Albumin 4.0 (3.5-5.0) g/dL Influenza Type A (PCR) (Negative) Influenza Type B (PCR) (Negative) RSV RNA Qual (PCR) (Negative) SARS-CoV-2 RNA (RT-PCR) (Negative) Cryptococcal Ag 09/10/22 09/10/22 Range/Units 16:53 19:48 WBC (4.8-10.8) X10*3/uL RBC (4.60-5.80) X10*6/uL Hgb (14.0-18.0) g/dl Hct (42.0-52.0) % MCV (80.0-98.0) fL MCH (27.0-33.0) pg MCHC (31.0-36.0) g/dl RDW (11.0-16.0) % Plt Count (160-400) X10*3/uL MPV (9.4-12.4) fL Immature Gran % (Auto) (0.0-0.4) % Neut % (Auto) (45-73) % Lymph % (Auto) (20-40) % [place] % (Auto) (2-11) % Eos % (Auto) (0-4) % Baso % (Auto) (0-2) % Lymph # (Auto) (1.2-4.9) X10*3/uL [place] # (Auto) (0.1-1.2) X10*3/uL Eos # (Auto) (0.0-0.4) X10*3/uL Baso # (Auto) (0.0-0.2) X10*3/uL Abs Immat Gran (auto) (0.00-0.03) X10*3/uL Absolute Neuts (auto) (2.0-8.3) x10*3/uL Absolute Nucleated RBC (0.0-0.012) X10*3/uL Nucleated RBC % (auto) (0.0-0.2) /100WBC PT (10.0-13.1) SEC INR (0.9-1.1) APTT (26.0-36.4) SEC Sodium (135-145) mmol/L Potassium (3.3-5.1) mmol/L Chloride (96-108) mmol/L Carbon Dioxide (22-29) mmol/L Anion Gap (12-20) BUN (9-16) mg/dL Creatinine (0.5-1.4) mg/dL Estim Creat Clear Calc Estimated GFR Random Glucose (60-115) mg/dL Lactic Acid 1.8 (0.5-2.0) mmol/L Calcium (8.4-10.2) mg/dL Total Bilirubin (0.0-1.0) mg/dL AST (5-37) U/L ALT (0-40) U/L Alkaline Phosphatase (39-117) U/L Troponin I High Sens (<3.5-35.0) ng/L B-Natriuretic Peptide (<100) pg/mL Total Protein (6.5-8.0) g/dL Albumin (3.5-5.0) g/dL Influenza Type A (PCR) (Negative) Influenza Type B (PCR) (Negative) RSV RNA Qual (PCR) (Negative) SARS-CoV-2 RNA (RT-PCR) (Negative) Cryptococcal Ag SEE NOTE <DURGA Ames - Last Filed: 09/17/22 09:25> Lab Results 09/10/22 09/10/22 09/10/22 Range/Units 13:46 15:33 15:33 WBC 18.5 H (4.8-10.8) X10*3/uL RBC 4.51 L (4.60-5.80) X10*6/uL Hgb 12.7 L (14.0-18.0) g/dl Hct 38.4 L (42.0-52.0) % MCV 85.1 (80.0-98.0) fL MCH 28.2 (27.0-33.0) pg MCHC 33.1 (31.0-36.0) g/dl RDW 14.8 (11.0-16.0) % Plt Count 384 (160-400) X10*3/uL MPV 9.0 L (9.4-12.4) fL Immature Gran % (Auto) 0.4 (0.0-0.4) % Neut % (Auto) 81.3 H (45-73) % Lymph % (Auto) 12.4 L (20-40) % Carroll % (Auto) 5.4 (2-11) % Eos % (Auto) 0.3 (0-4) % Baso % (Auto) 0.2 (0-2) % Lymph # (Auto) 2.3 (1.2-4.9) X10*3/uL Carroll # (Auto) 1.0 (0.1-1.2) X10*3/uL Eos # (Auto) 0.1 (0.0-0.4) X10*3/uL Baso # (Auto) 0.0 (0.0-0.2) X10*3/uL Abs Immat Gran (auto) 0.07 H (0.00-0.03) X10*3/uL Absolute Neuts (auto) 15.1 H (2.0-8.3) x10*3/uL Absolute Nucleated RBC 0.000 (0.0-0.012) X10*3/uL Nucleated RBC % (auto) 0.0 (0.0-0.2) /100WBC PT 12.2 (10.0-13.1) SEC INR 1.1 (0.9-1.1) APTT 34.6 (26.0-36.4) SEC Sodium (135-145) mmol/L Potassium (3.3-5.1) mmol/L Chloride (96-108) mmol/L Carbon Dioxide (22-29) mmol/L Anion Gap (12-20) BUN (9-16) mg/dL Creatinine (0.5-1.4) mg/dL Estim Creat Clear Calc Estimated GFR Random Glucose (60-115) mg/dL Lactic Acid (0.5-2.0) mmol/L Calcium (8.4-10.2) mg/dL Total Bilirubin (0.0-1.0) mg/dL AST (5-37) U/L ALT (0-40) U/L Alkaline Phosphatase (39-117) U/L Troponin I High Sens (<3.5-35.0) ng/L B-Natriuretic Peptide (<100) pg/mL Total Protein (6.5-8.0) g/dL Albumin (3.5-5.0) g/dL Influenza Type A (PCR) NEGATIVE (Negative) Influenza Type B (PCR) NEGATIVE (Negative) RSV RNA Qual (PCR) NEGATIVE (Negative) SARS-CoV-2 RNA (RT-PCR) NEGATIVE (Negative) Cryptococcal Ag 09/10/22 09/10/22 09/10/22 Range/Units 15:33 15:33 15:33 WBC (4.8-10.8) X10*3/uL RBC (4.60-5.80) X10*6/uL Hgb (14.0-18.0) g/dl Hct (42.0-52.0) % MCV (80.0-98.0) fL MCH (27.0-33.0) pg MCHC (31.0-36.0) g/dl RDW (11.0-16.0) % Plt Count (160-400) X10*3/uL MPV (9.4-12.4) fL Immature Gran % (Auto) (0.0-0.4) % Neut % (Auto) (45-73) % Lymph % (Auto) (20-40) % Carroll % (Auto) (2-11) % Eos % (Auto) (0-4) % Baso % (Auto) (0-2) % Lymph # (Auto) (1.2-4.9) X10*3/uL Carroll # (Auto) (0.1-1.2) X10*3/uL Eos # (Auto) (0.0-0.4) X10*3/uL Baso # (Auto) (0.0-0.2) X10*3/uL Abs Immat Gran (auto) (0.00-0.03) X10*3/uL Absolute Neuts (auto) (2.0-8.3) x10*3/uL Absolute Nucleated RBC (0.0-0.012) X10*3/uL Nucleated RBC % (auto) (0.0-0.2) /100WBC PT (10.0-13.1) SEC INR (0.9-1.1) APTT (26.0-36.4) SEC Sodium 139 (135-145) mmol/L Potassium 4.4 (3.3-5.1) mmol/L Chloride 104 (96-108) mmol/L Carbon Dioxide 27 (22-29) mmol/L Anion Gap 12 (12-20) BUN 14 (9-16) mg/dL Creatinine 1.07 (0.5-1.4) mg/dL Estim Creat Clear Calc 79.8 Estimated GFR > 60 Random Glucose 128 H (60-115) mg/dL Lactic Acid (0.5-2.0) mmol/L Calcium 9.0 (8.4-10.2) mg/dL Total Bilirubin 0.9 (0.0-1.0) mg/dL AST 15 (5-37) U/L ALT 33 (0-40) U/L Alkaline Phosphatase 114 (39-117) U/L Troponin I High Sens < 2.7 (<3.5-35.0) ng/L B-Natriuretic Peptide < 10 (<100) pg/mL Total Protein 7.2 (6.5-8.0) g/dL Albumin 4.0 (3.5-5.0) g/dL Influenza Type A (PCR) (Negative) Influenza Type B (PCR) (Negative) RSV RNA Qual (PCR) (Negative) SARS-CoV-2 RNA (RT-PCR) (Negative) Cryptococcal Ag 09/10/22 09/10/22 Range/Units 16:53 19:48 WBC (4.8-10.8) X10*3/uL RBC (4.60-5.80) X10*6/uL Hgb (14.0-18.0) g/dl Hct (42.0-52.0) % MCV (80.0-98.0) fL MCH (27.0-33.0) pg MCHC (31.0-36.0) g/dl RDW (11.0-16.0) % Plt Count (160-400) X10*3/uL MPV (9.4-12.4) fL Immature Gran % (Auto) (0.0-0.4) % Neut % (Auto) (45-73) % Lymph % (Auto) (20-40) % [place] % (Auto) (2-11) % Eos % (Auto) (0-4) % Baso % (Auto) (0-2) % Lymph # (Auto) (1.2-4.9) X10*3/uL [place] # (Auto) (0.1-1.2) X10*3/uL Eos # (Auto) (0.0-0.4) X10*3/uL Baso # (Auto) (0.0-0.2) X10*3/uL Abs Immat Gran (auto) (0.00-0.03) X10*3/uL Absolute Neuts (auto) (2.0-8.3) x10*3/uL Absolute Nucleated RBC (0.0-0.012) X10*3/uL Nucleated RBC % (auto) (0.0-0.2) /100WBC PT (10.0-13.1) SEC INR (0.9-1.1) APTT (26.0-36.4) SEC Sodium (135-145) mmol/L Potassium (3.3-5.1) mmol/L Chloride (96-108) mmol/L Carbon Dioxide (22-29) mmol/L Anion Gap (12-20) BUN (9-16) mg/dL Creatinine (0.5-1.4) mg/dL Estim Creat Clear Calc Estimated GFR Random Glucose (60-115) mg/dL Lactic Acid 1.8 (0.5-2.0) mmol/L Calcium (8.4-10.2) mg/dL Total Bilirubin (0.0-1.0) mg/dL AST (5-37) U/L ALT (0-40) U/L Alkaline Phosphatase (39-117) U/L Troponin I High Sens (<3.5-35.0) ng/L B-Natriuretic Peptide (<100) pg/mL Total Protein (6.5-8.0) g/dL Albumin (3.5-5.0) g/dL Influenza Type A (PCR) (Negative) Influenza Type B (PCR) (Negative) RSV RNA Qual (PCR) (Negative) SARS-CoV-2 RNA (RT-PCR) (Negative) Cryptococcal Ag SEE NOTE <Viet Saenz - Last Filed: 09/10/22 21:53> Independent Interpretation I performed an independent interpretation of an: Plain X-Ray (Right perihilar infiltrate) <Viet Saenz - Last Filed: 09/10/22 21:53> Discharge Plan Discharge Clinical Impression: Chronic pneumonia <DURGA Ames - Last Filed: 09/17/22 09:25> Patient Disposition: Home, Self-Care <DURGA Ames - Last Filed: 09/17/22 09:25> Discharge Date/Time: 09/10/22 23:28 <DURGA Ames - Last Filed: 09/17/22 09:25>
[2022-09-10 14:34] LABS: Influenza A PCR NEGATIVE (Negative); Influenza B PCR NEGATIVE (Negative); Resp Syncy Virus RNA Qual PCR NEGATIVE (Negative); SARS COV2 PCR INHOUSE NEGATIVE (Negative)
[2022-09-10 15:39] LABS: MANUAL DIFF FLAG NO
[2022-09-10 15:40] LABS: Basophils Percent Auto 0.2 % (0-2); Eosinophils Absolute Auto 0.1 X10*3/uL (0.0-0.4); Eosinophils Percent Auto 0.3 % (0-4); Hematocrit 38.4 % (42.0-52.0); Hemoglobin 12.7 g/dl (14.0-18.0); Imm Gran Abs Auto 0.07 X10*3/uL (0.00-0.03); Imm Gran Pct Auto 0.4 % (0.0-0.4); Lymphocytes Absolute Auto 2.3 X10*3/uL (1.2-4.9); Lymphocytes Percent Auto 12.4 % (20-40); Mean Corpuscular HGB Conc 33.1 g/dl (31.0-36.0); Mean Corpuscular Hemoglobin 28.2 pg (27.0-33.0); Mean Corpuscular Volume 85.1 fL (80.0-98.0); Monocytes Percent Auto 5.4 % (2-11); Neutrophils Absolute Auto 15.1 x10*3/uL (2.0-8.3); Neutrophils Percent Auto 81.3 % (45-73); Platelet Count 384 X10*3/uL (160-400); Red Blood Count 4.51 X10*6/uL (4.60-5.80); Red Cell Distribution Width 14.8 % (11.0-16.0); White Blood Count 18.5 X10*3/uL (4.8-10.8)
[2022-09-10 15:45] LABS: INTERNATIONAL NORM RATIO 1.1 (0.9-1.1); Prothrombin Time 12.2 SEC (10.0-13.1)
[2022-09-10 15:48] LABS: Partial Thromboplastin Time 34.6 SEC (26.0-36.4)
[2022-09-10 15:56] LABS: Alanine Aminotransferase 33 U/L (0-40); Alkaline Phosphatase 114 U/L (39-117); Anion Gap 12 (12-20); Aspartate Amino Transferase 15 U/L (5-37); Bilirubin Total 0.9 mg/dL (0.0-1.0); Blood Urea Nitrogen 14 mg/dL (9-16); Carbon Dioxide 27 mmol/L (22-29); Chloride 104 mmol/L (96-108); Creatinine Clr Calc Pharmacy 79.8; Estimated Glomerular Filt Rate > 60; Glucose Random 128 mg/dL (60-115); Potassium 4.4 mmol/L (3.3-5.1); Sodium 139 mmol/L (135-145); Total Protein 7.2 g/dL (6.5-8.0)
[2022-09-10 16:04] LABS: Troponin-I High Sensitivity < 2.7 ng/L (<3.5-35.0)
[2022-09-10 16:34] LABS: B Type Natriuretic Peptide < 10 pg/mL (<100)
[2022-09-10] MEDS: 0.9 % Sodium Chloride 1,000 ML 999 ML IV ×2 (17:06→22:00)
[2022-09-10 17:09] LABS: Lactic Acid 1.8 mmol/L (0.5-2.0)
--- NOTE | 2022-09-10 17:36 | MHC.EDTECH ---
this pct assumed care of pt at 1650 ,pt was hooked up to facing slitter ,vitals sign taken and 2nd set blood cuilture drawn and sent to lab .
[2022-09-10] MEDS: Acetaminophen 325 MG TABLET 975 MG PO (17:53)
[2022-09-10] MEDS: Ketorolac Tromethamine 30 MG/ML VIAL IVPUSH (17:54)
[2022-09-10] MEDS: iohexoL 350 MG/ML 100 ML INFUS..BTL IV (19:34)
--- NOTE | 2022-09-10 19:51 | MHC.EDTECH ---
2000 rounding done ,vitals sign taken ,pt repeated lab drawn and sent to lab .
--- NOTE | 2022-09-10 21:06 | PC.NURSE ---
LS HAD IMPROVED POST NEB TX, NOW MOVING LESS AIR, INCREASING COUGHING, EXPERIENCING RIB PAIN. PA NOTIFIED. REMAINS AFEBRILE, VSS, NSR IN 90S ON MONITOR, SPO2 WNL.
[2022-09-10] MEDS: Albuterol Sulfate (0.083%) 2.5 MG/3 ML VIAL.NEB 5 MG INHALE (21:21)
--- NOTE | 2022-09-10 21:43 | PM.IMHP ---
History of Present Illness Date of Service: 09/10/22 Chief Complaint: Cough This is a 51 year old male with pertinent history of bronchiectasis, asthma, essential hypertension, GERD who presents to the emergency department for evaluation of cough and fevers. Patient states he was recently diagnosed with pneumonia and treated with oral antibiotics which he completed last month. He recently completed a course of doxycycline. Patient started having fevers, cough and pleuritic chest discomfort soon after he finished his antibiotic course. It worsened on the day of presentation which prompted ER visit. The chest pain is right-sided and worse with cough or deep inspiration. Patient sees Dr. Rutherford, pulmonology as an outpatient. States he has had extensive outpatient workup including negative HIV testing, negative TB and bronchoscopy with biopsies negative for malignancy. Has had a persistent right-sided perihilar infiltrate. Patient denies vomiting, palpitations, shortness of breath, abdominal pain, changes in urinary or bowel habits. In the emergency department, CT consistent with bronchiectasis. He was febrile with temp of 101.4 degrees and WBC with leukocytosis Review of Systems Constitutional: Constitutional: Reports chills, Reports fever(s), Reports lethargy and Reports malaise Cardiovascular: Cardiovascular: Reports chest pain Respiratory: Respiratory: Reports cough Gastrointestinal: Gastrointestinal: Reports no additional gastrointestinal complaints Genitourinary: Genitourinary: Reports no additional male genitourinary complaints Musculoskeletal: Musculoskeletal: Reports no additional musculoskeletal complaints [facility] Medical History Asthma Bronchiectasis COPD (chronic obstructive pulmonary disease) Heartburn Hypoxia Pneumonia Recurrent pneumonia Sepsis Family History Sister Breast CA Surgical History No pertinent past surgical history Social History Household Members: None Housing: Apartment Do you presently have visiting nurse or other home services: No Alcohol intake: unknown Patient Tobacco Use Status: Former Tobacco user Tobacco use type: Cigarette Smoked in Last 30 Days: No e-Cigarette/Vaping Use: Never Used Second Hand Smoke Exposure: No Use of substances other than those prescribed or required for medical reasons: No Substance Use Type: Unknown Currently Displaying Signs/Symptoms of Drug Intoxication Withdrawal: No Have you been hit, kicked, punched, or otherwise hurt by someone within the past year? If so, by whom?: No Do you feel safe in your current relationship?: No Current Relationship Is there a partner from a previous relationship who is making you feel unsafe now?: No Are you made to feel afraid or neglected: No Advance Directives: Yes Advance Directives on File: Yes Advance Directives Date on File: 06/21/21 Do you have thoughts of harming others: None Do you have a plan to hurt others: No Plan service: No Current occupational status: employed Meds Allergies Allergy/AdvReac Type Severity Reaction Status Date / Time clindamycin [Clindamycin] Allergy Severe SEVERE Verified 08/24/22 22:11 ITCHING Home Medications Medication Instructions Recorded Confirmed Last Taken Type omeprazole 20 mg tablet,delayed 20 mg PO DAILY@0630 06/21/21 09/10/22 09/06/22 History release atorvastatin 20 mg tablet 20 mg PO DAILY 09/22/21 09/10/22 09/06/22 History fluticasone propionate 50 2 spray intranasal DAILY 09/22/21 09/10/22 09/06/22 History mcg/actuation nasal spray,suspension benzonatate 100 mg capsule 100 mg PO TID PRN Cough 09/10/22 09/10/22 Unknown History hydrochlorothiazide 25 mg tablet 25 mg PO DAILY 09/10/22 09/10/22 09/06/22 History multivitamin 1 tab PO DAILY 09/10/22 09/10/22 09/06/22 History Physical Exam Vital Signs and Narrative: Vital Signs: Last Vital Signs Temp 98.4 F 09/10/22 19:40 Pulse 99 09/10/22 21:21 Resp 20 09/10/22 21:21 BP 118/72 09/10/22 19:40 Pulse Ox 97 09/10/22 19:40 O2 Del Method Room Air 09/10/22 19:40 BMI result Body Mass Index 24.3 Middle-aged male lying in bed in mild distress Neck supple, no JVD Tachycardia with regular rhythm, S1-S2 heard Right-sided crackles without wheezing Abdomen soft nontender, no guarding, no rigidity Patient is awake, alert and oriented to self, place, time and person ; no focal motor deficit Psych: Normal mood No pedal edema Results Labs 09/10/22 15:33 09/10/22 15:33 Labs: Laboratory Results - last 24 hr 09/10/22 09/10/22 09/10/22 13:46 15:33 15:33 MCV 85.1 MCH 28.2 MCHC 33.1 RDW 14.8 Plt Count 384 MPV 9.0 L Immature Gran % (Auto) 0.4 Neut % (Auto) 81.3 H Lymph % (Auto) 12.4 L [place] % (Auto) 5.4 Eos % (Auto) 0.3 Baso % (Auto) 0.2 Lymph # (Auto) 2.3 [place] # (Auto) 1.0 Eos # (Auto) 0.1 Baso # (Auto) 0.0 Abs Immat Gran (auto) 0.07 H Absolute Neuts (auto) 15.1 H Absolute Nucleated RBC 0.000 Nucleated RBC % (auto) 0.0 PT 12.2 INR 1.1 APTT 34.6 Anion Gap Estim Creat Clear Calc Estimated GFR Random Glucose Lactic Acid Calcium Total Bilirubin AST ALT Alkaline Phosphatase Troponin I High Sens B-Natriuretic Peptide Total Protein Albumin Influenza Type A (PCR) NEGATIVE Influenza Type B (PCR) NEGATIVE RSV RNA Qual (PCR) NEGATIVE SARS-CoV-2 RNA (RT-PCR) NEGATIVE 09/10/22 09/10/22 09/10/22 15:33 15:33 15:33 MCV MCH MCHC RDW Plt Count MPV Immature Gran % (Auto) Neut % (Auto) Lymph % (Auto) [place] % (Auto) Eos % (Auto) Baso % (Auto) Lymph # (Auto) [place] # (Auto) Eos # (Auto) Baso # (Auto) Abs Immat Gran (auto) Absolute Neuts (auto) Absolute Nucleated RBC Nucleated RBC % (auto) PT INR APTT Anion Gap 12 Estim Creat Clear Calc 79.8 Estimated GFR > 60 Random Glucose 128 H Lactic Acid Calcium 9.0 Total Bilirubin 0.9 AST 15 ALT 33 Alkaline Phosphatase 114 Troponin I High Sens < 2.7 B-Natriuretic Peptide < 10 Total Protein 7.2 Albumin 4.0 Influenza Type A (PCR) Influenza Type B (PCR) RSV RNA Qual (PCR) SARS-CoV-2 RNA (RT-PCR) 09/10/22 16:53 MCV MCH MCHC RDW Plt Count MPV Immature Gran % (Auto) Neut % (Auto) Lymph % (Auto) [place] % (Auto) Eos % (Auto) Baso % (Auto) Lymph # (Auto) [place] # (Auto) Eos # (Auto) Baso # (Auto) Abs Immat Gran (auto) Absolute Neuts (auto) Absolute Nucleated RBC Nucleated RBC % (auto) PT INR APTT Anion Gap Estim Creat Clear Calc Estimated GFR Random Glucose Lactic Acid 1.8 Calcium Total Bilirubin AST ALT Alkaline Phosphatase Troponin I High Sens B-Natriuretic Peptide Total Protein Albumin Influenza Type A (PCR) Influenza Type B (PCR) RSV RNA Qual (PCR) SARS-CoV-2 RNA (RT-PCR) Imaging Radiologist's Impressions: Impressions Chest X-Ray 09/10/22 13:54 IMPRESSION: Right parahilar and infrahilar infiltrate with bilateral bronchiectasis similar to CT chest 08/27/2022. Chest CTA 09/10/22 19:40 IMPRESSION: Limited exam due to late timing of IV contrast. No definite pulmonary embolism seen. Decreased contrast opacification of the right middle lobe pulmonary artery and right superior pulmonary vein. This is similar to previous chest CTA from June 2021 and may be related to mass effect from enlarged right hilar lymph nodes and chronic atelectasis/consolidation in the right middle lobe. Extensive bronchiectasis and airways disease in the right lung similar to previous exams. Enlarged partially calcified hilar and mediastinal lymph nodes similar to previous exams. VTE: negative Assessment and Plan (1) Bronchiectasis: Status: Acute Plan This is a 51 year old male with pertinent history of bronchiectasis, asthma, essential hypertension, GERD who presents to the emergency department for evaluation of cough and fevers. #.Sepsis due to ?acute exacerbation of bronchiectasis: Resuscitated with IV crystalloids in the ER. Blood cultures and lactic acid obtained. Initiating empiric IV antibiotics. Consulting Pulmonary, appreciate assistance. Noted previous positive MRSA nasal screen. Continue home inhalers. Cryptococcal antigen pending. #. Asthma: No exacerbation on admission. Raghu p.r.n. #. Essential hypertension: Hold hydrochlorothiazide in the setting of sepsis. Resume as appropriate DVT prophylaxis: Lovenox 40 mg daily Cardiac diet Full code Admit as inpatient and will require two night minimum hospital stay for IV antibiotics Time Spent With Patient Time: Total time managing care of this patient today ____ minutes. Quality Stroke Does the patient have a stroke diagnosis?: No VTE Prior VTE?: No VTE Risk Level:: Medical - moderate - high VTE Device Contraindication: Treatment Not Indicated VTE Drug Contraindication: N/A - Med Ordered
[2022-09-10] MEDS: Enoxaparin Sodium 40 MG/0.4 ML SYRINGE SUBCUT (21:56)
[2022-09-10] MEDS: cefEPime HCl 2 GM in 0.9 % Sodium Chloride 50 ML IV (21:56)
--- NOTE | 2022-09-10 21:59 | PHA.MEDREC ---
Pharmacy Consult ? Medication Reconciliation Pharmacy has completed the medication reconciliation. Spoke to patient to confirm meds.
--- NOTE | 2022-09-10 22:06 | PHA.PROG ---
Admission Date/Time: September 10, 2022 21:41 Indication: RESP INFECTION Weight in k.843 kg Adjusted body weight in Kg: [place] body weight in Kg: Obesity Dosing Indication % IBW: Serum Creatinine - Last 168 Hours 09/10/22 15:33 Creatinine 1.07 Estimated CrCl and GFR - Last 168 Hours 09/10/22 15:33 Estim Creat Clear Calc 79.8 Estimated GFR > 60 Vancomycin Loading Dose: 1500 MG Current Vancomycin Dosing Regimen: 750 MG Q12 H Vancomycin Monitoring using AUC goal of 400 - 600 range with trough as surrogate marker: AUC 423, TROUGH 13.6 Date and Time for next Vancomycin Level to be drawn: 09/12 @0900 Pharmacist Comments on Vancomycin Plan: IF SCR IMPROVES PLEASE INCREASE DOSE Vancomycin dosing will take advantage of [employer] as a clinical decision support tool that uses Bayesian modeling to calculate individual patient's pharmacokinetic parameters and forecast the patient's drug concentration time course with the target goal AUC 24 range of 400 - 600 mg/L/hr.
[2022-09-10] MEDS: vancomycin HCL 1,500 MG in 0.9 % Sodium Chloride 500 ML 333.33 MG IV (22:40)
--- NOTE | 2022-09-10 23:12 | PC.NURSE ---
report given to lennox alejo [facility].
--- NOTE | 2022-09-10 23:26 | PC.NURSE ---
report given by prior nurse valeyr chavira transport to room 444
[2022-09-10] MEDS: Benzonatate 100 MG CAPSULE PO (23:42)
[2022-09-11] VITALS (10 sets, daily range): BP systolic 131–153; BP diastolic 62–86; PULSE 89–114; RESP 13–20; TEMP 36.6–38.2; O2SAT 91–97; BMI 24.4
[2022-09-11] MEDS: Morphine Sulfate 2 MG/ML CARTRIDGE IVPUSH ×2 (04:08→08:24)
[2022-09-11] MEDS: Acetaminophen 325 MG TABLET 650 MG PO ×2 (04:08→14:02)
[2022-09-11] MEDS: Albuterol/Iprat 2.5/0.5MG 3 ML AMPUL.NEB INHALE ×2 (04:45→20:12)
[2022-09-11] MEDS: cefEPime HCl 2 GM in 0.9 % Sodium Chloride 50 ML IV ×3 (05:42→22:49)
[2022-09-11] MEDS: Omeprazole 20 MG CAPSULE.DR PO (05:43)
[2022-09-11 05:50] LABS: MANUAL DIFF FLAG NO
[2022-09-11 05:54] LABS: Basophils Absolute Auto 0.1 X10*3/uL (0.0-0.2); Basophils Percent Auto 0.5 % (0-2); Eosinophils Percent Auto 0.3 % (0-4); Hematocrit 31.8 % (42.0-52.0); Hemoglobin 10.3 g/dl (14.0-18.0); Imm Gran Abs Auto 0.06 X10*3/uL (0.00-0.03); Imm Gran Pct Auto 0.4 % (0.0-0.4); Lymphocytes Absolute Auto 2.7 X10*3/uL (1.2-4.9); Lymphocytes Percent Auto 17.6 % (20-40); Mean Corpuscular HGB Conc 32.4 g/dl (31.0-36.0); Mean Corpuscular Hemoglobin 27.8 pg (27.0-33.0); Mean Corpuscular Volume 85.9 fL (80.0-98.0); Mean Platelet Volume 10.2 fL (9.4-12.4); Monocytes Absolute Auto 0.9 X10*3/uL (0.1-1.2); Monocytes Percent Auto 6.2 % (2-11); Neutrophils Absolute Auto 11.4 x10*3/uL (2.0-8.3); Platelet Count 271 X10*3/uL (160-400); Red Cell Distribution Width 15.1 % (11.0-16.0); White Blood Count 15.2 X10*3/uL (4.8-10.8)
[2022-09-11 06:30] LABS: Anion Gap 12 (12-20); Blood Urea Nitrogen 15 mg/dL (9-16); Calcium 8.1 mg/dL (8.4-10.2); Carbon Dioxide 20 mmol/L (22-29); Chloride 109 mmol/L (96-108); Creatinine Clr Calc Pharmacy 92.8; Estimated Glomerular Filt Rate > 60; Glucose Random 106 mg/dL (60-115); Potassium 4.3 mmol/L (3.3-5.1); Sodium 137 mmol/L (135-145)
--- NOTE | 2022-09-11 07:23 | HE.PHANOTE ---
Vancomycin Dosing Renal function had slight improvement. Will increase dose to vancomycin 1000 mg Q12H. new expected AUC 517 with a trough of 16.2. Level still scheduled for 09/12 @ 0900. Meaghan FernandezD
[2022-09-11] MEDS: Atorvastatin Calcium 20 MG TABLET PO (07:48)
[2022-09-11] MEDS: 0.9 % Sodium Chloride Flush 3 ML SYRINGE IVFLUSH ×3 (07:48→22:52)
[2022-09-11] MEDS: Fluticasone Propionate Nasal 16 GM SPRAY 2 SPRAY NOSTRIL-B (07:48)
[2022-09-11] MEDS: Multivitamin TABLET 1 TAB PO (07:48)
[2022-09-11] MEDS: Benzonatate 100 MG CAPSULE PO (08:24)
[2022-09-11] MEDS: guaiFENesin LA 600 MG TAB.ER.12H PO ×2 (10:02→20:01)
[2022-09-11] MEDS: vancomycin HCL 1,000 MG in 0.9 % Sodium Chloride 250 ML 270 MG IV ×2 (10:02→23:41)
--- NOTE | 2022-09-11 10:45 | MHC.CM.PN ---
CM met with Patient and his Girlfriend at bedside. Patient lives alone in an apartment and he is functionally independent and working. Home self care is the goal and CM has initiated and will follow for dc planning. Patient has received Moderna/Covid vax x3 and the PCP is Dr. Genevieve Lama.
--- NOTE | 2022-09-11 10:54 | PC.RT ---
Pt awake and alert in bed up 45 degrees. RT education and coaching done with the use of the Aerobika/pep therapy device. Pt able to use with a good effort noted and tech as well. Pt acknowledged 10 times per hour for best results is recommended. Pt aware of adjustment for resistance. Pt aware he can contact RT as needed for any further questions.
--- NOTE | 2022-09-11 13:25 | P.PNIM_ITS ---
Subjective Subjective Date of Service: 09/11/22 Interval History: Seen and evaluated having severe bouts of coughing no fever, chills reports dyspnea on exertion no other overnight events Review of Systems Review of Systems: Yes all other systems are reviewed and are negative Physical Exam Vital Signs: Vital Signs: Last Vital Signs Temp 97.9 F 09/11/22 07:00 Pulse 102 H 09/11/22 07:00 Resp 18 09/11/22 07:00 BP 140/86 H 09/11/22 07:00 Pulse Ox 94 09/11/22 07:00 O2 Del Method Room Air 09/11/22 07:00 BMI result Body Mass Index 24.4 Const: Other: Constitutional : Awake, interactive, not in distress Neck : Normal inspection, Supple Cardiovascular : RRR, no JVP, no lower extremity edema Respiratory : good bilateral air entry, right sided basal fine crackles, no wheezes Gastrointestinal: soft, lax, Normal bowel sounds, Non tender Skin : Warm, Dry Neurological : Alert & oriented x3, No focal deficit Objective Data Active Medications Acetaminophen (Acetaminophen 325 Mg Tablet) 650 mg PO Q6H PRN PRN Reason: Pain, Mild (Pain Scale 1-3) Last Admin: 09/11/22 04:08 Dose: 650 mg Documented By: ALISA Albuterol Sulfate (Albuterol Sulfate 90 Mcg 8 Gm Inhaler) 2 puff INHALE Q6H PRN PRN Reason: shortness of breath or wheezing Albuterol/Ipratropium (Albuterol/Iprat 2.5/0.5mg 3 Ml Ampul.Neb) 3 ml INHALE Q4H PRN PRN Reason: Wheezing Last Admin: 09/11/22 04:45 Dose: 3 ml Documented By: SAILAJA Atorvastatin Calcium (Atorvastatin Calcium 20 Mg Tablet) 20 mg PO DAILY [facility] Last Admin: 09/11/22 07:48 Dose: 20 mg Documented By: TYRON Benzonatate (Benzonatate 100 Mg Capsule) 200 mg PO TID [facility] Last Admin: 09/11/22 09:50 Dose: Not Given Documented By: TYRON Non-Admin Reason: gave prn dose this am Enoxaparin Sodium (Enoxaparin Sodium 40 Mg/0.4 Ml Syringe) 40 mg SUBCUT Q24H [facility] Last Admin: 09/10/22 21:56 Dose: 40 mg Documented By: JARED Fluticasone Propionate (Fluticasone Propionate Nasal 16 Gm [place]) 2 spray NOSTRIL-B DAILY [facility] Last Admin: 09/11/22 07:48 Dose: 2 spray Documented By: TYRON Guaifenesin (Guaifenesin La 600 Mg Tab.Er.12h) 600 mg PO BID [facility] Last Admin: 09/11/22 10:02 Dose: 600 mg Documented By: TYRON Cefepime HCl 2 gm/ Sodium (Chloride) 50 mls @ 100 mls/hr IV Q8H [facility] Last Infusion: 09/11/22 06:20 Dose: 0 mls/hr Documented By: ALISA Vancomycin HCl 1,000 mg/ (Sodium Chloride) 270 mls @ 270 mls/hr IV Q12H [facility] Last Infusion: 09/11/22 11:04 Dose: 0 mls/hr Documented By: TYRON Melatonin (Melatonin 3 Mg Tablet) 6 mg PO BEDTIME PRN PRN Reason: Insomnia Morphine Sulfate (Morphine Sulfate 2 Mg/Ml Cartridge) 2 mg IVPUSH Q4H PRN; Protocol PRN Reason: Pain, Severe (Pain Scale 7-10) Last Admin: 09/11/22 08:24 Dose: 2 mg Documented By: TYRON Multivitamins/Vitamin C (Multivitamin Tablet) 1 tab PO DAILY [facility] Last Admin: 09/11/22 07:48 Dose: 1 tab Documented By: TYRON Omeprazole (Omeprazole 20 Mg Capsule.Dr) 20 mg PO DAILY@0630 [facility] Last Admin: 09/11/22 05:43 Dose: 20 mg Documented By: ALISA Ondansetron HCl (Ondansetron Hcl 4 Mg/2 Ml Vial) 4 mg IVPUSH Q8H PRN PRN Reason: Nausea and Vomiting Pharmacy Consult (Consult Rx Perform Med Rec) 1 each MISCELLANE ONCE PRN PRN Reason: Consult order Pharmacy Consult (Consult Rx Vancomycin Dosing) 1 each MISCELLANE DAILY PRN PRN Reason: Consult order Sodium Chloride (0.9 % Sodium Chloride Flush 3 Ml Syringe) 3 ml IVFLUSH QSHIFT [facility] Last Admin: 09/11/22 07:48 Dose: 3 ml Documented By: TYRON Labs 09/11/22 05:24 09/11/22 05:24 Labs: Laboratory Results - last 24 hr 09/10/22 09/10/22 09/10/22 13:46 15:33 15:33 MCV 85.1 MCH 28.2 MCHC 33.1 RDW 14.8 Plt Count 384 MPV 9.0 L Immature Gran % (Auto) 0.4 Neut % (Auto) 81.3 H Lymph % (Auto) 12.4 L [place] % (Auto) 5.4 Eos % (Auto) 0.3 Baso % (Auto) 0.2 Lymph # (Auto) 2.3 [place] # (Auto) 1.0 Eos # (Auto) 0.1 Baso # (Auto) 0.0 Abs Immat Gran (auto) 0.07 H Absolute Neuts (auto) 15.1 H Absolute Nucleated RBC 0.000 Nucleated RBC % (auto) 0.0 PT 12.2 INR 1.1 APTT 34.6 Anion Gap Estim Creat Clear Calc Estimated GFR Random Glucose Lactic Acid Calcium Total Bilirubin AST ALT Alkaline Phosphatase Troponin I High Sens B-Natriuretic Peptide Total Protein Albumin Influenza Type A (PCR) NEGATIVE Influenza Type B (PCR) NEGATIVE RSV RNA Qual (PCR) NEGATIVE SARS-CoV-2 RNA (RT-PCR) NEGATIVE 09/10/22 09/10/22 09/10/22 15:33 15:33 15:33 MCV MCH MCHC RDW Plt Count MPV Immature Gran % (Auto) Neut % (Auto) Lymph % (Auto) [place] % (Auto) Eos % (Auto) Baso % (Auto) Lymph # (Auto) [place] # (Auto) Eos # (Auto) Baso # (Auto) Abs Immat Gran (auto) Absolute Neuts (auto) Absolute Nucleated RBC Nucleated RBC % (auto) PT INR APTT Anion Gap 12 Estim Creat Clear Calc 79.8 Estimated GFR > 60 Random Glucose 128 H Lactic Acid Calcium 9.0 Total Bilirubin 0.9 AST 15 ALT 33 Alkaline Phosphatase 114 Troponin I High Sens < 2.7 B-Natriuretic Peptide < 10 Total Protein 7.2 Albumin 4.0 Influenza Type A (PCR) Influenza Type B (PCR) RSV RNA Qual (PCR) SARS-CoV-2 RNA (RT-PCR) 09/10/22 09/11/22 09/11/22 16:53 05:24 05:24 MCV 85.9 MCH 27.8 MCHC 32.4 RDW 15.1 Plt Count 271 D MPV 10.2 Immature Gran % (Auto) 0.4 Neut % (Auto) 75.0 H Lymph % (Auto) 17.6 L [place] % (Auto) 6.2 Eos % (Auto) 0.3 Baso % (Auto) 0.5 Lymph # (Auto) 2.7 [place] # (Auto) 0.9 Eos # (Auto) 0.0 Baso # (Auto) 0.1 Abs Immat Gran (auto) 0.06 H Absolute Neuts (auto) 11.4 H Absolute Nucleated RBC 0.000 Nucleated RBC % (auto) 0.0 PT INR APTT Anion Gap 12 Estim Creat Clear Calc 92.8 Estimated GFR > 60 Random Glucose 106 Lactic Acid 1.8 Calcium 8.1 L D Total Bilirubin AST ALT Alkaline Phosphatase Troponin I High Sens B-Natriuretic Peptide Total Protein Albumin Influenza Type A (PCR) Influenza Type B (PCR) RSV RNA Qual (PCR) SARS-CoV-2 RNA (RT-PCR) Assessment and Plan (1) Sepsis: Status: Acute (2) Community acquired pneumonia: Status: Acute Plan This is a 51 year old male with pertinent history of bronchiectasis, asthma, essential hypertension, GERD who presents to the emergency department for evaluation of cough and fevers. # Sepsis due to pneumonia vs bronchiectasis Blood cultures pending Initiating empiric IV antibiotics. Pulmonary consult pending previous positive MRSA nasal screen Continue home inhalers Cryptococcal antigen pending check sputum culture start chest PT cough medicine # Asthma No exacerbation on admission Albuterol neb prn # Essential hypertension Hold hydrochlorothiazide in the setting of sepsis. Resume as appropriate DVT prophylaxis: Lovenox 40 mg daily Full code PAtient will require overnight minimum hospital stay for IV antibiotics pending final cultures and specialist eval. Time Spent With Patient Time: Total time managing care of this patient today ____ minutes. Quality Stroke Does the patient have a stroke diagnosis?: No VTE Prior VTE?: No VTE Risk Level:: Medical - moderate - high VTE Device Contraindication: Treatment Not Indicated VTE Drug Contraindication: N/A - Med Ordered
[2022-09-11] MEDS: Ketorolac Tromethamine 30 MG/ML VIAL IVPUSH (14:01)
[2022-09-11] MEDS: Benzonatate 100 MG CAPSULE 200 MG PO ×2 (14:02→20:00)
--- NOTE | 2022-09-11 14:30 | PC.NURSE ---
Patient c/o worsening 03/12 right sided chest pain, worse with coughing and reposition. Temp 100.6 oral. MD notified. Toradol IVP ordered and administered with some effect - patient reports pain down to 7/10. Scheduled tessolon and PRN tylenol administered per EMAR and pending effectivness.
--- NOTE | 2022-09-11 16:25 | P.CONPL_ITS ---
History of Present Illness History of Present Illness Consult date: 09/11/22 Chief complaint: Cough Narrative: This is an inpatient pulmonary consulation. This is a 51 year old male with pe rtinent history of bronchiectasis, asthma, essential hypertension, GERD who presents to the emergency department for evaluation of cough and fevers.? Patient states he was recently diagnosed with pneumonia and treated with oral antibiotics which he completed last month.? He recently completed a course of doxycycline.? Patient started having fevers, cough and pleuritic chest discomfort soon after he finished his antibiotic course.? It worsened on the day of presentation which prompted ER visit.? The chest pain is right-sided and worse with cough or deep inspiration.?In the emergency department, CT chest with extensive bronchiectasis and persistent RML consolidation.? He was febrile with temp of 101.4 degrees and WBC with leukocytosis. Now on broad spectrum antibiotics. Clinically improving, although with right sided pleuretic chest pain. Review of Systems Constitutional: Constitutional: Reports chills, Reports fever(s), Reports lethargy and Reports malaise Cardiovascular: Cardiovascular: Reports chest pain Respiratory: Respiratory: Reports cough, Reports pain on inspiration and Reports pain with cough Gastrointestinal: Gastrointestinal: Reports no additional gastrointestinal complaints Genitourinary: Genitourinary: Reports no additional male genitourinary comp laints Musculoskeletal: Musculoskeletal: Reports no additional musculoskeletal complaints PMFSH Past Medical History Medical History Asthma Bronchiectasis COPD (chronic obstructive pulmonary disease) Heartburn Hypoxia Pneumonia Recurrent pneumonia Sepsis Family History Family History Sister Breast CA Surgical History Surgical History No pertinent past surgical history Social History Social History Household Members: None Housing: Apartment Do you presently have visiting nurse or other home services: No Alcohol intake: unknown Patient Tobacco Use Status: Former Tobacco user Tobacco use type: Cigarette Smoked in Last 30 Days: No e-Cigarette/Vaping Use: Never Used Second Hand Smoke Exposure: No Use of substances other than those prescribed or required for medical reasons: No Substance Use Type: Unknown Currently Displaying Signs/Symptoms of Drug Intoxication Withdrawal: No Have you been hit, kicked, punched, or otherwise hurt by someone within the past year? If so, by whom?: No Do you feel safe in your current relationship?: No Current Relationship Is there a partner from a previous relationship who is making you feel unsafe now?: No Are you made to feel afraid or neglected: No Advance Directives: Yes Advance Directives on File: Yes Advance Directives Date on File: 06/21/21 Do you have thoughts of harming others: None Do you have a plan to hurt others: No Plan service: No Current occupational status: employed Meds Allergies Allergy/AdvReac Type Severity Reaction Status Date / Time clindamycin [Clindamycin] Allergy Severe SEVERE Verified 08/24/22 22:11 ITCHING Active Medications: Current Medications Acetaminophen (Acetaminophen 325 Mg Tablet) 650 mg PO Q6H PRN PRN Reason: Pain, Mild (Pain Scale 1-3) Last Admin: 09/11/22 14:02 Dose: 650 mg Albuterol Sulfate (Albuterol Sulfate 90 Mcg 8 Gm Inhaler) 2 puff INHALE Q6H PRN PRN Reason: shortness of breath or wheezing Albuterol/Ipratropium (Albuterol/Iprat 2.5/0.5mg 3 Ml Ampul.Neb) 3 ml INHALE Q4H PRN PRN Reason: Wheezing Last Admin: 09/11/22 04:45 Dose: 3 ml Atorvastatin Calcium (Atorvastatin Calcium 20 Mg Tablet) 20 mg PO DAILY [facility] Last Admin: 09/11/22 07:48 Dose: 20 mg Benzonatate (Benzonatate 100 Mg Capsule) 200 mg PO TID [facility] Last Admin: 09/11/22 14:02 Dose: 200 mg Enoxaparin Sodium (Enoxaparin Sodium 40 Mg/0.4 Ml Syringe) 40 mg SUBCUT Q24H [facility] Last Admin: 09/10/22 21:56 Dose: 40 mg Fluticasone Propionate (Fluticasone Propionate Nasal 16 Gm [place]) 2 spray NOSTRIL-B DAILY [facility] Last Admin: 09/11/22 07:48 Dose: 2 spray Guaifenesin (Guaifenesin La 600 Mg Tab.Er.12h) 600 mg PO BID [facility] Last Admin: 09/11/22 10:02 Dose: 600 mg Cefepime HCl 2 gm/ Sodium (Chloride) 50 mls @ 100 mls/hr IV Q8H [facility] Last Infusion: 09/11/22 14:09 Dose: Infused Vancomycin HCl 1,000 mg/ (Sodium Chloride) 270 mls @ 270 mls/hr IV Q12H [facility] Last Infusion: 09/11/22 11:04 Dose: Infused Ketorolac Tromethamine (Ketorolac Tromethamine 15 Mg/Ml Vial) 15 mg IVPUSH Q6H [facility] Stop: 09/12/22 10:31 Melatonin (Melatonin 3 Mg Tablet) 6 mg PO BEDTIME PRN PRN Reason: Insomnia Morphine Sulfate (Morphine Sulfate 2 Mg/Ml Cartridge) 2 mg IVPUSH Q4H PRN; Protocol PRN Reason: Pain, Severe (Pain Scale 7-10) Last Admin: 09/11/22 08:24 Dose: 2 mg Multivitamins/Vitamin C (Multivitamin Tablet) 1 tab PO DAILY [facility] Last Admin: 09/11/22 07:48 Dose: 1 tab Omeprazole (Omeprazole 20 Mg Capsule.) 20 mg PO DAILY@0630 [facility] Last Admin: 09/11/22 05:43 Dose: 20 mg Ondansetron HCl (Ondansetron Hcl 4 Mg/2 Ml Vial) 4 mg IVPUSH Q8H PRN PRN Reason: Nausea and Vomiting Pharmacy Consult (Consult Rx Perform Med Rec) 1 each MISCELLANE ONCE PRN PRN Reason: Consult order Pharmacy Consult (Consult Rx Vancomycin Dosing) 1 each MISCELLANE DAILY PRN PRN Reason: Consult order Sodium Chloride (0.9 % Sodium Chloride Flush 3 Ml Syringe) 3 ml IVFLUSH QSHIFT [facility] Last Admin: 09/11/22 14:02 Dose: 3 ml Home Medications Medication Instructions Recorded Confirmed Last Taken Type omeprazole 20 mg tablet,delayed 20 mg PO DAILY@0630 06/21/21 09/10/22 09/06/22 History release atorvastatin 20 mg tablet 20 mg PO DAILY 09/22/21 09/10/22 09/06/22 History fluticasone propionate 50 2 spray intranasal DAILY 09/22/21 09/10/22 09/06/22 History mcg/actuation nasal spray,suspension benzonatate 100 mg capsule 100 mg PO TID PRN Cough 09/10/22 09/10/22 Unknown History hydrochlorothiazide 25 mg tablet 25 mg PO DAILY 09/10/22 09/10/22 09/06/22 History multivitamin 1 tab PO DAILY 09/10/22 09/10/22 09/06/22 History Physical Exam Vital Signs: Vital Signs: Last Vital Signs Temp 98.5 F 09/11/22 15:03 Pulse 101 H 09/11/22 15:03 Resp 14 09/11/22 15:03 BP 134/62 09/11/22 15:03 Pulse Ox 94 09/11/22 15:03 O2 Del Method Room Air 09/11/22 15:03 BMI result Body Mass Index 24.4 Appearance: Alert. Oriented X3. Appears generally unwell, coughing HEENT: normal external inspection CVS: Normal heart rate and rhythm. Pulses normal. Respiratory: diffuse crackles throughout right lung anguiano with mild wheezing on expiration in left upper lobe Abdomen: Soft and nontender. Skin: Skin warm and dry. Normal skin color. Normal skin turgor. No rashes. Extremities: No lower extremity edema. Neuro: Oriented X 3. Results Laboratory Findings 09/11/22 05:24 09/11/22 05:24 ABG, PT/INR, D-dimer: PT/INR, D-dimer PT 12.2 SEC (10.0-13.1) 09/10/22 15:33 INR 1.1 (0.9-1.1) 09/10/22 15:33 Abnormal lab findings: Abnormal Labs 09/10/22 09/10/22 09/11/22 15:33 15:33 05:24 WBC 18.5 H 15.2 H RBC 4.51 L 3.70 L Hgb 12.7 L 10.3 L Hct 38.4 L 31.8 L MPV 9.0 L Neut % (Auto) 81.3 H 75.0 H Lymph % (Auto) 12.4 L 17.6 L Abs Immat Gran (auto) 0.07 H 0.06 H Absolute Neuts (auto) 15.1 H 11.4 H Chloride Carbon Dioxide Random Glucose 128 H Calcium 09/11/22 05:24 WBC RBC Hgb Hct MPV Neut % (Auto) Lymph % (Auto) Abs Immat Gran (auto) Absolute Neuts (auto) Chloride 109 H Carbon Dioxide 20 L Random Glucose Calcium 8.1 L D Assessment and Plan (1) Bronchiectasis: Status: Acute (2) Asthma: Status: Acute (3) Community acquired pneumonia: Status: Acute (4) Pleuritic chest pain: Status: Resolved Plan continue broad spectrum abx. CPT with aerobika Needs to restart percusion vest at home hypertonic saline nebs BID with CPT Consider bronchoscopy, but, now on the broadspectrum abx it will not likely yield good microbiology results Sputum culture if able Toradol x 4 doses for pleuritic chest pain continue respiratory therapy Time Spent With Patient Time: Total time managing care of this patient today ____ minutes. Procedures Date of Service Date of Service: 09/11/22
[2022-09-11] MEDS: Ketorolac Tromethamine 15 MG/ML VIAL IVPUSH ×2 (16:33→22:49)
[2022-09-11] MEDS: Enoxaparin Sodium 40 MG/0.4 ML SYRINGE SUBCUT (22:48)
[2022-09-12 03:55] VITALS: BP 146/85; PULSE 91; RESP 15; TEMP 36.5; O2SAT 94
[2022-09-12] MEDS: Omeprazole 20 MG CAPSULE.DR PO (06:18)
[2022-09-12] MEDS: Ketorolac Tromethamine 15 MG/ML VIAL IVPUSH ×2 (06:18→11:14)
[2022-09-12] MEDS: cefEPime HCl 2 GM in 0.9 % Sodium Chloride 50 ML IV ×3 (06:18→22:31)
[2022-09-12 06:19] LABS: Hematocrit 32.6 % (42.0-52.0); Hemoglobin 10.4 g/dl (14.0-18.0); Mean Corpuscular HGB Conc 31.9 g/dl (31.0-36.0); Mean Corpuscular Volume 87.6 fL (80.0-98.0); Mean Platelet Volume 11.4 fL (9.4-12.4); Platelet Count 238 X10*3/uL (160-400); Red Blood Count 3.72 X10*6/uL (4.60-5.80); Red Cell Distribution Width 14.8 % (11.0-16.0); White Blood Count 10.6 X10*3/uL (4.8-10.8)
[2022-09-12 06:50] LABS: Anion Gap 13 (12-20); Blood Urea Nitrogen 13 mg/dL (9-16); Calcium 8.5 mg/dL (8.4-10.2); Carbon Dioxide 20 mmol/L (22-29); Chloride 109 mmol/L (96-108); Estimated Glomerular Filt Rate > 60; Glucose Random 91 mg/dL (60-115); Potassium 4.8 mmol/L (3.3-5.1); Sodium 137 mmol/L (135-145)
[2022-09-12 07:24] VITALS: BP 148/95; PULSE 92; RESP 18; TEMP 37.3; O2SAT 94
[2022-09-12] MEDS: Atorvastatin Calcium 20 MG TABLET PO (08:41)
[2022-09-12] MEDS: Acetaminophen 325 MG TABLET 650 MG PO ×2 (08:41→16:29)
[2022-09-12] MEDS: guaiFENesin LA 600 MG TAB.ER.12H PO ×2 (08:42→20:03)
[2022-09-12] MEDS: Multivitamin TABLET 1 TAB PO (08:42)
[2022-09-12] MEDS: Benzonatate 100 MG CAPSULE 200 MG PO ×3 (08:42→20:03)
[2022-09-12] MEDS: Fluticasone Propionate Nasal 16 GM SPRAY 2 SPRAY NOSTRIL-B (08:43)
[2022-09-12] MEDS: 0.9 % Sodium Chloride Flush 3 ML SYRINGE IVFLUSH ×2 (08:45→16:24)
--- NOTE | 2022-09-12 08:53 | PM.PNPUL ---
Subjective Subjective Date of Service: 09/12/22 Interval history: The patient was seen on exam. He is expectorating better with the flutter device. The mucus he expectorated from EP did appear to be salmon color suggesting some degree of hemoptysis mixed in with purulent secretions. His white count is coming down. He is still having pleuritic discomfort. But in view of the hemoptysis and the persistent chest pain will perform bronchoscopy tomorrow in the am. Objective Data Labs 09/12/22 05:31 09/12/22 05:31 Labs: Laboratory Results - last 24 hr 09/12/22 09/12/22 09/12/22 05:31 05:31 05:31 WBC 10.6 RBC 3.72 L Hgb 10.4 L Hct 32.6 L MCV 87.6 MCH 28.0 MCHC 31.9 RDW 14.8 Plt Count 238 MPV 11.4 Absolute Nucleated RBC 0.000 Nucleated RBC % (auto) 0.0 Sodium 137 Potassium 4.8 Chloride 109 H Carbon Dioxide 20 L Anion Gap 13 BUN 13 Creatinine Cancelled 0.88 Estim Creat Clear Calc Cancelled 97.0 Estimated GFR Cancelled > 60 Random Glucose 91 Calcium 8.5 Microbiology Microbiology Results: Microbiology 09/10/22 17:33 Blood - Venous Blood Culture - Preliminary No growth after 24 hours. 09/10/22 16:54 Blood - Venous Blood Culture - Preliminary No growth after 24 hours. Review of Systems Constitutional: Reports chills, Reports fever(s), Reports lethargy and Reports malaise Cardiovascular: Reports chest pain Respiratory: Reports cough, Reports hemoptysis, Reports pain on inspiration and Reports pain with cough Gastrointestinal: Reports no additional gastrointestinal complaints Genitourinary: Reports no additional male genitourinary complaints Musculoskeletal: Reports no additional musculoskeletal complaints Physical Exam Vital Signs: Vital Signs: Last Vital Signs Temp 99.1 F 09/12/22 07:24 Pulse 92 09/12/22 07:24 Resp 18 09/12/22 07:24 BP 148/95 H 09/12/22 07:24 Pulse Ox 94 09/12/22 07:24 O2 Del Method Room Air 09/12/22 07:24 BMI result Body Mass Index 24.4 Appearance: Alert. Oriented X3. Appears generally unwell, coughing HEENT: normal external inspection CVS: Normal heart rate and rhythm. Pulses normal. Respiratory: diffuse crackles throughout right lung anguiano with mild wheezing on expiration in left upper lobe Abdomen: Soft and nontender. Skin: Skin warm and dry. Normal skin color. Normal skin turgor. No rashes. Extremities: No lower extremity edema. Neuro: Oriented X 3. Procedures Date of Service Date of Service: 09/12/22 Assessment and Plan Assessment and plan (1) Bronchiectasis: Status: Acute (2) COPD (chronic obstructive pulmonary disease): (3) Recurrent pneumonia: Assessment and Plan: Generally he is responding well to the current treatment. Main complaint is severe cough, which is nonproductive at this time, PLAN: Continue present treatment. I have added Mucinex 1200 mg b.i.d.. (4) Hemoptysis: Status: Acute Plan Continue broad-spectrum antibiotics Continue CPT with flutter valve and neb treatments. Will benefit from going back to the percussion vest In view of the hemoptysis and the ongoing discomfort will go ahead and perform a diagnostic and therapeutic bronchoscopy. Procedures go for tomorrow 840 in the morning. Time Spent With Patient Time: Total time managing care of this patient today ____ minutes. Progress Note: Quality Stroke Does the patient have a stroke diagnosis?: No
[2022-09-12 09:37] LABS: Vancomycin Trough 6.4 mcg/mL (10.0-20.0)
--- NOTE | 2022-09-12 09:47 | HE.PHANOTE ---
Vancomycin Dosing Patient level 6.8 today. Will increase dose to vancomycin 1000 mg Q8H. New expected AUC 528 with a trough 15.2. Pharmacy to continue to monitor renal function. Jillian House, PharmD
--- NOTE | 2022-09-12 10:16 | MHC.CM.PN ---
Per ROUNDS discussion, Patient is getting a Bronch tomorrow and is therefor not yet medically cleared for dc. Home is the goal and CM will continue to follow.
[2022-09-12] MEDS: vancomycin HCL 1,000 MG in 0.9 % Sodium Chloride 250 ML 270 MG IV ×2 (11:20→20:03)
--- NOTE | 2022-09-12 11:42 | HO.PM.IMPN ---
Subjective Subjective Date of Service: 09/12/22 Interval History: overall improving Physical Exam Vital Signs: Vital Signs: Last Vital Signs Temp 99.1 F 09/12/22 07:24 Pulse 92 09/12/22 07:24 Resp 18 09/12/22 07:24 BP 148/95 H 09/12/22 07:24 Pulse Ox 94 09/12/22 07:24 O2 Del Method Room Air 09/12/22 07:24 BMI result Body Mass Index 24.4 General: AO X 3, no acute distress Resp: CTA bilateral, no accessory muscles used CVS: S1,S2,RRR GI: soft, non tender, non distended Neuro: motor grossly intact, alert Psych: appropriate affect, appropriate insight Objective Data Active Medications Acetaminophen (Acetaminophen 325 Mg Tablet) 650 mg PO Q6H PRN PRN Reason: Pain, Mild (Pain Scale 1-3) Last Admin: 09/12/22 08:41 Dose: 650 mg Documented By: ASIF Albuterol Sulfate (Albuterol Sulfate 90 Mcg 8 Gm Inhaler) 2 puff INHALE Q6H PRN PRN Reason: shortness of breath or wheezing Albuterol/Ipratropium (Albuterol/Iprat 2.5/0.5mg 3 Ml Ampul.Neb) 3 ml INHALE Q4H PRN PRN Reason: Wheezing Last Admin: 09/11/22 20:12 Dose: 3 ml Documented By: ANETTE Atorvastatin Calcium (Atorvastatin Calcium 20 Mg Tablet) 20 mg PO DAILY [facility] Last Admin: 09/12/22 08:41 Dose: 20 mg Documented By: ASIF Benzonatate (Benzonatate 100 Mg Capsule) 200 mg PO TID [facility] Last Admin: 09/12/22 08:42 Dose: 200 mg Documented By: ASIF Enoxaparin Sodium (Enoxaparin Sodium 40 Mg/0.4 Ml Syringe) 40 mg SUBCUT Q24H [facility] Last Admin: 09/11/22 22:48 Dose: 40 mg Documented By: XOCHILT Fluticasone Propionate (Fluticasone Propionate Nasal 16 Gm [place]) 2 spray NOSTRIL-B DAILY [facility] Last Admin: 09/12/22 08:43 Dose: 2 spray Documented By: ASIF Guaifenesin (Guaifenesin La 600 Mg Tab.Er.12h) 600 mg PO BID [facility] Last Admin: 09/12/22 08:42 Dose: 600 mg Documented By: ASIF Cefepime HCl 2 gm/ Sodium (Chloride) 50 mls @ 100 mls/hr IV Q8H [facility] Last Infusion: 09/12/22 07:34 Dose: 100 mls/hr Documented By: XOCHILT Vancomycin HCl 1,000 mg/ (Sodium Chloride) 270 mls @ 270 mls/hr IV Q8H [facility] Last Admin: 09/12/22 11:20 Dose: 270 mls/hr Documented By: ASIF Melatonin (Melatonin 3 Mg Tablet) 6 mg PO BEDTIME PRN PRN Reason: Insomnia Morphine Sulfate (Morphine Sulfate 2 Mg/Ml Cartridge) 2 mg IVPUSH Q4H PRN; Protocol PRN Reason: Pain, Severe (Pain Scale 7-10) Last Admin: 09/11/22 08:24 Dose: 2 mg Documented By: TYRON Multivitamins/Vitamin C (Multivitamin Tablet) 1 tab PO DAILY [facility] Last Admin: 09/12/22 08:42 Dose: 1 tab Documented By: ASIF Omeprazole (Omeprazole 20 Mg Capsule.Dr) 20 mg PO DAILY@0630 [facility] Last Admin: 09/12/22 06:18 Dose: 20 mg Documented By: XOCHILT Ondansetron HCl (Ondansetron Hcl 4 Mg/2 Ml Vial) 4 mg IVPUSH Q8H PRN PRN Reason: Nausea and Vomiting Pharmacy Consult (Consult Rx Perform Med Rec) 1 each MISCELLANE ONCE PRN PRN Reason: Consult order Pharmacy Consult (Consult Rx Vancomycin Dosing) 1 each MISCELLANE DAILY PRN PRN Reason: Consult order Sodium Chloride (0.9 % Sodium Chloride Flush 3 Ml Syringe) 3 ml IVFLUSH QSHIFT [facility] Last Admin: 09/12/22 08:45 Dose: 3 ml Documented By: ASIF Labs 09/12/22 05:31 09/12/22 05:31 Labs: Laboratory Results - last 24 hr 09/12/22 09/12/22 09/12/22 05:31 05:31 05:31 MCV 87.6 MCH 28.0 MCHC 31.9 RDW 14.8 Plt Count 238 MPV 11.4 Absolute Nucleated RBC 0.000 Nucleated RBC % (auto) 0.0 Anion Gap 13 Estim Creat Clear Calc Cancelled 97.0 Estimated GFR Cancelled > 60 Random Glucose 91 Calcium 8.5 Vancomycin Trough 09/12/22 08:53 MCV MCH MCHC RDW Plt Count MPV Absolute Nucleated RBC Nucleated RBC % (auto) Anion Gap Estim Creat Clear Calc Estimated GFR Random Glucose Calcium Vancomycin Trough 6.4 L Microbiology Microbiology Results: Microbiology 09/11/22 15:00 Gram Stain - Final Sputum - Expectorated Sputum Culture - Preliminary Culture in progress. 09/10/22 17:33 Blood Culture - Preliminary Blood - Venous No growth after 24 hours. 09/10/22 16:54 Blood Culture - Preliminary Blood - Venous No growth after 24 hours. Assessment and Plan (1) Sepsis: Status: Acute (2) Community acquired pneumonia: Status: Acute Plan 51 year old male with pertinent history of bronchiectasis, asthma, essential hypertension, GERD who presented to the emergency department for evaluation of cough and fevers. Sepsis due to pneumonia in bronchiectasis Blood cultures negative vanc, cefepime Pulmonary following - plan for bronchoscopy tomorrow previous positive MRSA nasal screen Continue home inhalers Cryptococcal antigen pending chest PT cough medicine HTN hctz DVT prophylaxis: Lovenox 40 mg daily Full code reason for continued hospitalization: plan for bronchoscopy tomorrow due to hemoptysis Time Spent With Patient Time: Total time managing care of this patient today ____ minutes. Quality Stroke Does the patient have a stroke diagnosis?: No VTE Prior VTE?: No VTE Risk Level:: Medical - moderate - high VTE Device Contraindication: Treatment Not Indicated VTE Drug Contraindication: N/A - Med Ordered
[2022-09-12 15:24] VITALS: BP 132/82; PULSE 87; RESP 13; TEMP 36.8; O2SAT 95
[2022-09-12 18:18] VITALS: BP 141/92; PULSE 90; RESP 14; TEMP 36.3; O2SAT 97
[2022-09-12] MEDS: Enoxaparin Sodium 40 MG/0.4 ML SYRINGE SUBCUT (20:03)
[2022-09-13] VITALS (11 sets, daily range): BP systolic 108–159; BP diastolic 61–97; PULSE 85–101; RESP 16–22; TEMP 36.5–37.2; O2SAT 94–98
[2022-09-13] MEDS: vancomycin HCL 1,000 MG in 0.9 % Sodium Chloride 250 ML 270 MG IV ×3 (03:47→18:10)
[2022-09-13] MEDS: Morphine Sulfate 2 MG/ML CARTRIDGE IVPUSH (04:06)
[2022-09-13] MEDS: cefEPime HCl 2 GM in 0.9 % Sodium Chloride 50 ML IV ×3 (04:52→21:47)
--- NOTE | 2022-09-13 08:11 | MHC.SHP ---
Pre-Procedural Eval Section A Date of Service: 09/13/22 The patient is an INPATIENT: Yes Section B Chief Complaint: Cough Allergies: Allergies Allergy/AdvReac Type Severity Reaction Status Date / Time clindamycin [Clindamycin] Allergy Severe SEVERE Verified 08/24/22 22:11 ITCHING Plan I have reviewed the history and physical and performed a pertinent physical examination on my patient. No changes have occurred unless specified. Time Spent With Patient Time: Total time managing care of this patient today ____ minutes.
[2022-09-13] MEDS: Lactated Ringers 1,000 ML 50 ML IVCONT (08:18)
--- NOTE | 2022-09-13 08:19 | P.CONAN_ITS ---
[facility] Active Problems Active Problems: All Active Problems (Updated 09/12/22 @ 08:59 by Da Ponce MD) Hemoptysis (Acute) Chronic pneumonia (Acute) Sepsis (Acute) Community acquired pneumonia (Acute) Bronchiectasis (Acute) Asthma (Acute) Environmental allergies (Acute) Abnormal CT scan, chest (Acute) COVID-19 (Acute) Upper respiratory infection (Acute) Past Medical History Medical History Asthma Bronchiectasis COPD (chronic obstructive pulmonary disease) Heartburn Hypoxia Pneumonia Recurrent pneumonia Sepsis Family History Family History Sister Breast CA Surgical History Surgical History No pertinent past surgical history History of Problems with Anesthesia: No Social History Social History Household Members: None Housing: Apartment Do you presently have visiting nurse or other home services: No Alcohol intake: unknown Patient Tobacco Use Status: Former Tobacco user Tobacco use type: Cigarette Smoked in Last 30 Days: No e-Cigarette/Vaping Use: Never Used Second Hand Smoke Exposure: No Use of substances other than those prescribed or required for medical reasons: No Substance Use Type: Unknown Currently Displaying Signs/Symptoms of Drug Intoxication Withdrawal: No Have you been hit, kicked, punched, or otherwise hurt by someone within the past year? If so, by whom?: No Do you feel safe in your current relationship?: No Current Relationship Is there a partner from a previous relationship who is making you feel unsafe now?: No Are you made to feel afraid or neglected: No Are you DNR?: No Advance Directives: Yes Advance Directives on File: Yes Advance Directives Date on File: 06/21/21 Do you have thoughts of harming others: None Do you have a plan to hurt others: No Plan Recently lost weight without trying: No Nutrition Risks: No Nutritional Risk service: No Current occupational status: employed Meds Allergies Allergy/AdvReac Type Severity Reaction Status Date / Time clindamycin [Clindamycin] Allergy Severe SEVERE Verified 08/24/22 22:11 ITCHING Active Medications: Current Medications Acetaminophen (Acetaminophen 325 Mg Tablet) 650 mg PO Q6H PRN PRN Reason: Pain, Mild (Pain Scale 1-3) Last Admin: 09/12/22 16:29 Dose: 650 mg Albuterol Sulfate (Albuterol Sulfate 90 Mcg 8 Gm Inhaler) 2 puff INHALE Q6H PRN PRN Reason: shortness of breath or wheezing Albuterol/Ipratropium (Albuterol/Iprat 2.5/0.5mg 3 Ml Ampul.Neb) 3 ml INHALE Q4H PRN PRN Reason: Wheezing Last Admin: 09/11/22 20:12 Dose: 3 ml Atorvastatin Calcium (Atorvastatin Calcium 20 Mg Tablet) 20 mg PO DAILY [facility] Last Admin: 09/12/22 08:41 Dose: 20 mg Benzonatate (Benzonatate 100 Mg Capsule) 200 mg PO TID [facility] Last Admin: 09/12/22 20:03 Dose: 200 mg Enoxaparin Sodium (Enoxaparin Sodium 40 Mg/0.4 Ml Syringe) 40 mg SUBCUT Q24H [facility] Last Admin: 09/12/22 20:03 Dose: 40 mg Fluticasone Propionate (Fluticasone Propionate Nasal 16 Gm [place]) 2 spray NOSTRIL-B DAILY [facility] Last Admin: 09/12/22 08:43 Dose: 2 spray Guaifenesin (Guaifenesin La 600 Mg Tab.Er.12h) 600 mg PO BID [facility] Last Admin: 09/12/22 20:03 Dose: 600 mg Hydrochlorothiazide (Hydrochlorothiazide 25 Mg Tablet) 25 mg PO DAILY [facility]; Protocol Cefepime HCl 2 gm/ Sodium (Chloride) 50 mls @ 100 mls/hr IV Q8H [facility] Last Infusion: 09/13/22 05:24 Dose: Infused Vancomycin HCl 1,000 mg/ (Sodium Chloride) 270 mls @ 270 mls/hr IV Q8H [facility] Last Infusion: 09/13/22 05:01 Dose: Infused Melatonin (Melatonin 3 Mg Tablet) 6 mg PO BEDTIME PRN PRN Reason: Insomnia Morphine Sulfate (Morphine Sulfate 2 Mg/Ml Cartridge) 2 mg IVPUSH Q4H PRN; Protocol PRN Reason: Pain, Severe (Pain Scale 7-10) Last Admin: 09/13/22 04:06 Dose: 2 mg Multivitamins/Vitamin C (Multivitamin Tablet) 1 tab PO DAILY [facility] Last Admin: 09/12/22 08:42 Dose: 1 tab Omeprazole (Omeprazole 20 Mg Capsule.) 20 mg PO DAILY@0630 [facility] Last Admin: 09/13/22 04:07 Dose: Not Given Ondansetron HCl (Ondansetron Hcl 4 Mg/2 Ml Vial) 4 mg IVPUSH Q8H PRN PRN Reason: Nausea and Vomiting Pharmacy Consult (Consult Rx Perform Med Rec) 1 each MISCELLANE ONCE PRN PRN Reason: Consult order Pharmacy Consult (Consult Rx Vancomycin Dosing) 1 each MISCELLANE DAILY PRN PRN Reason: Consult order Sodium Chloride (0.9 % Sodium Chloride Flush 3 Ml Syringe) 3 ml IVFLUSH QSHIFT [facility] Last Admin: 09/12/22 20:38 Dose: Not Given Home Medications Medication Instructions Recorded Confirmed Last Taken Type omeprazole 20 mg tablet,delayed 20 mg PO DAILY@0630 06/21/21 09/10/22 09/06/22 History release atorvastatin 20 mg tablet 20 mg PO DAILY 09/22/21 09/10/22 09/06/22 History fluticasone propionate 50 2 spray intranasal DAILY 09/22/21 09/10/22 09/06/22 History mcg/actuation nasal spray,suspension benzonatate 100 mg capsule 100 mg PO TID PRN Cough 09/10/22 09/10/22 Unknown History hydrochlorothiazide 25 mg tablet 25 mg PO DAILY 09/10/22 09/10/22 09/06/22 History multivitamin 1 tab PO DAILY 09/10/22 09/10/22 09/06/22 History Exam Exam Date and Time: September 13, 2022 0819 Height,Weight and Vital Signs: Height 5 ft 9 in Weight 75 kg Last Vital Signs Temp 98.3 F 09/13/22 07:54 Pulse 94 09/13/22 07:54 Resp 22 H 09/13/22 07:54 BP 149/97 H 09/13/22 07:54 Pulse Ox 94 09/13/22 07:54 O2 Del Method Room Air 09/13/22 07:54 Pertinent Lab Results Pertinent Lab Results: Laboratory Tests 09/10/22 09/10/22 09/10/22 13:46 15:33 15:33 WBC 18.5 H RBC 4.51 L Hgb 12.7 L Hct 38.4 L MCV 85.1 MCH 28.2 MCHC 33.1 RDW 14.8 Plt Count 384 MPV 9.0 L Immature Gran % (Auto) 0.4 Neut % (Auto) 81.3 H Lymph % (Auto) 12.4 L [place] % (Auto) 5.4 Eos % (Auto) 0.3 Baso % (Auto) 0.2 Lymph # (Auto) 2.3 [place] # (Auto) 1.0 Eos # (Auto) 0.1 Baso # (Auto) 0.0 Abs Immat Gran (auto) 0.07 H Absolute Neuts (auto) 15.1 H Absolute Nucleated RBC 0.000 Nucleated RBC % (auto) 0.0 PT 12.2 INR 1.1 APTT 34.6 Sodium Potassium Chloride Carbon Dioxide Anion Gap BUN Creatinine Estim Creat Clear Calc Estimated GFR Random Glucose Lactic Acid Calcium Total Bilirubin AST ALT Alkaline Phosphatase Troponin I High Sens B-Natriuretic Peptide Total Protein Albumin Vancomycin Trough Influenza Type A (PCR) NEGATIVE Influenza Type B (PCR) NEGATIVE RSV RNA Qual (PCR) NEGATIVE SARS-CoV-2 RNA (RT-PCR) NEGATIVE Cryptococcal Ag 09/10/22 09/10/22 09/10/22 15:33 15:33 15:33 WBC RBC Hgb Hct MCV MCH MCHC RDW Plt Count MPV Immature Gran % (Auto) Neut % (Auto) Lymph % (Auto) [place] % (Auto) Eos % (Auto) Baso % (Auto) Lymph # (Auto) [place] # (Auto) Eos # (Auto) Baso # (Auto) Abs Immat Gran (auto) Absolute Neuts (auto) Absolute Nucleated RBC Nucleated RBC % (auto) PT INR APTT Sodium 139 Potassium 4.4 Chloride 104 Carbon Dioxide 27 Anion Gap 12 BUN 14 Creatinine 1.07 Estim Creat Clear Calc 79.8 Estimated GFR > 60 Random Glucose 128 H Lactic Acid Calcium 9.0 Total Bilirubin 0.9 AST 15 ALT 33 Alkaline Phosphatase 114 Troponin I High Sens < 2.7 B-Natriuretic Peptide < 10 Total Protein 7.2 Albumin 4.0 Vancomycin Trough Influenza Type A (PCR) Influenza Type B (PCR) RSV RNA Qual (PCR) SARS-CoV-2 RNA (RT-PCR) Cryptococcal Ag 09/10/22 09/10/22 09/11/22 16:53 19:48 05:24 WBC 15.2 H RBC 3.70 L Hgb 10.3 L Hct 31.8 L MCV 85.9 MCH 27.8 MCHC 32.4 RDW 15.1 Plt Count 271 D MPV 10.2 Immature Gran % (Auto) 0.4 Neut % (Auto) 75.0 H Lymph % (Auto) 17.6 L [place] % (Auto) 6.2 Eos % (Auto) 0.3 Baso % (Auto) 0.5 Lymph # (Auto) 2.7 [place] # (Auto) 0.9 Eos # (Auto) 0.0 Baso # (Auto) 0.1 Abs Immat Gran (auto) 0.06 H Absolute Neuts (auto) 11.4 H Absolute Nucleated RBC 0.000 Nucleated RBC % (auto) 0.0 PT INR APTT Sodium Potassium Chloride Carbon Dioxide Anion Gap BUN Creatinine Estim Creat Clear Calc Estimated GFR Random Glucose Lactic Acid 1.8 Calcium Total Bilirubin AST ALT Alkaline Phosphatase Troponin I High Sens B-Natriuretic Peptide Total Protein Albumin Vancomycin Trough Influenza Type A (PCR) Influenza Type B (PCR) RSV RNA Qual (PCR) SARS-CoV-2 RNA (RT-PCR) Cryptococcal Ag SEE NOTE 09/11/22 09/12/22 09/12/22 05:24 05:31 05:31 WBC 10.6 RBC 3.72 L Hgb 10.4 L Hct 32.6 L MCV 87.6 MCH 28.0 MCHC 31.9 RDW 14.8 Plt Count 238 MPV 11.4 Immature Gran % (Auto) Neut % (Auto) Lymph % (Auto) [place] % (Auto) Eos % (Auto) Baso % (Auto) Lymph # (Auto) [place] # (Auto) Eos # (Auto) Baso # (Auto) Abs Immat Gran (auto) Absolute Neuts (auto) Absolute Nucleated RBC 0.000 Nucleated RBC % (auto) 0.0 PT INR APTT Sodium 137 Potassium 4.3 Chloride 109 H Carbon Dioxide 20 L Anion Gap 12 BUN 15 Creatinine 0.92 Cancelled Estim Creat Clear Calc 92.8 Cancelled Estimated GFR > 60 Cancelled Random Glucose 106 Lactic Acid Calcium 8.1 L D Total Bilirubin AST ALT Alkaline Phosphatase Troponin I High Sens B-Natriuretic Peptide Total Protein Albumin Vancomycin Trough Influenza Type A (PCR) Influenza Type B (PCR) RSV RNA Qual (PCR) SARS-CoV-2 RNA (RT-PCR) Cryptococcal Ag 09/12/22 09/12/22 05:31 08:53 WBC RBC Hgb Hct MCV MCH MCHC RDW Plt Count MPV Immature Gran % (Auto) Neut % (Auto) Lymph % (Auto) [place] % (Auto) Eos % (Auto) Baso % (Auto) Lymph # (Auto) [place] # (Auto) Eos # (Auto) Baso # (Auto) Abs Immat Gran (auto) Absolute Neuts (auto) Absolute Nucleated RBC Nucleated RBC % (auto) PT INR APTT Sodium 137 Potassium 4.8 Chloride 109 H Carbon Dioxide 20 L Anion Gap 13 BUN 13 Creatinine 0.88 Estim Creat Clear Calc 97.0 Estimated GFR > 60 Random Glucose 91 Lactic Acid Calcium 8.5 Total Bilirubin AST ALT Alkaline Phosphatase Troponin I High Sens B-Natriuretic Peptide Total Protein Albumin Vancomycin Trough 6.4 L Influenza Type A (PCR) Influenza Type B (PCR) RSV RNA Qual (PCR) SARS-CoV-2 RNA (RT-PCR) Cryptococcal Ag Assessment and Plan Assessment Anesthesia Assessment: Anesthesia Plan Discussed and Chart Reviewed Final Anesthetic Review History of Problems with Anesthesia: No NPO: Yes ASA Class: III Final Preanesthetic Review: Meds/Allgs Chart Reviewed, Consent Obtained/Reviewed and Anes Risks/Benef Reviewed Patient Risk: Intermediate Procedure Risk: Intermediate Anesthetic Plan Anesthetic Plan: GA Disposition: Standard PACU
[2022-09-13 10:53] LABS: Creatinine Clr Calc Pharmacy 94.9; Estimated Glomerular Filt Rate > 60; Vancomycin Trough 12.9 mcg/mL (10.0-20.0)
[2022-09-13] MEDS: hydroCHLOROthiazide 25 MG TABLET PO (11:07)
[2022-09-13] MEDS: Multivitamin TABLET 1 TAB PO (11:07)
[2022-09-13] MEDS: Benzonatate 100 MG CAPSULE 200 MG PO ×3 (11:07→19:44)
[2022-09-13] MEDS: Atorvastatin Calcium 20 MG TABLET PO (11:07)
[2022-09-13] MEDS: guaiFENesin LA 600 MG TAB.ER.12H PO ×2 (11:07→19:44)
[2022-09-13] MEDS: Acetaminophen 325 MG TABLET 650 MG PO ×2 (11:11→19:44)
--- NOTE | 2022-09-13 11:12 | P.PNIM_ITS ---
Subjective Subjective Date of Service: 09/13/22 Interval History: overall improving Physical Exam Vital Signs: Vital Signs: Last Vital Signs Temp 98.6 F 09/13/22 10:05 Pulse 89 09/13/22 10:20 Resp 22 H 09/13/22 10:20 BP 118/80 09/13/22 10:20 Pulse Ox 98 09/13/22 10:20 O2 Del Method Nasal Cannula 09/13/22 10:20 O2 Flow Rate 2 09/13/22 10:20 BMI result Body Mass Index 24.4 General: AO X 3, no acute distress Resp: CTA bilateral, no accessory muscles used CVS: S1,S2,RRR GI: soft, non tender, non distended Neuro: motor grossly intact, alert Psych: appropriate affect, appropriate insight Objective Data Active Medications Acetaminophen (Acetaminophen 325 Mg Tablet) 650 mg PO Q6H PRN PRN Reason: Pain, Mild (Pain Scale 1-3) Last Admin: 09/13/22 11:11 Dose: 650 mg Documented By: SARAH Acetaminophen (Acetaminophen 325 Mg Tablet) 650 mg PO ONCE PRN PRN Reason: Pain, Mild (Pain Scale 1-3) Albuterol Sulfate (Albuterol Sulfate 90 Mcg 8 Gm Inhaler) 2 puff INHALE Q6H PRN PRN Reason: shortness of breath or wheezing Albuterol/Ipratropium (Albuterol/Iprat 2.5/0.5mg 3 Ml Ampul.Neb) 3 ml INHALE Q4H PRN PRN Reason: Wheezing Last Admin: 09/11/22 20:12 Dose: 3 ml Documented By: ANETTE Atorvastatin Calcium (Atorvastatin Calcium 20 Mg Tablet) 20 mg PO DAILY [facility] Last Admin: 09/13/22 11:07 Dose: 20 mg Documented By: SARAH Benzonatate (Benzonatate 100 Mg Capsule) 200 mg PO TID [facility] Last Admin: 09/13/22 11:07 Dose: 200 mg Documented By: SARAH Enoxaparin Sodium (Enoxaparin Sodium 40 Mg/0.4 Ml Syringe) 40 mg SUBCUT Q24H [facility] Last Admin: 09/12/22 20:03 Dose: 40 mg Documented By: YUE Fentanyl (Fentanyl Citrate/Pf 100 Mcg/2 Ml Vial) 25 mcg IVPUSH Q5M PRN; Protocol PRN Reason: Pain, Moderate (Pain Scale 4-6 Fluticasone Propionate (Fluticasone Propionate Nasal 16 Gm [place]) 2 spray NOSTRIL-B DAILY [facility] Last Admin: 09/12/22 08:43 Dose: 2 spray Documented By: ASIF Guaifenesin (Guaifenesin [place] 600 Mg Tab.Er.12h) 600 mg PO BID [facility] Last Admin: 09/13/22 11:07 Dose: 600 mg Documented By: SARAH Hydrochlorothiazide (Hydrochlorothiazide 25 Mg Tablet) 25 mg PO DAILY [facility]; Protocol Last Admin: 09/13/22 11:07 Dose: 25 mg Documented By: SARAH Cefepime HCl 2 gm/ Sodium (Chloride) 50 mls @ 100 mls/hr IV Q8H [facility] Last Infusion: 09/13/22 05:24 Dose: 0 mls/hr Documented By: YUE Vancomycin HCl 1,000 mg/ (Sodium Chloride) 270 mls @ 270 mls/hr IV Q8H [facility] Last Infusion: 09/13/22 05:01 Dose: 0 mls/hr Documented By: YUE Lactated Ringer's (Lr) 1,000 mls @ 50 mls/hr IVCONT .Q20H [facility] Last Admin: 09/13/22 08:18 Dose: 50 mls/hr Documented By: ANTHONY Melatonin (Melatonin 3 Mg Tablet) 6 mg PO BEDTIME PRN PRN Reason: Insomnia Morphine Sulfate (Morphine Sulfate 2 Mg/Ml Cartridge) 2 mg IVPUSH Q4H PRN; Protocol PRN Reason: Pain, Severe (Pain Scale 7-10) Last Admin: 09/13/22 04:06 Dose: 2 mg Documented By: YUE Multivitamins/Vitamin C (Multivitamin Tablet) 1 tab PO DAILY [facility] Last Admin: 09/13/22 11:07 Dose: 1 tab Documented By: SARAH Omeprazole (Omeprazole 20 Mg Capsule.Dr) 20 mg PO DAILY@0630 [facility] Last Admin: 09/13/22 04:07 Dose: Not Given Documented By: YUE Non-Admin Reason: NPO Ondansetron HCl (Ondansetron Hcl 4 Mg/2 Ml Vial) 4 mg IVPUSH Q8H PRN PRN Reason: Nausea and Vomiting Oxycodone HCl (Oxycodone Hcl Immed Release 5 Mg Tablet) 5 mg PO ONCE PRN PRN Reason: Pain, Severe (Pain Scale 7-10) Pharmacy Consult (Consult Rx Perform Med Rec) 1 each MISCELLANE ONCE PRN PRN Reason: Consult order Pharmacy Consult (Consult Rx Vancomycin Dosing) 1 each MISCELLANE DAILY PRN PRN Reason: Consult order Sodium Chloride (0.9 % Sodium Chloride Flush 3 Ml Syringe) 3 ml IVFLUSH QSHIFT [facility] Last Admin: 09/13/22 09:17 Dose: Not Given Documented By: SARAH Non-Admin Reason: Off Unit: Surgery Labs 09/12/22 05:31 09/13/22 10:25 Labs: Laboratory Results - last 24 hr 09/10/22 09/13/22 09/13/22 19:48 10:25 10:25 Estim Creat Clear Calc 94.9 Estimated GFR > 60 Vancomycin Trough 12.9 Cryptococcal Ag SEE NOTE Microbiology Microbiology Results: Microbiology 09/11/22 15:00 Gram Stain - Final Sputum - Expectorated Sputum Culture - Final 09/10/22 17:33 Blood Culture - Preliminary Blood - Venous No growth after 48 hours. 09/10/22 16:54 Blood Culture - Preliminary Blood - Venous No growth after 48 hours. Assessment and Plan (1) Sepsis: Status: Acute (2) Community acquired pneumonia: Status: Acute Plan 51 year old male with pertinent history of bronchiectasis, asthma, essential hypertension, GERD who presented to the emergency department for evaluation of cough and fevers. Sepsis due to pneumonia in bronchiectasis Blood cultures negative vanc, cefepime Pulmonary following - bronchoscopy today previous positive MRSA nasal screen Continue home inhalers Cryptococcal antigen pending chest PT cough medicine HTN hctz DVT prophylaxis: Lovenox 40 mg daily Full code reason for continued hospitalization: bronchoscopy today Time Spent With Patient Time: Total time managing care of this patient today ____ minutes. Quality Stroke Does the patient have a stroke diagnosis?: No VTE Prior VTE?: No VTE Risk Level:: Medical - moderate - high VTE Device Contraindication: Treatment Not Indicated VTE Drug Contraindication: N/A - Med Ordered
--- NOTE | 2022-09-13 12:52 | MHC.CM.PN ---
PT WILL DC HOME TODAY WITH NO SERVICES PT TO ARRANGE TRANSPORT
--- NOTE | 2022-09-13 12:53 | P.BOP_ITS ---
Brief Operative Note Date of Service: 09/13/22 Pre-op diagnosis: bronchiectasis, hemoptysis, recurrent pneumonia Post-op diagnosis: other (post obstructive pneumonia, RML endobronchial lesion) Procedure: Bronchoscopy with biopsies, brushings, washings Surgeon: Da Ponce MD Anesthesia: GLMA Was an Research Chemical Engineer used for this Procedure?: No Estimated blood loss (mL): 0 Pathology: other (RML endobronchial biopsies) Condition: stable Disposition: floor
[2022-09-13] MEDS: 0.9 % Sodium Chloride Flush 3 ML SYRINGE IVFLUSH ×2 (14:51→19:48)
--- NOTE | 2022-09-13 15:43 | OP_ITS ---
DATE OF SERVICE: 09/13/2022 SURGEON: Da Ponce MD PREOPERATIVE DIAGNOSIS: POSTOPERATIVE DIAGNOSIS: PROCEDURE PERFORMED: Bronchoscopy. ESTIMATED BLOOD LOSS: COMPLICATIONS: ANESTHESIA: LMA. ASSISTANTS: SPECIMENS: PREOPERATIVE DIAGNOSES: Bronchiectasis, hemoptysis and recurrent pneumonia. POSTOPERATIVE DIAGNOSES: Postobstructive pneumonia with right middle lobe in the bronchial lesion. DESCRIPTION OF PROCEDURE: After the patient was adequately sedated, LMA in place, flexible digital bronchoscope was inserted by LMA to level of the larynx. The vocal cords moved symmetrically to the midline and the larynx appeared to be normal. After instilling 5 cc of 2% lidocaine solution, the bronchoscope was then navigated to the level of trachea. The patient did have some purulent secretions and mucus secretions to the level of trachea both proximal and mid and also distal. In addition to that, there was a small polypoid lesion on the distal trachea area on the posterior surface. After instilling additional lidocaine, bronchoscope was navigated to the entire tracheobronchial tree, that was examined up to the subsegmental level. The patient did have diverticula and chronic bronchiectatic looking airways throughout. He also had purulent secretions right more than left. Using a microscopic brush that was into the right lower lobe where the purulent secretions were and that was sent to appropriate location. Bronchial washings were also collected bilaterally. Once we got the secretions out of the way, upon evaluation of the subsegments, there appeared to be what appeared to be an endobronchial lesion blocking the medial segment of the right middle lobe, although his right middle lobe airway had 3 segments instead of two which is likely a normal variant. One of three was obstructed, appeared to be more medially. He did have some purulent secretions that were coming around it. The airway appeared to be about 90% to 95% obstructed. Using a cytologic brush, sent it to appropriate cytology for evaluation. After that, using forceps and bronchial biopsies were collected of that endobronchial lesion and sent to the appropriate location. Iced saline was used with good hemostasis. No need for epinephrine. On the way out, we also put in formalin in a separate container, the polypoid lesion fro the trachea that was endobronchially biopsied and partially removed and sent to the appropriate location. A small piece was only available as this was a very small polypoid area. The bronchoscope was then removed. The total endoscopic time was approximately 20 minutes. The patient tolerated the procedure well, vital signs were stable throughout the procedure. INTERPRETATION: 1. Therapeutic cleaning of purulent secretions. 2. Microscopic brushing from the right lower lobe. 3. Cytologic brushings from the right middle lobe. 4. Endobronchial biopsies of the endobronchial lesion of the right middle lobe, medial segment. 5. Endobronchial biopsy of the polypoid lesion in the distal trachea. COMMUNICATIONS CONSULTANT: None. MD SCAR Coker/ELSIE / [phone]
[2022-09-13] MEDS: Enoxaparin Sodium 40 MG/0.4 ML SYRINGE SUBCUT (19:44)
[2022-09-14 04:00] VITALS: BP 133/88; PULSE 89; RESP 16; TEMP 36.8; O2SAT 95
[2022-09-14] MEDS: vancomycin HCL 1,000 MG in 0.9 % Sodium Chloride 250 ML 270 MG IV (04:13)
[2022-09-14] MEDS: Omeprazole 20 MG CAPSULE.DR PO (05:21)
[2022-09-14] MEDS: cefEPime HCl 2 GM in 0.9 % Sodium Chloride 50 ML IV (05:21)
--- NOTE | 2022-09-14 07:38 | P.DS_ITS ---
DS: Providers Provider Date of Service: 09/13/22 Date of admission: 09/10/22 21:41 Primary care physician: Genevieve Lama DO Consults: 09/10/22 21:43 Consult to Pulmonology Routine Consulting Provider: [facility] Pulmonology Services Reason for consultation: bronchiectasis DS: Diagnosis Discharge Diagnosis (1) Sepsis: Status: Acute (2) Community acquired pneumonia: Status: Acute DS: Summary Hospital Course Hospital Course: from initial hpi: Chief Complaint: Cough This is a 51 year old male with pertinent history of bronchiectasis, asthma, essential hypertension, GERD who presents to the emergency department for evaluation of cough and fevers.? Patient states he was recently diagnosed with pneumonia and treated with oral antibiotics which he completed last month.? He recently completed a course of doxycycline.? Patient started having fevers, cough and pleuritic chest discomfort soon after he finished his antibiotic course.? It worsened on the day of presentation which prompted ER visit.? The chest pain is right-sided and worse with cough or deep inspiration.? Patient sees Dr. Rutherford, pulmonology as an outpatient.? States he has had extensive outpatient workup including negative HIV testing, negative TB and bronchoscopy with biopsies negative for malignancy.? Has had a persistent right-sided perihilar infiltrate.? Patient denies vomiting, palpitations, shortness of breath, abdominal pain, changes in urinary or bowel habits. In the emergency department, CT consistent with bronchiectasis.? He was febrile with temp of 101.4 degrees and WBC with leukocytosis hospital course: Patient was admitted for sepsis due to postobstructive pneumonia in a patient with bronchiectasis. Blood cultures were negative. He was treated with broad- spectrum vancomycin and cefepime. He underwent bronchoscopy which was suspicious for endobronchial lesion. Biopsies were taken and pathology should be followed up as outpatient. He is feeling better and will be discharged home 1 week of Levaquin and doxycycline. For hypertension he was continued on hydrochlorothiazide. Time Spent with Patient Time attestation: Total time managing care of this patient today ____ minutes. Discharge coordination time: Greater than 30 minutes Quality: Safe Use of Opioids Does Pt have an Active Cancer Diagnosis on the Problem List?: No Quality: Stroke Does the patient have a stroke diagnosis?: No Physical Exam Vital Signs: Vital Signs: Last Vital Signs Temp 98.2 F 09/13/22 11:57 Pulse 85 09/13/22 11:57 Resp 20 09/13/22 11:57 BP 138/85 09/13/22 11:57 Pulse Ox 94 09/13/22 11:57 O2 Del Method Room Air 09/13/22 11:57 O2 Flow Rate 2 09/13/22 10:20 BMI result Body Mass Index 24.4 General: AO X 3, no acute distress Resp: CTA bilateral, no accessory muscles used CVS: S1,S2,RRR GI: soft, non tender, non distended Neuro: motor grossly intact, alert Psych: appropriate affect, appropriate insight DS: Data Data Completed and Pending Pending studies at discharge: Pending at discharge 09/13/22 09:40 Cytology [PTH] Stat 09/13/22 09:50 Cytology [PTH] Urgent 09/13/22 09:53 Surgical [PTH] Stat Labs on day of discharge: Laboratory Results - last 24 hr 09/10/22 09/13/22 09/13/22 19:48 10:25 10:25 Creatinine 0.90 Estim Creat Clear Calc 94.9 Estimated GFR > 60 Vancomycin Trough 12.9 Cryptococcal Ag SEE NOTE Preliminary micro results at discharge 09/10/22 17:33 Blood Culture - Preliminary Blood - Venous No growth after 48 hours. 09/10/22 16:54 Blood Culture - Preliminary Blood - Venous No growth after 48 hours. Discharge Plan Discharge Anticipated Discharge Date/Time: 09/13/22 12:19 Patient Disposition: Home, Self-Care Discharge Diagnosis: postobstructive pna Referrals: Genevieve Lama DO [Primary Care Provider] - 1 Week Da Ponce MD [Physician] - 1 Week Discharge Medications: New levofloxacin 500 mg tablet 500 mg PO DAILY Qty: 7 0RF doxycycline hyclate 100 mg capsule 100 mg PO BID Qty: 14 0RF Continued omeprazole 20 mg Tablet,Delayed Release (Dr/Ec) 20 mg PO DAILY@0630 albuterol sulfate 90 mcg/actuation HFA aerosol inhaler 2 puff inhalation Q6H PRN (Reason: shortness of breath or wheezing) Qty: 8.5 0RF benzonatate 100 mg capsule 100 mg PO TID PRN (Reason: Cough) hydrochlorothiazide 25 mg tablet 25 mg PO DAILY multivitamin Tablet 1 tab PO DAILY fluticasone propionate 50 mcg/actuation spray,suspension 2 spray intranasal DAILY atorvastatin 20 mg tablet 20 mg PO DAILY Discharge Orders: Discharge Order (Routine); Ordered 09/13/22 Ordered By: Riley Gleason Diet: Advance to usual diet Activity on Discharge: As tolerated Stand Alone Forms: Patient Portal Discharge page Care Plan Goals: recovery Health Concerns: post obstructive pna Plan of Treatment: 1 week jodie and elyssa, follow up with pulm Assessment: see above
[2022-09-14] MEDS: hydroCHLOROthiazide 25 MG TABLET PO (08:25)
[2022-09-14] MEDS: Atorvastatin Calcium 20 MG TABLET PO (08:25)
[2022-09-14] MEDS: guaiFENesin LA 600 MG TAB.ER.12H PO (08:25)
[2022-09-14] MEDS: 0.9 % Sodium Chloride Flush 3 ML SYRINGE IVFLUSH (08:25)
[2022-09-14] MEDS: Benzonatate 100 MG CAPSULE 200 MG PO (08:25)
[2022-09-14] MEDS: Multivitamin TABLET 1 TAB PO (08:25)
[2022-09-14 09:29] LABS: Vancomycin Trough 16.7 mcg/mL (10.0-20.0)
[2022-09-14 10:07] LABS: Creatinine Clr Calc Pharmacy 89.9; Estimated Glomerular Filt Rate > 60
--- NOTE | 2022-09-14 10:26 | MHC.CM.PN ---
Patient is discharged to home today self-care. he has arranged for a family member to provide transportation home.
== END 2022-09-14 10:41 | disposition home or self-care (01) | DRG 194 ==
LOC: HO.ED 21:53 → HO.EDOVER 21:58 → HO.IMC 22:13 → HO.S3 09-12 16:56
PROVIDERS: Hospitalist; Physician Assistant; Student in an Organized Health Care Education/Training Program; Admitting Provider Student in an Organized Health Care Education/Training Program; Emergency Provider Student in an Organized Health Care Education/Training Program; PCP Family Medicine; Visit Provider Internal Medicine
PROC: 0BJ08ZZ Inspection of Tracheobronchial Tree, Via Natural or Artificial Opening Endoscopic (ICD-10-PCS; CPT 31622; principal; 2022-09-13 08:40)
DX: J18.9 Pneumonia, unspecified organism (principal); J47.0 Bronchiectasis with acute lower respiratory infection; J47.1 Bronchiectasis with (acute) exacerbation; J39.8 Other specified diseases of upper respiratory tract; Z20.822 Contact with and (suspected) exposure to COVID-19; Z87.891 Personal history of nicotine dependence; Z88.1 Allergy status to other antibiotic agents; Z79.51 Long term (current) use of inhaled steroids; Z79.899 Other long term (current) drug therapy
CPT/HCPCS: 0241U; 36415; 71045; 71275; 80048; 80053; 80202; 82565; 83605; 83880; 84484; 85025; 85027; 85610; 85730; 86403; 87040; 87070; 87102; 87116; 87205; 87206; 88112; 88305; 93005; 94640; 99285; J0171; J0692; J1650; J1885; J2270; J3370; J3371; Q9967

== ENCOUNTER → 2022-10-04 09:59 | Outpatient (BNVA) | payer OTHER, SELFPAY | PROVIDERS: PCP Family Medicine; Visit Provider Internal Medicine Pulmonary Disease ==

== ENCOUNTER 2022-10-26 16:16 | Outpatient (REF) | payer OTHER, SELFPAY ==
--- NOTE | ~2022-10-26 | XR_ITS ---
EXAMINATION: XR CHEST CLINICAL INFORMATION: COPD, bronchiectasis and persistent asthma. Worsening shortness of breath. Assess for pneumonia unchanged from prior exam COMPARISON: Previous chest x-ray and chest CTA most recent 09/10/2022 TECHNIQUE: 2 views of the chest were obtained. FINDINGS: The cardiac and mediastinal contours are stable. There is central bronchiectasis. There is atelectasis/infiltrate seen in the right middle lobe. Similar to previous chest x-ray and CT scan 09/10/2022. The lungs are otherwise clear. There is no pleural effusion or pneumothorax. There are degenerative changes of the spine. There is slight loss of height of several lower thoracic vertebral bodies questionable for mild old compression fractures versus congenital variant. XR/XR chest 2V IMPRESSION: Central bronchiectasis. Atelectasis or small infiltrate in the right middle lobe similar to September 2022 exams.
== END 2022-10-26 16:17 | disposition home or self-care (01) ==
LOC: HO.HHCX 16:16
PROVIDERS: Visit Provider Emergency Medicine
DX: J44.0 Chronic obstructive pulmonary disease with (acute) lower respiratory infection (principal)
CPT/HCPCS: 71046

== ENCOUNTER 2022-12-18 10:00 | Outpatient (REF) | payer OTHER, SELFPAY ==
[2022-12-18 10:54] LABS: MANUAL DIFF FLAG NO
[2022-12-18 12:08] LABS: Hematocrit 40.7 % (42.0-52.0); Mean Corpuscular HGB Conc 31.9 g/dl (31.0-36.0); Mean Corpuscular Hemoglobin 28.4 pg (27.0-33.0); Mean Corpuscular Volume 89.1 fL (80.0-98.0); Platelet Count 440 X10*3/uL (160-400); Red Blood Count 4.57 X10*6/uL (4.60-5.80); Red Cell Distribution Width 14.6 % (11.0-16.0); White Blood Count 12.2 X10*3/uL (4.8-10.8)
[2022-12-18 12:09] LABS: Basophils Percent Auto 0.3 % (0-2); Eosinophils Percent Auto 0.2 % (0-4); Imm Gran Abs Auto 0.09 X10*3/uL (0.00-0.03); Imm Gran Pct Auto 0.7 % (0.0-0.4); Lymphocytes Absolute Auto 1.7 X10*3/uL (1.2-4.9); Lymphocytes Percent Auto 13.9 % (20-40); Mean Platelet Volume 9.7 fL (9.4-12.4); Monocytes Absolute Auto 0.3 X10*3/uL (0.1-1.2); Monocytes Percent Auto 2.4 % (2-11); Neutrophils Absolute Auto 10.1 x10*3/uL (2.0-8.3); Neutrophils Percent Auto 82.5 % (45-73)
== END 2022-12-18 10:01 | disposition home or self-care (01) ==
LOC: HO.LAB 10:00
PROVIDERS: PCP Family Medicine; Visit Provider Internal Medicine Pulmonary Disease
DX: J45.909 Unspecified asthma, uncomplicated (principal); Z91.09 Other allergy status, other than to drugs and biological substances
CPT/HCPCS: 36415; 82785; 85025; 86003

== ENCOUNTER 2022-12-18 10:15 | Outpatient (AMB) | payer OTHER, SELFPAY ==
--- NOTE | 2022-12-18 10:26 | A.OFFVIS_ITS ---
Intake Vital Signs 12/18/22 10:27 Height 5 ft 9 in Weight 182 lb 15.739 oz BMI 27.0 BP 140/96 H Pulse 100 Pulse Oximetry (%) 98 Intake Visit Reasons: Asthma Intake Note: pt has yet to start injections because he did not get labs done. he is coughing and wheezing. continues to use albuterol inhaler and solution for neb Allergies clindamycin [Clindamycin] Allergy (Severe, Verified 12/18/22 10:26) SEVERE ITCHING HPI Asthma HPI Details 52-year-old gentleman, nonsmoker, with no history of inhalation industrial dusts or vapors, no prior history of lung concerns, with COVID-19 back in 2019 recently hospitalized on 06/21/2021 for pneumonia.? Patient states that his symptoms have significantly improved.? He has had follow-up CT chest in August of 2021 that showed resolution of dense infiltrate, improving, however still present bright hilar soft tissue density and bronchiectasis.? Does complain of multiple environmental allergies and asthma currently not controlled on Spiriva and albuterol MDI. After the last office patient was scheduled to undergo laboratory testing for environmental allergies however he was not able to finish it. He continues to complain of suboptimally controlled symptoms. [facility] Medical History Asthma Bronchiectasis COPD (chronic obstructive pulmonary disease) Heartburn Hypoxia Pneumonia Recurrent pneumonia Sepsis Surgical History No pertinent past surgical history Family History Sister Breast CA Social History Household Members: None Housing: Apartment Do you presently have visiting nurse or other home services: No Alcohol intake: unknown Patient Tobacco Use Status: Former Tobacco user Tobacco use type: Cigarette e-Cigarette/Vaping Use: Never Used Second Hand Smoke Exposure: No Substance Use Type: Unknown Advance Directives Date on File: 06/21/21 service: No Current occupational status: employed Review of Systems Const Denies daytime sleepiness, Denies excessive sweating, Denies fatigue, Denies fever(s), Denies lethargy, Denies malaise, Denies night sweats, Denies snoring and Denies weight loss Eyes Denies blurry vision and Denies itchy eyes ENT Denies nasal congestion, Denies post nasal drip, Denies sinus pain, Denies sinus pressure and Denies other ( Thrush) Card Denies chest pain, Denies pedal edema, Denies dyspnea, Denies orthopnea and Denies paroxysmal nocturnal dyspnea Resp Denies cough, Denies hemoptysis, Denies excessive phlegm production, Denies dyspnea, Denies snoring and Reports wheezing GI Denies abdominal pain and Denies heartburn Musc Denies myalgias, Denies arthralgias and Denies joint swelling Skin/Breast Denies rash Neuro Denies memory loss and Denies seizure-like activity Psych Denies abnormal sleep pattern, Denies anxiety and Denies memory loss Endo Denies excessive sweating, Denies fatigue and Denies heat intolerance William/Lymph Denies easy bruising Aller/Immun Denies itchy eyes, Denies seasonal rhinorrhea and Reports wheezing Physical Exam Vital Signs: Last Vital Signs Pulse 100 12/18/22 10:27 BP 140/96 H 12/18/22 10:27 Pulse Ox 98 12/18/22 10:27 BMI result Body Mass Index 27.0 Const General: no acute distress and alert Nutritional Appearance: not obese Orientation/consciousness: Other orientation findings ( oriented) HEENT Head: Yes atraumatic Eyes General: appearance normal, both eyes and all related structures Sclerae: sclerae normal EOM: EOMs intact bilaterally Neck Neck: Yes supple Lymphatic: no lymphadenopathy noted Resp Effort & Inspection: normal respiratory effort and no use of accessory muscles Auscultation: clear to auscultation bilaterally Cardio Rate: regular rate Rhythm: regular rhythm Heart sounds: no gallops, no murmurs and no rubs Skin General skin exam: other ( warm) Extrem General: No clubbing, No cyanosis and No edema Assessment & Plan Assessment & Plan (1) Asthma: Code(s): J45.909 - Unspecified asthma, uncomplicated Plan: Suboptimally controlled on Trelegy. Pending Xolair approval. Continue Trelegy and albuterol MDI. (2) Environmental allergies: Code(s): Z91.09 - Other allergy status, other than to drugs and biological substances Plan: Expect to improve on Xolair. Coding Level of Care Code Est Pt Level 4 (24158) Diagnoses Asthma J45.909 Environmental allergies Z91.09
[2022-12-18 10:27] VITALS: BP 140/96; PULSE 100; O2SAT 98; BMI 27.0
== END 2022-12-18 10:42 | disposition home or self-care (01) ==
PROVIDERS: PCP Family Medicine; Visit Provider Internal Medicine Pulmonary Disease
DX: J45.909 Unspecified asthma, uncomplicated (principal); Z91.09 Other allergy status, other than to drugs and biological substances
CPT/HCPCS: 99214

== ENCOUNTER 2023-01-08 12:02 | Outpatient (REF) | payer OTHER, SELFPAY ==
--- NOTE | ~2023-01-08 | XR_ITS ---
EXAMINATION: XR CHEST CLINICAL INFORMATION: Severe persistent asthma with acute exacerbation. Rule out pneumonia. COMPARISON: 10/26/2022 chest radiograph. Chest CTA dated 09/10/2022. TECHNIQUE: 2 views of the chest were obtained. FINDINGS: Asymmetric increased markings are seen in the right infrahilar region. The left lung is clear. The heart and mediastinal structures are unremarkable. XR/XR chest 2V IMPRESSION: Asymmetric increased markings in the right infrahilar region represents interval improvement from previous studies which previously showed infiltrative changes/atelectasis in the right middle lobe. A residual or recurrent infiltrate cannot be excluded.
== END 2023-01-08 12:03 | disposition home or self-care (01) ==
LOC: HO.HHCX 12:02
PROVIDERS: Visit Provider Nurse Practitioner Primary Care
DX: J45.51 Severe persistent asthma with (acute) exacerbation (principal)
CPT/HCPCS: 71046

== ENCOUNTER 2023-01-09 12:16 | Outpatient (AMB) | payer OTHER, SELFPAY ==
--- NOTE | 2023-01-09 12:28 | MHC.OFFVIS ---
Intake Vital Signs 01/09/23 12:31 Height 5 ft 9 in Weight 178 lb BMI 26.3 BP 145/90 H Blood Pressure Location Lt brachial Position Sitting Pulse 116 H Intake Visit Reasons: anemia Intake Note: Patient new consult for Anemia. Patient cc: acid reflex with burning sensation, abdominal pain on and off, abdominal bloating, constipation on and off and some dysphagia. Denies any other GI issues. Circulating Nurse Required: No Accompanied by: Self / Same As Patient Allergies clindamycin [Clindamycin] Allergy (Severe, Verified 01/09/23 12:28) SEVERE ITCHING Medication List - Last Reconciled 01/09/23 by Rama Vásquez PA-C albuterol sulfate 90 mcg/actuation 2 puffs inhalation Q6H PRN atorvastatin 20 mg PO DAILY benzonatate 100 mg PO TID PRN fluticasone propionate 50 mcg/actuation 2 sprays intranasal DAILY hydrochlorothiazide 25 mg PO DAILY multivitamin 1 tab PO DAILY omalizumab (Xolair) 150 mg subcut Q4W 28 days omeprazole 20 mg PO DAILY@0630 HPI HPI Comments History of Present Illness Details A 52-year-old male COPD/asthma, bronchiectasis with anemia, history of tubular adenomas and intestinal metaplasia referred back He presents today he is currently being treated for recurrent pneumonia-he does have a cough with exacerbated acid reflux omeprazole 20 mg b.i.d. as well as Famotidine at night. He has made dietary modifications and avoidance of culprits-he is not smoking and is not drinking alcohol He had EGD colonoscopy 2018 showing - adenomas-intestinal metaplasia, possible Barretts. He has a chronic cough-appetite is fair he follows with pulmonology-he is awaiting a new medication He has no nausea, vomiting, hematemesis, hematochezia fever chills PFSH Medical History Asthma Bronchiectasis COPD (chronic obstructive pulmonary disease) Heartburn Hypoxia Pneumonia Recurrent pneumonia Sepsis Surgical History No pertinent past surgical history Family History Sister Breast CA Social History Household Members: None Housing: Apartment Do you presently have visiting nurse or other home services: No Alcohol intake: unknown Patient Tobacco Use Status: Former Tobacco user Tobacco use type: Cigarette e-Cigarette/Vaping Use: Never Used Second Hand Smoke Exposure: No Substance Use Type: Unknown Advance Directives Date on File: 06/21/21 service: No Current occupational status: employed Review of Systems Const All systems reviewed & are unremarkable except as noted in HPI and below Card Denies chest pain and Reports dyspnea on exertion Resp Reports chest congestion, Reports cough and Reports dyspnea on exertion Physical Exam Vital Signs: Last Vital Signs Pulse 116 H 01/09/23 12:31 BP 145/90 H 01/09/23 12:31 BMI result Body Mass Index 26.3 Results Reviewed Results Reviewed: Endoscopy Findings: LARYNX: Normal ESOPHAGUS: Dysphagia due to esophageal motility disorder versus EOE. Biopsied to check for Rosales's. STOMACH: Gastritis DUODENUM: Normal Colonoscopy Findings: Five polyps removed Moderate diverticulosis seen in the left colon Moderate hemorrhoids on retroflexed exam. Plan: Await pathology results Continue present medications (Pantoprazole at 40 mg PO once daily and Pepcid 20 mg at bedtime) Patient has an appointment on 09/19/18 in the GI Clinic with Nubia Templeton NP. Repeat Colonoscopy interval based on path results - in 3 years if polyps are adenomatous and 10 years if polyps are hyperplastic. Above findings were reviewed with the patient and GERD, Colon polyps and diverticulosis handouts were provided. VTE prophylaxis - OR No VTE prophylaxis - polypectomies, tubular adenomas Distal esophagus intestinal metaplasia chronic inflammation, negative for dysplasia Comment-the distal esophagus may represent Rosales's esophagus Assessment & Plan Assessment & Plan (1) Tubular adenoma: Comment: 2019 Code(s): D36.9 - Benign neoplasm, unspecified site (2) Acid reflux: Comment: Continue PPI H2 Avoid culprits Code(s): K21.9 - Gastro-esophageal reflux disease without esophagitis Plan Repeat EGD and colonoscopy, pulmonary clearance-COPD, chronic pneumonia, asthma, bronchiectasis Orders: Orders EGD/[place] Combo - GI Use Only Today D36.9 - Benign neoplasm, unspecified site, J18.9 - Pneumonia, unspecified organism, K21.9 - Gastro-esophageal reflux disease without esophagitis Medications: New bisacodyl (Dulcolax (bisacodyl)) Take 4 tablets by mouth at 12:00pm the day before your procedure. 20 mg (4 x 5 mg) PO ONCE 1 day 4 tabs 0RF colonoscopy prep Z12.11 - Encounter for screening for malignant neoplasm of colon polyethylene glycol 3350 (Miralax) Take as directed by mouth the day before your procedure. 238 grams PO ONCE 1 day PRN 238 grams 0RF laxative effect Patient Instructions: Very pleasant 52-year-old male multiple comorbidities-followed by Pulmonary Continue omeprazole 20 mg b.i.d. and famotidine 40 mg q.h.s. Reviewed reflux precautions, avoid culprits Will schedule for EGD colonoscopy Pulmonary clearance due to history He is aware of respiratory status at time of scheduled procedures unstable for him to notify us to be rescheduled. He encouraged to call with questions or concerns We appreciate the opportunity assist in the care patsy Grullon Coding Level of Care Code New Pt Level 4 (70673) Diagnoses Tubular adenoma D36.9 Acid reflux K21.9 Time Spent (min) 30
[2023-01-09 12:31] VITALS: BP 145/90; PULSE 116; BMI 26.3
== END 2023-01-09 14:58 | disposition home or self-care (01) ==
PROVIDERS: PCP Family Medicine; Visit Provider Physician Assistant
DX: D36.9 Benign neoplasm, unspecified site (principal); K21.9 Gastro-esophageal reflux disease without esophagitis
CPT/HCPCS: 99204; 99214

== ENCOUNTER → 2023-01-09 12:16 | Outpatient (BNVA) | payer OTHER, SELFPAY | PROVIDERS: PCP Family Medicine; Visit Provider Physician Assistant ==

== ENCOUNTER 2023-01-22 10:12 | Outpatient (REF) | payer OTHER, SELFPAY | END 2023-01-22 10:13 | disposition home or self-care (01) | LOC: HO.MDS 10:12 | PROVIDERS: Visit Provider Internal Medicine Pulmonary Disease | DX: J45.50 Severe persistent asthma, uncomplicated (principal) | CPT/HCPCS: 96372 ==

== ENCOUNTER 2023-02-13 23:47 | Emergency (ER) | payer OTHER, SELFPAY ==
[2023-02-13 23:56] VITALS: BP 144/95; PULSE 84; RESP 16; TEMP 36.6; O2SAT 97; BMI 25.8
--- NOTE | 2023-02-14 01:53 | ED_ITS ---
HPI - Back Pain/Injury General Chief Complaint: Extremity Problem Stated Complaint: waist pain radiates to back, SoB Time Seen by Provider: 02/14/23 01:24 Source: patient and family Mode of arrival: ambulatory Limitations: no limitations History of Present Illness HPI Narrative: 52 yo male with chronic L back pain without weight loss or known trauma on and off for months has not really seen his PCP - he has no fevers. He has tried tylenol without much relief. Much worse after going to work today bent over and his now stuck the pain goes down the left leg. He has no b/b incontinence or saddle anesthesia, IVDA, AC therapy. He has not had PT or MRI for this. No falls. MD elicited complaint: back pain Pertinent past history: prior back pain Onset (ago): month(s) (on and off for months) Timing: constant Severity: moderate Similar Symptoms Previously: Yes Quality: sharp Location: lumbar spine Radiation: left upper leg Exacerbating factors: movement Relieving factors: none Context: bending Associated symptoms: denies other symptoms Treatments prior to arrival: acetaminophen Work related injury: No Related Data Home Medications Medication Instructions Recorded Confirmed omeprazole 20 mg tablet,delayed 20 mg PO DAILY@0630 06/21/21 01/09/23 release atorvastatin 20 mg tablet 20 mg PO DAILY 09/22/21 01/09/23 fluticasone propionate 50 2 spray intranasal DAILY 09/22/21 01/09/23 mcg/actuation nasal spray,suspension benzonatate 100 mg capsule 100 mg PO TID PRN Cough 09/10/22 01/09/23 hydrochlorothiazide 25 mg tablet 25 mg PO DAILY 09/10/22 01/09/23 multivitamin 1 tab PO DAILY 09/10/22 01/09/23 Previous Rx's Medication Instructions Recorded albuterol sulfate 90 mcg/actuation 2 puff inhalation Q6H PRN for 12/06/22 aerosol inhaler wheezing #1 ea omalizumab 150 mg/mL subcutaneous 150 mg subcut Q4W 28 days #1 mL 01/08/23 syringe (Xolair) bisacodyl 5 mg tablet,delayed 20 mg (4 x 5 mg) PO ONCE 01/09/23 release (Dulcolax (bisacodyl)) colonoscopy prep 1 day #4 tabs polyethylene glycol 3350 17 238 g PO ONCE PRN laxative effect 01/09/23 gram/dose oral powder (Miralax) 1 day #238 grams diazepam 5 mg tablet (Valium) 5 mg PO TID PRN muscle spasm #12 02/14/23 tabs ibuprofen 600 mg tablet 600 mg PO Q6H PRN pain #30 tabs 02/14/23 lidocaine 5 % topical patch 1 patch topical DAILY #30 ea 02/14/23 prednisone 20 mg tablet 40 mg (2 x 20 mg) PO DAILY 5 days 02/14/23 #10 tabs Allergies Allergy/AdvReac Type Severity Reaction Status Date / Time clindamycin [Clindamycin] Allergy Severe SEVERE Verified 01/09/23 12:28 ITCHING Review of Systems Review of Systems: Constitutional : No Weight loss, No Fever, No Chills, ENT/Mouth : No Hearing loss, No Ear Pain, No Nasal Congestion, No Sinus Pain, No Hoarseness, No sore throat, No Rhinorrhea, No Swallowing Difficulty Cardiovascular : No Chest Pain, No SOB Respiratory : No Cough, No Dyspnea Gastrointestinal : No Nausea, No Vomiting, No Diarrhea, No abdominal Pain, No Hematochezia, No Melena Genitourinary : No Dysuria, No Urinary Frequency, No Hematuria, No Urinary Incontinence, Musculoskeletal : positive back pain Skin : No Skin Lesions, No rash Neuro : No Weakness, No Numbness, No Paresthesias, no loss of bowel or bladder incontinence, no saddle anesthesia All other systems reviewed and are negative [facility] Past Medical History Attestation statement: The following information was validated with the patient. Medical History COPD (chronic obstructive pulmonary disease) Hypoxia Sepsis Recurrent pneumonia Pneumonia Heartburn Bronchiectasis Asthma Surgical History No pertinent past surgical history Family History Family History Sister Breast CA Social History Social History Household Members: None Housing: Apartment Do you presently have visiting nurse or other home services: No Alcohol intake: unknown Patient Tobacco Use Status: Former Tobacco user Tobacco use type: Cigarette e-Cigarette/Vaping Use: Never Used Second Hand Smoke Exposure: No Substance Use Type: Unknown Advance Directives: Yes Advance Directives on File: Yes Advance Directives Date on File: 06/21/21 service: No Current occupational status: employed Physical Exam Vital Signs: Vital Signs: Last Vital Signs Temp 97.9 F 02/13/23 23:56 Pulse 84 02/13/23 23:56 Resp 16 02/13/23 23:56 BP 144/95 H 02/13/23 23:56 Pulse Ox 97 02/13/23 23:56 O2 Del Method Room Air 02/13/23 23:56 BMI result Body Mass Index 25.8 Appearance: Alert. Oriented X3. No acute distress. Eyes: Pupils equal, round and reactive to light. ENT: Pharynx normal. Neck: Normal inspection. Neck supple. CVS: Normal heart rate and rhythm. Pulses normal. Respiratory: No respiratory distress. Breath sounds normal. Abdomen: Soft and nontender. Back: ttp along L lower lumbar lateral paraspinal area Skin: Skin warm and dry. Normal skin color. Normal skin turgor. Extremities: No lower extremity edema. No calf ttp Neuro: Oriented X 3. No motor deficit. No sensory deficit. L 5/5 bilaterally SILT intact inner thigh 2+ DTR in achilles and patella Medical Decision Making Medical Decision Making MDM Narrative: 52 yo male with asthma here with c/o lower back pain and radicular symptoms here with sciatica but no cauda equina symptoms - he has no red flags he is NV intact, no abdominal ttp, no fevers, weight loss, no other concerns at this time will refer to his PCP for MRI and PT. PO medications ordered. Differential Diagnosis Differential Diagnoses: The differential diagnosis associated with the presentation includes back pain, radicular symptoms, sciatica, no systemic symptoms Admission/Observation Consideration of admission/observation: Escalation of care including admission/observation considered able to walk, NV intact, pain well controlled stable for DC Independent Historian Clinical information obtained from an independent historian. History obtained from or confirmed by: Spouse External Record Review External record reviewed: Office record Tests considered The following testing was considered but not selected: lumbar spine but doubt fracture Prescription Management I considered prescription management with: Pain Medication Discharge Plan Discharge Clinical Impression: Acute left lumbar radiculopathy Sciatica Qualifiers: Laterality: left Qualified Code(s): M54.32 - Sciatica, left side Patient Disposition: Home, Self-Care Instructions: Sciatica (ED), Lumbar Radiculopathy (ED) Additional Instructions: while on prednisone hold NSAIDs like motrin - tylenol is okay. take prednisone with food not on empty stomach do not operate machinery or drive while on muscle relaxer you need to call your doctor to get physical therapy and MRI for your back return for loss of control of bowel bladder numbness, weakness or fevers no lifting more than 10lbs for 2 weeks. Prescriptions: New prednisone 20 mg tablet 40 mg PO DAILY 5 Days Qty: 10 0RF lidocaine 5 % adhesive patch,medicated 1 patch topical DAILY Qty: 30 0RF Rx Instructions: leave on most painful area for up to 12 hrs ibuprofen 600 mg tablet 600 mg PO Q6H PRN (Reason: pain) Qty: 30 0RF diazepam [Valium] 5 mg tablet 5 mg PO TID PRN (Reason: muscle spasm) Qty: 12 0RF Rx Instructions: partial fill is okay No Action albuterol sulfate 90 mcg/actuation HFA aerosol inhaler 2 puff inhalation Q6H PRN (Reason: for wheezing) Qty: 1 0RF Xolair 150 mg/mL syringe 150 mg subcut Q4W 28 Days Qty: 1 12RF omeprazole 20 mg Tablet,Delayed Release (Dr/Ec) 20 mg PO DAILY@0630 benzonatate 100 mg capsule 100 mg PO TID PRN (Reason: Cough) hydrochlorothiazide 25 mg tablet 25 mg PO DAILY multivitamin Tablet 1 tab PO DAILY fluticasone propionate 50 mcg/actuation spray,suspension 2 spray intranasal DAILY atorvastatin 20 mg tablet 20 mg PO DAILY bisacodyl [Dulcolax (bisacodyl)] 5 mg tablet,delayed release (DR/EC) 20 mg PO ONCE 1 Days Qty: 4 0RF Rx Instructions: Take 4 tablets by mouth at 12:00pm the day before your procedure. polyethylene glycol 3350 [Miralax] 17 gram/dose powder 238 g PO ONCE PRN (Reason: laxative effect) 1 Days Qty: 238 0RF Rx Instructions: Take as directed by mouth the day before your procedure. Stand Alone Forms: Work/School Release
[2023-02-14] MEDS: Ketorolac Tromethamine 30 MG/ML VIAL IM (02:11)
[2023-02-14] MEDS: Lidocaine 4 % Patch ADH..PATCH 1 PATCH TRANSDERMA (02:12)
[2023-02-14] MEDS: diazePAM 2 MG TABLET 5 MG PO (02:12)
[2023-02-14 02:18] VITALS: BP 134/92; PULSE 80; RESP 16; TEMP 36.9; O2SAT 96
== END 2023-02-14 02:45 | disposition home or self-care (01) ==
PROVIDERS: Emergency Provider Emergency Medicine
DX: M54.16 Radiculopathy, lumbar region (principal); Z87.891 Personal history of nicotine dependence; Z79.899 Other long term (current) drug therapy
CPT/HCPCS: 96372; 99283; 99284; J1885

== ENCOUNTER 2023-02-14 10:50 | Outpatient (AMB) | payer OTHER, SELFPAY ==
[2023-02-14 10:53] VITALS: BP 137/82; PULSE 94; O2SAT 97; BMI 27.3
--- NOTE | 2023-02-14 10:53 | MHC.OFFVIS ---
Intake Vital Signs 02/14/23 10:53 Height 5 ft 9 in Weight 185 lb 3.013 oz BMI 27.3 BP 137/82 Blood Pressure Location Rt brachial Position Sitting Pulse 94 Pulse Source Doppler Pulse Oximetry (%) 97 Oxygen Delivery Method Room Air Intake Visit Reasons: Asthma Allergies clindamycin [Clindamycin] Allergy (Severe, Verified 02/14/23 10:57) SEVERE ITCHING HPI Asthma HPI Details 52-year-old gentleman, nonsmoker, with no history of inhalation industrial dusts or vapors, no prior history of lung concerns, with COVID-19 back in 2019 recently hospitalized on 06/21/2021 for pneumonia now for both asthma and environmental allergies. After the last office visit patient was started on Xolair and had 1 injections of with some symptomatic improvement, but not full control of his symptoms yet. He continues on Trelegy and albuterol MDI. Now he complains of mild bronchitic exacerbation symptomatic with score of productive of clear to yellowish phlegm. [facility] Medical History COPD (chronic obstructive pulmonary disease) Hypoxia Sepsis Recurrent pneumonia Pneumonia Heartburn Bronchiectasis Asthma Surgical History No pertinent past surgical history Family History Sister Breast CA Social History Household Members: None Housing: Apartment Do you presently have visiting nurse or other home services: No Alcohol intake: unknown Patient Tobacco Use Status: Former Tobacco user Tobacco use type: Cigarette e-Cigarette/Vaping Use: Never Used Second Hand Smoke Exposure: No Substance Use Type: Unknown Advance Directives Date on File: 06/21/21 service: No Current occupational status: employed Review of Systems Const Denies daytime sleepiness, Denies excessive sweating, Denies fatigue, Denies fever(s), Denies lethargy, Denies malaise, Denies night sweats, Denies snoring and Denies weight loss Eyes Denies blurry vision and Denies itchy eyes ENT Denies nasal congestion, Denies post nasal drip, Denies sinus pain, Denies sinus pressure and Denies other ( Thrush) Card Denies chest pain, Denies pedal edema, Denies dyspnea, Denies orthopnea and Denies paroxysmal nocturnal dyspnea Resp Reports cough, Denies hemoptysis, Reports excessive phlegm production, Denies dyspnea, Denies snoring and Denies wheezing GI Denies abdominal pain and Denies heartburn Musc Denies myalgias, Denies arthralgias and Denies joint swelling Skin/Breast Denies rash Neuro Denies memory loss and Denies seizure-like activity Psych Denies abnormal sleep pattern, Denies anxiety and Denies memory loss Endo Denies excessive sweating, Denies fatigue and Denies heat intolerance William/Lymph Denies easy bruising Aller/Immun Denies itchy eyes, Denies seasonal rhinorrhea and Denies wheezing Physical Exam Vital Signs: Last Vital Signs Pulse 94 02/14/23 10:53 BP 137/82 02/14/23 10:53 Pulse Ox 97 02/14/23 10:53 Oxygen Delivery Method Room Air 02/14/23 10:53 BMI result Body Mass Index 27.3 Const General: no acute distress and alert Nutritional Appearance: not obese Orientation/consciousness: Other orientation findings ( oriented) HEENT Head: Yes atraumatic Eyes General: appearance normal, both eyes and all related structures Sclerae: sclerae normal EOM: EOMs intact bilaterally Neck Neck: Yes supple Lymphatic: no lymphadenopathy noted Resp Effort & Inspection: normal respiratory effort and no use of accessory muscles Auscultation: clear to auscultation bilaterally Cardio Rate: regular rate Rhythm: regular rhythm Heart sounds: no gallops, no murmurs and no rubs Skin General skin exam: other ( warm) Extrem General: No clubbing, No cyanosis and No edema Assessment & Plan Assessment & Plan (1) Asthma: Code(s): J45.909 - Unspecified asthma, uncomplicated Plan: Improving with Xolair initiation. Continue Xolair, Trelegy, and albuterol MDI. Will treat bronchitic exacerbation with a course of azithromycin. (2) Environmental allergies: Code(s): Z91.09 - Other allergy status, other than to drugs and biological substances Plan: Improving control after initiation of Xolair. Continue current regimen. Coding Level of Care Code Est Pt Level 4 (70724) Diagnoses Asthma J45.909 Environmental allergies Z91.09
== END 2023-02-14 11:06 | disposition home or self-care (01) ==
PROVIDERS: PCP Family Medicine; Visit Provider Internal Medicine Pulmonary Disease
DX: J45.909 Unspecified asthma, uncomplicated (principal); Z91.09 Other allergy status, other than to drugs and biological substances
CPT/HCPCS: 99214

== ENCOUNTER 2023-02-19 09:45 | Outpatient (REF) | payer OTHER, SELFPAY | END 2023-02-19 09:46 | disposition home or self-care (01) | LOC: HO.MDS 09:45 | PROVIDERS: Visit Provider Internal Medicine Pulmonary Disease | DX: J45.50 Severe persistent asthma, uncomplicated (principal) | CPT/HCPCS: 96372 ==

== ENCOUNTER 2023-03-08 23:19 | Emergency (ER) | payer OTHER, SELFPAY ==
[2023-03-08 23:49] VITALS: BP 107/75; PULSE 114; RESP 18; TEMP 38.2; O2SAT 95; BMI 26.5
[2023-03-09 01:16] VITALS: O2SAT 95
[2023-03-09 01:17] VITALS: BP 115/73; PULSE 103; RESP 18; TEMP 37.1
--- NOTE | 2023-03-09 01:52 | ED.GENADULT ---
HPI - General Adult General Chief complaint: Upper Respiratory Symptoms Stated complaint: Back pain/Diarrhea/Fever Time Seen by Provider: 03/09/23 01:46 Source: patient and family Mode of arrival: ambulatory Limitations: no limitations History of Present Illness HPI narrative: Patient comes in the emergency room complaining of 3 days of diffuse body aches, fever at home, coughing, left-sided back pain. Patient states he has been having intermittently diarrhea for about a week, has not taking any medications for diarrhea, denies vomiting, no abdominal pain, no hematuria or dysuria. Related Data Home Medications Medication Instructions Recorded Confirmed omeprazole 20 mg tablet,delayed 20 mg PO DAILY@0630 06/21/21 01/09/23 release atorvastatin 20 mg tablet 20 mg PO DAILY 09/22/21 01/09/23 fluticasone propionate 50 2 spray intranasal DAILY 09/22/21 01/09/23 mcg/actuation nasal spray,suspension benzonatate 100 mg capsule 100 mg PO TID PRN Cough 09/10/22 01/09/23 hydrochlorothiazide 25 mg tablet 25 mg PO DAILY 09/10/22 01/09/23 multivitamin 1 tab PO DAILY 09/10/22 01/09/23 amlodipine 5 mg tablet 5 mg PO DAILY 02/14/23 Previous Rx's Medication Instructions Recorded albuterol sulfate 90 mcg/actuation 2 puff inhalation Q6H PRN for 12/06/22 aerosol inhaler wheezing #1 ea omalizumab 150 mg/mL subcutaneous 150 mg subcut Q4W 28 days #1 mL 01/08/23 syringe (Xolair) bisacodyl 5 mg tablet,delayed 20 mg (4 x 5 mg) PO ONCE 01/09/23 release (Dulcolax (bisacodyl)) colonoscopy prep 1 day #4 tabs polyethylene glycol 3350 17 238 g PO ONCE PRN laxative effect 01/09/23 gram/dose oral powder (Miralax) 1 day #238 grams diazepam 5 mg tablet (Valium) 5 mg PO TID PRN muscle spasm #12 02/14/23 tabs ibuprofen 600 mg tablet 600 mg PO Q6H PRN pain #30 tabs 02/14/23 lidocaine 5 % topical patch 1 patch topical DAILY #30 ea 02/14/23 prednisone 20 mg tablet 40 mg (2 x 20 mg) PO DAILY 5 days 02/14/23 #10 tabs azithromycin 250 mg tablet See Rx Instructions PO .COMPLEX #6 02/15/23 tabs doxycycline hyclate 100 mg capsule 100 mg PO BID #14 caps 03/09/23 prednisone 50 mg tablet 50 mg PO DAILY #5 tabs 03/09/23 Allergies Allergy/AdvReac Type Severity Reaction Status Date / Time clindamycin [Clindamycin] Allergy Severe SEVERE Verified 03/08/23 23:48 ITCHING Review of Systems Review of Systems: Constitutional : No Weight loss, No Fever, No Chills, No Night Sweats, complaining of fatigue and generalized malaise ENT/Mouth : No Hearing loss, No Ear Pain, No Nasal Congestion, No Sinus Pain, No Hoarseness, No sore throat, No Rhinorrhea, No Swallowing Difficulty Eyes: No Eye Pain, No Swelling, No Redness, No Foreign Body, No Discharge, No Vision Changes Cardiovascular : No Chest Pain, No SOB, No Dyspnea on Exertion, No Orthopnea, No Edema, No Palpitations Respiratory : Complaining of dry cough No Wheezing, No Smoke Exposure, No Dyspnea Gastrointestinal : No Nausea, No Vomiting , complaining of intermittent Diarrhea, No Constipation, No abdominal Pain, No Hematochezia, No Melena Genitourinary : no irregular bleeding, No Dysuria, No Urinary Frequency, No Hematuria, No Urinary Incontinence, No Urgency, No Flank Pain, No Urinary Flow Changes, No Hesitancy Musculoskeletal : No joint pain, complaining of diffuse Myalgias, No Joint Swelling Skin : No Skin Lesions, No rash Neuro : No Weakness, No Numbness, No Paresthesias, No Loss of Consciousness, No Dizziness, No Headache Psych : No Anxiety/Panic, No Depression, No SI/HI/AH/VH, No Social Issues, Heme/Lymph: No Bruising, No Bleeding,No Lymphadenopathy Endocrine : No Polyuria, No Polydipsia, No Temperature Intolerance [facility] Past Medical History Medical History COPD (chronic obstructive pulmonary disease) Hypoxia Sepsis Recurrent pneumonia Pneumonia Heartburn Bronchiectasis Asthma Surgical History No pertinent past surgical history Family History Family History Sister Breast CA Social History Social History Household Members: None Housing: Apartment Do you presently have visiting nurse or other home services: No Alcohol intake: current Alcohol intake frequency: holidays/special occasions only Patient Tobacco Use Status: Former Tobacco user Tobacco use type: Cigarette Smoked in Last 30 Days: No e-Cigarette/Vaping Use: Never Used Second Hand Smoke Exposure: No Use of substances other than those prescribed or required for medical reasons: No Substance Use Type: Unknown Advance Directives: Yes Advance Directives on File: Yes Advance Directives Date on File: 06/21/21 service: No Current occupational status: employed Physical Exam ED Vital Signs: Vital Signs - 24 hr 03/08/23 23:49 03/09/23 01:16 03/09/23 01:17 Temperature 100.8 F H 98.8 F Pulse Rate 114 H 103 H Respiratory Rate 18 18 Blood Pressure 107/75 115/73 Pulse Oximetry 95 95 Oxygen Delivery Method Room Air Room Air Room Air BMI result Body Mass Index 26.5 Const Other: Appearance: Alert. Oriented X3. No acute distress. Eyes: Pupils equal, round and reactive to light. ENT: Pharynx normal. Neck: Normal inspection. Neck supple. No lymph nodes noted. No crepitus CVS: Normal heart rate and rhythm. Pulses normal. Normal S1 and S2 Respiratory: No respiratory distress. Breath sounds normal. No Wheezing. No rales , actively coughing Abdomen: Soft and nontender. No rigidity. No distention. Skin: Skin warm and dry. Normal skin color. Normal skin turgor. Extremities: No lower extremity edema. No Lacerations. No Rash Neuro: Oriented X 3. No motor deficit. No sensory deficit. Moving all extremities. No slurred speech. CN 2 through 12 grossly intact Psych: calm, cooperative, normal affect Course Course Course Narrative: -all of patient's labs pending Medications Administered Discontinued Medications Generic Name Dose Route Start Last Admin Trade Name Freq PRN Reason Stop Dose Admin Sodium Chloride 1,000 mls @ 999 mls/hr 03/09/23 01:50 03/09/23 02:21 Ns IVCONT 03/09/23 02:50 999 mls/hr .Q1H1M ONE Administration Ibuprofen 600 mg 03/09/23 01:54 03/09/23 02:27 Ibuprofen 600 Mg Tablet PO 03/09/23 01:55 600 mg ONCE ONE Administration Loperamide HCl 4 mg 03/09/23 01:50 03/09/23 02:26 Loperamide Hcl 2 Mg Capsule PO 03/09/23 01:51 4 mg ONCE ONE Administration Medical Decision Making Medical Decision Making [facility] Narrative: -interpretation of labs, patient tested negative for COVID and influenza. -patient has a fever 100.8, tachycardic. -patient receiving IV fluids, IV Motrin, loperamide Differential Diagnosis Differential Diagnoses: The differential diagnosis associated with the presentation includes (Pneumonia, COVID, influenza) Lab Data [facility] Lab Attestation statement: I reviewed the patient's lab results. 03/09/23 02:20 03/09/23 02:20 Labs: Lab Results 03/08/23 03/09/23 03/09/23 Range/Units 23:58 02:20 02:54 WBC 6.1 (4.8-10.8) X10*3/uL RBC 4.31 L (4.60-5.80) X10*6/uL Hgb 12.4 L (14.0-18.0) g/dl Hct 36.6 L (42.0-52.0) % MCV 84.9 (80.0-98.0) fL MCH 28.8 (27.0-33.0) pg MCHC 33.9 (31.0-36.0) g/dl RDW 13.3 (11.0-16.0) % Plt Count 321 D (160-400) X10*3/uL MPV 9.0 L (9.4-12.4) fL Immature Gran % (Auto) 0.3 (0.0-0.4) % Neut % (Auto) 76.1 H (45-73) % Lymph % (Auto) 17.8 L (20-40) % [place] % (Auto) 4.8 (2-11) % Eos % (Auto) 0.3 (0-4) % Baso % (Auto) 0.7 (0-2) % Lymph # (Auto) 1.1 L (1.2-4.9) X10*3/uL [place] # (Auto) 0.3 (0.1-1.2) X10*3/uL Eos # (Auto) 0.0 (0.0-0.4) X10*3/uL Baso # (Auto) 0.0 (0.0-0.2) X10*3/uL Abs Immat Gran (auto) 0.02 (0.00-0.03) X10*3/uL Absolute Neuts (auto) 4.6 (2.0-8.3) x10*3/uL Absolute Nucleated RBC 0.000 (0.0-0.012) X10*3/uL Nucleated RBC % (auto) 0.0 (0.0-0.2) /100WBC Sodium 141 (135-145) mmol/L Potassium 3.8 D (3.3-5.1) mmol/L Chloride 110 H (96-108) mmol/L Carbon Dioxide 20 L (22-29) mmol/L Anion Gap 15 (12-20) BUN 18 H (9-16) mg/dL Creatinine 1.11 (0.5-1.4) mg/dL Estim Creat Clear Calc 76.0 Estimated GFR > 60 Random Glucose 114 (60-115) mg/dL Calcium 9.2 D (8.4-10.2) mg/dL Total Bilirubin 0.3 (0.0-1.0) mg/dL Direct Bilirubin 0.1 (0.0-0.5) mg/dL AST 21 (5-37) U/L ALT 26 (0-40) U/L Alkaline Phosphatase 83 (39-117) U/L Total Protein 7.2 (6.5-8.0) g/dL Albumin 3.8 (3.5-5.0) g/dL Urine Color Dark Yellow Urine Appearance Clear Urine pH 5.5 (5.0-9.0) Ur Specific [place] >= 1.030 H (1.005-1.025) Urine Protein Trace (Neg-Trace) mg/dL Urine Glucose (UA) Negative (Negative) mg/dL Urine Ketones Trace (Negative) mg/dL Urine Blood Negative (Negative) Urine Nitrite Negative (Negative) Ur Leukocyte Esterase Negative (Negative) COVID-19 (STEPH) Negative (Negative) COVID-19 Clin Com See Note Influenza Type A ([facility]U) Negative (Negative) Influenza Type B ([facility]U) Negative (Negative) Influenza A & B Note See Note Independent Interpretation I performed an independent interpretation of an: CT Scan Radiology Impression Discussion of test interpretation with radiology: I have reviewed the radiologist's reading. Radiologist Impression: FINDINGS: The cardiomediastinal silhouette is stable. There is a right infrahilar opacity which was seen previously. Lungs are otherwise clear. There are no significant pleural effusions. The bony structures and soft tissues are unremarkable. XR/XR chest 1V IMPRESSION: Right infrahilar opacity was present previously and may be chronic. Recurrent pneumonia is a consideration. Discharge Plan Discharge Clinical Impression: Pneumonia Patient Disposition: Home, Self-Care Instructions: Pneumonia (ED) Additional Instructions: Please follow-up with your primary care physician tomorrow. If you have any worsening or new symptoms, please return to the emergency room or call 911 Prescriptions: New doxycycline hyclate 100 mg capsule 100 mg PO BID Qty: 14 0RF prednisone 50 mg tablet 50 mg PO DAILY Qty: 5 0RF No Action albuterol sulfate 90 mcg/actuation HFA aerosol inhaler 2 puff inhalation Q6H PRN (Reason: for wheezing) Qty: 1 0RF Xolair 150 mg/mL syringe 150 mg subcut Q4W 28 Days Qty: 1 12RF omeprazole 20 mg Tablet,Delayed Release (Dr/Ec) 20 mg PO DAILY@0630 prednisone 20 mg tablet 40 mg PO DAILY 5 Days Qty: 10 0RF lidocaine 5 % adhesive patch,medicated 1 patch topical DAILY Qty: 30 0RF Rx Instructions: leave on most painful area for up to 12 hrs ibuprofen 600 mg tablet 600 mg PO Q6H PRN (Reason: pain) Qty: 30 0RF diazepam [Valium] 5 mg tablet 5 mg PO TID PRN (Reason: muscle spasm) Qty: 12 0RF Rx Instructions: partial fill is okay benzonatate 100 mg capsule 100 mg PO TID PRN (Reason: Cough) hydrochlorothiazide 25 mg tablet 25 mg PO DAILY multivitamin Tablet 1 tab PO DAILY fluticasone propionate 50 mcg/actuation spray,suspension 2 spray intranasal DAILY atorvastatin 20 mg tablet 20 mg PO DAILY amlodipine 5 mg tablet 5 mg PO DAILY azithromycin 250 mg tablet See Rx Instructions PO .COMPLEX Qty: 6 0RF Rx Instructions: For 250 mg dose pack: take 500 mg today (day 1), then 250 mg for 4 days (days 2-5) PO bisacodyl [Dulcolax (bisacodyl)] 5 mg tablet,delayed release (DR/EC) 20 mg PO ONCE 1 Days Qty: 4 0RF Rx Instructions: Take 4 tablets by mouth at 12:00pm the day before your procedure. polyethylene glycol 3350 [Miralax] 17 gram/dose powder 238 g PO ONCE PRN (Reason: laxative effect) 1 Days Qty: 238 0RF Rx Instructions: Take as directed by mouth the day before your procedure.
--- NOTE | 2023-03-09 02:38 | PC.NURSE ---
IV placed #22 R-forearm. labs drawn and IV fluids running
[2023-03-09 02:44] LABS: Alanine Aminotransferase 26 U/L (0-40); Albumin Level 3.8 g/dL (3.5-5.0); Alkaline Phosphatase 83 U/L (39-117); Anion Gap 15 (12-20); Aspartate Amino Transferase 21 U/L (5-37); Bilirubin Direct 0.1 mg/dL (0.0-0.5); Bilirubin Total 0.3 mg/dL (0.0-1.0); Blood Urea Nitrogen 18 mg/dL (9-16); Calcium 9.2 mg/dL (8.4-10.2); Carbon Dioxide 20 mmol/L (22-29); Chloride 110 mmol/L (96-108); Estimated Glomerular Filt Rate > 60; Glucose Random 114 mg/dL (60-115); Potassium 3.8 mmol/L (3.3-5.1); Sodium 141 mmol/L (135-145); Total Protein 7.2 g/dL (6.5-8.0)
== END 2023-03-09 06:11 | disposition home or self-care (01) ==
PROVIDERS: Emergency Provider Emergency Medicine; PCP Family Medicine
DX: J18.9 Pneumonia, unspecified organism (principal); R50.9 Fever, unspecified; Z11.52 Encounter for screening for COVID-19; J44.9 Chronic obstructive pulmonary disease, unspecified; Z87.891 Personal history of nicotine dependence; Z79.899 Other long term (current) drug therapy
CPT/HCPCS: 36415; 71045; 80048; 80076; 81003; 85025; 87502; 87635; 99283; 99285

== ENCOUNTER 2023-03-09 22:51 | Emergency (ER) | payer OTHER, SELFPAY ==
[2023-03-09 23:07] VITALS: BP 135/82; PULSE 110; RESP 18; TEMP 37.6; O2SAT 94; BMI 19.5
--- NOTE | 2023-03-10 00:43 | ED.EXTPRO ---
HPI - Extremity Problem General Chief complaint: Extremity Injury, Upper Stated complaint: Fall/Finger inj Time Seen by Provider: 03/09/23 23:57 Source: patient Mode of arrival: ambulatory Limitations: no limitations History of Present Illness HPI Narrative: a 52-year-old male [id number] was trying to adjust to fan and fell on his right hand injuring the ring finger on the right hand. PIP held in the flexion, not extended, patient had old right little finger injury since 1991 with deformity and limitation of mobility. Related Data Home Medications Medication Instructions Recorded Confirmed omeprazole 20 mg tablet,delayed 20 mg PO DAILY@0630 06/21/21 01/09/23 release atorvastatin 20 mg tablet 20 mg PO DAILY 09/22/21 01/09/23 fluticasone propionate 50 2 spray intranasal DAILY 09/22/21 01/09/23 mcg/actuation nasal spray,suspension benzonatate 100 mg capsule 100 mg PO TID PRN Cough 09/10/22 01/09/23 hydrochlorothiazide 25 mg tablet 25 mg PO DAILY 09/10/22 01/09/23 multivitamin 1 tab PO DAILY 09/10/22 01/09/23 amlodipine 5 mg tablet 5 mg PO DAILY 02/14/23 Previous Rx's Medication Instructions Recorded albuterol sulfate 90 mcg/actuation 2 puff inhalation Q6H PRN for 12/06/22 aerosol inhaler wheezing #1 ea omalizumab 150 mg/mL subcutaneous 150 mg subcut Q4W 28 days #1 mL 01/08/23 syringe (Xolair) bisacodyl 5 mg tablet,delayed 20 mg (4 x 5 mg) PO ONCE 01/09/23 release (Dulcolax (bisacodyl)) colonoscopy prep 1 day #4 tabs polyethylene glycol 3350 17 238 g PO ONCE PRN laxative effect 01/09/23 gram/dose oral powder (Miralax) 1 day #238 grams diazepam 5 mg tablet (Valium) 5 mg PO TID PRN muscle spasm #12 02/14/23 tabs ibuprofen 600 mg tablet 600 mg PO Q6H PRN pain #30 tabs 02/14/23 lidocaine 5 % topical patch 1 patch topical DAILY #30 ea 02/14/23 prednisone 20 mg tablet 40 mg (2 x 20 mg) PO DAILY 5 days 02/14/23 #10 tabs azithromycin 250 mg tablet See Rx Instructions PO .COMPLEX #6 02/15/23 tabs doxycycline hyclate 100 mg capsule 100 mg PO BID #14 caps 03/09/23 prednisone 50 mg tablet 50 mg PO DAILY #5 tabs 03/09/23 Allergies Allergy/AdvReac Type Severity Reaction Status Date / Time clindamycin [Clindamycin] Allergy Severe SEVERE Verified 03/09/23 23:07 ITCHING Review of Systems Review of Systems: All other systems are reviewed and are negative Constitutional: Reports as per HPI and Reports no additional constitutional complaints Eyes: Reports as per HPI and Reports no additional eye complaints Reports system reviewed and no additional complaints, except as documented Cardiovascular: Reports as per HPI and Reports no additional cardiovascular complaints Respiratory: Reports as per HPI and Reports no additional respiratory complaints Gastrointestinal: Reports as per HPI and Reports no additional gastrointestinal complaints Genitourinary: Reports no additional female genitourinary complaints Musculoskeletal: Reports no additional musculoskeletal complaints Skin/Breast: Reports system reviewed and no additional complaints, except as docu Psychiatric: Reports no additional psychiatric complaints Endocrine: Reports no additional endocrine complaints Hematologic/Lymphatic: Reports no additional hematologic/lymphatic complaints Allergic/Immunologic: Reports no additional allergic/immunologic complaints Reports system reviewed and no additional complaints, except as documented and Reports Abnormal speech present [facility] Past Medical History Medical History COPD (chronic obstructive pulmonary disease) Hypoxia Sepsis Recurrent pneumonia Pneumonia Heartburn Bronchiectasis Asthma Surgical History No pertinent past surgical history Family History Family History Sister Breast CA Social History Social History Household Members: None Housing: Apartment Do you presently have visiting nurse or other home services: No Alcohol intake: current Alcohol intake frequency: holidays/special occasions only Patient Tobacco Use Status: Former Tobacco user Tobacco use type: Cigarette e-Cigarette/Vaping Use: Never Used Second Hand Smoke Exposure: No Substance Use Type: Unknown Advance Directives: Yes Advance Directives on File: Yes Advance Directives Date on File: 06/21/21 service: No Current occupational status: employed Physical Exam Vital Signs: Vital Signs: Last Vital Signs Temp 99.6 F 03/09/23 23:07 Pulse 110 H 03/09/23 23:07 Resp 18 03/09/23 23:07 BP 135/82 03/09/23 23:07 Pulse Ox 94 03/09/23 23:07 O2 Del Method Room Air 03/09/23 23:07 BMI result Body Mass Index 19.5 Vital signs have been reviewed and appear to be correct. Blood pressure elevated. Heart rate normal. Respiratory rate normal. Temperature normal. Oxygen saturation normal. Appearance: Alert. Oriented X3. No acute distress. Head: Normal external exam. Normocephalic. Atraumatic. No Camejo signs noted. No raccoon eyes noted Eyes: PERRLA. EOMI. Conjunctiva and sclera normal. Eyelids normal. ENT: TM's Normal. Pharynx normal. Uvula midline. Moist mucous membranes. No trismus noted. No drooling noted. No muffled voice noted. Neck: Normal inspection. Neck supple. FROM. No adenopathy. Thyroid Normal. No meningeal signs. No neck mass noted. CVS: Normal heart rate and rhythm. Heart sound normal. No murmurs noted. Pulses normal throughout. Respiratory: No respiratory distress. Painless inspiration. Breath sounds normal. No wheezes/rales/rhonchi noted. Chest nontender. No accessory muscle usage noted or decreased air movement noted. Abdomen: Soft and nontender. Bowel sounds normal in all 4 quadrants. No distention noted. No organomegaly noted. No visible injury noted. Back: No CVA tenderness. Full range of motion noted. Skin: Skin warm and dry. Normal skin color. Normal skin turgor. No rashes/lesions/lacerations noted. Extremities: Right hand: Old deformity to the right little finger, right ring finger held with flexion to the PIP joint, able to minimally wiggle the finger. Neurovascularly intact. Neuro: Oriented X 3. Cranial nerve exam: II-XII are grossly intact No motor deficit. No sensory deficit. Reflexes normal. Course Reevaluation(s) Reevaluation #1: Right ring finger PIP dislocation. S/p PIP reduction. follow-up with Dr. Paredes at the hand clinic. Time: 01:20 Medical Decision Making Differential Diagnosis Differential Diagnoses: The differential diagnosis associated with the presentation includes ( Right ring finger fracture, right ring finger dislocation.) Admission/Observation Consideration of admission/observation: Escalation of care including admission/observation considered Independent Interpretation I performed an independent interpretation of an: Plain X-Ray ( Right ring finger:Anterior dislocation of PIP joint of ring finger. ) Radiology Impression Discussion of test interpretation with radiology: I have reviewed the radiologist's reading. Procedures Orthopedic Joint Reduction Joint #1: Time Out Performed: Yes Side: right Joint Reduction Location: other (proximal PIP of right ring finger.) Shoulder Technique Used (if applicable): traction/counter-traction Technique used: traction/counter-traction Post-reduction neuro exam: intact Post-reduction vascular: intact Post Reduction X-Ray Obtained: Yes Post Reduction X-Ray Results: reduced Splint Applied: No Patient Tolerated Procedure: well Discharge Plan Discharge Clinical Impression: Dislocation of PIP joint of finger Qualifiers: Encounter type: initial encounter Qualified Code(s): S63.289A - Dislocation of proximal interphalangeal joint of unspecified finger, initial encounter Patient Disposition: Home, Self-Care Instructions: Finger Dislocation (ED) Prescriptions: No Action albuterol sulfate 90 mcg/actuation HFA aerosol inhaler 2 puff inhalation Q6H PRN (Reason: for wheezing) Qty: 1 0RF Xolair 150 mg/mL syringe 150 mg subcut Q4W 28 Days Qty: 1 12RF omeprazole 20 mg Tablet,Delayed Release (Dr/Ec) 20 mg PO DAILY@0630 prednisone 20 mg tablet 40 mg PO DAILY 5 Days Qty: 10 0RF lidocaine 5 % adhesive patch,medicated 1 patch topical DAILY Qty: 30 0RF Rx Instructions: leave on most painful area for up to 12 hrs ibuprofen 600 mg tablet 600 mg PO Q6H PRN (Reason: pain) Qty: 30 0RF diazepam [Valium] 5 mg tablet 5 mg PO TID PRN (Reason: muscle spasm) Qty: 12 0RF Rx Instructions: partial fill is okay benzonatate 100 mg capsule 100 mg PO TID PRN (Reason: Cough) hydrochlorothiazide 25 mg tablet 25 mg PO DAILY multivitamin Tablet 1 tab PO DAILY doxycycline hyclate 100 mg capsule 100 mg PO BID Qty: 14 0RF prednisone 50 mg tablet 50 mg PO DAILY Qty: 5 0RF fluticasone propionate 50 mcg/actuation spray,suspension 2 spray intranasal DAILY atorvastatin 20 mg tablet 20 mg PO DAILY amlodipine 5 mg tablet 5 mg PO DAILY azithromycin 250 mg tablet See Rx Instructions PO .COMPLEX Qty: 6 0RF Rx Instructions: For 250 mg dose pack: take 500 mg today (day 1), then 250 mg for 4 days (days 2-5) PO bisacodyl [Dulcolax (bisacodyl)] 5 mg tablet,delayed release (DR/EC) 20 mg PO ONCE 1 Days Qty: 4 0RF Rx Instructions: Take 4 tablets by mouth at 12:00pm the day before your procedure. polyethylene glycol 3350 [Miralax] 17 gram/dose powder 238 g PO ONCE PRN (Reason: laxative effect) 1 Days Qty: 238 0RF Rx Instructions: Take as directed by mouth the day before your procedure. Referrals: Genevieve Lama DO [Primary Care Provider] - Felicita Paredes MD [Physician] -
== END 2023-03-10 01:49 | disposition home or self-care (01) ==
PROVIDERS: Emergency Provider Emergency Medicine; PCP Family Medicine
DX: S63.284A Dislocation of proximal interphalangeal joint of right ring finger, initial encounter (principal); W20.8XXA Other cause of strike by thrown, projected or falling object, initial encounter; J44.9 Chronic obstructive pulmonary disease, unspecified; Z87.891 Personal history of nicotine dependence; Z79.899 Other long term (current) drug therapy; Y93.9 Activity, unspecified; Y92.9 Unspecified place or not applicable; Y99.9 Unspecified external cause status
CPT/HCPCS: 26770; 73120; 73130; 99282; 99284

== ENCOUNTER 2023-03-21 09:15 | Outpatient (REF) | payer OTHER, SELFPAY | END 2023-03-21 09:16 | disposition home or self-care (01) | LOC: HO.MDS 09:15 | PROVIDERS: Visit Provider Internal Medicine Pulmonary Disease | DX: J45.50 Severe persistent asthma, uncomplicated (principal) | CPT/HCPCS: 96372 ==

== ENCOUNTER 2023-04-02 10:05 | Outpatient (REF) | payer OTHER, SELFPAY ==
--- NOTE | ~2023-04-02 | XR_ITS ---
EXAMINATION: XR HAND, RIGHT CLINICAL INFORMATION: Close traumatic dislocation of PIP joint of ring finger. Recurrent dislocation of right fourth PIP joint. COMPARISON: Right hand 03/10/2023 TECHNIQUE: PA, lateral, and oblique views of the right hand. FINDINGS: The bones are intact. No fracture or dislocation. Joint spaces are maintained. No erosions or soft tissue calcifications. XR/XR hand RT min 3V IMPRESSION: No acute bony abnormality. No fracture or dislocation.
--- NOTE | ~2023-04-02 | XR_ITS ---
EXAMINATION: XR KNEE, LEFT CLINICAL INFORMATION: Left knee pain. Patient states chronic COMPARISON: Left knee 09/23/2017 TECHNIQUE: Four views of the left knee. FINDINGS: The bones are intact. No fracture or joint effusion. Small tricompartmental marginal osteophytes, as before. Question of narrowing of the patellofemoral joint. XR/XR knee LT 3V IMPRESSION: 1. No acute bony abnormality. 2. Mild osteoarthritis.
--- NOTE | ~2023-04-02 | XR_ITS ---
EXAMINATION: XR CHEST CLINICAL INFORMATION: Pneumonia of both lungs due to infectious organism, unspecified part of the lung, status post recurrent pneumonia treatment. COMPARISON: 03/09/2023, 01/08/2023 TECHNIQUE: 2 views of the chest were obtained. FINDINGS: Patchy and partially consolidated perihilar airspace opacity in the right lung. This is slightly less dense compared to 03/09/2023, similar to 01/08/2023. This is consistent with pneumonia. The left lung is clear. The cardiomediastinal silhouette is within normal limits. No pleural effusion. No change in mild anterior wedge compression of mid to lower thoracic vertebral bodies. XR/XR chest 2V IMPRESSION: There is perihilar airspace opacity in the right lung consistent with pneumonia.
== END 2023-04-02 10:06 | disposition home or self-care (01) ==
LOC: HO.HHCX 10:05
PROVIDERS: Visit Provider Family Medicine
DX: J18.9 Pneumonia, unspecified organism (principal); S63.284A Dislocation of proximal interphalangeal joint of right ring finger, initial encounter; M25.562 Pain in left knee
CPT/HCPCS: 71046; 73130; 73562

== ENCOUNTER 2023-04-11 13:52 | Outpatient (REF) | payer OTHER, SELFPAY ==
--- NOTE | ~2023-04-11 | XR_ITS ---
EXAMINATION: XR HAND, RIGHT CLINICAL INFORMATION: Pain. COMPARISON: Radiographs dated 03/10/2023. TECHNIQUE: PA, lateral, and oblique views of the right hand. FINDINGS: The bones and soft tissues are normal. There is a neutral ulnar variance. No fracture. Alignment is anatomic. Joint spaces are maintained. No erosions or soft tissue calcifications. XR/XR hand RT min 3V IMPRESSION: Normal right hand.
== END 2023-04-11 13:53 | disposition home or self-care (01) ==
LOC: HO.HOSX 13:52
PROVIDERS: PCP Family Medicine; Visit Provider Physician Assistant
DX: M20.021 Boutonniere deformity of right finger(s) (principal)
CPT/HCPCS: 73130

== ENCOUNTER 2023-04-11 13:52 | Outpatient (AMB) | payer OTHER, SELFPAY ==
[2023-04-11 13:58] VITALS: BMI 19.3
--- NOTE | 2023-04-11 13:58 | MHC.OFFVIS ---
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 Patient was trying to adjust a fan and fell on his right hand injuring the ring finger. Patient states he had a old right pinky injury from 1991. Patient seen in ED where xrays were taken, finger was reduced and splinted. States the following day his finger dislocated again and he returned to ED. Finger was splinted. Currently states he has pain in his PIP joint and swelling as well. 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 The patient was seen in the ED on 03/10/2023 status post falling on his right hand when trying to adjust a fan. X-rays of the right hand were obtained. His right ring finger was reduced while in the ED. While in the office today he reports the day after being seen in the ED his finger dislocated again causing him to return to the ED. His finger was re-splinted. He states he currently has pain at the PIP joint and edema. Patient had old right little finger injury since 1991 with deformity and limitation of mobility. Of note: In the medical referral paperwork it states the patient noted he did not schedule an appointment. He states ?he and a friend have tried to pull his finger to reduce the discomfort, to no avail?. [facility] Medical History COPD (chronic obstructive pulmonary disease) Hypoxia Sepsis Recurrent pneumonia Pneumonia Heartburn Bronchiectasis Asthma Surgical History No pertinent past surgical history Family History Sister Breast CA Social History Household Members: None Housing: Apartment Do you presently have visiting nurse or other home services: No Alcohol intake: current Alcohol intake frequency: holidays/special occasions only Patient Tobacco Use Status: Former Tobacco user Tobacco use type: Cigarette e-Cigarette/Vaping Use: Never Used Second Hand Smoke Exposure: No Substance Use Type: Unknown Advance Directives Date on File: 06/21/21 service: No Current occupational status: employed Review of Systems Const All systems reviewed & are unremarkable except as noted in HPI and below Physical Exam Vital Signs: BMI result Body Mass Index 19.3 Const General: cooperative and no acute distress Orientation/consciousness: patient oriented x3 Resp Effort & Inspection: normal respiratory effort and able to speak in complete sentences Cardio Peripheral pulses: Peripheral pulses 2+ throughout Skin General skin exam: no rashes or lesions noted Neuro General: patient oriented x3 Extrem Other: Right ring finger: Notable boutonniere deformity. Able to flex and extend at the DIP, PIP, and CMC. Able to adduct and abduct. Sensation intact. Capillary refill is brisk. Assessment & Plan Assessment & Plan (1) Boutonniere deformity of finger of right hand: Comment: Right ring finger. Code(s): M20.021 - Boutonniere deformity of right finger(s) Plan Mr. David is a 52-year-old right hand dominant male who presents in the office today, as a new patient, for an evaluation of right hand pain. The patient was seen in the ED on 03/10/2023 status post falling on his right hand when trying to adjust a fan. X-rays of the right hand were obtained. His right ring finger was reduced while in the ED. While in the office today he reports the day after being seen in the ED his finger dislocated again causing him to return to the ED. His finger was re-splinted. He states he currently has pain at the PIP joint and edema. Patient had old right little finger injury since 1991 with deformity and limitation of mobility. Of note: In the medical referral paperwork it states the patient noted he did not schedule an appointment. He states ?he and a friend have tried to pull his finger to reduce the discomfort, to no avail?. Dr. Gallardo was available to speak with me about the patient today and a collaborative treatment plan was made. The patient will be referred to occupational therapy to work on ROM of the DIP. I also placed an order for the patient to receive a double ring splint from OT. Follow up will be in 3 weeks, or sooner if needed. X-rays of the right hand which were obtained while in the office today and were reviewed by me, Shireen Nagel PA-C, revealed boutonniere deformity of the right ring finger. X-rays of the right hand, obtained on 04/02/2023, revealed no acute fractures or dislocation. Orders: Orders XR hand RT min 3V 04/11/23 M79.643 - Pain in unspecified hand OT Evaluation and Treatment 04/11/23 M20.021 - Boutonniere deformity of right finger(s) Patient Instructions: Scribed for Shireen Nagel PA-C by Stephanie Head front office medical assistant, on 04/11/2023 at 1:55 pm, EST. Coding Level of Care Code New Pt Level 4 (78312) Diagnoses Boutonniere deformity of finger of right hand M20.021
== END 2023-04-11 14:49 | disposition home or self-care (01) ==
PROVIDERS: PCP Family Medicine; Visit Provider Physician Assistant
DX: M20.021 Boutonniere deformity of right finger(s) (principal)
CPT/HCPCS: 99203; 99213

== ENCOUNTER 2023-04-18 08:50 | Outpatient (REF) | payer OTHER, SELFPAY ==
[2023-04-20 17:04] LABS: TS Negative Control Passed; TS Panel A 0; TS Panel B 0; TS Positive Control Passed; TSpotTB Negative (Negative)
== END 2023-04-18 08:51 | disposition home or self-care (01) ==
LOC: HO.MDS 08:50
PROVIDERS: Family Medicine; Visit Provider Internal Medicine Pulmonary Disease
DX: Z11.1 Encounter for screening for respiratory tuberculosis (principal); J45.50 Severe persistent asthma, uncomplicated
CPT/HCPCS: 36415; 86481; 96372

== ENCOUNTER 2023-04-30 10:38 | Outpatient (REF) | payer OTHER, SELFPAY ==
--- NOTE | ~2023-04-30 | XR_ITS ---
EXAMINATION: XR HAND, RIGHT CLINICAL INFORMATION: Pain in right hand, specifically fourth finger COMPARISON: 04/11/2023 TECHNIQUE: PA, lateral, and oblique views of the right hand. FINDINGS: The bones and soft tissues are normal. No fracture. Alignment is anatomic. Joint spaces are maintained. No erosions or soft tissue calcifications. XR/XR hand RT min 3V IMPRESSION: Normal right hand.
== END 2023-04-30 10:39 | disposition home or self-care (01) ==
LOC: HO.HOSX 10:38
PROVIDERS: Visit Provider Physician Assistant
DX: M20.021 Boutonniere deformity of right finger(s) (principal)
CPT/HCPCS: 73130

== ENCOUNTER 2023-04-30 14:30 | Outpatient (AMB) | payer OTHER, SELFPAY ==
--- NOTE | 2023-04-30 15:03 | A.OFFVIS_ITS ---
Intake Intake Visit Reasons: ov-traumatic dislocation of proximal Intake Note: Feliciano is a 52 year old right hand dominant male who presents today as a new patient for a evaluation of his right ring finger. Patient reports still having pain with movement. He states that his finger looks like its going to come out of place. Allergies clindamycin [Clindamycin] Allergy (Severe, Verified 04/30/23 15:04) SEVERE ITCHING HPI ov-traumatic dislocation of proximal HPI Details 52-year-old right hand dominant male who presents in the office today for a follow up of a right hand boutonniere deformity of the ring finger, which occurred on 03/10/2023 status post falling on his right hand when trying to adjust a fan. The patient reports he is still having pain with movement. He states his finger looks like it is coming out of place. [facility] Medical History COPD (chronic obstructive pulmonary disease) Hypoxia Sepsis Recurrent pneumonia Pneumonia Heartburn Bronchiectasis Asthma Surgical History No pertinent past surgical history Family History Sister Breast CA Social History Household Members: None Housing: Apartment Do you presently have visiting nurse or other home services: No Alcohol intake: current Alcohol intake frequency: holidays/special occasions only Patient Tobacco Use Status: Former Tobacco user Tobacco use type: Cigarette e-Cigarette/Vaping Use: Never Used Second Hand Smoke Exposure: No Substance Use Type: Unknown Advance Directives Date on File: 06/21/21 service: No Current occupational status: employed Review of Systems Const All systems reviewed & are unremarkable except as noted in HPI and below Physical Exam Const General: cooperative, healthy appearing and no acute distress Resp Effort & Inspection: normal respiratory effort and able to speak in complete sentences Cardio Rate: regular rate Peripheral pulses: Peripheral pulses 2+ throughout GI Palpation (GI): Soft to palpation Skin Lesions: no lesions Rashes: no rashes Extrem Other: Right ring finger: 20 degrees supple forward flexion at the PIP joint. Slight tenderness to palpation at the PIP joint. Able to passively perform full extension and full flexion. Sensation intact. Capillary refill is brisk. Assessment & Plan Assessment & Plan (1) Boutonniere deformity of finger of right hand: Comment: Right ring finger. Code(s): M20.021 - Boutonniere deformity of right finger(s) Plan Mr. David is a 52-year-old right hand dominant male who presents in the office today for a follow up of a right hand boutonniere deformity of the ring finger, which occurred on 03/10/2023 status post falling on his right hand when trying to adjust a fan. The patient reports he is still having pain with movement. He states his finger looks like it is coming out of place. Dr. Paredes was available to see the patient with me while in the office today and a collaborative treatment plan was made. The patient was educated ROM exercises to work on and instructed on working on laying his hand flat on the table. He demonstrates understanding. He was instructed to work on the exercises every hour for 20 times (while watching commercials for example). He was taught how to loosely tra tape the right ring finger while he is working for the nex t 6 weeks. Follow up will be in 6 weeks for a ROM check, or sooner if needed. X-rays of the right hand which were obtained while in the office today and were reviewed by me, Shireen Nagel PA-C, revealed no acute fracture or dislocation. Orders: Orders XR hand RT min 3V 04/30/23 M79.643 - Pain in unspecified hand Patient Instructions: Scribed for Shireen Nagel PA-C by Stephanie Head medical office assistant, on 04/30/2023 at 2:37 pm, EST. Coding Level of Care Code Est Pt Level 3 (71795) Diagnoses Boutonniere deformity of finger of right hand M20.021
== END 2023-04-30 15:42 | disposition home or self-care (01) ==
PROVIDERS: PCP Family Medicine; Visit Provider Physician Assistant
DX: M20.021 Boutonniere deformity of right finger(s) (principal)
CPT/HCPCS: 99213

== ENCOUNTER 2023-05-02 14:57 | Outpatient (REF) | payer OTHER, SELFPAY ==
--- NOTE | ~2023-05-02 | CT_ITS ---
EXAMINATION: CT CHEST WITHOUT CONTRAST CLINICAL INFORMATION: Follow-up perihilar airspace disease. COMPARISON: Chest radiograph from 04/02/[address] scan from 08/27/[address] angiogram from 09/10/2022 TECHNIQUE: Multidetector volumetric CT imaging of the chest was done. Axial MIP volume rendering provided. Sagittal and coronal reformatted images were obtained. This CT examination was performed using dose optimization techniques as appropriate, variously including the following: *Automated exposure control *Adjustment of mA and/or kV according to patient size (this includes techniques or standardized protocols for targeted exams where dose is matched to indication/reason for exam; i.e. extremities or head) *Use of iterative reconstruction technique DLP: 153 mGy-cm FINDINGS: CHEF & OWNER: Unremarkable LUNGS: Left lung revealed mild changes of emphysema with stable scattered very small lung nodules and the largest nodule seen in the medial aspect of the left lower lobe seen on image 264 series 5 and measured 0.4 cm. Few bronchi in the left upper lobe are mildly dilated with mucosal plaquing. ON THE RIGHT: There are severe changes of COPD, with multiple dilated bronchi with mucus plugging and bronchiectasis. There are multiple scattered cystic spaces and multiple bronchiectasis, such as extensive bronchiectasis seen in the right middle lobe with low volume of the right middle lobe. In the right upper lobes there is branching appearance of the bronchi due to mucous plugging. Central airways are patent. There are multiple punctate calcifications most likely due to granulomatous disease. Some of the calcifications seen endobronchial and could be due to inspissated material. There is 0.4 cm nodule in the right lower lobe subpleural seen on image 325 MEDIASTINUM: The mediastinum is normal. CORONARY ARTERY CALCIFICATION: None visualized on this study. PLEURA: There is no pleural effusion. No pleural mass or thickening. AXILLA: No lymphadenopathy. UPPER ABDOMEN: Unremarkable. OSSEOUS STRUCTURES: Mild multilevel degenerative changes and mid thoracic spine CT/CT chest wo IV con IMPRESSION: 1. Severe changes of COPD with bronchiectasis, mucus plugging and multiple cystic spaces, more prominent on the right. 2. Stable scattered lung nodules. 3. Bronchiectasis with loss of volume in the right middle lobe 4. Multiple punctate calcifications in the right upper lobe and left upper lobe, most likely due to granulomatous disease or/and inspissated material. Fleischner guidelines were followed.
== END 2023-05-02 14:58 | disposition home or self-care (01) ==
LOC: HO.CT 14:57
PROVIDERS: PCP Family Medicine; Visit Provider Internal Medicine Pulmonary Disease
DX: R93.89 Abnormal findings on diagnostic imaging of other specified body structures (principal)
CPT/HCPCS: 71250

== ENCOUNTER 2023-05-13 14:21 | Outpatient (REF) | payer OTHER, SELFPAY ==
[2023-05-14 18:35] LABS: Rubella IgG Antibody 1.68 Index
== END 2023-05-13 14:22 | disposition home or self-care (01) ==
LOC: HO.HHCL 14:21
PROVIDERS: Visit Provider Family Medicine
DX: Z00.00 Encounter for general adult medical examination without abnormal findings (principal)
CPT/HCPCS: 36415; 86735; 86762; 86765; 86787

== ENCOUNTER 2023-06-06 10:53 | Outpatient (AMB) | payer OTHER, SELFPAY ==
[2023-06-06 10:54] VITALS: BP 132/82; PULSE 108; O2SAT 97; BMI 28.5
--- NOTE | 2023-06-06 10:54 | MHC.OFFVIS ---
Intake Vital Signs 06/06/23 10:54 Height 5 ft 9 in Weight 192 lb 14.472 oz BMI 28.5 BP 132/82 Pulse 108 H Pulse Source Doppler Pulse Oximetry (%) 97 Oxygen Delivery Method Room Air Intake Visit Reasons: Asthma Allergies clindamycin [Clindamycin] Allergy (Severe, Verified 06/06/23 10:58) SEVERE ITCHING HPI Asthma HPI Details 52-year-old gentleman, nonsmoker, with no history of inhalation industrial dusts or vapors, no prior history of lung concerns, with COVID-19 back in 2019 recently hospitalized on 06/21/2021 for pneumonia now followed for both asthma and environmental allergies. His symptoms were controlled on Xolair, Trelegy, and albuterol MDI, over the last months secondary to irregular Xolair delivery he missed his injection and now he presents with an acute exacerbation. [facility] Medical History COPD (chronic obstructive pulmonary disease) Hypoxia Sepsis Recurrent pneumonia Pneumonia Heartburn Bronchiectasis Asthma Surgical History No pertinent past surgical history Family History Sister Breast CA Social History Household Members: None Housing: Apartment Do you presently have visiting nurse or other home services: No Alcohol intake: current Alcohol intake frequency: holidays/special occasions only Patient Tobacco Use Status: Former Tobacco user Tobacco use type: Cigarette e-Cigarette/Vaping Use: Never Used Second Hand Smoke Exposure: No Substance Use Type: Unknown Advance Directives Date on File: 06/21/21 service: No Current occupational status: employed Review of Systems Const Denies daytime sleepiness, Denies excessive sweating, Denies fatigue, Denies fever(s), Denies lethargy, Denies malaise, Denies night sweats, Denies snoring and Denies weight loss Eyes Denies blurry vision and Denies itchy eyes ENT Denies nasal congestion, Denies post nasal drip, Denies sinus pain, Denies sinus pressure and Denies other ( Thrush) Card Denies chest pain, Denies pedal edema, Denies dyspnea, Reports dyspnea on exertion, Denies orthopnea and Denies paroxysmal nocturnal dyspnea Resp Denies cough, Denies hemoptysis, Denies excessive phlegm production, Denies dyspnea, Reports dyspnea on exertion, Denies snoring and Reports wheezing GI Denies abdominal pain and Denies heartburn Musc Denies myalgias, Denies arthralgias and Denies joint swelling Skin/Breast Denies rash Neuro Denies memory loss and Denies seizure-like activity Psych Denies abnormal sleep pattern, Denies anxiety and Denies memory loss Endo Denies excessive sweating, Denies fatigue and Denies heat intolerance William/Lymph Denies easy bruising Aller/Immun Denies itchy eyes, Denies seasonal rhinorrhea and Reports wheezing Physical Exam Vital Signs: Last Vital Signs Pulse 108 H 06/06/23 10:54 BP 132/82 06/06/23 10:54 Pulse Ox 97 06/06/23 10:54 Oxygen Delivery Method Room Air 06/06/23 10:54 BMI result Body Mass Index 28.5 Const General: no acute distress and alert Nutritional Appearance: not obese Orientation/consciousness: Other orientation findings ( oriented) HEENT Head: Yes atraumatic Eyes General: appearance normal, both eyes and all related structures Sclerae: sclerae normal EOM: EOMs intact bilaterally Neck Neck: Yes supple Lymphatic: no lymphadenopathy noted Resp Effort & Inspection: normal respiratory effort and no use of accessory muscles Auscultation: wheezes (Mild bilateral) Cardio Rate: regular rate Rhythm: regular rhythm Heart sounds: no gallops, no murmurs and no rubs Skin General skin exam: other ( warm) Extrem General: No clubbing, No cyanosis and No edema Assessment & Plan Assessment & Plan (1) Asthma: Code(s): J45.909 - Unspecified asthma, uncomplicated Plan: Suboptimal control secondary to patient not receiving his Xolair and now also with an acute exacerbation. Restart Xolair. Continue Trelegy and albuterol MDI. Will treat acute exacerbation with a course of prednisone and azithromycin. (2) Environmental allergies: Code(s): Z91.09 - Other allergy status, other than to drugs and biological substances Plan: To improve after restarting Xolair. Medications: Refilled prednisone 40 mg (2 x 20 mg) PO DAILY 5 days 10 tabs 0RF azithromycin For 250 mg dose pack: take 500 mg today (day 1), then 250 mg for 4 days (days 2-5) PO 6 tabs 0RF Discontinued prednisone Discontinued Reason: Doctor's Order 50 mg PO DAILY 5 tabs 0RF Coding Level of Care Code Est Pt Level 4 (84262) Diagnoses Asthma J45.909 Environmental allergies Z91.09
== END 2023-06-06 11:11 | disposition home or self-care (01) ==
PROVIDERS: Visit Provider Internal Medicine Pulmonary Disease
DX: J45.909 Unspecified asthma, uncomplicated (principal); Z91.09 Other allergy status, other than to drugs and biological substances
CPT/HCPCS: 99214

== ENCOUNTER → 2023-06-06 10:53 | Outpatient (BNVA) | payer OTHER, SELFPAY | PROVIDERS: Visit Provider Internal Medicine Pulmonary Disease ==

== ENCOUNTER 2023-06-07 09:15 | Outpatient (REF) | payer OTHER, SELFPAY | END 2023-06-07 09:16 | disposition home or self-care (01) | LOC: HO.HOSX 09:15 | PROVIDERS: Visit Provider Physician Assistant | DX: Z13.89 Encounter for screening for other disorder (principal) ==

== ENCOUNTER 2023-06-12 | Outpatient (REF) | payer OTHER, SELFPAY ==
[2023-06-12 14:01] LABS: Amphetamine Screen Urine Not Detected (Not Detect); Barbiturates, Urine Not Detected (Not Detect); Benzodiazepines Screen Urine Not Detected (Not Detect); Cannabinoid Screen Urine Not Detected (Not Detect); Cocaine Screen Urine Not Detected (Not Detect); Fentanyl, urine Not Detected (Not Detect); Opiate Screen Urine Not Detected (Not Detect); Phencyclidine Screen Urine Not Detected (Not Detect)
[2023-06-12 14:16] LABS: Creatinine Urine 339.51 mg/dL
[2023-06-12 15:58] LABS: CT PCR NOT DETECTED (Not Detect.); NG PCR NOT DETECTED (Not Detect.)
== END 2023-06-12 00:01 | disposition home or self-care (01) ==
LOC: HO.HHCL
PROVIDERS: PCP Family Medicine; Visit Provider Family Medicine
DX: Z13.89 Encounter for screening for other disorder (principal)
CPT/HCPCS: 0353U; 80307; 82043; 82570

== ENCOUNTER 2023-06-13 08:07 | Outpatient (REF) | payer OTHER, SELFPAY ==
[2023-06-13 11:54] LABS: Hematocrit 43.9 % (42.0-52.0); Hemoglobin 14.3 g/dl (14.0-18.0); Mean Corpuscular HGB Conc 32.6 g/dl (31.0-36.0); Mean Corpuscular Volume 86.1 fL (80.0-98.0); Mean Platelet Volume 9.9 fL (9.4-12.4); Platelet Count 468 X10*3/uL (160-400); Red Cell Distribution Width 14.7 % (11.0-16.0); White Blood Count 11.6 X10*3/uL (4.8-10.8)
[2023-06-13 12:04] LABS: Estimated Average Glucose 120 mg/dL; Hemoglobin A1c % 5.8 % (<6.0)
[2023-06-13 12:14] LABS: HBS Num1 0.28 mIU/mL (0-7.99); HBsAGNum1 1.34 S/CO (0.00-0.99); HIV AB/AG Nonreactive (Nonreactive); HIV Num 1 0.04 S/CO (0.00-0.99); ~HepC Num1 0.12 S/CO (0.00-0.79); ~Hepatitis B Surface Antibody NONREACTIVE (Nonreactive); ~Hepatitis C Antibody Nonreactive (Nonreactive)
[2023-06-13 12:21] LABS: Alanine Aminotransferase 48 U/L (0-40); Albumin Level 4.3 g/dL (3.5-5.0); Alkaline Phosphatase 88 U/L (39-117); Anion Gap 16 (12-20); Aspartate Amino Transferase 25 U/L (5-37); Bilirubin Direct 0.2 mg/dL (0.0-0.5); Bilirubin Total 0.5 mg/dL (0.0-1.0); Blood Urea Nitrogen 29 mg/dL (9-16); Calcium 9.9 mg/dL (8.4-10.2); Carbon Dioxide 26 mmol/L (22-29); Chloride 105 mmol/L (96-108); Cholesterol 297 mg/dL (<200); Estimated Glomerular Filt Rate > 60; Free T4 (Free Thyroxine) 1.02 ng/dL (0.71-1.85); Glucose Random 92 mg/dL (60-115); HDL Cholesterol 55 mg/dL (>40); LDL Cholesterol Calculated 204 mg/dL (<100); Sodium 143 mmol/L (135-145); Thyroid Stimulating Hormone 1.82 uIU/mL (0.32-4.0); Total Protein 8.3 g/dL (6.5-8.0); Triglycerides 190 mg/dL (<150); Vitamin D 25-OH Total 78.4 ng/mL (>30)
[2023-06-13 13:43] LABS: HBsAGNum2 Reactive; HBsAGNum3 Reactive; Hepatitis B Surface Antigen Retest CNFM (Negative)
[2023-06-17 08:41] LABS: HBsAG NON-REACTIVE
[2023-06-17 10:14] LABS: RPR Rapid Plasma Reagin NON-REACTIVE (NON-REACTIVE)
== END 2023-06-13 08:08 | disposition home or self-care (01) ==
LOC: HO.HHCL 08:07
PROVIDERS: Visit Provider Family Medicine
DX: Z11.4 Encounter for screening for human immunodeficiency virus [HIV] (principal); I10 Essential (primary) hypertension
CPT/HCPCS: 36415; 80048; 80061; 80076; 82306; 83036; 84439; 84443; 85027; 86592; 86706; 86803; 87340; 87389

== ENCOUNTER 2023-07-10 09:41 | Outpatient (REF) | payer OTHER, SELFPAY | END 2023-07-10 09:42 | disposition home or self-care (01) | LOC: HO.MDS 09:41 | PROVIDERS: Visit Provider Internal Medicine Pulmonary Disease | DX: J45.50 Severe persistent asthma, uncomplicated (principal) | CPT/HCPCS: 96372 ==

== ENCOUNTER 2023-07-22 21:22 | Emergency (ER) | payer OTHER, SELFPAY ==
--- NOTE | ~2023-07-22 | XR_ITS ---
EXAMINATION: XR CHEST CLINICAL INFORMATION: Shortness of breath. COMPARISON: Chest radiograph 04/02/2023. CT chest 05/02/2023. TECHNIQUE: Frontal view of the chest was obtained. FINDINGS: Stable right perihilar airspace opacities compatible with severe bronchiectasis on a CT from 05/02/2023. No new focal airspace densities. No pleural effusion or pneumothorax. Normal heart size. No acute osseous findings. XR/XR chest 1V IMPRESSION: 1. Stable right perihilar airspace opacities compatible with severe bronchiectasis on a prior CT from 05/02/2023. 2. No new focal airspace densities. 3. No pleural effusion or pneumothorax.
[2023-07-22 22:01] VITALS: BP 137/87; PULSE 102; RESP 18; TEMP 36.8; O2SAT 95; BMI 27.8
[2023-07-22 22:48] LABS: Alanine Aminotransferase 60 U/L (0-40); Albumin Level 4.1 g/dL (3.5-5.0); Alkaline Phosphatase 94 U/L (39-117); Anion Gap 17 (12-20); Aspartate Amino Transferase 65 U/L (5-37); Bilirubin Total 0.2 mg/dL (0.0-1.0); Blood Urea Nitrogen 15 mg/dL (9-16); Calcium 9.6 mg/dL (8.4-10.2); Carbon Dioxide 20 mmol/L (22-29); Chloride 108 mmol/L (96-108); Creatinine Clr Calc Pharmacy 88.8; Estimated Glomerular Filt Rate > 60; Glucose Random 102 mg/dL (60-115); Potassium 3.8 mmol/L (3.3-5.1); Sodium 141 mmol/L (135-145); Total Protein 8.3 g/dL (6.5-8.0)
[2023-07-22 23:11] LABS: Influenza A PCR NEGATIVE (Negative); Influenza B PCR NEGATIVE (Negative); Resp Syncy Virus RNA Qual PCR NEGATIVE (Negative); SARS COV2 PCR INHOUSE NEGATIVE (Negative)
--- NOTE | 2023-07-23 00:58 | ED_ITS ---
HPI - General Adult General Chief complaint: General Medical Stated complaint: Chest tightness/Body aches/Diarrhea Time Seen by Provider: 07/23/23 00:56 Source: patient and family Mode of arrival: ambulatory History of Present Illness HPI narrative: 52-year-old male who has history bronchiectasis and is currently being followed by Dr. Rutherford comes in with 1 week of cough, chills, diarrhea, sore throat myalgias and states that this is his normal progression just prior to his chest feeling tight. Related Data Home Medications Medication Instructions Recorded Confirmed omeprazole 20 mg tablet,delayed 20 mg PO DAILY@0630 06/21/21 01/09/23 release atorvastatin 20 mg tablet 20 mg PO DAILY 09/22/21 01/09/23 fluticasone propionate 50 2 spray intranasal DAILY 09/22/21 01/09/23 mcg/actuation nasal spray,suspension benzonatate 100 mg capsule 100 mg PO TID PRN Cough 09/10/22 01/09/23 hydrochlorothiazide 25 mg tablet 25 mg PO DAILY 09/10/22 01/09/23 multivitamin 1 tab PO DAILY 09/10/22 01/09/23 amlodipine 5 mg tablet 5 mg PO DAILY 02/14/23 Previous Rx's Medication Instructions Recorded albuterol sulfate 90 mcg/actuation 2 puff inhalation Q6H PRN for 12/06/22 aerosol inhaler wheezing #1 ea omalizumab 150 mg/mL subcutaneous 150 mg subcut Q4W 28 days #1 mL 01/08/23 syringe (Xolair) bisacodyl 5 mg tablet,delayed 20 mg (4 x 5 mg) PO ONCE 01/09/23 release (Dulcolax (bisacodyl)) colonoscopy prep 1 day #4 tabs polyethylene glycol 3350 17 238 g PO ONCE PRN laxative effect 01/09/23 gram/dose oral powder (Miralax) 1 day #238 grams diazepam 5 mg tablet (Valium) 5 mg PO TID PRN muscle spasm #12 02/14/23 tabs ibuprofen 600 mg tablet 600 mg PO Q6H PRN pain #30 tabs 02/14/23 lidocaine 5 % topical patch 1 patch topical DAILY #30 ea 02/14/23 doxycycline hyclate 100 mg capsule 100 mg PO BID #14 caps 03/09/23 azithromycin 250 mg tablet See Rx Instructions PO .COMPLEX #6 06/06/23 tabs prednisone 20 mg tablet 40 mg (2 x 20 mg) PO DAILY 5 days 06/06/23 #10 tabs amoxicillin 500 mg capsule 1,000 mg (2 x 500 mg) PO TID 10 07/23/23 days #60 caps benzonatate 200 mg capsule 200 mg PO TID PRN cough #14 caps 07/23/23 Allergies Allergy/AdvReac Type Severity Reaction Status Date / Time clindamycin [Clindamycin] Allergy Severe SEVERE Verified 07/22/23 22:01 ITCHING Review of Systems 2 Review of Systems: Pertinent positives and negatives as stated in HPI [facility] Past Medical History Source: nursing notes reviewed Medical History COPD (chronic obstructive pulmonary disease) Hypoxia Sepsis Recurrent pneumonia Pneumonia Heartburn Bronchiectasis Asthma Surgical History No pertinent past surgical history Family History Family History Sister Breast CA Social History Social History Household Members: None Housing: Apartment Do you presently have visiting nurse or other home services: No Alcohol intake: current Alcohol intake frequency: holidays/special occasions only Patient Tobacco Use Status: Former Tobacco user Tobacco use type: Cigarette e-Cigarette/Vaping Use: Never Used Second Hand Smoke Exposure: No Substance Use Type: Unknown Advance Directives: Yes Advance Directives on File: Yes Advance Directives Date on File: 06/21/21 service: No Current occupational status: employed Physical Exam ED Vital Signs: Vital Signs - 24 hr 07/22/23 22:01 Temperature 98.2 F Pulse Rate 102 H Respiratory Rate 18 Blood Pressure 137/87 Pulse Oximetry 95 Oxygen Delivery Method Room Air BMI result Body Mass Index 27.8 VITAL SIGNS: Reviewed. GENERAL: Well developed, well nourished, in no acute distress. HEAD: Normocephalic/atraumatic EYES: PERRLA, EOMI EARS: Ext canals without abnormality NOSE: Nares patent bilateral OROPHARYNX: no oral lesions noted, posterior pharynx clear NECK: Supple, no adenopathy LUNGS: Normal breath sounds. No adventitious sounds or accessory muscle use. SpO2<95> CARDIOVASCULAR: Regular rate and rhythm without noted murmurs ABDOMEN: Soft, non-tender, non-distended with bowel sounds. MUSCULOSKELETAL: No tenderness, deformities, or effusions noted on gross inspection. EXTREMITIES: No cyanosis, clubbing or edema. SKIN: Inspection of the skin reveals no rashes NEUROLOGIC: Alert and oriented x 4. Strength and sensation to light touch were grossly intact x 4. Medical Decision Making Medical Decision Making MDM Narrative: 52-year-old male with history and clinical presentation, DDX: Viral illness/pneumonia/less likely ACS I reviewed all investigations and hematologic indices demonstrates a trivial bump in white count and a stable normocytic anemia with a slight elevation in platelets. Chemistry indices do not demonstrate an DANIAL or electrolyte derangements and patient's transaminases are chronically elevated. Viral testing negative for influenza/RSV B/COVID. Chest x-ray consistent with bronchiectasis without any new focal densities. Initial antibiotics provided here in the emergency room as well as cough suppressant and then patient was discharged with remaining course and instructed to follow-up with his primary care doctor and pediatric physical therapy assistant. Differential Diagnosis Differential Diagnoses: The differential diagnosis associated with the presentation includes Please see the discussion above Admission/Observation Consideration of admission/observation: Escalation of care including admission/observation considered Please see the discussion above Lab Data MDM Lab Attestation statement: I reviewed the patient's lab results. Please see the discussion above 07/22/23 22:27 07/22/23 22:27 Labs: Lab Results 07/22/23 Range/Units 22:27 Sodium 141 (135-145) mmol/L Potassium 3.8 (3.3-5.1) mmol/L Chloride 108 (96-108) mmol/L Carbon Dioxide 20 L (22-29) mmol/L Anion Gap 17 (12-20) BUN 15 (9-16) mg/dL Creatinine 1.03 (0.5-1.4) mg/dL Estim Creat Clear Calc 88.8 Estimated GFR > 60 Random Glucose 102 (60-115) mg/dL Calcium 9.6 (8.4-10.2) mg/dL Total Bilirubin 0.2 (0.0-1.0) mg/dL AST 65 H (5-37) U/L ALT 60 H (0-40) U/L Alkaline Phosphatase 94 (39-117) U/L Total Protein 8.3 H (6.5-8.0) g/dL Albumin 4.1 (3.5-5.0) g/dL Influenza Type A (PCR) NEGATIVE (Negative) Influenza Type B (PCR) NEGATIVE (Negative) RSV RNA Qual (PCR) NEGATIVE (Negative) SARS-CoV-2 RNA (RT-PCR) NEGATIVE (Negative) Radiology Impression Discussion of test interpretation with radiology: I have reviewed the radiologist's reading. Radiologist Impression: Please see the discussion above External Record Review External record reviewed: Outpatient record, Prior outpatient labs and Prior outpatient radiology Critical Care Time Critical Care Time Critical Care Time: Yes Total Critical Care Time: 30 Attestation: I personally attest to this time spent taking care of the patient. Discharge Plan Discharge Clinical Impression: Bronchiectasis Patient Disposition: Home, Self-Care Instructions: Bronchiectasis (ED) Additional Instructions: 1. Resume all home medications as prescribed. 2. Complete the entire course of antibiotics as prescribed, I have also prescribed cough medication. 3. Please follow-up with your pediatric physical therapy assistant in the next 1-2 days. Return to the ER for any worsening symptoms. Prescriptions: New amoxicillin 500 mg capsule 1,000 mg PO TID 10 Days Qty: 60 0RF benzonatate 200 mg capsule 200 mg PO TID PRN (Reason: cough) Qty: 14 0RF No Action albuterol sulfate 90 mcg/actuation HFA aerosol inhaler 2 puff inhalation Q6H PRN (Reason: for wheezing) Qty: 1 0RF Xolair 150 mg/mL syringe 150 mg subcut Q4W 28 Days Qty: 1 12RF omeprazole 20 mg Tablet,Delayed Release (Dr/Ec) 20 mg PO DAILY@0630 lidocaine 5 % adhesive patch,medicated 1 patch topical DAILY Qty: 30 0RF Rx Instructions: leave on most painful area for up to 12 hrs ibuprofen 600 mg tablet 600 mg PO Q6H PRN (Reason: pain) Qty: 30 0RF diazepam [Valium] 5 mg tablet 5 mg PO TID PRN (Reason: muscle spasm) Qty: 12 0RF Rx Instructions: partial fill is okay benzonatate 100 mg capsule 100 mg PO TID PRN (Reason: Cough) hydrochlorothiazide 25 mg tablet 25 mg PO DAILY multivitamin Tablet 1 tab PO DAILY doxycycline hyclate 100 mg capsule 100 mg PO BID Qty: 14 0RF fluticasone propionate 50 mcg/actuation spray,suspension 2 spray intranasal DAILY atorvastatin 20 mg tablet 20 mg PO DAILY amlodipine 5 mg tablet 5 mg PO DAILY prednisone 20 mg tablet 40 mg PO DAILY 5 Days Qty: 10 0RF azithromycin 250 mg tablet See Rx Instructions PO .COMPLEX Qty: 6 0RF Rx Instructions: For 250 mg dose pack: take 500 mg today (day 1), then 250 mg for 4 days (days 2-5) PO bisacodyl [Dulcolax (bisacodyl)] 5 mg tablet,delayed release (DR/EC) 20 mg PO ONCE 1 Days Qty: 4 0RF Rx Instructions: Take 4 tablets by mouth at 12:00pm the day before your procedure. polyethylene glycol 3350 [Miralax] 17 gram/dose powder 238 g PO ONCE PRN (Reason: laxative effect) 1 Days Qty: 238 0RF Rx Instructions: Take as directed by mouth the day before your procedure. Referrals: Genevieve Lama DO [Primary Care Provider] - Wellington Rutherford MD [Physician] -
[2023-07-23 01:20] LABS: MANUAL DIFF FLAG NO
[2023-07-23 01:21] LABS: Basophils Absolute Auto 0.1 X10*3/uL (0.0-0.2); Basophils Percent Auto 0.8 % (0-2); Eosinophils Absolute Auto 0.3 X10*3/uL (0.0-0.4); Eosinophils Percent Auto 2.4 % (0-4); Hematocrit 37.5 % (42.0-52.0); Hemoglobin 12.5 g/dl (14.0-18.0); Imm Gran Abs Auto 0.03 X10*3/uL (0.00-0.03); Imm Gran Pct Auto 0.3 % (0.0-0.4); Lymphocytes Absolute Auto 3.3 X10*3/uL (1.2-4.9); Lymphocytes Percent Auto 29.1 % (20-40); Mean Corpuscular HGB Conc 33.3 g/dl (31.0-36.0); Mean Corpuscular Volume 83.9 fL (80.0-98.0); Mean Platelet Volume 8.9 fL (9.4-12.4); Monocytes Absolute Auto 0.7 X10*3/uL (0.1-1.2); Neutrophils Percent Auto 61.4 % (45-73); Platelet Count 423 X10*3/uL (160-400); Red Blood Count 4.47 X10*6/uL (4.60-5.80); Red Cell Distribution Width 14.4 % (11.0-16.0); White Blood Count 11.4 X10*3/uL (4.8-10.8)
[2023-07-23 01:45] VITALS: BP 131/80; PULSE 89; RESP 22; TEMP 36.8; O2SAT 96
[2023-07-23] MEDS: Benzonatate 100 MG CAPSULE 200 MG PO (01:47)
[2023-07-23] MEDS: Amoxicillin/Potassium Clav 500 MG TABLET 1000 MG PO (01:47)
[2023-07-23] MEDS: Acetaminophen 325 MG TABLET 975 MG PO (01:47)
== END 2023-07-23 01:50 | disposition home or self-care (01) ==
PROVIDERS: Emergency Provider Student in an Organized Health Care Education/Training Program; PCP Family Medicine
DX: J47.9 Bronchiectasis, uncomplicated (principal); R07.89 Other chest pain; M79.10 Myalgia, unspecified site; J02.9 Acute pharyngitis, unspecified; Z20.822 Contact with and (suspected) exposure to COVID-19; Z11.52 Encounter for screening for COVID-19
CPT/HCPCS: 0241U; 71045; 80053; 85025; 99283; 99284

== ENCOUNTER 2023-07-24 07:20 | Inpatient (IN) | payer OTHER, SELFPAY ==
--- NOTE | ~2023-07-24 | CT_ITS ---
EXAMINATION: CT CHEST WITH CONTRAST CLINICAL INFORMATION: Bronchiectasis with worsening shortness of breath COMPARISON: Previous chest x-ray most recent from earlier the same day and chest CT April 2023 TECHNIQUE: Multidetector volumetric CT imaging of the chest was obtained after the administration of 65 mL of Omnipaque 350 intravenous contrast without immediate adverse reactions. Axial MIP volume rendering provided. Sagittal and coronal reformatted images were obtained. This CT examination was performed using dose optimization techniques as appropriate, variously including the following: *Automated exposure control *Adjustment of mA and/or kV according to patient size (this includes techniques or standardized protocols for targeted exams where dose is matched to indication/reason for exam; i.e. extremities or head) *Use of iterative reconstruction technique DLP: 329 mGy-cm FINDINGS: LUNGS: There is right middle lobe atelectasis/volume loss that appears unchanged. There is chronic bronchiectasis seen in the right upper and right middle lobes that appears unchanged. There are areas of bronchial wall thickening and mucus plugging, not appreciably changed. There are scattered calcifications questionable for calcified broncholiths versus old granulomatous disease. There is increasing central right upper lobe nodules/superior hilar lymphadenopathy. Superior nodule/lymph node is heterogeneous attenuation with low-attenuation area in partially calcified. This measures 1.7 x 2.3 cm axial image 25 series 3. There is a smaller homogeneous nodule/hilar lymph node 1.3 x 2 cm axial image 28 series 3. There is increasing bronchiectasis bronchial wall thickening and peribronchial nodules suggestive of active airways disease in the right lower lobe. There is faint bronchiectasis and airways disease in the left lower lobe that is stable. MEDIASTINUM: Increasing right hilar lymphadenopathy. There are small mediastinal and left hilar lymph nodes that are stable. Normal heart size. No pericardial effusion. No coronary artery calcification. PLEURA: There is no pleural effusion. No pleural mass or thickening. AXILLA: No lymphadenopathy. UPPER ABDOMEN: 1 cm low-attenuation right adrenal nodule is stable. No imaging follow-up recommended. OSSEOUS STRUCTURES: Degenerative changes of the spine. CT/CT chest w IV con IMPRESSION: Stable right middle lobe atelectasis/volume loss. Stable chronic bronchiectasis in the right upper and right middle lobes. Increasing central right upper lobe nodules/superior hilar lymphadenopathy. This may be reactive. Short-term imaging follow-up in several months recommended. Increasing bronchial wall thickening and peribronchial nodules in the right lower lobe suggestive of active airways disease. Stable faint bronchiectasis and airways disease in the left lower lobe. Fleischner guidelines were followed.
--- NOTE | ~2023-07-24 | XR_ITS ---
EXAMINATION: XR CHEST CLINICAL INFORMATION: Shortness of breath. Pneumonia. COMPARISON: 07/22/2023 TECHNIQUE: 2 views of the chest were obtained. FINDINGS: Right infrahilar airspace opacity extending to the right lower lobe is unchanged. Lungs otherwise clear. Heart and pulmonary vessels are normal. No pleural effusion. XR/XR chest 2V IMPRESSION: No change.
--- NOTE | 2023-07-24 07:21 | ECG_ITS ---
Test Reason : chest pain Blood Pressure : / mmHG Vent. Rate : 099 BPM Atrial Rate : 099 BPM P-R Int : 172 ms QRS Dur : 096 ms QT Int : 344 ms P-R-T Axes : 051 025 044 degrees QTc Int : 441 ms Normal sinus rhythm Possible Left atrial enlargement Left ventricular hypertrophy ( Sokolow-Yanez , Romhilt-Grullon ) Abnormal ECG When compared with ECG of 10-SEP-2022 13:31, No significant change was found Referred By: Generic ED Physician Electronically Signed By:ELSA JONES MD
[2023-07-24 07:30] VITALS: BP 129/83; PULSE 93; RESP 24; TEMP 36.9; O2SAT 97; BMI 25.1
[2023-07-24 08:07] LABS: MANUAL DIFF FLAG NO
[2023-07-24 08:08] LABS: Basophils Absolute Auto 0.1 X10*3/uL (0.0-0.2); Basophils Percent Auto 0.5 % (0-2); Eosinophils Absolute Auto 0.3 X10*3/uL (0.0-0.4); Hematocrit 38.7 % (42.0-52.0); Hemoglobin 12.8 g/dl (14.0-18.0); Imm Gran Abs Auto 0.04 X10*3/uL (0.00-0.03); Imm Gran Pct Auto 0.3 % (0.0-0.4); Lymphocytes Absolute Auto 3.7 X10*3/uL (1.2-4.9); Lymphocytes Percent Auto 28.4 % (20-40); Mean Corpuscular HGB Conc 33.1 g/dl (31.0-36.0); Mean Corpuscular Hemoglobin 27.6 pg (27.0-33.0); Mean Corpuscular Volume 83.6 fL (80.0-98.0); Mean Platelet Volume 8.8 fL (9.4-12.4); Monocytes Absolute Auto 0.8 X10*3/uL (0.1-1.2); Neutrophils Absolute Auto 8.2 x10*3/uL (2.0-8.3); Neutrophils Percent Auto 62.8 % (45-73); Platelet Count 412 X10*3/uL (160-400); Red Blood Count 4.63 X10*6/uL (4.60-5.80); Red Cell Distribution Width 14.2 % (11.0-16.0); White Blood Count 13.1 X10*3/uL (4.8-10.8)
[2023-07-24 08:17] LABS: Lactic Acid 0.9 mmol/L (0.5-2.0)
[2023-07-24 08:20] LABS: Anion Gap 14 (12-20); Blood Urea Nitrogen 15 mg/dL (9-16); Calcium 9.2 mg/dL (8.4-10.2); Carbon Dioxide 24 mmol/L (22-29); Chloride 106 mmol/L (96-108); Creatinine Clr Calc Pharmacy 97.7; Estimated Glomerular Filt Rate > 60; Glucose Random 106 mg/dL (60-115); Potassium 4.3 mmol/L (3.3-5.1); Sodium 140 mmol/L (135-145)
[2023-07-24 08:25] LABS: COVID-19 Test Negative (Negative); IDNOW Serial# 08D9AD1C; IDNOW Serial# 152EDE1D; Influenza A Negative (Negative); Influenza B2 Negative (Negative)
[2023-07-24 08:41] LABS: Troponin-I High Sensitivity < 2.7 ng/L (<3.5-35.0)
--- NOTE | 2023-07-24 10:28 | ED_ITS ---
HPI - Chest Pain General Chief Complaint: Chest Pain Stated Complaint: chest pain Time Seen by Provider: 07/24/23 10:25 Source: patient and family Mode of arrival: ambulatory Limitations: no limitations History of Present Illness HPI narrative: 52 year old male with pmhx significant for asthma, COPD, bronchiectasis, pseudomonas pneumonia, and GERD presents to the ED today for evaluation of chest pain and shortness of breath x1 week. Chest pain is located substernally and does not radiate. Admits to difficulty breathing and persistent coughing. Admits he was diagnosed with chest infection (bronchiectasis) on 07/22 by his insulation manager, Dr. Pena. He has been taking antibiotics (amoxicillin) over the last two days with continued symptoms. He was evaluated yesterday for same in our ED with unremarkable/ unchanged work up. Advised to continue all prescriptions and follow up with insulation manager out patient. Patient states that he has not heard back from his insulation manager, prompting him to come to the ED for evaluation. Denies known sick contacts. Denies fever, chills, sore throat, hemoptysis, calf pain/ swelling. Denies recent travel or long car rides. UTD on vaccinations. Related Data Home Medications Medication Instructions Recorded Confirmed fluticasone propionate 50 2 spray intranasal DAILY PRN 09/22/21 07/24/23 mcg/actuation nasal Congestion spray,suspension hydrochlorothiazide 25 mg tablet 25 mg PO DAILY 09/10/22 07/24/23 multivitamin 1 tab PO DAILY 09/10/22 07/24/23 amlodipine 5 mg tablet 5 mg PO DAILY 02/14/23 07/24/23 ascorbic acid (vitamin C) 500 mg 500 mg PO DAILY 07/24/23 07/24/23 tablet atorvastatin 40 mg tablet 40 mg PO QAM 07/24/23 07/24/23 cholecalciferol (vitamin D3) 25 25 mcg PO DAILY 07/24/23 07/24/23 mcg (1,000 unit) tablet famotidine 40 mg tablet 40 mg PO BEDTIME heartburn 07/24/23 07/24/23 fluticasone fur. 200 mcg-umeclid 1 ea inhalation DAILY 07/24/23 07/24/23 62.5 mcg-vilant 25 mcg inhalat.powder (Trelegy Ellipta) pantoprazole 40 mg tablet,delayed 40 mg PO BID 07/24/23 07/24/23 release Previous Rx's Medication Instructions Recorded albuterol sulfate 90 mcg/actuation 2 puff inhalation Q6H PRN for 12/06/22 aerosol inhaler wheezing #1 ea omalizumab 150 mg/mL subcutaneous 150 mg subcut Q4W 28 days #1 mL 01/08/23 syringe (Xolair) amoxicillin 500 mg capsule 1,000 mg (2 x 500 mg) PO TID 10 07/23/23 days #60 caps benzonatate 200 mg capsule 200 mg PO TID PRN cough #14 caps 07/23/23 Allergies Allergy/AdvReac Type Severity Reaction Status Date / Time clindamycin [Clindamycin] Allergy Severe SEVERE Verified 07/24/23 07:30 ITCHING Review of Systems 2 Review of Systems: Constitutional: No fever, chills, fatigue, night sweats, weight changes ENT/Mouth: No ear pain, hearing loss, nasal congestion, sinus pain, rhinorrhea, sore throat Eyes: No eye pain, swelling, redness, vision changes, discharge Cardio: No palpitations, RAMIREZ, orthopnea, peripheral edema, +chest pain Pulm: No sputum, wheezing, hemoptysis, +sob, +cough, +dyspnea GI: No nausea, vomiting, hematemesis, abdominal pain, diarrhea, constipation, hematochezia, melena : No irregular bleeding, dysuria, frequency, urgency, hesitancy, hematuria, flank pain, urinary flow changes, urinary incontinence or retention MSK: No back pain, neck pain, joint pain, myalgias Skin: No lesions, rashes Neuro: No weakness, numbness, paresthesias, LOC, dizziness, headache Psych: No anxiety/panic, depression, SI/HI, AH/VH All other systems reviewed and are negative. [facility] Past Medical History Attestation statement: The following information was validated with the patient. Source: old records reviewed and nursing notes reviewed Medical History COPD (chronic obstructive pulmonary disease) Hypoxia Sepsis Recurrent pneumonia Pneumonia Heartburn Bronchiectasis Asthma Surgical History No pertinent past surgical history Family History Family History Sister Breast CA Social History Social History Household Members: None Housing: Apartment Do you presently have visiting nurse or other home services: No Alcohol intake: current Alcohol intake frequency: holidays/special occasions only Patient Tobacco Use Status: Former Tobacco user Tobacco use type: Cigarette Smoked in Last 30 Days: No e-Cigarette/Vaping Use: Never Used Second Hand Smoke Exposure: No Use of substances other than those prescribed or required for medical reasons: No Substance Use Type: Unknown Advance Directives: Yes Advance Directives on File: Yes Advance Directives Date on File: 06/21/21 Nutrition Risks: No Nutritional Risk service: No Current occupational status: employed Physical Exam 2 Vital Signs: Vital Signs: Last Vital Signs Temp 98.4 F 07/24/23 14:56 Pulse 101 H 07/24/23 19:13 Resp 18 07/24/23 19:13 BP 118/72 07/24/23 19:13 Pulse Ox 96 07/24/23 19:13 O2 Del Method Room Air 07/24/23 19:13 BMI result Body Mass Index 25.1 Tachypneic and tachycardic. Const: Other: + clenching chest General: cooperative Orientation/consciousness: patient oriented x3 L imitations: no limitations HEENT: Head: Yes normal to inspection, Yes No palpable skull fracture present, Yes normocephalic and Yes atraumatic General nose exam: Normal external nose present Face and sinus: Yes normal facial exam and Yes sinuses nontender Mouth: Normal oral and palatal mucosa present Eyes: General: appearance normal, both eyes and all related structures C onjunctivae: conjunctivae normal Sclerae: sclerae normal Neck: Neck: Yes normal visual inspection, Yes no lymphadenopathy and Yes no JVD Chest: Other: + no reproducible chest wall tenderness or palpable deformity Chest palpation & inspection: normal inspection of the chest and normal palpation of entire chest wall Resp: Other: + increased respiratory effort. tachypne a. Speaking in full sentences. Bronchospastic cough. Lungs with diffuse expiratory rhonchi and decreased lung sounds. Cardio: Other: 2+ radial pulses, no peripheral edema, n o calf tenderness Jugular venous distension: no JVD Rate: regular rate Rhythm: regular rhythm Skin: General skin exam: no rashes or lesions noted Neuro: General: patient oriented x3 and gait normal Extrem: General: Yes capillary refill normal and Yes no calf tenderness Course Course Course Narrative: 1326--CBC with slight leukocytosis to 13.1 without left shift > likely attributable to chronic steroid use on Trelegy for chronic lung disease. Patient was initially tachypneic to 24. Vitals were otherwise within normal limits. This is likely due to chronic lung disease. ED brown protocol ordered and patient received a triage score of 5 requiring albuterol and DuoNeb. He also received a IV dose of Solu-Medrol in the ED. On re-evaluation, patient states that his symptoms have somewhat improved however still present. He has remained afebrile and normotensive. No longer tachypneic. I do not have concern for acute sepsis at this time. He is now sating 94% on room air > will obtain ambulatory O2. 1433-- Patient tested negative for covif and flu. On re-evaluation, diffuse rhonchi has persisted despite treatment with steroids. While obtaining ambulatory O2, O2 saturation remained between 94 96% however patient had increased effort of breathing. Respirations increased to 28 and patient became tachycardic. > I discussed this case with my attending physician, Dr. Jorgensen who reviewed all labs and imaging studies with me. Due to patient's worsening symptoms despite seemingly unchanged CXR, will obtain follow up chest CT to look for underlying pneumonia. Given history of pseudomonas pneumonia, will treat empirically with IV cefepime in the meantime. 1616-- CT chest shows stable right middle lobe atelectasis/volume loss. Stable chronic bronchiectasis in the right upper and right middle lobes. Increasing central right upper lobe nodules/superior hilar lymphadenopathy. This may be reactive. Short-term imaging follow-up in several months recommended. Increasing bronchial wall thickening and peribronchial nodules in the right lower lobe suggestive of active airways disease. Stable faint bronchiectasis and airways disease in the left lower lobe. >> Will present for admission for acute COPD exacerbation with asthma and bronchiectasis despite outpatient treatment. Medications Administered Generic Name Dose Route Start Last Admin Trade Name Freq PRN Reason Stop Dose Admin Enoxaparin Sodium 40 mg 07/24/23 19:00 07/24/23 18:59 Enoxaparin Sodium 40 Mg/0.4 Ml Syringe SUBCUT 40 mg Q24H ARIELLE Administration Discontinued Medications Generic Name Dose Route Start Last Admin Trade Name Dolly PRN Reason Stop Dose Admin Amoxicillin 1,000 mg 07/24/23 11:31 07/24/23 12:12 Amoxicillin 500 Mg Capsule PO 07/24/23 11:32 1,000 mg ONCE ONE Administration Benzonatate 100 mg 07/24/23 16:51 07/24/23 17:05 Benzonatate 100 Mg Capsule PO 07/24/23 16:52 100 mg ONCE ONE Administration Albuterol Sulfate 2.5 mg/ 0 mg 07/24/23 11:56 07/24/23 11:58 Albuterol/Ipratropium 3 ml INHALE 07/24/23 11:57 1 dose ONCE ONE Administration Cefepime HCl 2 gm/ Sodium 50 mls @ 100 mls/hr 07/24/23 14:15 07/24/23 16:27 Chloride IV 07/24/23 14:44 Infused ONCE ONE Infusion Magnesium Sulfate 2 gm in 50 mls @ 25 mls/hr 07/24/23 17:00 07/24/23 17:08 Magnesium Sulfate/H2o IV 07/24/23 18:59 25 mls/hr ONCE ONE Administration Iohexol 100 ml 07/24/23 15:01 07/24/23 15:02 Iohexol 350 Mg/Ml 100 Ml Infus..Btl IV 07/24/23 15:02 65 ml ONCE ONE Administration Methylprednisolone Sodium Succinate 125 mg 07/24/23 11:23 07/24/23 12:11 Methylprednisolone Sod Succ 125 Mg/2 Ml Vial IVPUSH 07/24/23 11:24 125 mg ONCE ONE Administration Medical Decision Making Medical Decision Making MDM Narrative: 52 year old male with pmhx significant for asthma, COPD, bronchiectasis, pseudomonas pneumonia, and GERD presents to the ED today for evaluation of chest pain and shortness of breath x1 week. She is tachypneic, afebrile, satting 93% on room air. He is nontoxic-appearing and in no acute distress. Taking shallow breaths. Bronchospastic cough. Lungs with diffuse expiratory rhonchi. Clutching his chest. RRR. No JVD or peripheral edema. No calf tenderness. Clinical concern for chronic lung disease, asthma, COPD, bronchiectasis, pneumonia, pleural effusion, viral syndrome. Lower suspicion for lung abscess, ACS, arrhythmia, dissection, PE/DVT, TB. Plan for labs, CXR, EKG, ED bronch protocol and re- evaluation. Differential Diagnosis Differential Diagnoses: The differential diagnosis associated with the presentation includes As above Admission/Observation Consideration of admission/observation: Escalation of care including admission/observation considered This patient with acute COPD exacerbation with bronchiectasis and hypoxia will likely be admitted. Consult Healthcare Provider Management of the patient was discussed with: Hospitalist (Dr. Verdin) Lab Data MDM Lab Attestation statement: I reviewed the patient's lab results. As above 07/24/23 07:51 07/24/23 07:50 Labs: Lab Results 07/24/23 07/24/23 07/24/23 Range/Units 07:50 07:51 14:26 WBC 13.1 H (4.8-10.8) X10*3/uL RBC 4.63 (4.60-5.80) X10*6/uL Hgb 12.8 L (14.0-18.0) g/dl Hct 38.7 L (42.0-52.0) % MCV 83.6 (80.0-98.0) fL MCH 27.6 (27.0-33.0) pg MCHC 33.1 (31.0-36.0) g/dl RDW 14.2 (11.0-16.0) % Plt Count 412 H (160-400) X10*3/uL MPV 8.8 L (9.4-12.4) fL Immature Gran % (Auto) 0.3 (0.0-0.4) % Neut % (Auto) 62.8 (45-73) % Lymph % (Auto) 28.4 (20-40) % [place] % (Auto) 6.0 (2-11) % Eos % (Auto) 2.0 (0-4) % Baso % (Auto) 0.5 (0-2) % Lymph # (Auto) 3.7 (1.2-4.9) X10*3/uL [place] # (Auto) 0.8 (0.1-1.2) X10*3/uL Eos # (Auto) 0.3 (0.0-0.4) X10*3/uL Baso # (Auto) 0.1 (0.0-0.2) X10*3/uL Abs Immat Gran (auto) 0.04 H (0.00-0.03) X10*3/uL Absolute Neuts (auto) 8.2 (2.0-8.3) x10*3/uL Absolute Nucleated RBC 0.000 (0.0-0.012) X10*3/uL Nucleated RBC % (auto) 0.0 (0.0-0.2) /100WBC Sodium 140 (135-145) mmol/L Potassium 4.3 (3.3-5.1) mmol/L Chloride 106 (96-108) mmol/L Carbon Dioxide 24 (22-29) mmol/L Anion Gap 14 (12-20) BUN 15 (9-16) mg/dL Creatinine 0.92 (0.5-1.4) mg/dL Estim Creat Clear Calc 97.7 Estimated GFR > 60 Random Glucose 106 (60-115) mg/dL Lactic Acid 0.9 (0.5-2.0) mmol/L Calcium 9.2 (8.4-10.2) mg/dL Troponin I High Sens < 2.7 < 2.7 (<3.5-35.0) ng/L COVID-19 (STEPH) Negative (Negative) COVID-19 Clin Com See Note Influenza Type A (RAMU) Negative (Negative) Influenza Type B (RAMU) Negative (Negative) Influenza A & B Note See Note Independent Interpretation I performed an independent interpretation of an: EKG, Plain X-Ray and CT Scan Interpretation: ekg showing NSR at a rate of 99 bpm with LVH likely secondary to chronic lung disease, no acute ischemic changes or ST elevations. I personally reviewed chest x-ray and agree with radiologist's interpretation. I personally reviewed CT chest and agree with radiologist's interpretation. Radiology Impression Discussion of test interpretation with radiology: I have reviewed the radiologist's reading. Radiologist Impression: CT chest w IV con IMPRESSION: Stable right middle lobe atelectasis/volume loss. Stable chronic bronchiectasis in the right upper and right middle lobes. Increasing central right upper lobe nodules/superior hilar lymphadenopathy. This may be reactive. Short-term imaging follow-up in several months recommended. Increasing bronchial wall thickening and peribronchial nodules in the right lower lobe suggestive of active airways disease. Stable faint bronchiectasis and airways disease in the left lower lobe. XR CHEST CLINICAL INFORMATION: Shortness of breath. Pneumonia. COMPARISON: 07/22/2023 TECHNIQUE: 2 views of the chest were obtained. FINDINGS: Right infrahilar airspace opacity extending to the right lower lobe is unchanged. Lungs otherwise clear. Heart and pulmonary vessels are normal. No pleural effusion. XR/XR chest 2V IMPRESSION: No change. Independent Historian Clinical information obtained from an independent historian. History obtained from or confirmed by: Spouse External Record Review External record reviewed: Inpatient record, Office record, Outpatient record, Prior outpatient labs, Prior outpatient radiology, Primary care record and Outside ED record Prescription Management I considered prescription management with: Antibiotic and Other (steroid, antitussive, albuterol) Chronic Conditions Patient?s care impacted by: Other (asthma, copd) Social Determinants Patient?s care significantly limited by Social Determinants of Health including: Other Social Determinant of Health Critical Care Time Critical Care Time Critical Care Time: Yes Total Critical Care Time: 60 Attestation: Critical care time in the amount of 60 minutes has been provided to the patient in terms of direct patient care, frequent reevaluation, consultation with hospitalist, review and interpretation of medical data and results, and management of potentially life-threatening conditions. This is all outside of any medical procedures. Discharge Plan Discharge Clinical Impression: Bronchiectasis with (acute) exacerbation, Asthma, COPD with acute exacerbation Patient Disposition: Admitted As Inpatient
--- NOTE | 2023-07-24 11:33 | PC.NURSE ---
pt a&o x4, pleasant, calm, and cooperative. pt reporting 8/10 pain to right chest and sob. resting quietly on stretcher in no apparent distress. rr even/unlabored. sating 94-94% on room air. call root within reach. plan of care ongoing.
--- NOTE | 2023-07-24 11:46 | PC.NURSE ---
attempted IV, no success. another RN to attempt.
[2023-07-24 11:58] VITALS: PULSE 70; RESP 16; O2SAT 94
[2023-07-24] MEDS: Albuterol Sulfate 2.5 MG, Albuterol/Iprat 2.5/0.5MG 3 ML 3 ML INHALE (11:58)
--- NOTE | 2023-07-24 12:01 | PC.NURSE ---
22G IV placed to left wrist by LEEANN Hanson.
[2023-07-24] MEDS: methylPREDNISolone Sod Succ 125 MG/2 ML VIAL IVPUSH (12:11)
[2023-07-24] MEDS: Amoxicillin 500 MG CAPSULE 1000 MG PO (12:12)
[2023-07-24 12:16] VITALS: BP 132/91; PULSE 88; RESP 16; O2SAT 94
--- NOTE | 2023-07-24 14:33 | PC.NURSE ---
ambulated pt w pulse ox, O2 sat 95-98% w HR of 96-115 and RR of 22-28, increased resp effort noted w minimal movement and coughing w ambulation, provider aware.
[2023-07-24] MEDS: cefEPime HCl 2 GM in 0.9 % Sodium Chloride 50 ML IV (14:53)
[2023-07-24 14:56] VITALS: BP 133/79; PULSE 97; RESP 26; TEMP 36.9; O2SAT 93
[2023-07-24 14:56] LABS: Troponin-I High Sensitivity < 2.7 ng/L (<3.5-35.0)
[2023-07-24] MEDS: iohexoL 350 MG/ML 100 ML INFUS..BTL IV (15:02)
[2023-07-24] MEDS: Benzonatate 100 MG CAPSULE PO ×2 (17:05→20:42)
[2023-07-24] MEDS: Magnesium Sulfate/H2O 2 GM/50 ML PIGGYBACK IV (17:08)
--- NOTE | 2023-07-24 17:39 | PM.IMHP ---
History of Present Illness Date of Service: 07/24/23 Attending physician on admission: Mohit Verdin Chief Complaint: SOB, fatigue Pt is a 52-year-old male with a PMH significant for?bronchiectasis, moderate persistent asthma, HTN, HLD, and GERD who presents to the ED with?worsening fatigue, nonproductive cough, SOB, and RAMIREZ. Patient states that symptoms started with nonproductive cough approximately 2 weeks ago, and then developed into weakness, fatigue, myalgias. Endorses chills, but no fever. One week ago patient began experiencing right sided nonradiating chest pain associated with cough. Reports it feels like somebody is poking him in the chest with a sharp object. Patient also states he has been experiencing diarrhea for the past 2 weeks. Last episode at 01:00 this morning when he woke up to use the bathroom. Of note, patient presented to the ED 2 days ago for similar symptoms and was discharged home with a prescription for amoxicillin. Patient took antibiotics as prescribed, but received no relief. In the ED pt was afebrile but tachycardic up to 97, tachypneic up to 26, and mildly hypertensive up to 132/91. Labs were significant for leukocytosis 13.1, otherwise grossly unremarkable. Stable H&H. No electrolyte abnormalities. Renal and hepatic function baseline. Serial toponins negative. Tested negative for COVID and influenza type a and B. CXR showed stable right perihilar airspace opacities compatible with severe bronchiectasis. CT of chest found stable right middle lobe atelectasis/volume loss. Also found stable chronic bronchiectasis in the right upper and right middle lobes with increasing central right upper lobe nodules/superior hilar lymphadenopathy, possibly reactive. EKG demonstrated Normal sinus rhythm without evidence of ST elevations or depressions. Pt was treated with DuoNebs, Solu-Medrol, cefepime, amoxicillin, benzonatate, and Mag sulfate. Pt will be admitted to the hospital for treatment and further evaluation of of acute bronchiectasis exacerbation with sepsis I failed outpatient therapy. [facility] Medical History COPD (chronic obstructive pulmonary disease) Hypoxia Sepsis Recurrent pneumonia Pneumonia Heartburn Bronchiectasis Asthma Family History Sister Breast CA Surgical History No pertinent past surgical history Social History Household Members: None Housing: Apartment Do you presently have visiting nurse or other home services: No Alcohol intake: current Alcohol intake frequency: holidays/special occasions only Patient Tobacco Use Status: Former Tobacco user Tobacco use type: Cigarette Smoked in Last 30 Days: No e-Cigarette/Vaping Use: Never Used Second Hand Smoke Exposure: No Use of substances other than those prescribed or required for medical reasons: No Substance Use Type: Unknown Advance Directives: Yes Advance Directives on File: Yes Advance Directives Date on File: 06/21/21 Nutrition Risks: No Nutritional Risk service: No Current occupational status: employed Meds Allergies Allergy/AdvReac Type Severity Reaction Status Date / Time clindamycin [Clindamycin] Allergy Severe SEVERE Verified 07/24/23 07:30 ITCHING Active Medications: Current Medications Magnesium Sulfate (Magnesium Sulfate/H2o) 2 gm in 50 mls @ 25 mls/hr IV ONCE ONE Stop: 07/24/23 18:59 Last Admin: 07/24/23 17:08 Dose: 25 mls/hr Home Medications Medication Instructions Recorded Confirmed Last Taken Type fluticasone propionate 50 2 spray intranasal DAILY PRN 09/22/21 07/24/23 09/06/22 History mcg/actuation nasal Congestion spray,suspension hydrochlorothiazide 25 mg tablet 25 mg PO DAILY 09/10/22 07/24/23 07/23/23 History multivitamin 1 tab PO DAILY 09/10/22 07/24/23 07/23/23 History amlodipine 5 mg tablet 5 mg PO DAILY 02/14/23 07/24/23 07/23/23 History ascorbic acid (vitamin C) 500 mg 500 mg PO DAILY 07/24/23 07/24/23 07/23/23 History tablet atorvastatin 40 mg tablet 40 mg PO QAM 07/24/23 07/24/23 07/23/23 History cholecalciferol (vitamin D3) 25 25 mcg PO DAILY 07/24/23 07/24/23 07/23/23 History mcg (1,000 unit) tablet famotidine 40 mg tablet 40 mg PO BEDTIME heartburn 07/24/23 07/24/23 07/23/23 History fluticasone fur. 200 mcg-umeclid 1 ea inhalation DAILY 07/24/23 07/24/23 07/23/23 History 62.5 mcg-vilant 25 mcg inhalat.powder (Trelegy Ellipta) pantoprazole 40 mg tablet,delayed 40 mg PO BID 07/24/23 07/24/23 07/23/23 History release Physical Exam Vital Signs and Narrative: Vital Signs: Last Vital Signs Temp 98.4 F 07/24/23 14:56 Pulse 97 07/24/23 14:56 Resp 26 H 07/24/23 14:56 BP 133/79 07/24/23 14:56 Pulse Ox 93 07/24/23 14:56 O2 Del Method Room Air 07/24/23 14:56 BMI result Body Mass Index 25.1 Constitutional: Alert, looks uncomfortable. In no acute distress. Mental Status: Oriented to person, place and time. Eyes: Pupils are equal, round, and reactive to light. Ear, Nose, and Throat: Oropharynx clear, mucous membranes moist. Ears and nose without deformities. Trachea midline. Respiratory: Diffuse expiratory rhonchi throughout. Cardiovascular: S1, S2, tachy. No murmurs, rubs, or gallops. Gastrointestinal: Abdomen soft, non-distended, mild left-sided tenderness. Normal bowel sounds. Neurologic: Cranial nerves II-XII are grossly intact bilaterally. No focal neurological deficits. Moves all extremities spontaneously. Skin: Warm, dry. Musculoskeletal: No cyanosis or clubbing. Extremities: No edema. Psychiatric: Normal mood and affect. Results Labs 07/25/23 05:15 07/24/23 07:50 Labs: Laboratory Results - last 24 hr 07/24/23 07/24/23 07/24/23 07:50 07:51 14:26 MCV 83.6 MCH 27.6 MCHC 33.1 RDW 14.2 Plt Count 412 H MPV 8.8 L Immature Gran % (Auto) 0.3 Neut % (Auto) 62.8 Lymph % (Auto) 28.4 [place] % (Auto) 6.0 Eos % (Auto) 2.0 Baso % (Auto) 0.5 Lymph # (Auto) 3.7 [place] # (Auto) 0.8 Eos # (Auto) 0.3 Baso # (Auto) 0.1 Abs Immat Gran (auto) 0.04 H Absolute Neuts (auto) 8.2 Absolute Nucleated RBC 0.000 Nucleated RBC % (auto) 0.0 Anion Gap 14 Estim Creat Clear Calc 97.7 Estimated GFR > 60 Random Glucose 106 Lactic Acid 0.9 Calcium 9.2 Troponin I High Sens < 2.7 < 2.7 COVID-19 (STEPH) Negative COVID-19 Clin Com See Note Influenza Type A (RAMU) Negative Influenza Type B (RAMU) Negative Influenza A & B Note See Note Imaging Radiologist's Impressions: Impressions Chest X-Ray 07/24/23 08:14 IMPRESSION: No change. Chest CT 07/24/23 15:00 IMPRESSION: Stable right middle lobe atelectasis/volume loss. Stable chronic bronchiectasis in the right upper and right middle lobes. Increasing central right upper lobe nodules/superior hilar lymphadenopathy. This may be reactive. Short-term imaging follow-up in several months recommended. Increasing bronchial wall thickening and peribronchial nodules in the right lower lobe suggestive of active airways disease. Stable faint bronchiectasis and airways disease in the left lower lobe. Fleischner guidelines were followed. Assessment and Plan (1) Bronchiectasis with (acute) exacerbation: Status: Acute Plan Pt is a 52-year-old male with a PMH significant for?bronchiectasis, moderate persistent asthma, HTN, HLD, and GERD who presents to the ED with?worsening fatigue, nonproductive cough, SOB, and RAMIREZ. Pt will be admitted to the hospital for treatment and further evaluation of of acute bronchiectasis exacerbation with sepsis I failed outpatient therapy. Bronchiectasis exacerbation with sepsis Patient with fatigue, worsening cough, chest pain, SOB, RAMIREZ, and myalgias x1-2 weeks Presented to ED 2 days ago and discharged on amoxicillin to little effect CT of chest with increasing bronchial wall thickening and peribronchial nodules in the right lower lobe suggestive of active airway disease Meets sepsis criteria: Tachycardia, tachypnea, leukocytosis; lactic acid WNL at 0.9 Patient given IVF and started on broad-spectrum antibiotics in the ED Will treat empirically with DuoNebs, Solu-Medrol, benzonatate, and Zosyn, started 07/24/2023 Consider pulmonology consult if patient does not improve; follows with Dr. Krish Monitor respiratory status Diarrhea Patient reports diarrhea x2 weeks, last episode 01:00 this morning Unclear etiology Abdominal exam relatively benign Consider stool studies and C diff if diarrhea returns Consider CT of abdomen/pelvis if patient's abdominal pain worsens HTN Continue amlodipine, hydrochlorothiazide HLD Continue statin GERD Continue pantoprazole Full Code Attending:?Dr. Verdin DVT Prophylaxis: Lovenox Pt will require a hospitalization of at least two nights for treatment of?acute bronchiectasis exacerbation with sepsis that failed outpatient therapy. Due to patient's worsening condition despite being treated in the ED 2 days prior, patient will require hospitalization for administration IV antibiotics, IV steroids, breathing treatments, and close monitoring of respiratory status. Quality Stroke Does the patient have a stroke diagnosis?: No VTE Prior VTE?: No VTE Risk Level:: Medical - moderate - high VTE Device Contraindication: Treatment Not Indicated VTE Drug Contraindication: N/A - Med Ordered
--- NOTE | 2023-07-24 17:43 | PHA.MEDREC ---
Pharmacy Consult ? Medication Reconciliation Pharmacy has completed the medication reconciliation. Patient reported taking HCTZ, amlodipine and atorvastatin even though patient does not have any recent claim history for these medications. Patient reported he did start his ABX yesterday and it was the only medication he took today. Jillian House ,PharmD
[2023-07-24] MEDS: Enoxaparin Sodium 40 MG/0.4 ML SYRINGE SUBCUT (18:59)
--- NOTE | 2023-07-24 19:08 | PC.NURSE ---
Assumed care of pt. pt lying on stretcher, occassional cough noted, endorsing 6/10 chest discomfort. Plan to assess optoins for pain control and pending bed availability for admission.
[2023-07-24 19:13] VITALS: BP 118/72; PULSE 101; RESP 18; O2SAT 96
[2023-07-24] MEDS: Albuterol/Iprat 2.5/0.5MG 3 ML AMPUL.NEB INHALE (20:12)
[2023-07-24 20:14] VITALS: PULSE 101; RESP 18; O2SAT 96
[2023-07-24] MEDS: Melatonin 3 MG TABLET 6 MG PO (20:42)
[2023-07-24] MEDS: Famotidine 20 MG TABLET 40 MG PO (20:42)
[2023-07-24] MEDS: Acetaminophen 325 MG TABLET 650 MG PO (20:42)
[2023-07-24] MEDS: Piperacillin Sodium/Tazobactam 3.375 GM in 0.9 % Sodium Chloride 50 ML IV (20:43)
[2023-07-24] MEDS: methylPREDNISolone Sod Succ 40 MG/ML VIAL IVPUSH (23:23)
[2023-07-25] VITALS (8 sets, daily range): BP systolic 131–157; BP diastolic 74–103; PULSE 95–112; RESP 18–97; TEMP 36.8–37.1; O2SAT 94–98; BMI 25.0
[2023-07-25] MEDS: 0.9 % Sodium Chloride Flush 3 ML SYRINGE IVFLUSH ×4 (00:49→23:15)
[2023-07-25] MEDS: Piperacillin Sodium/Tazobactam 3.375 GM in 0.9 % Sodium Chloride 50 ML IV ×4 (03:36→20:35)
[2023-07-25 06:17] LABS: Hematocrit 37.8 % (42.0-52.0); Hemoglobin 12.2 g/dl (14.0-18.0); Mean Corpuscular HGB Conc 32.3 g/dl (31.0-36.0); Mean Corpuscular Hemoglobin 27.2 pg (27.0-33.0); Mean Corpuscular Volume 84.4 fL (80.0-98.0); Mean Platelet Volume 9.4 fL (9.4-12.4); Platelet Count 438 X10*3/uL (160-400); Red Blood Count 4.48 X10*6/uL (4.60-5.80); Red Cell Distribution Width 14.2 % (11.0-16.0); White Blood Count 10.9 X10*3/uL (4.8-10.8)
[2023-07-25] MEDS: Albuterol/Iprat 2.5/0.5MG 3 ML AMPUL.NEB INHALE ×4 (07:31→20:19)
[2023-07-25] MEDS: Fluticasone/Umeclidinium/Vilanterol 200/62.5/25 BLST.W.DEV 1 PUFF INHALE (07:31)
--- NOTE | 2023-07-25 07:37 | PC.NURSE ---
Pt given breakfast tray.
[2023-07-25] MEDS: Omeprazole 20 MG CAPSULE.DR PO ×2 (08:08→15:52)
[2023-07-25] MEDS: amLODIPine Besylate 5 MG TABLET PO (08:09)
[2023-07-25] MEDS: Cholecalciferol (Vitamin D3) 25 MCG TABLET PO (08:10)
[2023-07-25] MEDS: Atorvastatin Calcium 40 MG TABLET PO (08:14)
[2023-07-25] MEDS: hydroCHLOROthiazide 25 MG TABLET PO (08:14)
[2023-07-25] MEDS: Ascorbic Acid 500 MG TABLET PO (08:14)
[2023-07-25] MEDS: Multivitamin TABLET 1 TAB PO (08:14)
--- NOTE | 2023-07-25 10:51 | HO.PM.IMPN ---
Subjective Subjective Date of Service: 07/25/23 Interval History: Seen and evaluated this morning denies any fever or chills No Physical Exam Vital Signs: Vital Signs: Last Vital Signs Temp 98.7 F 07/25/23 09:19 Pulse 111 H 07/25/23 09:19 Resp 20 07/25/23 09:19 BP 132/74 07/25/23 09:19 Pulse Ox 96 07/25/23 09:19 O2 Del Method Room Air 07/25/23 09:19 BMI result Body Mass Index 25.1 Const: Other: Constitutional : Awake, interactive, not in distress Neck : Normal inspection, Supple Cardiovascular : RRR, no JVP, no lower extremity edema Respiratory : good bilateral air entry, no crackles, wheezes or rhonchi Gastrointestinal: soft, lax, Normal bowel sounds, Non tender Skin : Warm, Dry Neurological : Alert & oriented x3, No focal deficit Objective Data Active Medications Acetaminophen (Acetaminophen 325 Mg Tablet) 650 mg PO Q6H PRN PRN Reason: Pain, Mild (Pain Scale 1-3) Last Admin: 07/24/23 20:42 Dose: 650 mg Documented By: GIO Albuterol Sulfate (Albuterol Sulfate 90 Mcg 8 Gm Inhaler) 2 puff INHALE Q6H PRN PRN Reason: for wheezing Albuterol/Ipratropium (Albuterol/Iprat 2.5/0.5mg 3 Ml Ampul.Neb) 3 ml INHALE RQ4H WHILE AWAKE [facility] Last Admin: 07/25/23 07:31 Dose: 3 ml Documented By: MAGNUS Amlodipine Besylate (Amlodipine Besylate 5 Mg Tablet) 5 mg PO DAILY [facility]; Protocol Last Admin: 07/25/23 08:09 Dose: 5 mg Documented By: ANDREW Ascorbic Acid (Ascorbic Acid 500 Mg Tablet) 500 mg PO DAILY [facility] Last Admin: 07/25/23 08:14 Dose: 500 mg Documented By: ANDREW Atorvastatin Calcium (Atorvastatin Calcium 40 Mg Tablet) 40 mg PO DAILY [facility] Last Admin: 07/25/23 08:14 Dose: 40 mg Documented By: ANDREW Benzonatate (Benzonatate 100 Mg Capsule) 100 mg PO TID PRN PRN Reason: Cough Last Admin: 07/24/23 20:42 Dose: 100 mg Documented By: GIO Docusate Sodium (Docusate Sodium 100 Mg Capsule) 100 mg PO DAILY PRN PRN Reason: Constipation Enoxaparin Sodium (Enoxaparin Sodium 40 Mg/0.4 Ml Syringe) 40 mg SUBCUT Q24H [facility] Last Admin: 07/24/23 18:59 Dose: 40 mg Documented By: MIRYAM Famotidine (Famotidine 20 Mg Tablet) 40 mg PO BEDTIME [facility] Last Admin: 07/24/23 20:42 Dose: 40 mg Documented By: GIO Fluticasone Propionate (Fluticasone Propionate Nasal 16 Gm Duncan) 2 spray NOSTRIL-B DAILY PRN PRN Reason: Congestion Fluticasone/Umeclidinium/Vilanterol (Fluticasone/Umeclidinium/Vilanterol 200/62.5/25 Blst.W.Dev) 1 puff INHALE RDAILY [facility] Last Admin: 07/25/23 07:31 Dose: 1 puff Documented By: MAGNUS Hydrochlorothiazide (Hydrochlorothiazide 25 Mg Tablet) 25 mg PO DAILY [facility]; Protocol Last Admin: 07/25/23 08:14 Dose: 25 mg Documented By: ANDREW Piperacillin Sod/Tazobactam (Sod 3.375 gm/ Sodium Chloride) 50 mls @ 100 mls/hr IV Q6H [facility] Last Infusion: 07/25/23 10:39 Dose: Infused Documented By: MOE Melatonin (Melatonin 3 Mg Tablet) 6 mg PO BEDTIME PRN PRN Reason: Insomnia Last Admin: 07/24/23 20:42 Dose: 6 mg Documented By: GIO Methylprednisolone Sodium Succinate (Methylprednisolone Sod Succ 40 Mg/Ml Vial) 40 mg IVPUSH Q12H [facility] Last Admin: 07/24/23 23:23 Dose: 40 mg Documented By: GOI Multivitamins/Vitamin C (Multivitamin Tablet) 1 tab PO DAILY [facility] Last Admin: 07/25/23 08:14 Dose: 1 tab Documented By: ANDREW Omeprazole (Omeprazole 20 Mg Capsule.) 20 mg PO BID@0630,1630 [facility] Last Admin: 07/25/23 08:08 Dose: 20 mg Documented By: ANDREW Ondansetron HCl (Ondansetron Hcl 4 Mg/2 Ml Vial) 4 mg IVPUSH Q8H PRN PRN Reason: Nausea and Vomiting Sodium Chloride (0.9 % Sodium Chloride Flush 3 Ml Syringe) 3 ml IVFLUSH QSHIFT [facility] Last Admin: 07/25/23 09:47 Dose: 3 ml Documented By: MOE Vitamin D (Cholecalciferol (Vitamin D3) 25 Mcg Tablet) 25 mcg PO DAILY [facility] Last Admin: 07/25/23 08:10 Dose: 25 mcg Documented By: ANDREW Labs 07/25/23 05:15 07/24/23 07:50 Labs: Laboratory Results - last 24 hr 07/24/23 07/25/23 14:26 05:15 MCV 84.4 MCH 27.2 MCHC 32.3 RDW 14.2 Plt Count 438 H MPV 9.4 Absolute Nucleated RBC 0.000 Nucleated RBC % (auto) 0.0 Troponin I High Sens < 2.7 Microbiology Microbiology Results: Microbiology 07/24/23 07:53 Blood Culture - Preliminary Blood - Venous No growth after 24 hours. Assessment and Plan (1) COPD with acute exacerbation: Status: Acute (2) Bronchiectasis with (acute) exacerbation: Status: Acute Plan Pt is a 52-year-old male with a PMH significant for?bronchiectasis, moderate persistent asthma, HTN, HLD, and GERD who presents to the ED with?worsening fatigue, nonproductive cough, SOB, and RAMIREZ. Pt will be admitted to the hospital for treatment and further evaluation of of acute bronchiectasis exacerbation with sepsis I failed outpatient therapy. Bronchiectasis exacerbation with sepsis Improving Continue Zosyn started 07/24/2023 DuoNebs, Solu-Medrol, benzonatate Monitor respiratory status Diarrhea likely from Amoxicillin, monitor HTN Continue amlodipine, hydrochlorothiazide HLD Continue statin GERD Continue pantoprazole Full Code Attending:?Dr. Verdin DVT Prophylaxis: Lovenox Pt will require a hospitalization overnight for treatment of?acute bronchiectasis exacerbation with sepsis that failed outpatient therapy. patient will require hospitalization for administration IV antibiotics, IV steroids, breathing treatments, and close monitoring of respiratory status. Quality Stroke Does the patient have a stroke diagnosis?: No VTE Prior VTE?: No VTE Risk Level:: Medical - moderate - high VTE Device Contraindication: Treatment Not Indicated VTE Drug Contraindication: N/A - Med Ordered
[2023-07-25] MEDS: methylPREDNISolone Sod Succ 40 MG/ML VIAL IVPUSH ×2 (11:38→23:15)
[2023-07-25] MEDS: guaiFENesin LA 600 MG TAB.ER.12H PO ×2 (11:38→20:35)
--- NOTE | 2023-07-25 11:50 | MHC.CM.PN ---
MALE 52 DX BRONCHIECTASIS PT LIVES ALONE. HE IS INDEPENDENT. HCP ON FILE. DP HOME SELF CARE. HE WILL ARRANGE FOR TRANSPORTATION HOME AT DISCHARGE.
[2023-07-25] MEDS: Enoxaparin Sodium 40 MG/0.4 ML SYRINGE SUBCUT (18:19)
[2023-07-25] MEDS: Famotidine 20 MG TABLET 40 MG PO (20:35)
[2023-07-25] MEDS: Acetaminophen 325 MG TABLET 650 MG PO (23:17)
[2023-07-26] VITALS (9 sets, daily range): BP systolic 130–146; BP diastolic 71–84; PULSE 80–111; RESP 16–20; TEMP 36.5–36.7; O2SAT 94–98
[2023-07-26] MEDS: Piperacillin Sodium/Tazobactam 3.375 GM in 0.9 % Sodium Chloride 50 ML IV ×4 (02:33→21:07)
[2023-07-26] MEDS: Omeprazole 20 MG CAPSULE.DR PO ×2 (05:18→16:11)
[2023-07-26 05:29] LABS: Hematocrit 35.7 % (42.0-52.0); Hemoglobin 11.7 g/dl (14.0-18.0); Mean Corpuscular HGB Conc 32.8 g/dl (31.0-36.0); Mean Corpuscular Hemoglobin 27.9 pg (27.0-33.0); Mean Corpuscular Volume 85.2 fL (80.0-98.0); Mean Platelet Volume 9.3 fL (9.4-12.4); Platelet Count 442 X10*3/uL (160-400); Red Blood Count 4.19 X10*6/uL (4.60-5.80); Red Cell Distribution Width 14.6 % (11.0-16.0); White Blood Count 18.1 X10*3/uL (4.8-10.8)
[2023-07-26 05:53] LABS: Anion Gap 13 (12-20); Blood Urea Nitrogen 25 mg/dL (9-16); Calcium 9.8 mg/dL (8.4-10.2); Carbon Dioxide 23 mmol/L (22-29); Chloride 108 mmol/L (96-108); Creatinine Clr Calc Pharmacy 75.5; Estimated Glomerular Filt Rate > 60; Glucose Random 150 mg/dL (60-115); Potassium 4.7 mmol/L (3.3-5.1); Sodium 139 mmol/L (135-145)
[2023-07-26] MEDS: Fluticasone/Umeclidinium/Vilanterol 200/62.5/25 BLST.W.DEV 1 PUFF INHALE (07:39)
[2023-07-26] MEDS: Albuterol/Iprat 2.5/0.5MG 3 ML AMPUL.NEB INHALE ×4 (07:39→20:44)
[2023-07-26] MEDS: Multivitamin TABLET 1 TAB PO (08:31)
[2023-07-26] MEDS: Ascorbic Acid 500 MG TABLET PO (08:31)
[2023-07-26] MEDS: Atorvastatin Calcium 40 MG TABLET PO (08:31)
[2023-07-26] MEDS: hydroCHLOROthiazide 25 MG TABLET PO (08:31)
[2023-07-26] MEDS: guaiFENesin LA 600 MG TAB.ER.12H PO ×2 (08:31→21:05)
[2023-07-26] MEDS: amLODIPine Besylate 5 MG TABLET PO (08:31)
[2023-07-26] MEDS: Cholecalciferol (Vitamin D3) 25 MCG TABLET PO (08:31)
[2023-07-26] MEDS: 0.9 % Sodium Chloride Flush 3 ML SYRINGE IVFLUSH ×3 (08:32→21:08)
[2023-07-26] MEDS: methylPREDNISolone Sod Succ 40 MG/ML VIAL IVPUSH ×2 (11:17→21:08)
--- NOTE | 2023-07-26 13:20 | P.PNIM_ITS ---
Subjective Subjective Date of Service: 07/26/23 Interval History: Seen and evaluated this morning denies any fever or chills still coughing and getting dyspneic with minimal exertion Review of Systems Review of Systems: Yes all other systems are reviewed and are negative Physical Exam 2 Vital Signs: Vital Signs: Last Vital Signs Temp 97.9 F 07/26/23 07:05 Pulse 80 07/26/23 11:11 Resp 20 07/26/23 11:11 BP 140/84 H 07/26/23 07:05 Pulse Ox 97 07/26/23 07:05 O2 Del Method Room Air 07/26/23 07:05 BMI result Body Mass Index 25.0 Const: Other: Constitutional : Awake, interactive, not in distress Neck : Normal inspection, Supple Cardiovascular : RRR, no JVP, no lower extremity edema Respiratory : fair bilateral air entry decreasedd at right base, no crackles, wheezes or rhonchi Gastrointestinal: soft, lax, Normal bowel sounds, Non tender Skin : Warm, Dry Neurological : Alert & oriented x3, No focal deficit Objective Data Active Medications Acetaminophen (Acetaminophen 325 Mg Tablet) 650 mg PO Q6H PRN PRN Reason: Pain, Mild (Pain Scale 1-3) Last Admin: 07/25/23 23:17 Dose: 650 mg Documented By: IRVING Albuterol Sulfate (Albuterol Sulfate 90 Mcg 8 Gm Inhaler) 2 puff INHALE Q6H PRN PRN Reason: for wheezing Albuterol/Ipratropium (Albuterol/Iprat 2.5/0.5mg 3 Ml Ampul.Neb) 3 ml INHALE RQ4H WHILE AWAKE [facility] Last Admin: 07/26/23 11:11 Dose: 3 ml Documented By: NATALIA Amlodipine Besylate (Amlodipine Besylate 5 Mg Tablet) 5 mg PO DAILY [facility]; Protocol Last Admin: 07/26/23 08:31 Dose: 5 mg Documented By: RENUKA Ascorbic Acid (Ascorbic Acid 500 Mg Tablet) 500 mg PO DAILY [facility] Last Admin: 07/26/23 08:31 Dose: 500 mg Documented By: RENUKA Atorvastatin Calcium (Atorvastatin Calcium 40 Mg Tablet) 40 mg PO DAILY [facility] Last Admin: 07/26/23 08:31 Dose: 40 mg Documented By: RENUKA Benzonatate (Benzonatate 100 Mg Capsule) 100 mg PO TID PRN PRN Reason: Cough Last Admin: 07/24/23 20:42 Dose: 100 mg Documented By: GIO Docusate Sodium (Docusate Sodium 100 Mg Capsule) 100 mg PO DAILY PRN PRN Reason: Constipation Enoxaparin Sodium (Enoxaparin Sodium 40 Mg/0.4 Ml Syringe) 40 mg SUBCUT Q24H [facility] Last Admin: 07/25/23 18:19 Dose: 40 mg Documented By: JACQUIE Famotidine (Famotidine 20 Mg Tablet) 40 mg PO BEDTIME [facility] Last Admin: 07/25/23 20:35 Dose: 40 mg Documented By: MOE Fluticasone Propionate (Fluticasone Propionate Nasal 16 Gm [place]) 2 spray NOSTRIL-B DAILY PRN PRN Reason: Congestion Fluticasone/Umeclidinium/Vilanterol (Fluticasone/Umeclidinium/Vilanterol 200/62.5/25 Blst.W.Dev) 1 puff INHALE RDAILY [facility] Last Admin: 07/26/23 07:39 Dose: 1 puff Documented By: NATALIA Guaifenesin (Guaifenesin [place] 600 Mg Tab.Er.12h) 600 mg PO BID [facility] Last Admin: 07/26/23 08:31 Dose: 600 mg Documented By: RENUKA Hydrochlorothiazide (Hydrochlorothiazide 25 Mg Tablet) 25 mg PO DAILY [facility]; Protocol Last Admin: 07/26/23 08:31 Dose: 25 mg Documented By: RENUKA Piperacillin Sod/Tazobactam (Sod 3.375 gm/ Sodium Chloride) 50 mls @ 100 mls/hr IV Q6H [facility] Last Infusion: 07/26/23 09:05 Dose: Infused Documented By: RENUKA Melatonin (Melatonin 3 Mg Tablet) 6 mg PO BEDTIME PRN PRN Reason: Insomnia Last Admin: 07/24/23 20:42 Dose: 6 mg Documented By: GIO Methylprednisolone Sodium Succinate (Methylprednisolone Sod Succ 40 Mg/Ml Vial) 40 mg IVPUSH Q12H [facility] Last Admin: 07/26/23 11:17 Dose: 40 mg Documented By: RENUKA Multivitamins/Vitamin C (Multivitamin Tablet) 1 tab PO DAILY [facility] Last Admin: 07/26/23 08:31 Dose: 1 tab Documented By: RENUKA Omeprazole (Omeprazole 20 Mg Capsule.) 20 mg PO BID@0630,1630 [facility] Last Admin: 07/26/23 05:18 Dose: 20 mg Documented By: IRVING Ondansetron HCl (Ondansetron Hcl 4 Mg/2 Ml Vial) 4 mg IVPUSH Q8H PRN PRN Reason: Nausea and Vomiting Sodium Chloride (0.9 % Sodium Chloride Flush 3 Ml Syringe) 3 ml IVFLUSH QSHIFT [facility] Last Admin: 07/26/23 08:32 Dose: 3 ml Documented By: RENUKA Vitamin D (Cholecalciferol (Vitamin D3) 25 Mcg Tablet) 25 mcg PO DAILY [facility] Last Admin: 07/26/23 08:31 Dose: 25 mcg Documented By: RENUKA Labs 07/26/23 05:04 07/26/23 05:04 Labs: Laboratory Results - last 24 hr 07/26/23 05:04 MCV 85.2 MCH 27.9 MCHC 32.8 RDW 14.6 Plt Count 442 H MPV 9.3 L Absolute Nucleated RBC 0.000 Nucleated RBC % (auto) 0.0 Anion Gap 13 Estim Creat Clear Calc 75.5 Estimated GFR > 60 Random Glucose 150 H Calcium 9.8 D Microbiology Microbiology Results: Microbiology 07/24/23 10:47 Blood Culture - Preliminary Blood - Venous No growth after 48 hours. 07/24/23 07:53 Blood Culture - Preliminary Blood - Venous No growth after 48 hours. Assessment and Plan (1) COPD with acute exacerbation: Status: Acute (2) Bronchiectasis with (acute) exacerbation: Status: Acute Plan Pt is a 52-year-old male with a PMH significant for?bronchiectasis, moderate persistent asthma, HTN, HLD, and GERD who presents to the ED with?worsening fatigue, nonproductive cough, SOB, and RAMIREZ. Pt will be admitted to the hospital for treatment and further evaluation of of acute bronchiectasis exacerbation with sepsis I failed outpatient therapy. Bronchiectasis exacerbation with sepsis Improving Continue Zosyn started 07/24/2023 DuoNebs, Solu-Medrol, benzonatate Monitor respiratory status Diarrhea likely from Amoxicillin, monitor HTN Continue amlodipine, hydrochlorothiazide HLD Continue statin GERD Continue pantoprazole Full Code DVT Prophylaxis: Lovenox Pt will require a hospitalization overnight for treatment of?acute bronchiectasis exacerbation with sepsis that failed outpatient therapy. patient will require hospitalization for administration IV antibiotics, IV steroids, breathing treatments, and close monitoring of respiratory status. Quality Stroke Does the patient have a stroke diagnosis?: No VTE Prior VTE?: No VTE Risk Level:: Medical - moderate - high VTE Device Contraindication: Treatment Not Indicated VTE Drug Contraindication: N/A - Med Ordered
--- NOTE | 2023-07-26 13:52 | MHC.CM.PN ---
pt no ready for dc at this time plan remanis home
[2023-07-26] MEDS: Acetaminophen 325 MG TABLET 650 MG PO (14:30)
[2023-07-26] MEDS: Enoxaparin Sodium 40 MG/0.4 ML SYRINGE SUBCUT (18:01)
[2023-07-26] MEDS: Famotidine 20 MG TABLET 40 MG PO (21:05)
[2023-07-27 03:02] VITALS: BP 147/89; PULSE 94; RESP 16; TEMP 36.6; O2SAT 97
[2023-07-27] MEDS: Piperacillin Sodium/Tazobactam 3.375 GM in 0.9 % Sodium Chloride 50 ML IV ×2 (03:26→08:13)
[2023-07-27] MEDS: Omeprazole 20 MG CAPSULE.DR PO (06:22)
[2023-07-27 07:23] VITALS: BP 152/92; PULSE 87; RESP 18; TEMP 36.6; O2SAT 95
[2023-07-27] MEDS: Acetaminophen 325 MG TABLET 650 MG PO (07:27)
[2023-07-27] MEDS: 0.9 % Sodium Chloride Flush 3 ML SYRINGE IVFLUSH (07:27)
[2023-07-27] MEDS: Fluticasone/Umeclidinium/Vilanterol 200/62.5/25 BLST.W.DEV 1 PUFF INHALE (07:40)
[2023-07-27 07:41] VITALS: PULSE 87; RESP 18; O2SAT 97
[2023-07-27] MEDS: Albuterol/Iprat 2.5/0.5MG 3 ML AMPUL.NEB INHALE (07:41)
[2023-07-27] MEDS: hydroCHLOROthiazide 25 MG TABLET PO (08:13)
[2023-07-27] MEDS: Ascorbic Acid 500 MG TABLET PO (08:13)
[2023-07-27] MEDS: Atorvastatin Calcium 40 MG TABLET PO (08:13)
[2023-07-27] MEDS: Multivitamin TABLET 1 TAB PO (08:13)
[2023-07-27] MEDS: Cholecalciferol (Vitamin D3) 25 MCG TABLET PO (08:13)
[2023-07-27] MEDS: amLODIPine Besylate 5 MG TABLET PO (08:13)
[2023-07-27] MEDS: guaiFENesin LA 600 MG TAB.ER.12H PO (08:13)
[2023-07-27] MEDS: methylPREDNISolone Sod Succ 40 MG/ML VIAL IVPUSH (10:16)
--- NOTE | 2023-07-27 10:47 | PM.DS ---
DS: Providers Provider Date of Service: 07/27/23 Date of admission: 07/24/23 18:33 Primary care physician: Genevieve Lama DO DS: Diagnosis Discharge Diagnosis (1) COPD with acute exacerbation: Status: Acute (2) Bronchiectasis with (acute) exacerbation: Status: Acute (3) Sepsis: Status: Acute DS: Summary Hospital Course Hospital Course: Admission note HPI Pt is a 52-year-old male with a PMH significant for?bronchiectasis, moderate persistent asthma, HTN, HLD, and GERD who presents to the ED with?worsening fatigue, nonproductive cough, SOB, and RAMIREZ. Patient states that symptoms started with nonproductive cough approximately 2 weeks ago, and then developed into weakness, fatigue, myalgias. Endorses chills, but no fever. One week ago patient began experiencing right sided nonradiating chest pain associated with cough. Reports it feels like somebody is poking him in the chest with a sharp object. Patient also states he has been experiencing diarrhea for the past 2 weeks. Last episode at 01:00 this morning when he woke up to use the bathroom. Of note, patient presented to the ED 2 days ago for similar symptoms and was discharged home with a prescription for amoxicillin. Patient took antibiotics as prescribed, but received no relief. In the ED pt was afebrile but tachycardic up to 97, tachypneic up to 26, and mildly hypertensive up to 132/91. Labs were significant for leukocytosis 13.1, otherwise grossly unremarkable. Stable H&H. No electrolyte abnormalities. Renal and hepatic function baseline. Serial toponins negative. Tested negative for COVID and influenza type a and B. CXR showed stable right perihilar airspace opacities compatible with severe bronchiectasis. CT of chest found stable right middle lobe atelectasis/volume loss. Also found stable chronic bronchiectasis in the right upper and right middle lobes with increasing central right upper lobe nodules/superior hilar lymphadenopathy, possibly reactive. EKG demonstrated Normal sinus rhythm without evidence of ST elevations or depressions. Pt was treated with DuoNebs, Solu-Medrol, cefepime, amoxicillin, benzonatate, and Mag sulfate. Pt will be admitted to the hospital for treatment and further evaluation of of acute bronchiectasis exacerbation with sepsis I failed outpatient therapy. Hospital course The patient was admitted for treatment of acute Bronchiectasis exacerbation with sepsis on admission. cultures remained negative. treated with Zosyn started 07/24/2023 along with DuoNebs, Solu-Medrol, benzonatate with good response over the course of hospital stay. He was able to ambulate on room air with no reported dyspnea. Continue Levofloxacin for 7 more days Continue Prednisone as prescribed Follow with Pulmonology as needed outpatient Time Attestation Discharge coordination time: Greater than 30 minutes Quality: Safe Use of Opioids Does Pt have an Active Cancer Diagnosis on the Problem List?: No Quality: Stroke Does the patient have a stroke diagnosis?: No Physical Exam Vital Signs: Vital Signs: Last Vital Signs Temp 98 F 07/27/23 07:23 Pulse 87 07/27/23 07:41 Resp 18 07/27/23 07:41 BP 152/92 H 07/27/23 07:23 Pulse Ox 95 07/27/23 07:23 O2 Del Method Room Air 07/27/23 07:23 BMI result Body Mass Index 25.0 Const: Other: Constitutional : Awake, interactive, not in distress Neck : Normal inspection, Supple Cardiovascular : RRR, no JVP, no lower extremity edema Respiratory : good bilateral air entry improved at right base, no crackles, wheezes or rhonchi Gastrointestinal: soft, lax, Normal bowel sounds, Non tender Skin : Warm, Dry Neurological : Alert & oriented x3, No focal deficit DS: Data Data Completed and Pending Completed studies during hospitalization [Text1]: Procedures Drainage of Bilateral Lungs, Via Natural or Artificial Opening Endoscopic (09/10/22) Excision of Right Middle Lobe Bronchus, Via Natural or Artificial Opening Endoscopic, Diagnostic (09/10/22) Excision of Trachea, Via Natural or Artificial Opening Endoscopic, Diagnostic (09/10/22) Extraction of Right Middle Lung Lobe, Via Natural or Artificial Opening Endoscopic, Diagnostic (09/10/22) Labs on day of discharge: Preliminary micro results at discharge 07/24/23 10:47 Blood Culture - Preliminary Blood - Venous No growth after 48 hours. 07/24/23 07:53 Blood Culture - Preliminary Blood - Venous No growth after 48 hours. Imaging Chest x-ray: Radiologist's impression: ITS Impressions Chest X-Ray 07/24/23 08:14 IMPRESSION: No change. Chest CT 07/24/23 15:00 IMPRESSION: Stable right middle lobe atelectasis/volume loss. Stable chronic bronchiectasis in the right upper and right middle lobes. Increasing central right upper lobe nodules/superior hilar lymphadenopathy. This may be reactive. Short-term imaging follow-up in several months recommended. Increasing bronchial wall thickening and peribronchial nodules in the right lower lobe suggestive of active airways disease. Stable faint bronchiectasis and airways disease in the left lower lobe. Fleischner guidelines were followed. Discharge Plan Discharge Anticipated Discharge Date/Time: 07/27/23 10:42 Patient Disposition: Home, Self-Care Discharge Diagnosis: Bronchiectasis Referrals: Genevieve Lama DO [Primary Care Provider] - 1 Week Discharge Medications: New guaifenesin [Mucinex] 600 mg Tablet Extended Release 12hr 600 mg PO BID Qty: 14 0RF prednisone 20 mg tablet 40 mg PO DAILY Qty: 6 0RF levofloxacin 750 mg tablet 750 mg PO Q24H Qty: 7 0RF Continued albuterol sulfate 90 mcg/actuation HFA aerosol inhaler 2 puff inhalation Q6H PRN (Reason: for wheezing) Qty: 1 0RF Xolair 150 mg/mL syringe 150 mg subcut Q4W 28 Days Qty: 1 12RF benzonatate 200 mg capsule 200 mg PO TID PRN (Reason: cough) Qty: 14 0RF famotidine 40 mg tablet 40 mg PO BEDTIME pantoprazole 40 mg tablet,delayed release (DR/EC) 40 mg PO BID Trelegy Ellipta 200-62.5-25 mcg blister with device 1 ea INHALATION DAILY ascorbic acid (vitamin C) 500 mg Tablet 500 mg PO DAILY cholecalciferol (vitamin D3) 25 mcg (1,000 unit) Tablet 25 mcg PO DAILY atorvastatin 40 mg tablet 40 mg PO QAM hydrochlorothiazide 25 mg tablet 25 mg PO DAILY multivitamin Tablet 1 tab PO DAILY fluticasone propionate 50 mcg/actuation spray,suspension 2 spray intranasal DAILY PRN (Reason: Congestion) amlodipine 5 mg tablet 5 mg PO DAILY Discontinued amoxicillin 500 mg capsule 1,000 mg PO TID 10 Days Qty: 60 0RF Discharge Orders: Discharge Order (Routine); Ordered 07/27/23 Ordered By: Mohit Verdin Diet: Advance to usual diet Activity on Discharge: As tolerated Stand Alone Forms: Patient Portal Discharge page Care Plan Goals: Read below Health Concerns: Read below Plan of Treatment: Read below Assessment: You were admitted to the hospital for treatment of lung infection. responded well to IV antibiotics and steroids. Continue Levofloxacin for 7 more days Continue Prednisone as prescribed Follow with Pulmonology as needed outpatient
== END 2023-07-27 11:13 | disposition home or self-care (01) | DRG 192 ==
LOC: HO.ED 16:59 → HO.EDOVER 18:47 → HO.S3 07-25 07:13
PROVIDERS: Physician Assistant Medical; Admitting Provider Student in an Organized Health Care Education/Training Program; Emergency Provider Emergency Medicine; PCP Family Medicine; Visit Provider Student in an Organized Health Care Education/Training Program
DX: J47.1 Bronchiectasis with (acute) exacerbation (principal); I10 Essential (primary) hypertension; E78.5 Hyperlipidemia, unspecified; K21.9 Gastro-esophageal reflux disease without esophagitis; J45.40 Moderate persistent asthma, uncomplicated; Z20.822 Contact with and (suspected) exposure to COVID-19; Z87.891 Personal history of nicotine dependence; Z79.899 Other long term (current) drug therapy
CPT/HCPCS: 36415; 71046; 71260; 80048; 83605; 84484; 85025; 85027; 87040; 87502; 87635; 93005; 94640; 99285; J0692; J1650; J2543; J2920; J2930; J3475; Q9967

== ENCOUNTER → 2023-07-24 07:21 | Outpatient (BNV) | payer OTHER, SELFPAY | PROVIDERS: Emergency Provider Emergency Medicine; PCP Family Medicine; Visit Provider Internal Medicine Cardiovascular Disease | DX: R94.31 Abnormal electrocardiogram [ECG] [EKG] (principal) | CPT/HCPCS: 93010 ==

== ENCOUNTER → 2023-07-24 18:33 | Outpatient (BNV) | payer OTHER, SELFPAY | PROVIDERS: Admitting Provider Student in an Organized Health Care Education/Training Program; Emergency Provider Emergency Medicine; PCP Family Medicine; Visit Provider Student in an Organized Health Care Education/Training Program | DX: J44.1 Chronic obstructive pulmonary disease with (acute) exacerbation (principal); J47.1 Bronchiectasis with (acute) exacerbation; A41.9 Sepsis, unspecified organism | CPT/HCPCS: 99223; 99232; 99233; 99238 ==

== ENCOUNTER 2023-08-08 09:53 | Outpatient (REF) | payer OTHER, SELFPAY ==
[2023-08-08 09:55] VITALS: BP 117/75; PULSE 100; RESP 18; TEMP 37; O2SAT 97
[2023-08-08] MEDS: Omalizumab 150 MG/ML SYRINGE SUBCUT (10:00)
== END 2023-08-08 09:54 | disposition home or self-care (01) ==
LOC: HO.MDS 09:53
PROVIDERS: Visit Provider Internal Medicine Pulmonary Disease
DX: J45.50 Severe persistent asthma, uncomplicated (principal)
CPT/HCPCS: 96372

== ENCOUNTER 2023-08-15 06:05 | Day surgery (SDC) | payer OTHER, SELFPAY ==
[2023-08-15 06:31] VITALS: BP 122/90; PULSE 94; RESP 18; TEMP 36.2; O2SAT 95; BMI 27.3
--- NOTE | 2023-08-15 06:46 | MHC.SHP ---
Documented by User: Mainor Piña MD 08/15/23 07:42 Pre-Procedural Eval Section A - 24 Hr Update-Section A only Date of Service: 08/15/23 Section B - Complete if H&P > 30 days Chief Complaint: Gastro-esophageal reflux disease without esophagit Details of Present Illness: colon screening Relevant Family History (Specify if Yes): No Relevant Social History: None Present Medications: see Short Stay Collaborative assessment Medical History: Significant History (Asthma Bronchiectasis COPD (chronic obstructive pulmonary disease) Heartburn Hypoxia Pneumonia Recurrent pneumonia Sepsis) History of Previous Operations: Relevant previous surgery/procedure and date(s) (egd,colo 2019) Allergies: Allergies Allergy/AdvReac Type Severity Reaction Status Date / Time clindamycin [Clindamycin] Allergy Severe SEVERE Verified 07/24/23 07:30 ITCHING Review of Systems Sugical H&P ROS: Negative: Constitution, Cardiovascular, Respiratory, Neurological, Psychiatric, Hem-Onc, Allergic/Immunologic, Gastrointestinal, Genitourinary, Musculoskeletal, Integumentary, Endocrine and Eyes/Ears/Nose/Throat Exam Surgical H&P Exam: Normal: HEENT, Normal: Heart, Normal: Lungs, Normal: Extremities, Normal: Abdomen, Normal: Skin and Normal: Neurological Plan Diagnosis/Plan: Unchanged I have reviewed the history and physical and performed a pertinent physical examination on my patient. No changes have occurred unless specified. Time Spent With Patient Time: Total time managing care of this patient today ____ minutes. Documented by User: Kamille Love MD 08/15/23 07:35 Pre-Procedural Eval Section A - 24 Hr Update-Section A only Date of Service: 08/15/23 Section B - Complete if H&P > 30 days Chief Complaint: Gastro-esophageal reflux disease without esophagit
[2023-08-15] MEDS: Lactated Ringers 1,000 ML 50 ML IVCONT (07:30)
--- NOTE | 2023-08-15 07:35 | HO.ANESPROP2 ---
HPI - Anesthesia Eval Consult details Narrative: 52 yo male patient for EGD, Colonoscopy. 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) Acid reflux (Acute) Tubular adenoma (Acute) Hemoptysis (Acute) Chronic pneumonia (Acute) Sepsis (Acute) Community acquired pneumonia (Acute) Asthma (Acute) Environmental allergies (Acute)z Abnormal CT scan, chest (Acute) Upper respiratory infection (Acute) COVID-19 (Acute) Bronchiectasis (Acute) Past Medical History Medical History (Updated 08/15/23 @ 08:13 by Kamille Love MD) Tubular adenoma Hemoptysis COVID-19 Respiratory infection Asthma COPD (chronic obstructive pulmonary disease) Recurrent pneumonia Heartburn Bronchiectasis Family History Family History Sister Breast CA Family history of problems with anesthesia: No Surgical History Surgical History (Updated 08/13/23 @ 11:06 by Sandra Bynum RN) History of bronchoscopy Hx of hand surgery History of esophagogastroduodenoscopy (EGD) H/O colonoscopy History of Problems with Anesthesia: No Social History Social History Household Members: None Housing: Apartment Do you presently have visiting nurse or other home services: No Alcohol intake: current Alcohol intake frequency: holidays/special occasions only Patient Tobacco Use Status: Former Tobacco user Tobacco use type: Cigarette e-Cigarette/Vaping Use: Never Used Second Hand Smoke Exposure: No Use of substances other than those prescribed or required for medical reasons: No Substance Use Type: Unknown Are you DNR?: No Advance Directives: No Advance Directives Information Provided: Yes Advance Directives Date on File: 06/21/21 service: No Current occupational status: employed Meds Allergies Allergy/AdvReac Type Severity Reaction Status Date / Time clindamycin [Clindamycin] Allergy Severe SEVERE Verified 07/24/23 07:30 ITCHING Active Medications: Current Medications Lactated Ringer's (Lr) 1,000 mls @ 50 mls/hr IVCONT .Q20H ARIELLE Last Admin: 08/15/23 07:30 Dose: 50 mls/hr Home Medications Medication Instructions Recorded Confirmed Last Taken Type fluticasone propionate 50 2 spray intranasal DAILY PRN 09/22/21 08/13/23 09/06/22 History mcg/actuation nasal Congestion spray,suspension hydrochlorothiazide 25 mg tablet 25 mg PO DAILY 09/10/22 08/13/23 07/23/23 History multivitamin 1 tab PO DAILY 09/10/22 08/13/23 07/23/23 History amlodipine 5 mg tablet 5 mg PO DAILY 02/14/23 08/13/23 07/23/23 History ascorbic acid (vitamin C) 500 mg 500 mg PO DAILY 07/24/23 08/13/23 07/23/23 History tablet atorvastatin 40 mg tablet 40 mg PO QAM 07/24/23 08/13/23 07/23/23 History cholecalciferol (vitamin D3) 25 25 mcg PO DAILY 07/24/23 08/13/23 07/23/23 History mcg (1,000 unit) tablet famotidine 40 mg tablet 40 mg PO BEDTIME heartburn 07/24/23 08/13/23 07/23/23 History fluticasone fur. 200 mcg-umeclid 1 ea inhalation DAILY 07/24/23 08/13/23 08/15/23 History 62.5 mcg-vilant 25 mcg inhalat.powder (Trelegy Ellipta) pantoprazole 40 mg tablet,delayed 40 mg PO BID 07/24/23 08/13/23 07/23/23 History release Exam Height,Weight and Vital Signs: Height 5 ft 9 in Weight 83.915 kg Last Vital Signs Temp 97.2 F 08/15/23 06:31 Pulse 94 08/15/23 06:31 Resp 18 08/15/23 06:31 BP 122/90 H 08/15/23 06:31 Pulse Ox 95 08/15/23 06:31 O2 Del Method Room Air 08/15/23 06:31 Airway Mallampati Class: II TM Dist: >3cm Neck ROM: Full Loose/Missing/Broken Teeth: No (Denies broken, loose, missing teeth) Heart: RRR Lungs: CTAB Assessment and Plan Assessment Anesthesia Assessment: Anesthesia Plan Discussed and Chart Reviewed Final Anesthetic Review Family History of Problems with Anesthesia: No History of Problems with Anesthesia: No NPO: Yes ASA Class: III Final Preanesthetic Review: No Changes in Pt Med Stat, Meds/Allgs Chart Reviewed, Consent Obtained/Reviewed and Anes Risks/Benef Reviewed Patient Risk: Intermediate Procedure Risk: Low Assessment/Block/Sedation in SS: Assess/Block/Sedation-SS Anesthetic Plan Anesthetic Plan: MAC: and TIVA Disposition: Standard PACU
--- NOTE | 2023-08-15 07:42 | W.PM.OPN ---
Operative Note Operative Note Date of Service: 08/15/23 Narrative: Operative Information Procedure Description: EGD, Colonoscopy Indication: GERD, colon screen Anesthesia: MAC FLEXIBLE TRANSORAL UPPER GASTROINTESTINAL ENDOSCOPY AND COLONOSCOPY PROCEDURE NOTE UPPER ENDOSCOPY Consent: Indications for the procedure and potential complications of bleeding, perforation, reaction to medications and missed diagnosis were discussed with the patient and informed consent was obtained. Instrument: Olympus GIF H 190 J mid size upper endoscope Monitoring: Vital signs and clinical assessment, continuous EKG monitoring, Pulse oximetry, Carbon Dioxide monitoring and blood pressure monitoring were done throughout the procedure. Procedure: The patient was placed in the left lateral decubitis position and pre-procedure medications were administered and a bite block was placed. The endoscope was inserted into the mouth and advanced under direct vision to the third part of duodenum. A careful inspection was made as the upper endoscope was withdrawn including a retroflexed examination of the proximal stomach; Findings and interventions are described below. Findings: Larynx:normal Esophagus: GE junction at 36 cm, diaphragm hiatus at 38 cm, consistent with small hiatal hernia, 2 cm. Few small linear erosions noted LA grade B. Stomach: Mild erythema. Biopsies were obtained. Grade 2 flap valve on retroflexed examination of the cardia. Duodenum: Normal bulb and descending duodenum, Intervention: Biopsies as noted above, COLONOSCOPY Instrument: Olympus variable stiffness pediatric scope 190L Colonoscopy Monitoring: Vital signs and clinical assessment, continuous EKG monitoring, Pulse oximetry, Carbon Dioxide monitoring and blood pressure monitoring were done throughout the procedure. Colon withdrawal time was 10 minutes. Procedure: The patient was placed in the left lateral decubitis position and pre-procedure medications were administered. After a digital rectal examination of the ano-rectum, the video colonoscope was inserted into the rectum and advanced through the colon to the cecum/TI. The colonoscope was slowly withdrawn in a retrograde panoramic fashion and the colon mucosa was carefully examined including a retroflexed view of the rectum. Findings and interventions are described below. Procedure Difficulty:moderate Findings: Terminal Ileum-normal Cecum: 9-10 mm sessile polyp removed with cold snare Ascending Colon: 6-7 mm sessile polyp removed with cold forceps Transverse Colon -normal Descending Colon: 6-9 mm sessile polyp removed with cold forceps Sigmoid Colon: moderate severe diverticulosis Rectum: Retroflexion with small internal hemorrhoids, grade I Anorectum - normal Colon preparation: [place] Bowel Preparation Scale Right colon; 2 Transverse colon: 2 Left colon; 1-2 (0 = Unprepared colon segment with mucosa not seen due to solid stool that cannot be cleared. 1 = Portion of mucosa of the colon segment seen, but other areas of the colon segment not well seen due to staining, residual stool and/or opaque liquid. 2 = Minor amount of residual staining, small fragments of stool and/or opaque liquid, but mucosa of colon segment seen well. 3 = Entire mucosa of colon segment seen well with no residual staining, small fragments of stool or opaque liquid) Impression and Post Procedure Diagnosis: Endoscopy Findings: mild gastritis erosive esophagitis small hiatal hernia Colonoscopy Findings: diverticulosis colon polyps internal hemorrhoids Plan: Await Pathology results Repeat Colonoscopy in 5 years due to polyps and fair prep or earlier if clinically indicated High fiber diet leaflet avoid straining at stool, epsom salts and sitz bath, anusol supps or cream check compliance with PPI and make sure taking correctly Above findings were reviewed with the patient and relevant handouts were provided if indicated.
[2023-08-15 08:15] VITALS: BP 105/72; PULSE 87; RESP 17; TEMP 36.8; O2SAT 97
[2023-08-15 08:30] VITALS: BP 122/87; PULSE 92; RESP 18; TEMP 36.8; O2SAT 95
== END 2023-08-15 08:54 | disposition home or self-care (01) ==
PROVIDERS: PCP Family Medicine; Visit Provider Internal Medicine Gastroenterology
PROC: (CPT 45385; principal; 2023-08-15 07:30)
DX: Z12.11 Encounter for screening for malignant neoplasm of colon (principal); Z86.010 Personal history of colon polyps; D12.2 Benign neoplasm of ascending colon; D12.4 Benign neoplasm of descending colon; K51.40 Inflammatory polyps of colon without complications; K57.30 Diverticulosis of large intestine without perforation or abscess without bleeding; K64.0 First degree hemorrhoids; K21.9 Gastro-esophageal reflux disease without esophagitis; K29.60 Other gastritis without bleeding; K20.80 Other esophagitis without bleeding; K44.9 Diaphragmatic hernia without obstruction or gangrene; J44.9 Chronic obstructive pulmonary disease, unspecified; J47.9 Bronchiectasis, uncomplicated; Z87.01 Personal history of pneumonia (recurrent); Z79.899 Other long term (current) drug therapy; Z87.891 Personal history of nicotine dependence; Z88.1 Allergy status to other antibiotic agents
CPT/HCPCS: 45385; 45380; 43239; 88305; 88313; 88342; J2704

== ENCOUNTER → 2023-08-15 06:05 | Outpatient (BNV) | payer OTHER, SELFPAY | PROVIDERS: PCP Family Medicine; Visit Provider Internal Medicine Gastroenterology | DX: Z12.11 Encounter for screening for malignant neoplasm of colon (principal); K63.5 Polyp of colon; D12.4 Benign neoplasm of descending colon; K57.30 Diverticulosis of large intestine without perforation or abscess without bleeding; K64.0 First degree hemorrhoids; K21.00 Gastro-esophageal reflux disease with esophagitis, without bleeding; K29.70 Gastritis, unspecified, without bleeding | CPT/HCPCS: 43239; 45380; 45385 ==

== ENCOUNTER 2023-08-21 10:18 | Outpatient (AMB) | payer OTHER, SELFPAY ==
--- NOTE | 2023-08-21 10:21 | MHC.OFFVIS ---
Intake Vital Signs 08/21/23 10:22 Height 5 ft 9 in Weight 189 lb BMI 27.9 BP 122/77 Blood Pressure Location Rt brachial Position Sitting Pulse 108 H Pulse Source Doppler Pulse Oximetry (%) 97 Oxygen Delivery Method Room Air Intake Visit Reasons: Asthma Allergies clindamycin [Clindamycin] Allergy (Severe, Verified 08/21/23 10:29) SEVERE ITCHING HPI Asthma HPI Details 52-year-old gentleman, nonsmoker, with no history of inhalation industrial dusts or vapors, no prior history of lung concerns, with COVID-19 back in 2019 recently hospitalized on 06/21/2021 for pneumonia now followed for both asthma and environmental allergies. Patient did have a recent exacerbation requiring hospital evaluation. Now his symptoms are at baseline and controlled on Xolair, Trelegy, and albuterol MDI. [facility] Medical History (Updated 08/15/23 @ 08:13 by Kamille Love MD) Tubular adenoma Hemoptysis COVID-19 Respiratory infection Asthma COPD (chronic obstructive pulmonary disease) Recurrent pneumonia Heartburn Bronchiectasis Surgical History (Updated 08/16/23 @ 09:47 by Hallie Castaneda) History of bronchoscopy Hx of hand surgery History of esophagogastroduodenoscopy (EGD) H/O colonoscopy Family History Sister Breast CA Social History Household Members: None Housing: Apartment Do you presently have visiting nurse or other home services: No Alcohol intake: current Alcohol intake frequency: holidays/special occasions only Patient Tobacco Use Status: Former Tobacco user Tobacco use type: Cigarette e-Cigarette/Vaping Use: Never Used Second Hand Smoke Exposure: No Substance Use Type: Unknown Advance Directives Date on File: 06/21/21 service: No Current occupational status: employed Review of Systems Const Denies daytime sleepiness, Denies excessive sweating, Denies fatigue, Denies fever(s), Denies lethargy, Denies malaise, Denies night sweats, Denies snoring and Denies weight loss Eyes Denies blurry vision and Denies itchy eyes ENT Denies nasal congestion, Denies post nasal drip, Denies sinus pain, Denies sinus pressure and Denies other ( Thrush) Card Denies chest pain, Denies pedal edema, Denies dyspnea, Denies orthopnea and Denies paroxysmal nocturnal dyspnea Resp Denies cough, Denies hemoptysis, Denies excessive phlegm production, Denies dyspnea, Denies snoring and Denies wheezing GI Denies abdominal pain and Denies heartburn Musc Denies myalgias, Denies arthralgias and Denies joint swelling Skin/Breast Denies rash Neuro Denies memory loss and Denies seizure-like activity Psych Denies abnormal sleep pattern, Denies anxiety and Denies memory loss Endo Denies excessive sweating, Denies fatigue and Denies heat intolerance William/Lymph Denies easy bruising Aller/Immun Denies itchy eyes, Denies seasonal rhinorrhea and Denies wheezing Physical Exam Vital Signs: Last Vital Signs Pulse 108 H 08/21/23 10:22 BP 122/77 08/21/23 10:22 Pulse Ox 97 08/21/23 10:22 Oxygen Delivery Method Room Air 08/21/23 10:22 BMI result Body Mass Index 27.9 Const General: no acute distress and alert Nutritional Appearance: not obese Orientation/consciousness: Other orientation findings ( oriented) HEENT Head: Yes atraumatic Eyes General: appearance normal, both eyes and all related structures Sclerae: sclerae normal EOM: EOMs intact bilaterally Neck Neck: Yes supple Lymphatic: no lymphadenopathy noted Resp Effort & Inspection: normal respiratory effort and no use of accessory muscles Auscultation: clear to auscultation bilaterally Cardio Rate: regular rate Rhythm: regular rhythm Heart sounds: no gallops, no murmurs and no rubs Skin General skin exam: other ( warm) Extrem General: No clubbing, No cyanosis and No edema Assessment & Plan Assessment & Plan (1) Asthma: Code(s): J45.909 - Unspecified asthma, uncomplicated Plan: Controlled on current regimen of Xolair, Trelegy, and albuterol MDI. Continue current regimen. (2) Environmental allergies: Code(s): Z91.09 - Other allergy status, other than to drugs and biological substances Plan: Well controlled on Xolair. Continue current regimen. Coding Level of Care Code Est Pt Level 4 (41898) Diagnoses Asthma J45.909 Environmental allergies Z91.09
[2023-08-21 10:22] VITALS: BP 122/77; PULSE 108; O2SAT 97; BMI 27.9
== END 2023-08-21 10:38 | disposition home or self-care (01) ==
PROVIDERS: PCP Family Medicine; Visit Provider Internal Medicine Pulmonary Disease
DX: J45.909 Unspecified asthma, uncomplicated (principal); Z91.09 Other allergy status, other than to drugs and biological substances
CPT/HCPCS: 99214

== ENCOUNTER → 2023-08-21 10:18 | Outpatient (BNVA) | payer OTHER, SELFPAY | PROVIDERS: PCP Family Medicine; Visit Provider Internal Medicine Pulmonary Disease ==